=== PATIENT | female | born 1975 | race Caucasian/White ===

== ENCOUNTER 2017-03-27 01:07 | Emergency (ER) | payer BC, SELFPAY | END 2017-03-27 04:01 | disposition home or self-care (01) | PROVIDERS: Emergency Provider Emergency Medicine; Family Provider Internal Medicine Adolescent Medicine; Visit Provider Emergency Medicine | DX: R50.9 Fever, unspecified (principal); D64.9 Anemia, unspecified; E78.5 Hyperlipidemia, unspecified | CPT/HCPCS: 74176; 80053; 81001; 82150; 83690; 85025; 87275; 87276; 96365; 99283 ==

== ENCOUNTER → 2017-04-30 13:03 | Outpatient (CLI) | payer OTHER, SELFPAY ==
[2017-04-30 13:54] LABS: Basophils # 0.1 K/mm3 (0-0.2); Basophils % 1.1 % (0.1-2.0); Eosinophils # 0.2 K/mm3 (0.0-0.4); Eosinophils % 3.5 % (0.1-12.0); Hematocrit 44.4 % (37.0-47.0); Hemoglobin 14.6 g/dL (12.2-16.2); Lymphocytes # 1.4 K/mm3 (0.7-4.5); Lymphocytes % 27.4 K/mm3 (10-50); Mean Corpuscular HGB Conc 32.9 g/dL (31.8-35.4); Mean Corpuscular Hemoglobin 29.1 pg (27.0-31.2); Mean Corpuscular Volume 88.4 fl (81-99); Mean Platelet Volume 9.9 fl (7.4-10.4); Monocytes # 0.4 K/mm3 (0.1-1.0); Monocytes % 8.5 % (1.7-9.3); Neutrophils # 2.9 K/mm3 (1.8-7.8); Neutrophils % 59.5 % (37.0-80.0); Platelet Count 224 K/mm3 (142-424); Red Blood Count 5.02 M/mm3 (4.20-5.40); Red Cell Distribution Width 13.9 % (11.5-17.5); White Blood Count 4.9 K/mm3 (4.8-10.8)
[2017-04-30 22:58] LABS: Alanine Aminotransferase 26 U/L (12-78); Albumin Level 3.9 gm/dL (3.4-5.0); Albumin/Globulin Ratio 1.6 (1.1-1.8); Alkaline Phosphatase 62 U/L (46-116); Anion Gap 15.4 mEq/L (5-15); Aspartate Amino Transferase 23 U/L (15-37); Bilirubin,Total 0.3 mg/dL (0.2-1.0); Blood Urea Nitrogen 12 mg/dL (7-18); Calcium 8.4 mg/dL (8.5-10.1); Carbon Dioxide 24 mmol/L (21.0-32.0); Chloride 109 mmol/L (98-107); Chol/HDL Ratio 2.8 (1-3.5); Cholesterol 142 mg/dL (140-200); Creatinine,Serum 0.74 mg/dL (0.55-1.02); Estimated Glomerular Filt Rate 86 ml/min (>60); Ferritin 12 ng/mL (8-388); GFR (African American) 104 ML/MIN (>60); Globulin 2.5 gm/dl (1.3-3.2); Glucose 89 mg/dL (74-106); HDL Cholesterol 51 mg/dL (29-89); LDL Cholesterol 80 mg/dL (0-130); Potassium 4.4 mmoL/L (3.5-5.1); Sodium 144 mmol/L (136-145); Thyroid Stimulating Hormone 1.13 uIU/ml (0.358-3.740); Total Protein,Serum 6.4 gm/dL (6.4-8.2); Triglycerides 54 mg/dL (30-200); VLDL Cholesterol 11 mg/dL (0-40)
[2017-05-01 08:27] LABS: Iron 38 ug/dL (27-159); Iron Saturation 11 % (15-55); UIBC 323 ug/dL (131-425)
[2017-05-01 18:27] LABS: Vitamin D 25 Hydroxy 20.6 ng/mL (30.0-100.0)
[2017-05-01 18:28] LABS: Folate 13.9 ng/mL (>3.0); Vitamin B12 972 pg/mL (232-1245)
== END ==
PROVIDERS: PCP Nurse Practitioner Family; Visit Provider Nurse Practitioner Family
DX: R53.83 Other fatigue (principal); D50.9 Iron deficiency anemia, unspecified; Z00.00 Encounter for general adult medical examination without abnormal findings
CPT/HCPCS: 36415; 80053; 80061; 82607; 82652; 82728; 82746; 83550; 84443; 85025

== ENCOUNTER → 2017-06-16 07:17 | Outpatient (CLI) | payer OTHER, SELFPAY ==
[2017-06-16 10:05] LABS: Free Thyroxine Index 2.8 ug/dL (5.93-13.13); Magnesium 1.9 mg/dL (1.4-2.2); Thyroid Stimulating Hormone 1.38 uIU/ml (0.358-3.740); Triiodothryronine (T3) Uptake 35 % (31-39)
== END ==
PROVIDERS: Visit Provider Internal Medicine Adolescent Medicine
DX: R55 Syncope and collapse (principal); I95.1 Orthostatic hypotension
CPT/HCPCS: 36415; 82533; 83735; 84436; 84443; 84479

== ENCOUNTER → 2017-06-19 08:39 | Outpatient (CLI) | payer OTHER, SELFPAY ==
--- NOTE | 2017-06-19 08:44 | MR_ITS ---
MR head/brain wo con Ordering Physician: Demarcus Munroe MD Patient Age: 41 years: Female HISTORY: ITS.REASON: HEADACHE DISORDER Headaches with dizziness for weeks TECHNIQUE: : Precontrast Multiplanar FLAIR, T1, T2 weighted images along with axial diffusion/ADC imaging performed on 1.5 T. Siemens, MRI. Postcontrast imaging Following 12 mL ProHance T1-weighted images axial & coronal plane performed COMPARISON :September 2008 CT head without contrast,.. March 2010 & September 2013 CT head without contrast. FINDINGS The only abnormality on today's study is a a small bilobed cystic area, measures 10 mm AP x 7.5 mm transverse x 9 mm height. It contains a stable small central calcification which appears unchanged compared to CT head from 2008 well as 2013.. Is located in the white matter tracts just superior and separate to the to the atria of the left lateral ventricle This reflects a benign cystic feature such as a neural glial cyst, apparently with calcification.. On initially question a small porencephalic cyst but I do not see a connection to the left lateral ventricle but Small remote posttraumatic focus also a consideration.. There is NO abnormal vessels leading to this area on today's study to suggest AVM; & prior postcontrast CT head 2008 showed No enhancement about this area of calcification nor elsewhere at the brain.It has no mass effect. No gliosis about its margin to suggest a previous lacunar infarct. Overall I believe benign, / indolent incidental feature that can be followed. That stable calcification within this area measured just over 5 mm on the previous CT studies . The ventricles and basal cisterns otherwise appears satisfactory. The cranial cervical junction is normal. The posterior fossa is normal. The right and left IAC appear normal with unremarkable cranial nerve VII and VIII mastoid air cells appear satisfactory Sella and pituitary appear normal. . Remainder of the supratentorial and infratentorial brain appear normal. No subdural or extra-axial collections. Right maxillary sinus. Complete or near-complete opacification. This extends up to but does not appear to fully involve/occlude right ostiomeatal complex- suspect outflow pathway remains patent... There is no expansion of the right maxillary sinus. I suspect this reflects a very large retention cyst based on its view on sagittal images. There may be some associated mucosal thickening... Most important as it does not distort nor expand the hernandez of right maxillary sinus.. No expansion nor destruction. Chronic mucosal thickening also considered but less likely.. Other more Significant mass lesions unlikely. If. If dizzy and headaches suggest ENT follow-up to further evaluate this potential contributing feature. Left maxillary sinus with tiny unimpressive focal area of mucosal thickening anteriorly at the left maxillary sinus. This measures 7.5 x 5 mm.. Not significant. Ethmoid air cells, sphenoid sinus and frontal sinus are clear. Orbits survey and globes unremarkable. =====IMPRESSION ===== 1. No acute findings.. No recent or acute infarct 2. Small 1 cm bilobed cystic area located just superior & separate from the atria of Left lateral ventricle;. There appears to be a associated 5 mm calcification which was present and stable on CT studies dating back to 2008 through 2013. .. Appears to reflect a a benign/ indolent small incidental cystic area with associated stable calcifications since CT head studies that back to 2008.... 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 Less likely sequela of remote old trauma. Not felt to be of current significance.. However white consider follow-up MR with contrast within 6 months to additionally confirm stability particularly if headache or symptoms persist 3.
== END ==
PROVIDERS: Family Provider Internal Medicine Adolescent Medicine; PCP Nurse Practitioner Family; Visit Provider Internal Medicine Adolescent Medicine
DX: R51 Headache (principal)
CPT/HCPCS: 70551

== ENCOUNTER → 2017-07-22 13:22 | Outpatient (CLI) | payer OTHER, SELFPAY ==
--- NOTE | 2017-07-22 13:23 | CT_ITS ---
CT sinus wo con CLINICAL INDICATION: Headache, abnormal MRI ITS.REASON: Cyst in RT maxillary sinus cavity ORDERING PHYSICIAN: Brandon Donahue MD PATIENT AGE: 41 years comparison is made to MRI of 06/19/2017 TECHNIQUE:Axial, sagittal, and coronal images are generated and reviewed without contrast. All CT scans at the facility use one or more dose reduction, viz: automated exposure control; ma/kV adjustment per patient size (including targeted exams where dose is matched to indication; i.e. head); or right reconstruction technique. FINDINGS: The frontal, ethmoid, and sphenoid sinuses have an unremarkable appearance. A large ovoid soft tissue density is present in the right maxillary sinus measuring 3.3 x 2.7 x 3 cm consistent with a large retention cyst. The right ostomy or complex is patent. No evidence of destruction of the maxillary sinus. No sinus air-fluid level is evident. A small retention cyst is present in the left maxillary sinus inferiorly 4 mm No significant nasal septal deviation. There is moderate flattening of the right mandibular condyle consistent with osteoarthritic changes. Minimal osteoarthritis involves the left TMJ. No mastoid effusion. IMPRESSION: Large right maxillary sinus retention cyst at 3.3 x 2.7 x 3 cm TMJ arthropathy right worsening left Otherwise negative CT sinuses
== END ==
PROVIDERS: Family Provider Internal Medicine Adolescent Medicine; PCP Nurse Practitioner Family; Visit Provider Otolaryngology
DX: J34.1 Cyst and mucocele of nose and nasal sinus (principal)
CPT/HCPCS: 70486

== ENCOUNTER → 2017-08-07 10:54 | Outpatient (CLI) | payer OTHER, SELFPAY ==
[2017-08-07 12:18] LABS: Basophils % 0.6 % (0.1-2.0); Eosinophils # 0.1 K/mm3 (0.0-0.4); Hematocrit 40.3 % (37.0-47.0); Hemoglobin 13.5 g/dL (12.2-16.2); Mean Corpuscular HGB Conc 33.5 g/dL (31.8-35.4); Mean Corpuscular Hemoglobin 29.6 pg (27.0-31.2); Mean Corpuscular Volume 88.4 fl (81-99); Mean Platelet Volume 9.1 fl (7.4-10.4); Monocytes # 0.5 K/mm3 (0.1-1.0); Monocytes % 8.2 % (1.7-9.3); Neutrophils # 4.8 K/mm3 (1.8-7.8); Neutrophils % 74.2 % (37.0-80.0); Platelet Count 222 K/mm3 (142-424); Red Blood Count 4.55 M/mm3 (4.20-5.40); Red Cell Distribution Width 13.9 % (11.5-17.5); White Blood Count 6.5 K/mm3 (4.8-10.8)
[2017-08-07 13:11] LABS: Alanine Aminotransferase 21 U/L (12-78); Albumin Level 3.3 gm/dL (3.4-5.0); Albumin/Globulin Ratio 1.3 (1.1-1.8); Alkaline Phosphatase 57 U/L (46-116); Anion Gap 12.3 mEq/L (5-15); Aspartate Amino Transferase 14 U/L (15-37); Bilirubin,Total 0.4 mg/dL (0.2-1.0); Blood Urea Nitrogen 18 mg/dL (7-18); Calcium 8.5 mg/dL (8.5-10.1); Carbon Dioxide 28 mmol/L (21.0-32.0); Chloride 109 mmol/L (98-107); Creatinine,Serum 0.66 mg/dL (0.55-1.02); Estimated Glomerular Filt Rate 98 ml/min (>60); GFR (African American) 119 ML/MIN (>60); Globulin 2.6 gm/dl (1.3-3.2); Glucose 83 mg/dL (74-106); Potassium 4.3 mmoL/L (3.5-5.1); Sodium 145 mmol/L (136-145); Total Protein,Serum 5.9 gm/dL (6.4-8.2)
== END ==
PROVIDERS: Visit Provider Otolaryngology
DX: Z01.818 Encounter for other preprocedural examination (principal); J34.1 Cyst and mucocele of nose and nasal sinus
CPT/HCPCS: 36415; 80053; 85025; 93005

== ENCOUNTER → 2018-01-05 07:11 | Outpatient (CLI) | payer OTHER, SELFPAY ==
[2018-01-05 07:50] LABS: Basophils % 0.6 % (0.1-2.0); Eosinophils # 0.1 K/mm3 (0.0-0.4); Eosinophils % 1.9 % (0.1-12.0); Hematocrit 40.6 % (37.0-47.0); Hemoglobin 12.8 g/dL (12.2-16.2); Lymphocytes # 1.3 K/mm3 (0.7-4.5); Lymphocytes % 17.8 K/mm3 (10-50); Mean Corpuscular HGB Conc 31.5 g/dL (31.8-35.4); Mean Corpuscular Hemoglobin 26.9 pg (27.0-31.2); Mean Corpuscular Volume 85.5 fl (81-99); Mean Platelet Volume 8.1 fl (7.4-10.4); Monocytes # 0.4 K/mm3 (0.1-1.0); Monocytes % 5.8 % (1.7-9.3); Neutrophils # 5.3 K/mm3 (1.8-7.8); Platelet Count 257 K/mm3 (142-424); Red Blood Count 4.76 M/mm3 (4.20-5.40); Red Cell Distribution Width 14.1 % (11.5-17.5); White Blood Count 7.2 K/mm3 (4.8-10.8)
[2018-01-05 09:24] LABS: Alanine Aminotransferase 20 U/L (12-78); Albumin Level 3.1 gm/dL (3.4-5.0); Albumin/Globulin Ratio 1.2 (1.1-1.8); Alkaline Phosphatase 65 U/L (46-116); Anion Gap 10.2 mEq/L (5-15); Aspartate Amino Transferase 9 U/L (15-37); Bilirubin,Total 0.5 mg/dL (0.2-1.0); Blood Urea Nitrogen 11 mg/dL (7-18); Calcium 8.3 mg/dL (8.5-10.1); Carbon Dioxide 30 mmol/L (21.0-32.0); Chloride 108 mmol/L (98-107); Estimated Glomerular Filt Rate 91 ml/min (>60); Free Thyroxine Index 2.3 ug/dL (5.93-13.13); GFR (African American) 111 ML/MIN (>60); Globulin 2.5 gm/dl (1.3-3.2); Glucose 87 mg/dL (74-106); Potassium 4.2 mmoL/L (3.5-5.1); Sodium 144 mmol/L (136-145); T4 (Thyroxine) 6.6 ug/dl (4.7-13.3); Thyroid Stimulating Hormone 1.34 uIU/ml (0.358-3.740); Total Protein,Serum 5.6 gm/dL (6.4-8.2); Triiodothryronine (T3) Uptake 35 % (31-39)
[2018-01-06 11:35] LABS: Vitamin B12 734 pg/mL (232-1245); Vitamin D 25 Hydroxy 17.6 ng/mL (30.0-100.0)
== END ==
PROVIDERS: PCP Internal Medicine Adolescent Medicine; Visit Provider Internal Medicine Adolescent Medicine
DX: R53.81 Other malaise (principal); E55.9 Vitamin D deficiency, unspecified
CPT/HCPCS: 36415; 80053; 82607; 82652; 84436; 84443; 84479; 85025

== ENCOUNTER → 2018-02-01 15:11 | Outpatient (CLI) | payer OTHER, SELFPAY ==
[2018-02-01 17:55] LABS: Amphetamine/Metha Screen,Urine Negative ng/mL (<1000); Barbiturates Screen,Urine Negative ng/mL (<200); Benzodiazepines Screen,Urine Negative ng/mL (<200); Cannabinoid Screen,Urine Negative ng/mL (<50); Cocaine Screen,Urine Negative ng/mL (<300); Methadone Screen,Urine Negative ng/mL (<300); Opiate Screen,Urine Negative ng/mL (<300); Phencyclidine Screen,Urine Negative ng/mL (<25)
== END ==
PROVIDERS: Visit Provider Nurse Practitioner Family
DX: R68.89 Other general symptoms and signs (principal)
CPT/HCPCS: 80305

== ENCOUNTER → 2018-02-11 16:10 | Outpatient (CLI) | payer OTHER, SELFPAY ==
--- NOTE | 2018-02-11 16:13 | MM_ITS ---
MM Dig screening mamm BI w/CAD CAD Screening COMPARISON: Digital mammograms with CAD 02/13/2016 and additional views left breast 03/12/2016 INDICATION: There is a history of breast cancer in the patient's maternal cousin TECHNIQUE: Standard CC and MLO images were obtained. R2 CAD reviewed. FINDINGS: Moderate diffuse somewhat heterogenic fibroglandular densities are seen throughout both breasts. Again noted is a stable benign-appearing asymmetric density lower inner quadrant left breast. There are few benign-appearing microcalcifications right breast. There is no suspicious lesion and there are no suspicious microcalcifications. IMPRESSION: Moderate diffuse breast density with no suspicious lesion seen BI-RADS Category: 2 Benign Finding(s) RECOMMENDED FOLLOW-UP: 1YR - 1 YEAR FOLLOW-UP (A letter has been sent to the patient regarding results of the study.)
== END ==
PROVIDERS: PCP Emergency Medicine; Visit Provider Emergency Medicine
DX: Z12.31 Encounter for screening mammogram for malignant neoplasm of breast (principal)
CPT/HCPCS: 77067

== ENCOUNTER → 2018-04-26 08:20 | Outpatient (CLI) | payer OTHER, SELFPAY ==
--- NOTE | 2018-04-26 08:22 | US_ITS ---
US abdomen complete HISTORY: Palpable area right lower quadran ITS.REASON: nodule palpable ORDERING PHYSICIAN: Shilpi Díaz PATIENT AGE: 42 years COMPARISON: CT abdomen from back in March 2017 FINDINGS: The patient had a hematoma as right lower quadrant in January 23 and she still feels this area These limited ultrasound images focus on the palpable areas right lower quadrant. This is located just beneath the skin and measures 1.6 cm length X 1 cm AP, X 1.67 cm transverse. Period solid appearance. Of this is a solid nodule just within the subcutaneous tissues immediately deep to the skin & dermis layer.. Although it may indeed reflect residual hematoma It does not demonstrate partial Liquefaction as can be often be seen a maturing hematoma. It is diffusely solid. Also there does seem to be some flow at the margins of this area, which is atypical and an would be feature for a hematoma. This requires close follow-up. Might consider a CT if orbit does not resolve over demonstrate more evident resolution over the next 6-8 weeks ultrasound-guided biopsy may need to be considered. IMPRESSION... solid nodule just beneath the skin at here to right lower quadrant. Measures just over 1.6 cm. . Indeterminate character by ultrasound. .. Patient gives a history of trauma & hematoma here January 2018 -however there are some atypical features for this as a hematoma including some minimal vascular color Doppler flow into into the margins of this solid area Warrants close follow-up. If persist with no regression suggest CT within 4-6 weeks. & & Then Consider ultrasound-guided biopsy if it does show definite clinical regression over the next 6-8 weeks
== END ==
PROVIDERS: PCP Nurse Practitioner Family; Referring Provider Nurse Practitioner Family; Visit Provider Nurse Practitioner Family
DX: S30.1XXA Contusion of abdominal wall, initial encounter (principal)
CPT/HCPCS: 76700

== ENCOUNTER → 2018-05-07 09:41 | Outpatient (CLI) | payer OTHER, SELFPAY ==
--- NOTE | 2018-05-07 09:53 | US_ITS ---
US transvaginal HISTORY: Abnormal uterine bleeding, prolonged bleeding ITS.REASON: DUB ORDERING PHYSICIAN: Bradley Feliciano MD PATIENT AGE: 42 years Comparison: None Last menstrual period: 04/20/2018 FINDINGS: UTERUS: Uterus is somewhat bulky measuring 10 x 4.4 x 5.8 cm. Endometrium is upper normal at 1 cm. No uterine mass. The right ovary is 3 x 2 cm and contains a 17 mm cyst. Blood flow is present. The left ovary is 2.9 x 2.3 cm and contains a 16 mm cyst. Blood flow is present. No cul-de-sac fluid apparent. IMPRESSION: 1. Bulky uterus with endometrial thickness upper limits of normal. 2. Small bilateral ovarian cysts
== END ==
PROVIDERS: PCP Emergency Medicine; Referring Provider Obstetrics & Gynecology; Visit Provider Obstetrics & Gynecology
DX: N93.8 Other specified abnormal uterine and vaginal bleeding (principal)
CPT/HCPCS: 76830

== ENCOUNTER → 2018-05-27 16:32 | Outpatient (CLI) | payer OTHER, SELFPAY ==
[2018-05-27 16:34] LABS: Microscopic, Urine URINE MICROSCOPIC (MICROSCOPIC)
[2018-05-27 16:52] LABS: Appearance,Urine CLEAR (Clear); Bilirubin,Urine Negative (Negative); Blood, Urine TRACE-L (Negative); Color,Urine YELLOW (Yellow); Glucose,Urine (UA) Negative (Negative); Ketones,Urine Negative (Negative); Leukocyte Esterase,Urine Negative (Negative); Nitrate,Urine Negative (Negative); Protein,Urine Negative (Negative); Urobilinogen,Urine 0.2 EU/dl (0.2)
[2018-05-27 17:04] LABS: Bacteria,Urine Trace /lpf; Squamous Epithelial Cell,Urine Occasional #/hpf (0-5); WBC,Urine Occasional #/hpf (0-3)
[2018-05-27 17:17] LABS: Basophils # 0.1 K/mm3 (0-0.2); Basophils % 0.9 % (0.1-2.0); Eosinophils # 0.2 K/mm3 (0.0-0.4); Eosinophils % 2.6 % (0.1-12.0); Hematocrit 40.6 % (37.0-47.0); Lymphocytes # 1.4 K/mm3 (0.7-4.5); Mean Corpuscular HGB Conc 32.1 g/dL (31.8-35.4); Mean Corpuscular Hemoglobin 27.1 pg (27.0-31.2); Mean Corpuscular Volume 84.3 fl (81-99); Mean Platelet Volume 8.7 fl (7.4-10.4); Monocytes # 0.3 K/mm3 (0.1-1.0); Monocytes % 5.7 % (1.7-9.3); Neutrophils # 3.9 K/mm3 (1.8-7.8); Neutrophils % 66.7 % (37.0-80.0); Platelet Count 314 K/mm3 (142-424); Red Blood Count 4.82 M/mm3 (4.20-5.40); Red Cell Distribution Width 15.5 % (11.5-17.5); White Blood Count 5.9 K/mm3 (4.8-10.8)
[2018-05-27 17:29] LABS: Alanine Aminotransferase 20 U/L (12-78); Albumin Level 3.7 gm/dL (3.4-5.0); Albumin/Globulin Ratio 1.4 (1.1-1.8); Alkaline Phosphatase 65 U/L (46-116); Anion Gap 12.4 mEq/L (5-15); Aspartate Amino Transferase 9 U/L (15-37); Bilirubin,Total 0.3 mg/dL (0.2-1.0); Blood Urea Nitrogen 15 mg/dL (7-18); Calcium 8.9 mg/dL (8.5-10.1); Carbon Dioxide 28 mmol/L (21.0-32.0); Chloride 108 mmol/L (98-107); Creatinine,Serum 0.96 mg/dL (0.55-1.02); Estimated Glomerular Filt Rate 63 ml/min (>60); GFR (African American) 77 ML/MIN (>60); Globulin 2.7 gm/dl (1.3-3.2); Glucose 89 mg/dL (74-106); Potassium 4.4 mmoL/L (3.5-5.1); Sodium 144 mmol/L (136-145); Total Protein,Serum 6.4 gm/dL (6.4-8.2)
[2018-05-27 17:41] LABS: HCG Qualitative, Serum Negative (Negative)
== END ==
PROVIDERS: Visit Provider Obstetrics & Gynecology
DX: Z01.818 Encounter for other preprocedural examination (principal); N93.8 Other specified abnormal uterine and vaginal bleeding
CPT/HCPCS: 36415; 80053; 81001; 84703; 85025

== ENCOUNTER 2018-06-03 06:06 | Inpatient (IN) ==
--- NOTE | 2018-06-03 07:04 | Progress Note ---
[facility] Anesthesia Checklist - Patient Identification Patient Identification: Arm Band, Verbal (Name & ) - Structural Data Admitted From: Home Planned Operative Procedure/s: lin Consent for Planned Operative Procedure(s) Verified: Yes Verified Documents: History and Physical - NPO Status Verified Time NPO: 00:00 - Additional verifications Patient : No Anesthesia Reactions: No Hx Blood Transfusions: No Blood Transfusion Reaction: No - Cardiovascular Assessment Heart Sounds: S1 & S2 Pulse Strength: Baseline Pulse Rhythm: Regular Peripheral Edema: No - Airway Assessment C-Spine Mobility Assessed: Yes TMJ Mobility Assessed: Yes Dentition: Good Dentition - Neurological Assessment Level of Consciousness: Awake, Alert, Appropriate Hx Seizures: No Numbness or tingling in extremities: No - Anesthesia Plan Anesthesia Risk discussed: Yes Anesthesia Plan: Verified ASA Class: II Anesthesia Type: General [facility] History I have reviewed the patient's past medical history: Yes Medical History: Reports:: Depression, Gastroesophageal Reflux Disease(GERD), Migraine Denies:: Cancer, Chronic Obstructive Pulmonary Disease (COPD), Diabetes Mellitus Type 1, Diabetes Mellitus Type 2, Internal Pacemaker, MRSA, Seizures *Have you ever received a pneumonia vaccine?: No *Have you received a flu vaccine this season?: Yes Other Medical History: Reports: Anemia. Denies: Blood Transfusion Reaction Laterality Cases: Bilateral: Tonsillectomy Other Surgeries: Yes: Bariatric Surgery, Cholecystectomy, , Diagnostic Lap, Hernia Repair, Other. No: Pacemaker Amputation: No Fractures: No - *Social History Smoking Status: Never smoker Alcohol Intake: never Alcohol Intake Frequency:: holidays/special occasions only Substance Use Type: denies use *Occupational Status:: employed Housing: house Household Members: spouse *Travel in the last 8 weeks: None - Psychiatric History Expresses thoughts of harming self/others: None Suicide Plan Description: No Plan Pschychiatric History:: Reports:: Depression Family Hx:: Diabetes
--- NOTE | 2018-06-03 08:53 | Operative Note ---
Date of procedure: 06/03/18 Pre-op Diagnosis:: 1. Dysfunctional uterine bleeding. 2. Adenomyosis. Post-op Diagnosis:: 1. Dysfunctional uterine bleeding. 2. Adenomyosis. Procedure performed:: Total abdominal hysterectomy, bilateral salpingo-oophorectomy. Surgeon:: Bradley Feliciano MD Supervisor [employer](s):: ROSA M Hall [employer]ANT ENGINEER:: Demarcus Colette Anesthesia: GETA Estimated blood loss (mL): 300 Operative findings:: Adenomyosis Operative note:: After the patient was prepped and draped in usual fashion and general anesthesia was administered, a low Pfannenstiel incision was made through the previous incision, and the fat and fascia was in the usual fashion, bleeders being clamped and coagulated along the way. The peritoneum was entered with Metzenbaum scissors, and extended above and below. A self-retaining Cassie retractor with bladder blade was placed. The upper abdomen was explored and found to be normal. Mesh was present in the umbilical area. The bowel was packed away, and the pelvic organs were identified. The uterus was enlarged and boggy, consistent with adenomyosis. Each tube was followed out to its fimbriated end, which appeared free. Each ovary appeared normal. The uterine fundus was grasped with a double-tooth tenaculum, and the round ligament on either side was Bhavna clamped, cut, and Lolis suture with #1 Vicryl. The bladder peritoneum was sharply and bluntly dissected from the area of incision. By prior arrangement, both adnexa were to be removed. Therefore, the infundibulopelvic ligament on either side was Bhavna clamped, cut, and Lolis sutured with #1 Vicryl, and then free tied with #1 Vicryl. The uterine vessels, the cardinal and uterosacral ligaments were individually, bilaterally, Lolis clamped, cut, and Lolis sutured with #1 Vicryl. The vagina was entered anteriorly with a knife, and the uterine specimen was removed with Liss scissors. Mary clamps were used to tent up the vaginal cuff, which was closed with a running locked suture of #1 Vicryl, to include the uterosacral ligament pedicles for vaginal support. After irrigation, Gelfoam was placed in the cul-de-sac, and the peritoneum was grasped with 3 Tanvi clamps, and closed with a running semi-lock suture of 0 Vicryl. The muscle was approximated with a running unlocked suture of 0 Vicryl. The fascia was closed with a running locked suture of #1 Vicryl. The subcutaneous fat and Tanner's fascia were closed with a running unlocked suture of 2-0 Vicryl. The skin was closed with a subcuticular suture of 3-0 Vicryl, and appropriately dressed. The sponge and needle counts correct. The urine was clear in the Mcdaniels catheter. The estimated blood loss was 300 cc. The patient tolerated the procedure well, and was taken to PACU in excellent condition. She will be admitted postoperatively. Condition: stable Disposition: PACU Specimens:: Uterus and both adnexa Complications:: None
--- NOTE | 2018-06-03 08:55 | Progress Note ---
[facility] Anesthesia Record Part I Intake, IV Amount: 600 Estimated blood loss (mL): 10 Urine output (mL): 30 Blood Products used (#): none Blood Pressure: 127/75 SaO2: 96 Pulse Rate: 88 Respiratory Rate: 16 Temperature: 97.8 F Patient is:: Drowsy, Stable Stable to PACU at:: 08:55
--- NOTE | 2018-06-03 08:56 | Progress Note ---
[facility] Anesthesia Record Part II Discharge Time: 09:25 Destination: Medical Surgical Department PACU nurse assessment reviewed?: Yes Patient Condition:: Good Anesthesia Complications:: None Swallowing reflex intact?: Yes Cyanosis?: No
[2018-06-03 09:26] LABS: Hematocrit 37.7 % (37.0-47.0); Hemoglobin 11.9 g/dL (12.2-16.2)
--- NOTE | 2018-06-03 14:26 | Progress Note ---
Internal Medicine - PN: Subj *Date: 06/03/18 *Time: 14:26 Interval history: This is day of surgery. Surgery has been explained to the patient. She is reasonably comfortable at this time. Impression: Stable. Exam Vital signs and Labs for Last 24 Hours: Temp Pulse Resp BP Pulse Ox 97.8 F 63 18 123/63 99 06/03/18 10:15 06/03/18 11:15 06/03/18 11:15 06/03/18 11:15 06/03/18 11:15 Laboratory Results - last 24 hr 06/03/18 06:15: Urine HCG, Qual Negative 06/03/18 09:21: Hgb 11.9 L, Hct 37.7 I & O for Last 24 hours: Intake & Output 06/01/18 06/02/18 06/03/18 06/04/18 11:59 11:59 11:59 11:59 Intake Total 850 / 850 Output Total 85 / 85 Balance 765 / 765 Weight 187 lb
[2018-06-04 06:26] LABS: Hematocrit 36.5 % (37.0-47.0); Hemoglobin 11.5 g/dL (12.2-16.2)
--- NOTE | 2018-06-04 07:15 | Progress Note ---
Internal Medicine - PN: Subj *Date: 06/04/18 *Time: 07:14 Interval history: This is postop day #1. The patient is afebrile. Vital signs stable. Wound clean. Abdomen soft. Mcdaniels has been removed and she has voided well. Hemoglobin 11.5 g. Impression: Stable. Exam Vital signs and Labs for Last 24 Hours: Temp Pulse Resp BP Pulse Ox 98.8 F 79 16 104/45 L 98 06/04/18 03:47 06/04/18 03:47 06/04/18 03:47 06/04/18 03:47 06/04/18 03:47 Laboratory Results - last 24 hr 06/03/18 07:20: Urine Color Dk yellow, Urine Appearance Clear, Urine pH 6.5, Ur Specific [place] 1.020, Urine Protein Negative, Urine Glucose (UA) Negative, Urine Ketones Negative, Urine Blood Negative, Urine Nitrate Negative, Urine Bilirubin Negative, Urine Urobilinogen 0.2, Ur Leukocyte Esterase Negative, Urine RBC None, Urine WBC None, Ur Squamous Epith Cells Occasional, Urine Bacteria Trace 06/03/18 09:21: Hgb 11.9 L, Hct 37.7 06/04/18 05:08: Hgb 11.5 L, Hct 36.5 L I & O for Last 24 hours: Intake & Output 06/01/18 06/02/18 06/03/18 06/04/18 11:59 11:59 11:59 11:59 Intake Total 850 / 850 3211 / 3211 Output Total 85 / 85 900 / 900 Balance 765 / 765 2311 / 2311 Weight 187 lb
--- NOTE | 2018-06-04 08:24 | Pharmacy Consult Notes ---
[facility] Pharmacy VTE Monitoring - Patient Demographics Admission date: 06/03/18 Report Date: 06/04/18 Time: 08:23 Allergies/Adverse Reactions: Patient Allergies lamotrigine Allergy (Intermediate, Verified 06/03/18 06:29) I-RASH Height: 1.57 m Weight: 84.822 kg - VTE Risk Labs: VTE Related Lab Results Hgb 11.5 g/dL (12.2-16.2) L 06/04/18 05:08 Hct 36.5 % (37.0-47.0) L 06/04/18 05:08 Clinical Trial Participant: No - Prophylaxis VTE Prophylaxis Ordered?: Yes Types of VTE Prophylaxis: IPCS Knee High Location of Applied Device: Refused (POSTOP)
--- NOTE | 2018-06-05 08:26 | Progress Note ---
Internal Medicine - PN: Subj *Date: 06/05/18 *Time: 08:25 Interval history: This is postop day #2. The patient is afebrile. Vital signs stable. Wound clean. Abdomen soft. Minimal flatus at this time. Voiding well. Plan is to advance her diet and treated with Mylicon and ambulation. Probably home tomorrow. Exam Vital signs and Labs for Last 24 Hours: Temp Pulse Resp BP Pulse Ox 99.1 F 87 16 114/56 L 99 06/05/18 08:00 06/05/18 08:00 06/05/18 08:18 06/05/18 08:00 06/05/18 08:00 I & O for Last 24 hours: Intake & Output 06/02/18 06/03/18 06/04/18 06/05/18 11:59 11:59 11:59 11:59 Intake Total 850 / 850 3211 / 3211 Output Total 85 / 85 900 / 900 1700 / 1700 Balance 765 / 765 2311 / 2311 -1700 / -1700 Weight 187 lb 187 lb
[2018-06-05 14:54] LABS: Basophils % 0.1 % (0.1-2.0); Eosinophils # 0.1 K/mm3 (0.0-0.4); Eosinophils % 1.3 % (0.1-12.0); Hemoglobin 10.4 g/dL (12.2-16.2); Lymphocytes # 0.3 K/mm3 (0.7-4.5); Lymphocytes % 3.4 % (10-50); Mean Corpuscular HGB Conc 32.5 g/dL (31.8-35.4); Mean Corpuscular Hemoglobin 27.2 pg (27.0-31.2); Mean Corpuscular Volume 83.7 fl (81-99); Mean Platelet Volume 8.5 fl (7.4-10.4); Monocytes # 0.4 K/mm3 (0.1-1.0); Monocytes % 3.7 % (1.7-9.3); Neutrophils # 8.7 K/mm3 (1.8-7.8); Neutrophils % 91.5 % (37.0-80.0); Platelet Count 197 K/mm3 (142-424); Red Blood Count 3.83 M/mm3 (4.20-5.40); Red Cell Distribution Width 15.1 % (11.5-17.5); White Blood Count 9.6 K/mm3 (4.8-10.8)
[2018-06-05 17:39] LABS: Lymphocytes % 2 % (10-50); Monocytes % 3 % (2-9); Neutrophils % 95 % (42-76); Total Cells Counted 100
[2018-06-05 17:40] LABS: Hypochromasia 1+
[2018-06-06 11:00] LABS: Basophils % 0.2 % (0.1-2.0); Eosinophils # 0.1 K/mm3 (0.0-0.4); Eosinophils % 1.8 % (0.1-12.0); Hematocrit 32.7 % (37.0-47.0); Lymphocytes # 0.3 K/mm3 (0.7-4.5); Lymphocytes % 3.7 % (10-50); Mean Corpuscular HGB Conc 33.6 g/dL (31.8-35.4); Mean Corpuscular Hemoglobin 27.9 pg (27.0-31.2); Mean Corpuscular Volume 83.1 fl (81-99); Monocytes # 0.2 K/mm3 (0.1-1.0); Monocytes % 2.1 % (1.7-9.3); Neutrophils # 6.9 K/mm3 (1.8-7.8); Neutrophils % 92.2 % (37.0-80.0); Platelet Count 188 K/mm3 (142-424); Red Blood Count 3.93 M/mm3 (4.20-5.40); White Blood Count 7.5 K/mm3 (4.8-10.8)
[2018-06-06 11:07] LABS: Albumin Level 2.5 gm/dL (3.4-5.0); Albumin/Globulin Ratio 0.8 (1.1-1.8); Anion Gap 10.4 mEq/L (5-15); Bilirubin,Total 1.1 mg/dL (0.2-1.0); Calcium 8.2 mg/dL (8.5-10.1); Globulin 3.1 gm/dl (1.3-3.2); Potassium 3.4 mmoL/L (3.5-5.1); Total Protein,Serum 5.6 gm/dL (6.4-8.2)
[2018-06-06 11:12] LABS: Microscopic, Urine URINE MICROSCOPIC (MICROSCOPIC)
[2018-06-06 12:09] LABS: Appearance,Urine CLEAR (Clear); Bilirubin,Urine Negative (Negative); Blood, Urine TRACE-I (Negative); Color,Urine YELLOW (Yellow); Glucose,Urine (UA) Negative (Negative); Ketones,Urine TRACE (Negative); Leukocyte Esterase,Urine Negative (Negative); Protein,Urine Negative (Negative)
[2018-06-06 12:34] LABS: WBC,Urine Occasional #/hpf (0-3)
[2018-06-06 12:35] LABS: Bacteria,Urine Trace /lpf; RBC,Urine Occasional #/hpf (0-3); Squamous Epithelial Cell,Urine Occasional #/hpf (0-5)
[2018-06-06 12:53] LABS: Lymphocytes % 3 % (10-50); Monocytes % 1 % (2-9); Neutrophils % 94 % (42-76); Total Cells Counted 100
[2018-06-06 12:56] LABS: RBC Morphology Normal
--- NOTE | 2018-06-06 13:58 | Progress Note ---
Internal Medicine - PN: Subj *Date: 06/06/18 *Time: 13:47 Interval history: POD #3 abdominal hysterectomy Temp elevation 101.7 @ 2pm yesterday, with decrease to 98-99 overnight Elevated again this am 102.6 (10am) and given tylenol; temp 103.0 @ noon. Temp 101.6 @ 1:30pm today Patient denies any respiratory, urinary or GI symptoms, and reports only feeling lethargic Notes headache and nausea 1-2 days preop, which has persisted somewhat following surgery She has tolerated po without vomiting No bleeding/drainage from incision or vagina, no dysuria/hematuria; abdomen soft/non-distended, incision without erythema/drainage UA negative, WBC 7.9, Hgb 11.0 (11.9 yesterday), creatinine 0.72 and UOP 700cc in 4 hours Exam Vital signs and Labs for Last 24 Hours: Temp Pulse Resp BP Pulse Ox 101.6 F H 111 H 18 108/51 L 98 06/06/18 13:15 06/06/18 12:00 06/06/18 12:00 06/06/18 12:00 06/06/18 12:00 Laboratory Results - last 24 hr 06/05/18 14:40: WBC 9.6, RBC 3.83 L, Hgb 10.4 L, Hct 32.0 L, MCV 83.7, MCH 27.2, MCHC 32.5, RDW 15.1, Plt Count 197, MPV 8.5, Neut % (Auto) 91.5 H, Lymph % (Auto) 3.4 L, [place] % (Auto) 3.7, Eos % (Auto) 1.3, Baso % (Auto) 0.1, Neut # (Auto) 8.7 H, Lymph # (Auto) 0.3 L, [place] # (Auto) 0.4, Eos # (Auto) 0.1, Baso # (Auto) 0.0, Total Counted 100, Neutrophils % (Manual) 95 H, Lymphocytes % (Manual) 2 L, Monocytes % (Manual) 3, Platelet Estimate Normal, Hypochromasia 1+ 06/06/18 10:35: Sodium 133 L, Potassium 3.4 L, Chloride 99, Carbon Dioxide 27, Anion Gap 10.4, BUN 8, Creatinine 0.72, Estimated Creat Clear 135, Estimated GFR 88, Est GFR ( Amer) 107, Glucose 105, Calcium 8.2 L, Total Bilirubin 1.1 H, AST 32, ALT 83 H, Alkaline Phosphatase 98, Total Protein 5.6 L, Albumin 2.5 L , Globulin 3.1, Albumin/Globulin Ratio 0.8 L 06/06/18 10:35: WBC 7.5, RBC 3.93 L, Hgb 11.0 L, Hct 32.7 L, MCV 83.1, MCH 27.9, MCHC 33.6, RDW 15.0, Plt Count 188, Neut % (Auto) 92.2 H, Lymph % (Auto) 3.7 L, [place] % (Auto) 2.1, Eos % (Auto) 1.8, Baso % (Auto) 0.2, Neut # (Auto) 6.9, Lymph # (Auto) 0.3 L, [place] # (Auto) 0.2, Eos # (Auto) 0.1, Baso # (Auto) 0.0, Total Counted 100, Neutrophils % (Manual) 94 H, Band Neutrophils % 2.0, Lymphocytes % (Manual) 3 L, Monocytes % (Manual) 1 L, Platelet Estimate Normal, RBC Morphology Normal 06/06/18 10:54: Urine Color Yellow, Urine Appearance Clear, Urine pH 8.0, Ur Sp ecific [place] 1.010, Urine Protein Negative, Urine Glucose (UA) Negative, Urine Ketones Trace, Urine Blood Trace-i, Urine Nitrate Negative, Urine Bilirubin Negative, Urine Urobilinogen 2.0, Ur Leukocyte Esterase Negative, Urine RBC Occasional, Urine WBC Occasional, Ur Squamous Epith Cells Occasional, Urine Bacteria Trace I & O for Last 24 hours: Intake & Output 06/04/18 06/05/18 06/06/18 06/07/18 11:59 11:59 11:59 11:59 Intake Total 3211 / 3211 Output Total 900 / 900 1700 / 1700 50 / 50 350 / 350 Balance 2311 / 2311 -1700 / -1700 -50 / -50 -350 / -350 Weight 187 lb Narrative: CONSTITUTIONAL: no acute distress, appears well HEENT: mucous membranes moist PULMONARY: breathing unlabored without audible wheezes CV: no JVD, normal LE peripheral pulses ABD: soft, NT/ND, no guarding. Normal BS. SKIN: incision well approximated with no drainage, erythema or induration EXT: no tenderness or edema LEs NEURO: alert/oriented, no altered mental status PSYCH: appropriate mood and demeanor without visible anxiety/depression Assessment and Plan (1) Status post hysterectomy Current visit: Yes Status: Acute Category: Surgical Code(s): Z90.710 - Acquired absence of both cervix and uterus (2) Postoperative fever Current visit: Yes Status: Acute Category: Medical Code(s): R50.82 - Postprocedural fever - Assessment and plan all Dx Assessment and Plan for all problems:: Evaluation normal thus far, with no evidence of intra-abdominal bleeding, intra- operative complication or specific infectious etiology Will send rapid flu and CXR ordered Continue IS use and ambulation for potential atelectasis Repeat CBC ordered for am
[2018-06-07 06:25] LABS: Basophils % 0.2 % (0.1-2.0); Eosinophils % 0.3 % (0.1-12.0); Hematocrit 30.3 % (37.0-47.0); Hemoglobin 10.5 g/dL (12.2-16.2); Lymphocytes # 0.3 K/mm3 (0.7-4.5); Lymphocytes % 2.8 % (10-50); Mean Corpuscular HGB Conc 34.6 g/dL (31.8-35.4); Mean Corpuscular Hemoglobin 28.5 pg (27.0-31.2); Mean Corpuscular Volume 82.3 fl (81-99); Mean Platelet Volume 8.5 fl (7.4-10.4); Monocytes # 0.2 K/mm3 (0.1-1.0); Monocytes % 1.9 % (1.7-9.3); Neutrophils # 9.6 K/mm3 (1.8-7.8); Neutrophils % 94.9 % (37.0-80.0); Platelet Count 197 K/mm3 (142-424); Red Blood Count 3.68 M/mm3 (4.20-5.40); Red Cell Distribution Width 15.1 % (11.5-17.5); White Blood Count 10.2 K/mm3 (4.8-10.8)
--- NOTE | 2018-06-07 06:57 | Progress Note ---
Internal Medicine - PN: Subj *Date: 06/07/18 *Time: 06:50 Interval history: This is postop day #4. This patient underwent a total abdominal hysterectomy and bilateral salpingo-oophorectomy on the day of admission (06/03/18), apparently without complications. She did well until the evening of postop day #2, at which time she spiked a fever of over 103 p.o. She was initially given Tylenol, and her hemoglobin (11.9 g on admission and 11.5 g postop) was 11.0 g. She is complaining of no pain. And she is eating and ambulating without difficulty. Her urine output is good/clear. She has no CVA tenderness. Her chest x-ray is normal. A rapid flu test was negative. Her calves are nontend er. Her wound is clean. Her abdomen is soft. She is passing flatus (no bowel movement yet). There is no CVA tenderness. Her white count has remained stable at around 10, including 10.2 this morning, but there is a left shift. This morning her oral temperature is 98.7, but she did spike again last night to 103. She has a history of a gastric bypass and has some reflux, but that is no different than it has been prior to surgery. Pelvic exam reveals an intact vaginal cuff and no specific pain, but I am going to get a CT scan of her abdomen and pelvis today to rule out a possible abscess, although clinically there is no evidence of that. To this point she is not on intravenous antibiotics. Exam Vital signs and Labs for Last 24 Hours: Temp Pulse Resp BP Pulse Ox 99.7 F H 118 H 18 113/60 97 06/07/18 04:20 06/07/18 02:50 06/07/18 02:50 06/07/18 02:50 06/07/18 02:50 Laboratory Results - last 24 hr 06/06/18 10:35: Sodium 133 L, Potassium 3.4 L, Chloride 99, Carbon Dioxide 27, Anion Gap 10.4, BUN 8, Creatinine 0.72, Estimated Creat Clear 135, Estimated GFR 88, Est GFR ( Amer) 107, Glucose 105, Calcium 8.2 L, Total Bilirubin 1.1 H, AST 32, ALT 83 H, Alkaline Phosphatase 98, Total Protein 5.6 L, Albumin 2.5 L , Globulin 3.1, Albumin/Globulin Ratio 0.8 L 06/06/18 10:35: WBC 7.5, RBC 3.93 L, Hgb 11.0 L, Hct 32.7 L, MCV 83.1, MCH 27.9, MCHC 33.6, RDW 15.0, Plt Count 188, Neut % (Auto) 92.2 H, Lymph % (Auto) 3.7 L, [place] % (Auto) 2.1, Eos % (Auto) 1.8, Baso % (Auto) 0.2, Neut # (Auto) 6.9, Lymph # (Auto) 0.3 L, [place] # (Auto) 0.2, Eos # (Auto) 0.1, Baso # (Auto) 0.0, Total Counted 100, Neutrophils % (Manual) 94 H, Band Neutrophils % 2.0, Lymphocytes % (Manual) 3 L, Monocytes % (Manual) 1 L, Platelet Estimate Normal, RBC Morphology Normal 06/06/18 10:54: Urine Color Yellow, Urine Appearance Clear, Urine pH 8.0, Ur Specific [place] 1.010, Urine Protein Negative, Urine Glucose (UA) Negative, Urine Ketones Trace, Urine Blood Trace-i, Urine Nitrate Negative, Urine Bilirubin Negative, Urine Urobilinogen 2.0, Ur Leukocyte Esterase Negative, Urine RBC Occasional, Urine WBC Occasional, Ur Squamous Epith Cells Occasional, Urine Bacteria Trace 06/06/18 13:54: Influenza Type A Ag Negative, Influenza Type B Ag Negative 06/07/18 06:04: WBC 10.2 D, RBC 3.68 L, Hgb 10.5 L, Hct 30.3 L, MCV 82.3, MCH 28.5, MCHC 34.6, RDW 15.1, Plt Count 197, MPV 8.5, Neut % (Auto) 94.9 H, Lymph % (Auto) 2.8 L, [place] % (Auto) 1.9, Eos % (Auto) 0.3, Baso % (Auto) 0.2, Neut # (Auto) 9.6 H, Lymph # (Auto) 0.3 L, [place] # (Auto) 0.2, Eos # (Auto) 0.0, Baso # (Auto) 0.0 I & O for Last 24 hours: Intake & Output 03/01/06/05/18 06/06/18 06/07/18 11:59 11:59 11:59 11:59 Intake Total 3211 / 3211 800 / 800 Output Total 900 / 900 1700 / 1700 50 / 50 1500 / 1500 Balance 2311 / 2311 -1700 / -1700 -50 / -50 -700 / -700 Weight 187 lb Assessment and Plan (1) Status post hysterectomy Current visit: Yes Status: Acute Category: Surgical Code(s): Z90.710 - Acquired absence of both cervix and uterus (2) Postoperative fever Current visit: Yes Status: Acute Category: Medical Code(s): R50.82 - Postprocedural fever
[2018-06-07 08:41] LABS: Monocytes % 1 % (2-9); Neutrophils % 82 % (42-76); Total Cells Counted 100
[2018-06-07 08:42] LABS: RBC Morphology Normal
--- NOTE | 2018-06-07 13:02 | Progress Note ---
Internal Medicine - PN: Subj *Date: 06/07/18 *Time: 12:59 Interval history: The patient is afebrile. Vital signs are stable. She has remained afebrile now for 12 hours, and feels well. CT of the abdomen and pelvis (with and without contrast) this morning was normal (no evidence of abscess formation or intra- abdominal collection). She has now had a bowel movement. Her wound is clean. Abdomen soft. She is anxious for discharge. I feel that is appropriate, but (given her recent history of fevers of unknown origin) I am going to start her on Keflex prophylactically (500 mg 4 times daily for 1 week). Exam Vital signs and Labs for Last 24 Hours: Temp Pulse Resp BP Pulse Ox 98.7 F 88 18 102/57 L 98 06/07/18 10:25 06/07/18 10:25 06/07/18 10:25 06/07/18 10:25 06/07/18 10:25 Laboratory Results - last 24 hr 06/06/18 13:54: Influenza Type A Ag Negative, Influenza Type B Ag Negative 06/07/18 06:04: WBC 10.2 D, RBC 3.68 L, Hgb 10.5 L, Hct 30.3 L, MCV 82.3, MCH 28.5, MCHC 34.6, RDW 15.1, Plt Count 197, MPV 8.5, Neut % (Auto) 94.9 H, Lymph % (Auto) 2.8 L, [place] % (Auto) 1.9, Eos % (Auto) 0.3, Baso % (Auto) 0.2, Neut # (Auto) 9.6 H, Lymph # (Auto) 0.3 L, [place] # (Auto) 0.2, Eos # (Auto) 0.0, Baso # (Auto) 0.0, Total Counted 100, Neutrophils % (Manual) 82 H, Band Neutrophils % 16.0 H, Atypical Lymphs % 1.0, Monocytes % (Manual) 1 L, Platelet Estimate Normal, RBC Morphology Normal I & O for Last 24 hours: Intake & Output 06/05/18 06/06/18 06/07/18 06/08/18 11:59 11:59 11:59 11:59 Intake Total 800 / 800 Output Total 1700 / 1700 50 / 50 1800 / 1800 Balance -1700 / -1700 -50 / -50 -1000 / -1000 Assessment and Plan (1) Status post hysterectomy Current visit: Yes Status: Acute Category: Surgical Code(s): Z90.710 - Acquired absence of both cervix and uterus (2) Postoperative fever Current visit: Yes Status: Acute Category: Medical Code(s): R50.82 - Postprocedural fever
--- NOTE | 2018-06-07 13:10 | Discharge Summary ---
General - General Admission date:: 06/03/18 Discharge date: 06/07/18 (This 42-year-old white female was admitted for definitive treatment of abnormal uterine bleeding. On the date of admission, she was taken to the operating room, where she underwent a total abdominal hysterectomy and bilateral salpingo-oophorectomy, without apparent complications. She received Delestrogen 30 mg IM in PACU on that date. She did well until roughly 48 hours postop, when she spiked a fever of 103 orally. She was initially treated with Tylenol, which did which did not resolve the fever. Subsequent workup included a normal CBC, including normal hemoglobin and hematocrit; normal chest x-ray; normal urinalysis; negative flu test; and pending blood cultures. She remained comfortable, with her incision clean and nontender, her pelvic exam unremarkable, no CVA tenderness or calf tenderness, and clear lungs on auscultation. She intermittently spike fevers for the next 36 hours or so, but has been afebrile now for 12 hours and has finally had a bowel movement. CT scan this morning was read as normal, without any evidence of abscess in the abdomen or pelvis. She is anxious for discharge, and so will be discharged this afternoon with a diagnosis of postoperative febrile morbidity (fever of unknown origin). She will empirically be placed on Keflex 500 mg 4 times daily (#30) and given a prescription for Percocet 5/325 (#30), 1 p.o. every 4-6 hours as needed pain. She is given appropriate instructions as to diet, exercise, and wound care, and she is to return the office in 10 days for follow-up. She is specifically told to call should she again become febrile or for any unusual pain or bleeding. She is not a smoker.) Hospital Course Rhogam Administration: Not Indicated Objective Vital signs: Temp Pulse Resp BP Pulse Ox 98.7 F 88 18 102/57 L 98 06/07/18 10:25 06/07/18 10:25 06/07/18 10:25 06/07/18 10:25 06/07/18 10:25 Results Labs on day of discharge: Labs from last 24 hours 06/07/18 06/06/18 06:04 13:54 WBC 10.2 D RBC 3.68 L Hgb 10.5 L Hct 30.3 L MCV 82.3 MCH 28.5 MCHC 34.6 RDW 15.1 Plt Count 197 MPV 8.5 Neut % (Auto) 94.9 H Lymph % (Auto) 2.8 L [place] % (Auto) 1.9 Eos % (Auto) 0.3 Baso % (Auto) 0.2 Neut # (Auto) 9.6 H Lymph # (Auto) 0.3 L [place] # (Auto) 0.2 Eos # (Auto) 0.0 Baso # (Auto) 0.0 Total Counted 100 Neutrophils % (Manual) 82 H Band Neutrophils % 16.0 H Atypical Lymphs % 1.0 Monocytes % (Manual) 1 L Platelet Estimate Normal RBC Morphology Normal Influenza Type A Ag Negative Influenza Type B Ag Negative DS: Diagnosis - Discharge Diagnosis (1) Status post hysterectomy Status: Acute (2) Postoperative fever Status: Acute Discharge Plan - Patient Discharge Instructions DIET: advance to your usual diet Additional Instructions: NO heavy lifting, no strenuous activity, no driving for 2 weeks or while taking prescription narcotics. Patient Instructions: DI for Hysterectomy, Surgical Site Infection, DI for Postoperative Pain - Follow up Plan Follow up with: Bradley Feliciano MD [Staff Physician] - 06/17/18 4:00 pm Disposition: Home, Self-[facility] Medications: Home Medications Medication Instructions Recorded Confirmed Type Fluticasone Propionate 1 spray INTRANASAL DAILY 06/02/18 06/04/18 History Phentermine HCl 37.5 mg PO DAILY 06/02/18 06/04/18 History hydroCHLOROthiazide [HCTZ 25mg 25 mg PO DAILY 06/02/18 06/03/18 History tab] Cetirizine HCl 10 mg PO DAILYP PRN 06/04/18 06/04/18 History Cholecalciferol (Vitamin D3) 50,000 unit PO MOFR 06/04/18 06/04/18 History [Vitamin D3 50,000 unit Cap] Ferrous Sulfate [Ferrous Sulfate 325 mg PO BID 06/04/18 06/04/18 History 325mg Tablet] Oxycodone HCl/Acetaminophen 1 tab PO Q4HP PRN #30 tab 06/07/18 Rx [Percocet 5/325mg tablet] cephALEXin [Keflex 500mg Cap] 500 mg PO Q6H #30 cap 06/07/18 Rx topiramate 25 mg tablet 25 mg PO QHS #30 tab 06/07/18 Rx Prescriptions/Medication Reconciliation: New hydroCHLOROthiazide [HCTZ 25mg tab] 25 mg PO DAILY tablet Oxycodone HCl/Acetaminophen [Percocet 5/325mg tablet] 1 tab PO Q4HP PRN #30 tab PRN Reason: Moderate To Severe Pain cephALEXin [Keflex 500mg Cap] 500 mg PO Q6H #30 cap Continue topiramate 25 mg tablet 25 mg PO QHS #30 tab Phentermine HCl 37.5 mg PO DAILY Fluticasone Propionate 1 spray INTRANASAL DAILY hydroCHLOROthiazide [HCTZ 25mg tab] 25 mg PO DAILY Cetirizine HCl 10 mg PO DAILYP PRN PRN Reason: ALLERGIES Ferrous Sulfate [Ferrous Sulfate 325mg Tablet] 325 mg PO BID Cholecalciferol (Vitamin D3) [Vitamin D3 50,000 unit Cap] 50,000 unit PO MOFR
== END 2018-06-07 13:15 | disposition home or self-care (01) | DRG 743 ==
LOC: OR 06:06 → OB 07:49
PROVIDERS: ADMIT Obstetrics & Gynecology; ATTEND Obstetrics & Gynecology
CPT/HCPCS: 36415; 71010; 71045; 74178; 80053; 81001; 81025; 85007; 85014; 85018; 85025; 85048; 85049; 87040; 87275; 87276; 96372; 96374; J2405; Q9967

== ENCOUNTER 2018-06-09 11:09 | Inpatient (IN) ==
--- NOTE | 2018-06-09 11:55 | Emergency Department Note ---
ED Disposition Clinical Impression: Abscess, intra-abdominal, postoperative Disposition: Admitted As Inpatient Condition on Discharge: Serious - Critical Care Critical Care Time: No Attestation: On 06/09/18, the high probability of a clinically significant, sudden or life threatening deterioration of the following system(s) required my full and direct attention, intervention and personal management. The time I documented below is in addition to time spent performing reported procedures but includes the following listed in this critical care notation. Medical Decision Making - Aidan Inquiry Pt receiving controlled substance: Yes Aidan was queried for this patient: No Reason not queried -: Emergent pt cond-no time Risks and benefits of using a controlled substance: were not discussed with pt by me Vital Signs: 06/09/18 11:26 06/09/18 11:35 06/09/18 12:10 Temperature 99 F Temperature Source Oral Pulse Rate [Right Radial] 119 H 114 H 124 H Respiratory Rate 20 Blood Pressure [Right Arm] 123/61 139/61 127/74 Blood Pressure Mean [Right Arm] 81 87 91 Blood Pressure Source [Right Arm] Automatic Cuff Automatic Cuff Blood Pressure Position [Right Arm] Sitting Sitting 02 Sat by Pulse Oximetry 95 99 99 Oxygen Delivery Method Room Air Room Air Room Air 06/09/18 12:33 06/09/18 13:00 06/09/18 13:42 Temperature 103.0 F H Temperature Source Oral Pulse Rate [Right Radial] 120 H 119 H 128 H Respiratory Rate 20 Blood Pressure [Right Arm] 116/70 119/76 118/59 L Blood Pressure Mean [Right Arm] 85 90 78 Blood Pressure Source [Right Arm] Automatic Cuff Automatic Cuff Blood Pressure Position [Right Arm] Sitting Sitting 02 Sat by Pulse Oximetry 98 96 99 Oxygen Delivery Method Room Air Room Air Room Air 06/09/18 14:46 06/09/18 16:26 Temperature Temperature Source Pulse Rate [Right Radial] 104 H 100 H Respiratory Rate Blood Pressure [Right Arm] 113/62 127/66 Blood Pressure Mean [Right Arm] 79 86 Blood Pressure Source [Right Arm] Automatic Cuff Automatic Cuff Blood Pressure Position [Right Arm] Sitting Sitting 02 Sat by Pulse Oximetry 100 99 Oxygen Delivery Method Room Air Room Air - Lab Data Lab Results 06/09/18 11:20: WBC 5.8 D, RBC 4.40, Hgb 12.0 L, Hct 36.1 L, MCV 82.2, MCH 27.3, MCHC 33.2, RDW 15.5, Plt Count 175, MPV 9.0, Neut % (Auto) 90.1 H, Lymph % (Auto) 4.7 L, [place] % (Auto) 3.0, Eos % (Auto) 1.5, Baso % (Auto) 0.6, Neut # (Auto) 5.2, Lymph # (Auto) 0.3 L, [place] # (Auto) 0.2, Eos # (Auto) 0.1, Baso # (Auto) 0.0, Total Counted 100, Neutrophils % (Manual) 83 H, Lymphocytes % (Manual) 8 L, Monocytes % (Manual) 6, Eosinophils % (Manual) 3, Nucleated RBCs 1, Platelet Estimate Normal, RBC Morphology Normal 06/09/18 11:20: Sodium 131 L, Potassium 2.8 L*, Chloride 94 L, Carbon Dioxide 26, Anion Gap 13.8, BUN 21 H, Creatinine 1.40 H, Estimated Creat Clear 69, Estimated GFR 41 L, Est GFR ( Amer) 50 L, Glucose 86, Calcium 8.6, Total Bilirubin 0.8, AST 35, ALT 58, Alkaline Phosphatase 99, Total Protein 6.7, Albumin 2.3 L, Globulin 4.4 H, Albumin/Globulin Ratio 0.5 L, Amylase 39, Lipase 46 L 06/09/18 11:20: Lactate 1.3 06/09/18 12:52: Influenza Type A Ag Negative, Influenza Type B Ag Negative Result diagrams: 06/09/18 11:20 06/09/18 11:20 Orders (Tests/Meds): ED MEDICATIONS Generic Name Dose Route Start Last Admin Trade Name Freq PRN Reason Stop Dose Admin Clindamycin Phosphate 900 mg/ 106 mls @ 100 mls/hr 06/09/18 16:45 Sodium Chloride IV 06/23/18 16:44 Q8H [facility] Protocol Ampicillin Sodium 2 gm/ Sodium 100 mls @ 200 mls/hr 06/09/18 16:45 Chloride IV 06/23/18 16:44 Q6H [facility] Protocol Miscellaneous 1 each 06/09/18 16:45 Gentamicin Consult Request * 07/09/18 16:44 CONSULT PHARMACY [facility] Sodium Chloride 10 ml 06/09/18 11:46 Saline Flush 10ml Syringe IV 07/09/18 11:45 NEEDED PRN Maintain IV Site Discontinued Medications Generic Name Dose Route Start Last Admin Trade Name Dayday PRN Reason Stop Dose Admin Acetaminophen 1,000 mg 06/09/18 12:59 06/09/18 13:00 Tylenol 500mg Tablet PO 06/09/18 13:00 1,000 mg ONCE ONE Administration Hydromorphone HCl 0.5 mg 06/09/18 12:44 06/09/18 12:48 Dilaudid 2mg/Ml Syringe IV 06/09/18 12:45 0.5 mg ONCE ONE Administration Hydromorphone HCl 1 mg 06/09/18 16:21 06/09/18 16:24 Dilaudid 2mg/Ml Syringe IV 06/09/18 16:22 1 mg ONCE ONE Administration Potassium Chloride/Water 100 mls @ 50 mls/hr 06/09/18 12:45 06/09/18 13:11 Potassium Chloride 20meq/100ml Ivpb IV 06/09/18 14:44 50 mls/hr ONCE ONE Administration Ioversol 70 ml 06/09/18 15:52 06/09/18 15:53 Rad-Optiray 350 100ml Vial IV 06/09/18 15:53 70 ml ONCE ONE Administration Morphine Sulfate 4 mg 06/09/18 12:31 06/09/18 12:45 Morphine 4mg/Ml Syringe IV 06/09/18 12:32 Not Given ONCE ONE Ondansetron HCl 4 mg 06/09/18 12:31 06/09/18 12:49 Zofran 4mg/2ml Vial IV 06/09/18 12:32 4 mg ONCE ONE Administration Sodium Chloride 1,000 ml 06/09/18 12:31 06/09/18 12:49 Sod Chlor 0.9% 1000ml Bag IV 06/09/18 12:32 1,000 ml BOLUS ONE Administration Sodium Chloride 50 ml 06/09/18 15:52 06/09/18 15:53 Rad-Ns 50ml Vial IV 06/09/18 15:53 50 ml ONCE ONE Administration Sodium Chloride 10 ml 06/09/18 15:52 06/09/18 15:53 Rad-Saline Flush 10ml Syringe IV 06/09/18 15:53 10 ml ONCE ONE Administration ORDERS Category Date Time Status Urinalysis and Microscopic Stat Lab 06/09/18 12:18 Ordered Blood Culture Stat Micro 06/09/18 11:20 Received - CT Data CT Scan: Abdomen, Pelvis Time Received: 16:[address] Reviewed: Yes: I discussed the CT results w/the radiologist Findings Narrative: Fluid collections consistent with multiple abscesses in pelvis, right paracolic gutter, subhepatic area. Septated. Not amenable to percutaneous drainage. - Physician Consults Physician Consulted: Jamel Time: 16:32 Reason -: Admission, Surgical Eval/Care Comment/Response: We discussed the patient's clinical information, including history, exam, laboratory and radiology results and ED course. Agrees to admit the patient to the hospital. Per hospital procedure, I will write temporary bridge inpatient orders on the patient. Specific orders requested by the admit ting physician: Ampicillin 2 g every 6 hours, clindamycin 900 mg every 8 hours, gentamicin consult to pharmacy. Clear liquids. Medical Decision Narrative: 12:30 PM: Dr. Jones requests oral and IV contrast. Patient was uncertain if she could tolerate oral contrast initially, but we will attempted. I also advised him that I was adding a CT angiogram of the chest. General Adult HPI - General Chief complaint: Fever Stated complaint: pain, post op, fever Time Seen by Provider: 06/09/18 12:15 Mode of Arrival: Family Vehicle Limitations: No Limitations Description of Symptoms (Recalled from ER Triage Doc. by RN): pt states she had a total hysterectomy on 06/03/[address] simmons and d/c on 06/07/18. while pt was in the hospital she spiked a fever,had chest xray done, blood cultures done, and they couldn't figure out the reason for the fever so they sent her home. pt has continued to have a fever since she left. - History of Present Illness HPI narrative: 1 week postop from total abdominal hysterectomy, bilateral salpingo-oophorecto my. Started developing fever on postop day 3. High fevers greater than 103 degrees in the hospital. Had a negative workup including CT scan of the abdomen. Discharged on Thursday on Keflex. States Thursday night she had a temperature of 105 degrees. Complains of abdominal discomfort from her lower abdomen up to the right upper quadrant area. Poor appetite. Dry mouth. Some shortness of breath when she moves around. Denies cough, chest pain, vomiting. 2 small episodes of diarrhea. Denies urinary symptoms. No redness of incision. The incision does not really hurt significantly. Was supposed to see Dr. Mccullough this afternoon, but she is in surgery and was told to come to the emergency room instead. No leg pain or swelling. No pleuritic chest pain. - Related Data Home Medications Medication Instructions Recorded Confirmed Fluticasone Propionate 1 spray INTRANASAL DAILY 06/02/18 06/09/18 Phentermine HCl 37.5 mg PO DAILY 06/02/18 06/09/18 hydroCHLOROthiazide [HCTZ 25mg 25 mg PO DAILY 06/02/18 06/09/18 tab] Cetirizine HCl 10 mg PO DAILYP PRN 06/04/18 06/09/18 Cholecalciferol (Vitamin D3) 50,000 unit PO MOFR 06/04/18 06/09/18 [Vitamin D3 50,000 unit Cap] Ferrous Sulfate [Ferrous Sulfate 325 mg PO BID 06/04/18 06/09/18 325mg Tablet] Topiramate 25 mg PO QHS 06/09/18 06/09/18 cephALEXin [Keflex 500mg Cap] 500 mg PO Q6H 06/09/18 06/09/18 hydroCHLOROthiazide [HCTZ 25mg 25 mg PO DAILY 06/09/18 06/09/18 tab] Previous Rx's Medication Instructions Recorded Oxycodone HCl/Acetaminophen 1 tab PO Q4HP PRN #30 tab 06/07/18 [Percocet 5/325mg tablet] ondansetron HCl 8 mg tablet 8 mg PO BID PRN #30 tab 06/07/18 promethazine 25 mg tablet 25 mg PO Q6H PRN #20 tab 06/07/18 promethazine 25 mg tablet 25 mg PO Q6H PRN #30 tab 06/07/18 Allergies Allergy/AdvReac Type Severity Reaction Status Date / Time lamotrigine Allergy Intermediate I-RASH Verified 06/09/18 11:40 morphine Allergy Verified 06/09/18 12:47 [facility] History - Hepatitis A Screen Drug use history?: No High risk sexual behaviors?: No History of sexually transmitted infection?: No Currently employed?: No Childcare worker?: No Do you have indoor plumbing?: Yes Do you have electricity?: Yes Attestation statement:: This patient has been screened for Hepatitis A risk factors. I have reviewed the patient's past medical history: Yes Medical History: Reports:: Depression, Gastroesophageal Reflux Disease(GERD), Migraine Denies:: Cancer, Chronic Obstructive Pulmonary Disease (COPD), Diabetes Mellitus Type 1, Diabetes Mellitus Type 2, Internal Pacemaker, MRSA, Seizures Other Medical History: Reports: Anemia. Denies: Blood Transfusion Reaction Comment: GERD. DEPRESSION. ANEMIA. MIGRAINES. CHRONIC BACK PAIN. IRON DEFICIENCY Laterality Cases: Bilateral: Tonsillectomy Other Surgeries: Yes: Bariatric Surgery, Cholecystectomy, , Diagnostic Lap, Hernia Repair, Other. No: Pacemaker Amputation: No Fractures: No Comment: T&A CHILD. LAP. CHOLY---1996. P* C/S, BTL---1997. GASTRIC BYPASS IN THEA.---2008. DX. HSC, FX D&C--2009. LAP. ERCP---2011. SINUS CYST REMOVAL---2017 - Social History Smoking Status: Never smoker Alcohol Intake: never Alcohol Intake Frequency:: holidays/special occasions only Substance Use Type: denies use Occupational Status: employed Housing: house Household Members: spouse - Psychiatric History Expresses thoughts of harming self/others: None Suicide Plan Description: No Plan Pschychiatric History:: Reports:: Depression Family Hx:: Diabetes Comment: 1991---. 1995---. 1996---. 1997---P* C/S, BTL ROS Obtained: Yes All systems reviewed & no additional complaints - Constitutional Constitutional: Reports fatigue, Reports fever(s), Reports poor appetite, Reports weakness - ENT Ears, Nose, Mouth, and Throat: Denies nasal discharge, Denies sore throat - Cardiovascular Cardiovascular: Denies chest pain - Respiratory Respiratory: No cough, Yes dyspnea - Gastrointestinal Gastrointestingal: Reports: abdominal pain, diarrhea, nausea. Denies: vomiting - Genitourinary Female Genitourinary: Denies dysuria, Denies urinary frequency Physical Exam - General General appearance: alert, in no apparent distress - Head Head exam: atraumatic, normocephalic - Eye Eye exam: Present: normal appearance, PERRL, EOMI - ENT ENT exam: Present: mucous membranes dry - Neck Neck exam: Present: normal inspection, trachea midline - Chest Chest inspection: Present: normal inspection, symmetric chest wall rise - Respiratory Respiratory exam: Present: normal lung sounds bilaterally. Absent: respiratory distress - Cardiovascular Cardiovascular exam: Present: regular rate, normal rhythm - Abdominal Exam Abdominal exam: Present: soft, tenderness. Absent: guarding, rebound, rigidity Abdominal tenderness: Present: RUQ, RLQ Comment: Most tender in right upper quadrant. Surgical incision is healing normally wit hout erythema or drainage or tenderness. - Extremities Exam Extremities exam: Present: normal inspection, full ROM. Absent: tenderness, calf tenderness - Neurological Exam Neurological exam: Present: alert, oriented X3 - Psychiatric Psychiatric exam: Present: normal affect, normal mood - Skin Skin exam: Present: warm, dry
[2018-06-09 12:01] LABS: Basophils % 0.6 % (0.1-2.0); Eosinophils # 0.1 K/mm3 (0.0-0.4); Eosinophils % 1.5 % (0.1-12.0); Hematocrit 36.1 % (37.0-47.0); Lymphocytes # 0.3 K/mm3 (0.7-4.5); Lymphocytes % 4.7 % (10-50); Mean Corpuscular HGB Conc 33.2 g/dL (31.8-35.4); Mean Corpuscular Hemoglobin 27.3 pg (27.0-31.2); Mean Corpuscular Volume 82.2 fl (81-99); Monocytes # 0.2 K/mm3 (0.1-1.0); Neutrophils # 5.2 K/mm3 (1.8-7.8); Neutrophils % 90.1 % (37.0-80.0); Platelet Count 175 K/mm3 (142-424); Red Cell Distribution Width 15.5 % (11.5-17.5); White Blood Count 5.8 K/mm3 (4.8-10.8)
[2018-06-09 12:11] LABS: Albumin Level 2.3 gm/dL (3.4-5.0); Albumin/Globulin Ratio 0.5 (1.1-1.8); Calcium 8.6 mg/dL (8.5-10.1); Globulin 4.4 gm/dl (1.3-3.2); Total Protein,Serum 6.7 gm/dL (6.4-8.2)
[2018-06-09 12:26] LABS: Anion Gap 13.8 mEq/L (5-15); Bilirubin,Total 0.8 mg/dL (0.2-1.0)
[2018-06-09 12:28] LABS: Potassium 2.8 mmoL/L (3.5-5.1)
[2018-06-09 12:30] LABS: Eosinophils % 3 % (0-3); Lymphocytes % 8 % (10-50); Monocytes % 6 % (2-9); Neutrophils % 83 % (42-76); Nucleated Red Blood Cells 1; RBC Morphology Normal; Total Cells Counted 100
[2018-06-09 20:44] LABS: Anion Gap 12.9 mEq/L (5-15)
[2018-06-09 20:52] LABS: Potassium 2.9 mmoL/L (3.5-5.1)
[2018-06-09 21:01] LABS: Calcium 7.7 mg/dL (8.5-10.1)
--- NOTE | 2018-06-09 21:04 | Consult Report ---
*Admission Date: 06/09/18 *Chief complaint: FEVER *History of present illness: Patient is a very pleasant 42-year-old white female. She was taken to the operating room by Dr. Bradley Feliciano last week on 06/03/18 at which time she underwent total abdominal hysterectomy with bilateral salpingo-oophorectomy Via Pfannenstiel incision for dysfunctional uterine bleeding. Apparently while she was in the hospital on postoperative day #3 she had an appreciable fever. She underwent appropriate workup by the on-call covering gynecologic surgeon which was negative for any obvious source or etiology. Other than fevers she has had very limited associated symptoms. She has had only minimal surgical abdominal discomfort. She has had some nausea and dry heaves but no significant vomiting. She denies any diarrhea but has developed some symptoms consistent with diarrhea since admission. She has been voiding without difficulty. She denies any passage of blood in her bowels. Review of Systems - Review of Systems Review of systems:: pertinent systems reviewed and negative unless documented below - Constitutional Reports anorexia, Reports chills, Reports lack of energy - Eyes Denies change in vision - ENT Denies abnormal hearing - *Cardiovascular Denies chest pain - *Respiratory Denies shortness of breath - *Gastrointestinal Reports abdominal pain - *Musculoskeletal Denies abnormal walking - Integumentary/Breasts Denies redness - *Neurologic Reports weakness, Denies abnormal walking [facility] History Medical History: Reports:: Depression, Gastroesophageal Reflux Disease(GERD), Migraine Denies:: Cancer, Chronic Obstructive Pulmonary Disease (COPD), Diabetes Mellitus Type 1, Diabetes Mellitus Type 2, Internal Pacemaker, MRSA, Seizures *Have you ever received a pneumonia vaccine?: No *Have you received a flu vaccine this season?: Yes Other Medical History: Reports: Anemia. Denies: Blood Transfusion Reaction Laterality Cases: Bilateral: Tonsillectomy Other Surgeries: Yes: Bariatric Surgery, Cholecystectomy, , Diagnostic Lap, Hernia Repair, Other. No: Pacemaker Amputation: No Fractures: No - *Social History Educational Level: Completed College Smoking Status: Never smoker Alcohol Intake: never Alcohol Intake Frequency:: holidays/special occasions only Substance Use Type: denies use *Occupational Status:: employed Housing: house Household Members: spouse *Travel in the last 8 weeks: None - Psychiatric History Expresses thoughts of harming self/others: None Suicide Plan Description: No Plan Pschychiatric History:: Reports:: Depression Family Hx:: Diabetes Meds Home Medications Medication Instructions Recorded Confirmed Type Fluticasone Propionate 1 spray INTRANASAL DAILY 06/02/18 06/09/18 History Phentermine HCl 37.5 mg PO DAILY 06/02/18 06/09/18 History hydroCHLOROthiazide [HCTZ 25mg 25 mg PO DAILY 06/02/18 06/09/18 History tab] Cetirizine HCl 10 mg PO DAILYP PRN 06/04/18 06/09/18 History Cholecalciferol (Vitamin D3) 50,000 unit PO MOFR 06/04/18 06/09/18 History [Vitamin D3 50,000 unit Cap] Ferrous Sulfate [Ferrous Sulfate 325 mg PO BID 06/04/18 06/09/18 History 325mg Tablet] Oxycodone HCl/Acetaminophen 1 tab PO Q4HP PRN #30 tab 06/07/18 06/09/18 Rx [Percocet 5/325mg tablet] ondansetron HCl 8 mg tablet 8 mg PO BID PRN #30 tab 06/07/18 06/09/18 Rx promethazine 25 mg tablet 25 mg PO Q6H PRN #20 tab 06/07/18 06/09/18 Rx promethazine 25 mg tablet 25 mg PO Q6H PRN #30 tab 06/07/18 06/09/18 Rx Topiramate 25 mg PO QHS 06/09/18 06/09/18 History cephALEXin [Keflex 500mg Cap] 500 mg PO Q6H 06/09/18 06/09/18 History hydroCHLOROthiazide [HCTZ 25mg 25 mg PO DAILY 06/09/18 06/09/18 History tab] Allergies Allergy/AdvReac Type Severity Reaction Status Date / Time lamotrigine Allergy Intermediate I-RASH Verified 06/09/18 11:40 morphine Allergy Verified 06/09/18 12:47 Exam Vital signs and Labs for Last 24 Hours: Temp Pulse Resp BP Pulse Ox 99.3 F 116 H 18 119/60 98 06/09/18 20:48 06/09/18 19:39 06/09/18 19:39 06/09/18 19:39 06/09/18 19:39 Laboratory Results - last 24 hr 06/09/18 11:20: WBC 5.8 D, RBC 4.40, Hgb 12.0 L, Hct 36.1 L, MCV 82.2, MCH 27.3, MCHC 33.2, RDW 15.5, Plt Count 175, MPV 9.0, Neut % (Auto) 90.1 H, Lymph % (Auto) 4.7 L, [place] % (Auto) 3.0, Eos % (Auto) 1.5, Baso % (Auto) 0.6, Neut # (Auto) 5.2, Lymph # (Auto) 0.3 L, [place] # (Auto) 0.2, Eos # (Auto) 0.1, Baso # (Auto) 0.0, Total Counted 100, Neutrophils % (Manual) 83 H, Lymphocytes % (Manual) 8 L, Monocytes % (Manual) 6, Eosinophils % (Manual) 3, Nucleated RBCs 1, Platelet Estimate Normal, RBC Morphology Normal 06/09/18 11:20: Sodium 131 L, Potassium 2.8 L*, Chloride 94 L, Carbon Dioxide 26, Anion Gap 13.8, BUN 21 H, Creatinine 1.40 H, Estimated Creat Clear 69, Estimated GFR 41 L, Est GFR ( Amer) 50 L, Glucose 86, Calcium 8.6, Total Bilirubin 0.8, AST 35, ALT 58, Alkaline Phosphatase 99, Total Protein 6.7, Albumin 2.3 L, Globulin 4.4 H, Albumin/Globulin Ratio 0.5 L, Amylase 39, Lipase 46 L 06/09/18 11:20: Lactate 1.3 06/09/18 12:52: Influenza Type A Ag Negative, Influenza Type B Ag Negative 06/09/18 20:30: Sodium 130 L, Potassium 2.9 L*, Chloride 96 L, Carbon Dioxide 24, Anion Gap 12.9, BUN 16, Creatinine 1.20 H, Estimated Creat Clear 82, Estimated GFR 49 L, Est GFR ( Amer) 59, Glucose 81, Calcium 7.7 L D I & O for Last 24 hours: Intake & Output 06/07/18 06/08/18 06/09/18 06/10/18 11:59 11:59 11:59 11:59 Intake Total 1440 / 1440 Balance 1440 / 1440 Weight 186 lb 189 lb - Constitutional no acute distress Comments: Patient appears mildly ill but in no acute distress. Nontoxic-appearing. - *Routine HEENT Exam Head: Present: normocephalic Eye: Present: EOMI, PERRL ENT: Present: mucous membranes moist - *Routine Neck Exam Present: supple. Absent: lymphadenopathy - *Routine Respiratory Exam Present: CTA bilaterally - *Routine Cardiovascular Exam Present: RRR - *Routine Abdominal Exam Present: soft, tenderness Comments: Her incision is healing well. No evidence of any cellulitis or erythema. Abdomen is soft. She has minimal abdominal pain in the right pelvis and right lower quadrant without guarding or rebound. No evidence of any peritonitis. - *Routine Extremities Exam Absent: cyanosis, clubbing, edema - *Routine Skin Exam Present: warm. Absent: rash - *Routine Neurological Exam Present: alert, oriented X3 - Detailed Eye Exam Eyelids: Left normal inspection Results - Labs 06/09/18 11:20 06/09/18 20:30 Laboratory Results - last 24 hr 06/09/18 11:20: WBC 5.8 D, RBC 4.40, Hgb 12.0 L, Hct 36.1 L, MCV 82.2, MCH 27.3, MCHC 33.2, RDW 15.5, Plt Count 175, MPV 9.0, Neut % (Auto) 90.1 H, Lymph % (Auto) 4.7 L, [place] % (Auto) 3.0, Eos % (Auto) 1.5, Baso % (Auto) 0.6, Neut # (Auto) 5.2, Lymph # (Auto) 0.3 L, [place] # (Auto) 0.2, Eos # (Auto) 0.1, Baso # (A uto) 0.0, Total Counted 100, Neutrophils % (Manual) 83 H, Lymphocytes % (Manual) 8 L, Monocytes % (Manual) 6, Eosinophils % (Manual) 3, Nucleated RBCs 1, Platelet Estimate Normal, RBC Morphology Normal 06/09/18 11:20: Sodium 131 L, Potassium 2.8 L*, Chloride 94 L, Carbon Dioxide 26, Anion Gap 13.8, BUN 21 H, Creatinine 1.40 H, Estimated Creat Clear 69, Estimated GFR 41 L, Est GFR ( Amer) 50 L, Glucose 86, Calcium 8.6, Total Bilirubin 0.8, AST 35, ALT 58, Alkaline Phosphatase 99, Total Protein 6.7, Albumin 2.3 L, Globulin 4.4 H, Albumin/Globulin Ratio 0.5 L, Amylase 39, Lipase 46 L 06/09/18 11:20: Lactate 1.3 06/09/18 12:52: Influenza Type A Ag Negative, Influenza Type B Ag Negative 06/09/18 20:30: Sodium 130 L, Potassium 2.9 L*, Chloride 96 L, Carbon Dioxide 24, Anion Gap 12.9, BUN 16, Creatinine 1.20 H, Estimated Creat Clear 82, Estimated GFR 49 L, Est GFR ( Amer) 59, Glucose 81, Calcium 7.7 L D Assessment and Plan - Assessment and plan all Dx Assessment and Plan for all problems:: Patient has postoperative fever with some signs of dehydration and systemic inflammatory response characterized by sinus tachycardia. CT scan does reveal several loculated fluid collections which possibly may be developing abscesses. This is unclear. At this time would recommend aggressive IV fluid hydration. I will give her a sepsis bolus. Recommend broad-spectrum antibiotic coverage. We will change her antibiotics to Zosyn and vancomycin for broad-spectrum coverage including MRSA. Potentially could need minimally invasive drainage of fluid collection versus operative intervention.
--- NOTE | 2018-06-10 01:11 | Sepsis Event Note ---
Tissue Perfusion Evaluation Sepsis Re-Evaluation Performed: Yes Date Performed: 06/10/18 Time Performed: 01:10 Sepsis Follow-Up: Yes: Respiratory exam, Cardiovascular exam, Capillary refill, Peripheral pulse strength, Skin exam, Vital Signs Most Recent Vital Signs: Temperature 99.9 F H 06/09/18 23:30 Temperature Source Oral 06/09/18 23:30 Pulse Rate 107 H 06/10/18 00:00 Respiratory Rate 20 06/09/18 23:30 Blood Pressure 102/52 L 06/10/18 00:00 Blood Pressure Mean 68 06/10/18 00:00 Blood Pressure Source Automatic Cuff 06/10/18 00:00 Blood Pressure Position Supine 06/10/18 00:00 02 Sat by Pulse Oximetry 99 06/10/18 00:00 Oxygen Delivery Method 06/10/18 00:00
--- NOTE | 2018-06-10 06:49 | Progress Note ---
Internal Medicine - PN: Subj *Date: 06/10/18 *Time: 06:46 Interval history: This is hospital day #2, and postop day #7. Please refer to the general surgical consult of Dr. Hernandez yesterday. This patient had a total abdominal hysterectomy and bilateral salpingo-oophorectomy on 06/03/18, without apparent complications. Postoperatively she became febrile and had an extensive workup which failed to demonstrate any intra-abdominal problems or other source of her fevers. Her white count remained normal, and her hemoglobin is stable. Clinically, her wound was clean, and her abdomen soft, without any peritoneal signs. She was ultimately discharged home, but returned to the emergency room y esterday with a high fever at home. The workup is delineated in Dr. Hernandez's note. She is afebrile. The plan, per Dr. Hernandez, is to continue on intravenous antibiotics and observation. The patient's symptoms persist, exploration remains a possibility. The patient understands and accepts this. Exam Vital signs and Labs for Last 24 Hours: Temp Pulse Resp BP Pulse Ox 9.8 F L 121 H 16 124/63 96 06/10/18 04:00 06/10/18 04:00 06/10/18 04:00 06/10/18 04:00 06/10/18 04:00 Laboratory Results - last 24 hr 06/09/18 11:20: WBC 5.8 D, RBC 4.40, Hgb 12.0 L, Hct 36.1 L, MCV 82.2, MCH 27.3, MCHC 33.2, RDW 15.5, Plt Count 175, MPV 9.0, Neut % (Auto) 90.1 H, Lymph % (Auto) 4.7 L, [place] % (Auto) 3.0, Eos % (Auto) 1.5, Baso % (Auto) 0.6, Neut # (Auto) 5.2, Lymph # (Auto) 0.3 L, [place] # (Auto) 0.2, Eos # (Auto) 0.1, Baso # (Auto) 0.0, Total Counted 100, Neutrophils % (Manual) 83 H, Lymphocytes % (Manual) 8 L, Monocytes % (Manual) 6, Eosinophils % (Manual) 3, Nucleated RBCs 1, Platelet Estimate Normal, RBC Morphology Normal 06/09/18 11:20: Sodium 131 L, Potassium 2.8 L*, Chloride 94 L, Carbon Dioxide 26, Anion Gap 13.8, BUN 21 H, Creatinine 1.40 H, Estimated Creat Clear 69, Estimated GFR 41 L, Est GFR ( Amer) 50 L, Glucose 86, Calcium 8.6, Total Bilirubin 0.8, AST 35, ALT 58, Alkaline Phosphatase 99, Total Protein 6.7, Albumin 2.3 L, Globulin 4.4 H, Albumin/Globulin Ratio 0.5 L, Amylase 39, Lipase 46 L 06/09/18 11:20: Lactate 1.3 06/09/18 12:52: Influenza Type A Ag Negative, Influenza Type B Ag Negative 06/09/18 20:30: Sodium 130 L, Potassium 2.9 L*, Chloride 96 L, Carbon Dioxide 24, Anion Gap 12.9, BUN 16, Creatinine 1.20 H, Estimated Creat Clear 82, Estimated GFR 49 L, Est GFR ( Amer) 59, Glucose 81, Calcium 7.7 L D 06/10/18 01:25: Stl Aeromonas (PCR) Not detected, Stl C. cayetanensis PCR Not detected, Stool Rotavirus (PCR) Not detected, Stl Adenov F 40/41 PCR Not detected, Stool Astrovirus (PCR) Not detected, Stool Campylobacter PCR Not detected, Stl C.difficile Tox PCR Not detected, Stool Cryptosporidium PCR Not detected, Stl E.coli Shiga Tox PCR Not detected, Stool E coli O157 PCR Not detected, Stl Enterotoxigenic E PCR Not detected, Stool EPEC (PCR) Not detected, Stool EAEC (PCR) Not detected, Stl E. histolytica PCR Not detected, Stool Giar faith Lamblia PCR Not detected, Stool Salmonella PCR Not detected, Stool Sapovirus (PCR) Not detected, Stl P. shigelloides PCR Not detected, Stl Shigella/EIEC PCR Not detected, St Y.enterocolitica PCR Not detected, Stool Vibrio (PCR) Not detected, Stl Vibrio cholerae PCR Not detected, Stl Norovirus GI/GII PCR Not detected 06/10/18 02:15: Random Gentamicin 5.3 I & O for Last 24 hours: Intake & Output 06/07/18 06/08/18 06/09/18 06/10/18 11:59 11:59 11:59 11:59 Intake Total 4129 / 412 Output Total 0 / 0 Balance 4128 / 412 Weight 186 lb 189 lb
--- NOTE | 2018-06-10 07:06 | Progress Note ---
Subjective Patient reports: no new complaints Exam Vital signs and Labs for Last 24 Hours: Temp Pulse Resp BP Pulse Ox 9.8 F L 121 H 16 124/63 96 06/10/18 04:00 06/10/18 04:00 06/10/18 04:00 06/10/18 04:00 06/10/18 04:00 Laboratory Results - last 24 hr 06/09/18 11:20: WBC 5.8 D, RBC 4.40, Hgb 12.0 L, Hct 36.1 L, MCV 82.2, MCH 27.3, MCHC 33.2, RDW 15.5, Plt Count 175, MPV 9.0, Neut % (Auto) 90.1 H, Lymph % (Auto) 4.7 L, [place] % (Auto) 3.0, Eos % (Auto) 1.5, Baso % (Auto) 0.6, Neut # (Auto) 5.2, Lymph # (Auto) 0.3 L, [place] # (Auto) 0.2, Eos # (Auto) 0.1, Baso # (Auto) 0.0, Total Counted 100, Neutrophils % (Manual) 83 H, Lymphocytes % (Manual) 8 L, Monocytes % (Manual) 6, Eosinophils % (Manual) 3, Nucleated RBCs 1, Platelet Estimate Normal, RBC Morphology Normal 06/09/18 11:20: Sodium 131 L, Potassium 2.8 L*, Chloride 94 L, Carbon Dioxide 26, Anion Gap 13.8, BUN 21 H, Creatinine 1.40 H, Estimated Creat Clear 69, Estimated GFR 41 L, Est GFR ( Amer) 50 L, Glucose 86, Calcium 8.6, Total Bilirubin 0.8, AST 35, ALT 58, Alkaline Phosphatase 99, Total Protein 6.7, Albumin 2.3 L, Globulin 4.4 H, Albumin/Globulin Ratio 0.5 L, Amylase 39, Lipase 46 L 06/09/18 11:20: Lactate 1.3 06/09/18 12:52: Influenza Type A Ag Negative, Influenza Type B Ag Negative 06/09/18 20:30: Sodium 130 L, Potassium 2.9 L*, Chloride 96 L, Carbon Dioxide 24, Anion Gap 12.9, BUN 16, Creatinine 1.20 H, Estimated Creat Clear 82, Estimated GFR 49 L, Est GFR ( Amer) 59, Glucose 81, Calcium 7.7 L D 06/10/18 01:25: Stl Aeromonas (PCR) Not detected, Stl C. cayetanensis PCR Not detected, Stool Rotavirus (PCR) Not detected, Stl Adenov F 40/41 PCR Not detected, Stool Astrovirus (PCR) Not detected, Stool Campylobacter PCR Not detected, Stl C.difficile Tox PCR Not detected, Stool Cryptosporidium PCR Not detected, Stl E.coli Shiga Tox PCR Not detected, Stool E coli O157 PCR Not detected, Stl Enterotoxigenic E PCR Not detected, Stool EPEC (PCR) Not detected, Stool EAEC (PCR) Not detected, Stl E. histolytica PCR Not detected, Stool Giard ia Lamblia PCR Not detected, Stool Salmonella PCR Not detected, Stool Sapovirus (PCR) Not detected, Stl P. shigelloides PCR Not detected, Stl Shigella/EIEC PCR Not detected, St Y.enterocolitica PCR Not detected, Stool Vibrio (PCR) Not detected, Stl Vibrio cholerae PCR Not detected, Stl Norovirus GI/GII PCR Not detected 06/10/18 02:15: Random Gentamicin 5.3 I & O for Last 24 hours: Intake & Output 06/07/18 06/08/18 06/09/18 06/10/18 11:59 11:59 11:59 11:59 Intake Total 4129 / 4129 Output Total 0 / 0 Balance 4129 / 4129 Weight 186 lb 189 lb - Constitutional no acute distress - *Routine Cardiovascular Exam Present: tachycardia - *Routine Abdominal Exam Present: soft Progress Note: A&P (1) Abscess, intra-abdominal, postoperative Status: Acute Current Visit: Yes Assessment and Plan for All Diagnoses:: continue Vanc/Zosy serial exams may require exploration if she develops any signs consistent with peritonitis Fluid collections may mature and be accessible for radiographically-guided drainage or may even resolve with continued antibiotics.
--- NOTE | 2018-06-10 07:35 | Pharmacy Consult Notes ---
[facility] Pharmacy VTE Monitoring - Patient Demographics Admission date: 06/09/18 Report Date: 06/10/18 Time: 07:35 Allergies/Adverse Reactions: Patient Allergies lamotrigine Allergy (Intermediate, Verified 06/09/18 11:40) I-RASH morphine Allergy (Verified 06/09/18 12:47) Height: 1.57 m Weight: 85.729 kg Patient Problems: Current Active Problems Abscess, intra-abdominal, postoperative (Acute) - VTE Risk Labs: VTE Related Lab Results Hgb 12.0 g/dL (12.2-16.2) L 06/09/18 11:20 Hct 36.1 % (37.0-47.0) L 06/09/18 11:20 Plt Count 175 K/mm3 (142-424) 06/09/18 11:20 BUN 16 mg/dL (7-18) 06/09/18 20:30 Creatinine 1.20 mg/dL (0.55-1.02) H 06/09/18 20:30 Estimated Creat Clear 82 mL/min (50-200) 06/09/18 20:30 VTE Score: 5 VTE Risk Level: Low Risk - Prophylaxis VTE Prophylaxis Ordered?: Yes Types of VTE Prophylaxis: TEDS Knee High Location of Applied Device: Bilateral Lower Extremeties - VTE Diagnosis Confirmed Treatment or plan recommended: Continue Current Treatment
--- NOTE | 2018-06-10 11:06 | Progress Note ---
Internal Medicine - PN: Subj *Date: 06/10/18 *Time: 11:03 Interval history: IVP this morning has been read as normal per Dr. Hunter (ureters intact). Her most recent temp spiked to 102.5 p.o. She continues on intravenous antibiotics (clindamycin, piperacillin, vancomycin). Her peripheral IV blew, and she has been getting her antibiotics through her port. I have instructed the nurses to re-access a peripheral site and closed off the port, which may need to be removed (possible nidus for infection). Exam Vital signs and Labs for Last 24 Hours: Temp Pulse Resp BP Pulse Ox 99.8 F H 121 H 18 111/52 L 99 06/10/18 07:54 06/10/18 07:54 06/10/18 07:54 06/10/18 07:54 06/10/18 07:54 Laboratory Results - last 24 hr 06/09/18 11:20: WBC 5.8 D, RBC 4.40, Hgb 12.0 L, Hct 36.1 L, MCV 82.2, MCH 27.3, MCHC 33.2, RDW 15.5, Plt Count 175, MPV 9.0, Neut % (Auto) 90.1 H, Lymph % (Auto) 4.7 L, [place] % (Auto) 3.0, Eos % (Auto) 1.5, Baso % (Auto) 0.6, Neut # (Auto) 5.2, Lymph # (Auto) 0.3 L, [place] # (Auto) 0.2, Eos # (Auto) 0.1, Baso # (Auto) 0.0, Total Counted 100, Neutrophils % (Manual) 83 H, Lymphocytes % (Manual) 8 L, Monocytes % (Manual) 6, Eosinophils % (Manual) 3, Nucleated RBCs 1, Platelet Estimate Normal, RBC Morphology Normal 06/09/18 11:20: Sodium 131 L, Potassium 2.8 L*, Chloride 94 L, Carbon Dioxide 26, Anion Gap 13.8, BUN 21 H, Creatinine 1.40 H, Estimated Creat Clear 69, Estimated GFR 41 L, Est GFR ( Amer) 50 L, Glucose 86, Calcium 8.6, Total Bilirubin 0.8, AST 35, ALT 58, Alkaline Phosphatase 99, Total Protein 6.7, Albumin 2.3 L, Globulin 4.4 H, Albumin/Globulin Ratio 0.5 L, Amylase 39, Lipase 46 L 06/09/18 11:20: Lactate 1.3 06/09/18 12:52: Influenza Type A Ag Negative, Influenza Type B Ag Negative 06/09/18 20:30: Sodium 130 L, Potassium 2.9 L*, Chloride 96 L, Carbon Dioxide 24, Anion Gap 12.9, BUN 16, Creatinine 1.20 H, Estimated Creat Clear 82, Estimated GFR 49 L, Est GFR ( Amer) 59, Glucose 81, Calcium 7.7 L D 06/10/18 01:25: Stl Aeromonas (PCR) Not detected, Stl C. cayetanensis PCR Not detected, Stool Rotavirus (PCR) Not detected, Stl Adenov F 40/41 PCR Not detected, Stool Astrovirus (PCR) Not detected, Stool Campylobacter PCR Not detected, Stl C.difficile Tox PCR Not detected, Stool Cryptosporidium PCR Not detected, Stl E.coli Shiga Tox PCR Not detected, Stool E coli O157 PCR Not detected, Stl Enterotoxigenic E PCR Not detected, Stool EPEC (PCR) Not detected, Stool EAEC (PCR) Not detected, Stl E. histolytica PCR Not detected, Stool Giardia Lamblia PCR Not detected, Stool Salmonella PCR Not detected, Stool Sapovirus (PCR) Not detected, Stl P. shigelloides PCR Not detected, Stl Shigella/EIEC PCR Not detected, St Y.enterocolitica PCR Not detected, Stool Vibrio (PCR) Not detected, Stl Vibrio cholerae PCR Not detected, Stl Norovirus GI/GII PCR Not detected 06/10/18 02:15: Random Gentamicin 5.3 I & O for Last 24 hours: Intake & Output 06/07/18 06/08/18 06/09/18 06/10/18 11:59 11:59 11:59 11:59 Intake Total 4609 / 4609 Output Total 0 / 0 Balance 4609 / 4609 Weight 186 lb 189 lb Assessment and Plan (1) Abscess, intra-abdominal, postoperative Current visit: Yes Status: Acute Category: Medical Code(s): T81.49XA - Infection following a procedure, other surgical site, initial encounter
--- NOTE | 2018-06-10 12:55 | Pharmacy Consult Notes ---
- Pharmacy Consult Date: 06/10/18 Time: 11:45 Referring provider: DR. RUIZ/DONNA Reason for Consult:: GENTAMICIN DOSING Allergies and ADEs:: Allergies Allergy/AdvReac Type Severity Reaction Status Date / Time lamotrigine Allergy Intermediate I-RASH Verified 06/09/18 11:40 morphine Allergy Verified 06/09/18 12:47 Home Medications:: Home Medications Medication Instructions Recorded Confirmed Type Fluticasone Propionate 1 spray INTRANASAL DAILY 06/02/18 06/09/18 History Phentermine HCl 37.5 mg PO DAILY 06/02/18 06/09/18 History Cetirizine HCl 10 mg PO DAILYP PRN 06/04/18 06/09/18 History Cholecalciferol (Vitamin D3) 50,000 unit PO MOFR 06/04/18 06/09/18 History [Vitamin D3 50,000 unit Cap] Ferrous Sulfate [Ferrous Sulfate 325 mg PO BID 06/04/18 06/09/18 History 325mg Tablet] Oxycodone HCl/Acetaminophen 1 tab PO Q4HP PRN #30 tab 06/07/18 06/09/18 Rx [Percocet 5/325mg tablet] ondansetron HCl 8 mg tablet 8 mg PO BID PRN #30 tab 06/07/18 06/09/18 Rx promethazine 25 mg tablet 25 mg PO Q6H PRN #30 tab 06/07/18 06/09/18 Rx Topiramate 25 mg PO HS 06/09/18 06/10/18 History cephALEXin [Keflex 500mg Cap] 500 mg PO Q6H 06/09/18 06/09/18 History hydroCHLOROthiazide [HCTZ 25mg 25 mg PO DAILY 06/09/18 06/09/18 History tab] Height: 1.57 m Weight: 85.729 kg Laboratory Results:: Laboratory Results - last 24 hr 06/09/18 11:20: WBC 5.8 D, RBC 4.40, Hgb 12.0 L, Hct 36.1 L, MCV 82.2, MCH 27.3, MCHC 33.2, RDW 15.5, Plt Count 175, MPV 9.0, Neut % (Auto) 90.1 H, Lymph % (Auto) 4.7 L, [place] % (Auto) 3.0, Eos % (Auto) 1.5, Baso % (Auto) 0.6, Neut # (Auto) 5.2, Lymph # (Auto) 0.3 L, [place] # (Auto) 0.2, Eos # (Auto) 0.1, Baso # (Auto) 0.0, Total Counted 100, Neutrophils % (Manual) 83 H, Lymphocytes % (Manual) 8 L, Monocytes % (Manual) 6, Eosinophils % (Manual) 3, Nucleated RBCs 1, Platelet Estimate Normal, RBC Morphology Normal 06/09/18 11:20: Sodium 131 L, Potassium 2.8 L*, Chloride 94 L, Carbon Dioxide 26, Anion Gap 13.8, BUN 21 H, Creatinine 1.40 H, Estimated Creat Clear 69, Estimated GFR 41 L, Est GFR ( Amer) 50 L, Glucose 86, Calcium 8.6, Total Bilirubin 0.8, AST 35, ALT 58, Alkaline Phosphatase 99, Total Protein 6.7, Albumin 2.3 L, Globulin 4.4 H, Albumin/Globulin Ratio 0.5 L, Amylase 39, Lipase 46 L 06/09/18 11:20: Lactate 1.3 06/09/18 12:52: Influenza Type A Ag Negative, Influenza Type B Ag Negative 06/09/18 20:30: Sodium 130 L, Potassium 2.9 L*, Chloride 96 L, Carbon Dioxide 24, Anion Gap 12.9, BUN 16, Creatinine 1.20 H, Estimated Creat Clear 82, Estimated GFR 49 L, Est GFR ( Amer) 59, Glucose 81, Calcium 7.7 L D 06/10/18 01:25: Stl Aeromonas (PCR) Not detected, Stl C. cayetanensis PCR Not detected, Stool Rotavirus (PCR) Not detected, Stl Adenov F 40/41 PCR Not detected, Stool Astrovirus (PCR) Not detected, Stool Campylobacter PCR Not detected, Stl C.difficile Tox PCR Not detected, Stool Cryptosporidium PCR Not detected, Stl E.coli Shiga Tox PCR Not detected, Stool E coli O157 PCR Not detected, Stl Enterotoxigenic E PCR Not detected, Stool EPEC (PCR) Not detected, Stool EAEC (PCR) Not detected, Stl E. histolytica PCR Not detected, Stool Giardia Lamblia PCR Not detected, Stool Salmonella PCR Not detected, Stool Sapovirus (PCR) Not detected, Stl P. shigelloides PCR Not detected, Stl [place] gella/EIEC PCR Not detected, St Y.enterocolitica PCR Not detected, Stool Vibrio (PCR) Not detected, Stl Vibrio cholerae PCR Not detected, Stl Norovirus GI/GII PCR Not detected 06/10/18 02:15: Random Gentamicin 5.3 06/10/18 10:15: Random Gentamicin 1.4 L Medical History: Reports:: Depression, Gastroesophageal Reflux Disease(GERD), Migraine Denies:: Cancer, Chronic Obstructive Pulmonary Disease (COPD), Diabetes Mellitus Type 1, Diabetes Mellitus Type 2, Internal Pacemaker, MRSA, Seizures Assessment and Plan (1) Abscess, intra-abdominal, postoperative Current visit: Yes Status: Acute Category: Medical Code(s): T81.49XA - Infection following a procedure, other surgical site, initial encounter - Assessment and plan all Dx Assessment and Plan for all problems:: BASED ON PATIENT FACTORS, RECOMMEND VANCOMYCIN 1750 MG IV Q24H. WILL OBTAIN VANCOMYCIN TROUGH LEVEL PRIOR TO 3RD DOSE. RECOMMENDED GENTAMICIN 380 MG IV ONCE. GENTAMICIN LEVELS AT 4 AND 12 HOURS POST- INFUSION WERE 5.3 MCG/ML AND 1.4 MCG/ML. CALCULATED PEAK WAS 8.72 MCG/ML AND CALCULATED TROUGH WAS 0.19 MCG/ML. BASED ON LEVELS AND PATIENT FACTORS, RECOMMEND INCREASING TO GENTAMICIN 460 MG (7 MG/KG/DBW) IV Q24H. PHARMACY WILL CONTINUE TO MONITOR DAILY AND ADJUST APPROPRIATE.
[2018-06-11 06:35] LABS: Basophils % 0.6 % (0.1-2.0); Eosinophils # 0.1 K/mm3 (0.0-0.4); Eosinophils % 1.1 % (0.1-12.0); Hematocrit 26.5 % (37.0-47.0); Hemoglobin 8.8 g/dL (12.2-16.2); Lymphocytes # 0.5 K/mm3 (0.7-4.5); Lymphocytes % 8.9 % (10-50); Mean Corpuscular HGB Conc 33.4 g/dL (31.8-35.4); Mean Corpuscular Hemoglobin 27.2 pg (27.0-31.2); Mean Corpuscular Volume 81.6 fl (81-99); Mean Platelet Volume 9.1 fl (7.4-10.4); Monocytes # 0.5 K/mm3 (0.1-1.0); Monocytes % 8.6 % (1.7-9.3); Neutrophils # 4.4 K/mm3 (1.8-7.8); Neutrophils % 80.7 % (37.0-80.0); Platelet Count 161 K/mm3 (142-424); Red Blood Count 3.25 M/mm3 (4.20-5.40); White Blood Count 5.5 K/mm3 (4.8-10.8)
--- NOTE | 2018-06-11 06:37 | Progress Note ---
Subjective Patient reports: no new complaints (She continues to have fairly significant pelvic pain with voiding) Exam Vital signs and Labs for Last 24 Hours: Temp Pulse Resp BP Pulse Ox 98.6 F 77 14 97/56 L 98 06/11/18 04:00 06/11/18 04:00 06/11/18 04:00 06/11/18 04:00 06/11/18 04:00 Laboratory Results - last 24 hr 06/10/18 10:15: Random Gentamicin 1.4 L 06/10/18 10:15: Potassium 3.0 L I & O for Last 24 hours: Intake & Output 06/08/18 06/09/18 06/10/18 06/11/18 11:59 11:59 11:59 11:59 Intake Total 4609 / 4609 1500 / 1500 Output Total 0 / 0 Balance 4609 / 4609 1500 / 1500 Weight 186 lb 189 lb 189 lb - Constitutional no acute distress - *Routine Respiratory Exam Absent: respiratory distress - *Routine Abdominal Exam Present: soft Comments: Tenderness unchanged. No changes consistent with peritonitis. Progress Note: A&P (1) Abscess, intra-abdominal, postoperative Status: Acute Assessment and plan: She is on the schedule for removal of her port later today in order to avoid additional potential infective source. Continue to follow serial abdominal exams Continue IV antibiotics Current Visit: Yes
[2018-06-11 06:50] LABS: Anion Gap 10.7 mEq/L (5-15); Calcium 7.4 mg/dL (8.5-10.1)
[2018-06-11 06:56] LABS: Potassium 2.7 mmoL/L (3.5-5.1)
--- NOTE | 2018-06-11 07:09 | Progress Note ---
Internal Medicine - PN: Subj *Date: 06/11/18 *Time: 07:02 Interval history: The patient has been afebrile all night, but is complaining of more pressure when she voids. Her potassium is 2.7 and she will be getting some potassium this morning prior to Dr. Lozada removing her upper chest port. I discussed with her having a Mcdaniels put for relief, and she has agreed. If scheduling allows, I will attend the procedure and do an exam under anesthesia and possible culdocentesis. Exam Vital signs and Labs for Last 24 Hours: Temp Pulse Resp BP Pulse Ox 98.6 F 77 14 97/56 L 98 06/11/18 04:00 06/11/18 04:00 06/11/18 04:00 06/11/18 04:00 06/11/18 04:00 Laboratory Results - last 24 hr 06/10/18 10:15: Random Gentamicin 1.4 L 06/10/18 10:15: Potassium 3.0 L 06/11/18 06:12: WBC 5.5, RBC 3.25 L D, Hgb 8.8 L, Hct 26.5 L, MCV 81.6, MCH 27.2, MCHC 33.4, RDW 16.0, Plt Count 161, MPV 9.1, Neut % (Auto) 80.7 H, Lymph % (Auto) 8.9 L, [place] % (Auto) 8.6, Eos % (Auto) 1.1, Baso % (Auto) 0.6, Neut # (Auto) 4.4, Lymph # (Auto) 0.5 L, [place] # (Auto) 0.5, Eos # (Auto) 0.1, Baso # (Auto) 0.0 06/11/18 06:12: Sodium 136, Potassium 2.7 L*, Chloride 104, Carbon Dioxide 24, Anion Gap 10.7, BUN 12, Creatinine 1.05 H, Estimated Creat Clear 93, Estimated GFR 57 L, Est GFR ( Amer) 69, Glucose 82, Calcium 7.4 L I & O for Last 24 hours: Intake & Output 06/08/18 06/09/18 06/10/18 06/11/18 11:59 11:59 11:59 11:59 Intake Total 4609 / 4609 3272 / 3272 Output Total 0 / 0 Balance 4609 / 4609 3272 / 3272 Weight 186 lb 189 lb 189 lb Assessment and Plan (1) Abscess, intra-abdominal, postoperative Current visit: Yes Status: Acute Category: Medical Code(s): T81.49XA - Infection following a procedure, other surgical site, initial encounter
[2018-06-11 07:43] LABS: Microscopic, Urine URINE MICROSCOPIC (MICROSCOPIC)
[2018-06-11 08:00] LABS: Appearance,Urine CLEAR (Clear); Bilirubin,Urine Negative (Negative); Blood, Urine 1+ (Negative); Color,Urine YELLOW (Yellow); Glucose,Urine (UA) Negative (Negative); Ketones,Urine Negative (Negative); Leukocyte Esterase,Urine Negative (Negative); Protein,Urine Negative (Negative); Specific Gravity, Urine <= 1.005 (1.005-1.030); Urobilinogen,Urine 0.2 EU/dl (0.2)
[2018-06-11 08:25] LABS: Bacteria,Urine 2+ /lpf
--- NOTE | 2018-06-11 12:24 | Progress Note ---
Internal Medicine - PN: Subj *Date: 06/11/18 *Time: 12:21 Interval history: Oral temperature has been less than 100 for the last 12+ hours. The patient is experiencing much less discomfort since her Mcdaniels catheter has been in place. Urine culture was done. Blood cultures are still pending. The patient will be having her port removed later this afternoon..conflicting schedules will preclude my being in OR to do exam under anesthesia or culdocentesis today..will observe. Exam Vital signs and Labs for Last 24 Hours: Temp Pulse Resp BP Pulse Ox 99.0 F 75 18 103/40 L 98 06/11/18 08:00 06/11/18 08:00 06/11/18 08:00 06/11/18 10:44 06/11/18 08:00 Laboratory Results - last 24 hr 06/10/18 10:15: Potassium 3.0 L 06/11/18 06:12: WBC 5.5, RBC 3.25 L D, Hgb 8.8 L, Hct 26.5 L, MCV 81.6, MCH 27.2, MCHC 33.4, RDW 16.0, Plt Count 161, MPV 9.1, Neut % (Auto) 80.7 H, Lymph % (Auto) 8.9 L, [place] % (Auto) 8.6, Eos % (Auto) 1.1, Baso % (Auto) 0.6, Neut # (Auto) 4.4, Lymph # (Auto) 0.5 L, [place] # (Auto) 0.5, Eos # (Auto) 0.1, Baso # (Auto) 0.0 06/11/18 06:12: Sodium 136, Potassium 2.7 L*, Chloride 104, Carbon Dioxide 24, Anion Gap 10.7, BUN 12, Creatinine 1.05 H, Estimated Creat Clear 93, Estimated GFR 57 L, Est GFR ( Amer) 69, Glucose 82, Calcium 7.4 L 06/11/18 07:20: Urine Color Yellow, Urine Appearance Clear, Urine pH 6.0, Ur Specific [place] <= 1.005, Urine Protein Negative, Urine Glucose (UA) Negative, Urine Ketones Negative, Urine Blood 1+, Urine Nitrate Negative, Urine Bilirubin Negative, Urine Urobilinogen 0.2, Ur Leukocyte Esterase Negative, Urine RBC 3-5, Urine WBC 3-5, Ur Squamous Epith Cells 5-10, Urine Bacteria 2+ I & O for Last 24 hours: Intake & Output 06/09/18 06/10/18 06/11/18 06/12/18 11:59 11:59 11:59 11:59 Intake Total 4609 / 4609 3568.667 / 3568.667 Output Total 0 / 0 Balance 4609 / 4609 3568.667 / 3568.667 Weight 186 lb 189 lb 189 lb Assessment and Plan (1) Abscess, intra-abdominal, postoperative Current visit: Yes Status: Acute Category: Medical Code(s): T81.49XA - Infection following a procedure, other surgical site, initial encounter
--- NOTE | 2018-06-11 14:32 | Progress Note ---
Subjective Narrative: Patient still has had some pelvic discomfort. No diffuse abdominal pain. She did have a Mcdaniels catheter placed this morning which gave her some relief. Exam Vital signs and Labs for Last 24 Hours: Temp Pulse Resp BP Pulse Ox 99.0 F 75 18 103/40 L 98 06/11/18 08:00 06/11/18 08:00 06/11/18 08:00 06/11/18 10:44 06/11/18 08:00 Laboratory Results - last 24 hr 06/10/18 10:15: Potassium 3.0 L 06/11/18 06:12: WBC 5.5, RBC 3.25 L D, Hgb 8.8 L, Hct 26.5 L, MCV 81.6, MCH 27.2, MCHC 33.4, RDW 16.0, Plt Count 161, MPV 9.1, Neut % (Auto) 80.7 H, Lymph % (Auto) 8.9 L, [place] % (Auto) 8.6, Eos % (Auto) 1.1, Baso % (Auto) 0.6, Neut # (Auto) 4.4, Lymph # (Auto) 0.5 L, [place] # (Auto) 0.5, Eos # (Auto) 0.1, Baso # (Auto) 0.0 06/11/18 06:12: Sodium 136, Potassium 2.7 L*, Chloride 104, Carbon Dioxide 24, Anion Gap 10.7, BUN 12, Creatinine 1.05 H, Estimated Creat Clear 93, Estimated GFR 57 L, Est GFR ( Amer) 69, Glucose 82, Calcium 7.4 L 06/11/18 07:20: Urine Color Yellow, Urine Appearance Clear, Urine pH 6.0, Ur Specific [place] <= 1.005, Urine Protein Negative, Urine Glucose (UA) Negative, Urine Ketones Negative, Urine Blood 1+, Urine Nitrate Negative, Urine Bilirubin Negative, Urine Urobilinogen 0.2, Ur Leukocyte Esterase Negative, Urine RBC 3-5, Urine WBC 3-5, Ur Squamous Epith Cells 5-10, Urine Bacteria 2+ 06/11/18 12:10: Potassium 3.6 D I & O for Last 24 hours: Intake & Output 06/09/18 06/10/18 06/11/18 06/12/18 11:59 11:59 11:59 11:59 Intake Total 4609 / 4609 3568.667 / 3568.667 Output Total 0 / 0 900 / 900 Balance 4609 / 4609 3568.667 / 3568.667 -900 / -900 Weight 186 lb 189 lb 189 lb Microbiology Reports for the Last 24 Hours: Microbiology 06/09/18 11:20 Blood Blood Culture - Preliminary NO GROWTH AFTER 48 HOURS 06/09/18 11:20 Blood Blood Culture - Preliminary NO GROWTH AFTER 48 HOURS - *Routine Abdominal Exam Present: soft Comments: Patient only has minimal tenderness to deep palpation in the right pelvic and right lower quadrant area. No guarding or rebound at this location. No evidence of any peritonitis. Progress Note: A&P (1) Abscess, intra-abdominal, postoperative Status: Acute Current Visit: Yes Assessment and Plan for All Diagnoses:: Plan is for removal of the implantable venous access port today to eliminate this as a nidus for infection. Otherwise continue broad-spectrum intravenous antibiotics. Due to the lack of peritonitis would not plan for operative exploration at this current juncture. Of course if she develops clinical compromise this may be necessary. Otherwise plan for repeat CT scan in several days with potential drainage if she shows evidence of any mature abscess.
--- NOTE | 2018-06-11 14:55 | Operative Note ---
Date of procedure: 06/11/18 Pre-op Diagnosis:: Chronic indwelling port Fever Intra-abdominal fluid collections/possible abscesses Post-op Diagnosis:: Same Procedure performed:: Removal of Port-A-Cath (left subclavian vein access) Surgeon:: Henrry Lozada MD SLIP CASTER:: Ollie Rodriges Anesthesia: LMA Estimated blood loss (mL): 5 Operative findings:: Port removed without difficulty and sent for Gram stain/culture Operative note:: After informed consent was obtained the patient was taken to the operating room and placed in the supine position. General anesthesia with laryngeal mask airway was achieved. The left upper chest was prepped and draped in a sterile fashion. After infiltration with local anesthetic an incision was made overlying the port. A combination of sharp dissection with scalpel and blunt dissection was utilized to expose the port. The port was well encapsulated. Careful dissection was utilized to free the port from surrounding tissue with removal of the 3 stay sutures. The port was then carefully removed and sent for Gram stain/culture. Hemostasis was achieved with compression. The deep subcu taneous tissue was reapproximated with interrupted Vicryl and skin was closed with 4-0 Monocryl in a running subcuticular fashion. Steri-Strips were applied. The patient was transferred to recovery after removal of her laryngeal mask airway. Condition: stable Disposition: PACU Specimens:: Port for Gram stain/culture Complications:: No immediate
--- NOTE | 2018-06-11 14:58 | Progress Note ---
[facility] Anesthesia Record Part I Intake, IV Amount: 500 Estimated blood loss (mL): 0 Urine output (mL): 0 Blood Pressure: 112/50 SaO2: 95 Pulse Rate: 85 Respiratory Rate: 10 Temperature: 97.5 F Patient is:: Awake, Stable Stable to PACU at:: 15:00
--- NOTE | 2018-06-11 14:58 | Progress Note ---
[facility] Anesthesia Record Part II Discharge Time: 15:30 Destination: floor PACU nurse assessment reviewed?: Yes Patient Condition:: Good Anesthesia Complications:: None Swallowing reflex intact?: Yes Cyanosis?: No
--- NOTE | 2018-06-12 08:47 | Progress Note ---
Internal Medicine - PN: Subj *Date: 06/12/18 *Time: 08:43 Interval history: Port was removed yesterday without incident. The patient has now been afebrile (oral temp less than 100) for 24 hours or so. Her abdomen is soft. Wound clean. Urine output is good/clear. Final blood cultures were negative. Experiencing minimal pain. The plan is to continue IV antibiotics for 1 more day, and to remove her Mcdaniels catheter to see if her post voiding pain persists. I am going to order a repeat CT of abdomen/pelvis for tomorrow. Exam Vital signs and Labs for Last 24 Hours: Temp Pulse Resp BP Pulse Ox 98.4 F 83 18 103/59 L 98 06/12/18 04:00 06/12/18 04:00 06/12/18 04:00 06/12/18 04:00 06/12/18 04:00 Laboratory Results - last 24 hr 06/11/18 12:10: Potassium 3.6 D I & O for Last 24 hours: Intake & Output 06/09/18 06/10/18 06/11/18 06/12/18 11:59 11:59 11:59 11:59 Intake Total 4609 / 4609 3568.667 / 3568.667 1005 / 1005 Output Total 0 / 0 2800 / 2800 Balance 4609 / 4609 3568.667 / 3568.667 -1795 / -1795 Weight 186 lb 189 lb 189 lb Microbiology Reports for the Last 24 Hours: Microbiology 06/11/18 07:20 Urine,Clean Catch Urine Culture - Preliminary NO GROWTH AFTER 24 HOURS 06/09/18 11:20 Blood Blood Culture - Preliminary NO GROWTH AFTER 48 HOURS 06/09/18 11:20 Blood Blood Culture - Preliminary NO GROWTH AFTER 48 HOURS Assessment and Plan (1) Abscess, intra-abdominal, postoperative Current visit: Yes Status: Acute Category: Medical Code(s): T81.49XA - Infection following a procedure, other surgical site, initial encounter
--- NOTE | 2018-06-12 10:12 | Progress Note ---
Subjective Patient reports: no new complaints, still having pain (Pain reported, although improved. No nausea or vomiting.), flatus Exam Vital signs and Labs for Last 24 Hours: Temp Pulse Resp BP Pulse Ox 99.2 F 99 H 20 103/31 L 98 06/12/18 08:00 06/12/18 08:00 06/12/18 08:00 06/12/18 08:00 06/12/18 08:00 Laboratory Results - last 24 hr 06/11/18 12:10: Potassium 3.6 D I & O for Last 24 hours: Intake & Output 06/09/18 06/10/18 06/11/18 06/12/18 11:59 11:59 11:59 11:59 Intake Total 4609 / 4609 3568.667 / 3568.667 1125 / 1125 Output Total 0 / 0 2800 / 2800 Balance 4609 / 4609 3568.667 / 3568.667 -1675 / -1675 Weight 84.368 kg 85.729 kg 85.729 kg Microbiology Reports for the Last 24 Hours: Microbiology 06/11/18 07:20 Urine,Clean Catch Urine Culture - Preliminary NO GROWTH AFTER 24 HOURS 06/09/18 11:20 Blood Blood Culture - Preliminary NO GROWTH AFTER 48 HOURS 06/09/18 11:20 Blood Blood Culture - Preliminary NO GROWTH AFTER 48 HOURS - *Routine Abdominal Exam Present: soft Comments: Nontender. Nondistended. Progress Note: A&P (1) Abscess, intra-abdominal, postoperative Status: Acute Current Visit: Yes Assessment and Plan for All Diagnoses:: Plan as noted above on admitting MD progress note. No significant change. No surgical intervention indicated. Await follow-up CT imaging.
--- NOTE | 2018-06-12 11:53 | Pharmacy Consult Notes ---
- Pharmacy Consult Date: 06/12/18 Time: 11:50 Referring provider: DR. RUIZ Reason for Consult:: GENTAMICIN 10 HR POST INFUSION LEVEL Allergies and ADEs:: Allergies Allergy/AdvReac Type Severity Reaction Status Date / Time lamotrigine Allergy Intermediate I-RASH Verified 06/09/18 11:40 morphine Allergy Verified 06/09/18 12:47 Home Medications:: Home Medications Medication Instructions Recorded Confirmed Type Fluticasone Propionate 1 spray INTRANASAL DAILY 06/02/18 06/09/18 History Phentermine HCl 37.5 mg PO DAILY 06/02/18 06/09/18 History Cetirizine HCl 10 mg PO DAILYP PRN 06/04/18 06/09/18 History Cholecalciferol (Vitamin D3) 50,000 unit PO MOFR 06/04/18 06/09/18 History [Vitamin D3 50,000 unit Cap] Ferrous Sulfate [Ferrous Sulfate 325 mg PO BID 06/04/18 06/09/18 History 325mg Tablet] Oxycodone HCl/Acetaminophen 1 tab PO Q4HP PRN #30 tab 06/07/18 06/09/18 Rx [Percocet 5/325mg tablet] ondansetron HCl 8 mg tablet 8 mg PO BID PRN #30 tab 06/07/18 06/09/18 Rx promethazine 25 mg tablet 25 mg PO Q6H PRN #30 tab 06/07/18 06/09/18 Rx Topiramate 25 mg PO HS 06/09/18 06/10/18 History cephALEXin [Keflex 500mg Cap] 500 mg PO Q6H 06/09/18 06/09/18 History hydroCHLOROthiazide [HCTZ 25mg 25 mg PO DAILY 06/09/18 06/09/18 History tab] Polyethylene Glycol 3350 [Miralax 17 gm PO DAILY 06/11/18 06/11/18 History 17gm Packet] Height: 1.57 m Weight: 85.729 kg Laboratory Results:: Laboratory Results - last 24 hr 06/11/18 12:10: Potassium 3.6 D 06/12/18 10:01: Random Gentamicin 3.6 L Medical History: Reports:: Depression, Gastroesophageal Reflux Disease(GERD), Migraine Denies:: Cancer, Chronic Obstructive Pulmonary Disease (COPD), Diabetes Mellitus Type 1, Diabetes Mellitus Type 2, Internal Pacemaker, MRSA, Seizures Assessment and Plan (1) Abscess, intra-abdominal, postoperative Current visit: Yes Status: Acute Category: Medical Code(s): T81.49XA - Infection following a procedure, other surgical site, initial encounter - Assessment and plan all Dx Assessment and Plan for all problems:: PATIENT HAD 10 HOUR POST INFUSION LEVEL (3.6 MCG/ML) DRAWN FOR GENTAMICIN TODAY. BASED ON THIS LEVEL, RECOMMEND CONTINUING WITH CURRENT DOSE AND INTERVAL OF GENTAMICIN 460 MG (7 MG/KG DBW) Q24H AT THIS TIME. PHARMACY WILL FOLLOW DAILY AND ADJUST APPROPRIATE. HONORIO GARCIA, PHARMD
[2018-06-12 13:30] LABS: Microscopic, Urine URINE MICROSCOPIC (MICROSCOPIC)
[2018-06-12 13:37] LABS: Appearance,Urine SL CLOUDY (Clear); Bilirubin,Urine Negative (Negative); Blood, Urine TRACE-I (Negative); Color,Urine YELLOW (Yellow); Glucose,Urine (UA) Negative (Negative); Ketones,Urine Negative (Negative); Leukocyte Esterase,Urine Negative (Negative); Protein,Urine Negative (Negative); Specific Gravity, Urine <= 1.005 (1.005-1.030); Urobilinogen,Urine 0.2 EU/dl (0.2)
[2018-06-12 14:12] LABS: Bacteria,Urine Trace /lpf; RBC,Urine Occasional #/hpf (0-3); Squamous Epithelial Cell,Urine Occasional #/hpf (0-5); WBC,Urine Occasional #/hpf (0-3)
--- NOTE | 2018-06-13 09:20 | Progress Note ---
Internal Medicine - PN: Subj *Date: 06/13/18 *Time: : Interval history: The patient remains afebrile, but still complaining of abdominal pain. CT scan is scheduled for this morning. Exam Vital signs and Labs for Last 24 Hours: Temp Pulse Resp BP Pulse Ox 98.9 F 85 16 110/56 L 99 06/13/18 04:00 06/13/18 04:00 06/13/18 04:00 06/13/18 04:00 06/13/18 04:00 Laboratory Results - last 24 hr 06/12/18 10:01: Random Gentamicin 3.6 L 06/12/18 13:25: Urine Color Yellow, Urine Appearance Sl cloudy, Urine pH 6.0, Ur Specific [place] <= 1.005, Urine Protein Negative, Urine Glucose (UA) Negative, Urine Ketones Negative, Urine Blood Trace-i, Urine Nitrate Negative, Urine Bilirubin Negative, Urine Urobilinogen 0.2, Ur Leukocyte Esterase Negative, Urine RBC Occasional, Urine WBC Occasional, Ur Squamous Epith Cells Occasional, Urine Bacteria Trace 06/12/18 22:15: Vancomycin Trough 9.3 L I & O for Last 24 hours: Intake & Output 06/10/18 06/11/18 06/12/18 06/13/18 11:59 11:59 11:59 12:59 Intake Total 4609 / 4609 3568.667 / 3568.667 1125 / 1125 3352 / 3352 Output Total 0 / 0 4100 / 4100 3900 / 3900 Balance 4609 / 4609 3568.667 / 3568.667 -2975 / -2975 -548 / -548 Weight 189 lb 189 lb 189 lb Microbiology Reports for the Last 24 Hours: Microbiology 06/11/18 07:20 Urine,Clean Catch Urine Culture - Final NO GROWTH AFTER 48 HOURS 06/12/18 16:17 Vaginal - Vaginal Gram Stain - Final Assessment and Plan (1) Abscess, intra-abdominal, postoperative Current visit: Yes Status: Acute Category: Medical Code(s): T81.49XA - Infection following a procedure, other surgical site, initial encounter
--- NOTE | 2018-06-13 11:18 | Progress Note ---
Subjective Narrative: Ms. Herring is a 42-year-old female admitted after total abdominal hysterectomy on June 03, 2018. Intra-abdominal fluid collection(s) noted without specific etiology. Today, reports continued abdominal pain. Primarily located in the suprapubic region. Mcdaniels catheter remains in place. No emesis, however, nausea is described. Exam Vital signs and Labs for Last 24 Hours: Temp Pulse Resp BP Pulse Ox 98.4 F 89 18 103/56 L 96 06/13/18 08:00 06/13/18 08:00 06/13/18 08:00 06/13/18 08:00 06/13/18 08:00 Laboratory Results - last 24 hr 06/12/18 10:01: Random Gentamicin 3.6 L 06/12/18 13:25: Urine Color Yellow, Urine Appearance Sl cloudy, Urine pH 6.0, Ur Specific [place] <= 1.005, Urine Protein Negative, Urine Glucose (UA) Negative, Urine Ketones Negative, Urine Blood Trace-i, Urine Nitrate Negative, Urine Bilirubin Negative, Urine Urobilinogen 0.2, Ur Leukocyte Esterase Negative, Urine RBC Occasional, Urine WBC Occasional, Ur Squamous Epith Cells Occasional, Urine Bacteria Trace 06/12/18 22:15: Vancomycin Trough 9.3 L I & O for Last 24 hours: Intake & Output 06/10/18 06/11/18 06/12/18 06/13/18 11:59 11:59 11:59 12:59 Intake Total 4609 / 4609 3568.667 / 3568.667 1125 / 1125 3352 / 3352 Output Total 0 / 0 4100 / 4100 4900 / 4900 Balance 4609 / 4609 3568.667 / 3568.667 -2975 / -2975 -1548 / -1548 Weight 85.729 kg 85.729 kg 85.729 kg Microbiology Reports for the Last 24 Hours: Microbiology 06/11/18 07:20 Urine,Clean Catch Urine Culture - Final NO GROWTH AFTER 48 HOURS 06/12/18 16:17 Vaginal - Vaginal Gram Stain - Final - *Routine Abdominal Exam Comments: Soft. Nondistended. Tender in both right and left lower quadrant. No guardin g. No peritonitis. Progress Note: A&P (1) Abscess, intra-abdominal, postoperative Status: Acute Current Visit: Yes Assessment and Plan for All Diagnoses:: Intra-abdominal fluid collection(s). Large fluid collection noted on repeat CT imaging performed earlier today. Official radiology gps navigation installer is not available for review. However, large fluid collection with air-fluid level is present. There does not appear to be contrast extravasation. No evidence of acute abdomen or clinical deterioration. Recommend continuation of IV antibiotics. Request [facility] Interventional Radiology consultation for percutaneous drain. No operative intervention indicated at t his time.
--- NOTE | 2018-06-13 11:55 | Progress Note ---
Internal Medicine - PN: Subj *Date: 06/13/18 *Time: 11:55 Exam Vital signs and Labs for Last 24 Hours: Temp Pulse Resp BP Pulse Ox 98.4 F 89 18 103/56 L 96 06/13/18 08:00 06/13/18 08:00 06/13/18 08:00 06/13/18 08:00 06/13/18 08:00 Laboratory Results - last 24 hr 06/12/18 13:25: Urine Color Yellow, Urine Appearance Sl cloudy, Urine pH 6.0, Ur Specific [place] <= 1.005, Urine Protein Negative, Urine Glucose (UA) Negative, Urine Ketones Negative, Urine Blood Trace-i, Urine Nitrate Negative, Urine Bilirubin Negative, Urine Urobilinogen 0.2, Ur Leukocyte Esterase Negative, Urine RBC Occasional, Urine WBC Occasional, Ur Squamous Epith Cells Occasional, Urine Bacteria Trace 06/12/18 22:15: Vancomycin Trough 9.3 L I & O for Last 24 hours: Intake & Output 06/10/18 06/11/18 06/12/18 06/14/18 23:59 23:59 23:59 00:59 Intake Total 4669 / 4669 3073.667 / 3073.667 360 / 360 3112 / 3112 Output Total 0 / 0 900 / 900 4200 / 4200 3900 / 3900 Balance 4669 / 4669 2173.667 / 2173.667 -3840 / -3840 -788 / -788 Weight 85.729 kg 85.729 kg Microbiology Reports for the Last 24 Hours: Microbiology 06/11/18 07:20 Urine,Clean Catch Urine Culture - Final NO GROWTH AFTER 48 HOURS 06/12/18 16:17 Vaginal - Vaginal Gram Stain - Final Assessment and Plan (1) Abscess, intra-abdominal, postoperative Current visit: Yes Status: Acute Category: Medical Code(s): T81.49XA - Infection following a procedure, other surgical site, initial encounter The patient's infection will respond to the chosen ABx?: Yes Is the patient receiving the right drug, dose, and route?: Yes Could a more targeted ABx be ordered?: No (NORMAL NAIDA IN CULTURES OR NO GR OWTH)
--- NOTE | 2018-06-13 12:31 | Progress Note ---
Internal Medicine - PN: Subj *Date: 06/13/18 *Time: 12:25 Interval history: The patient remains afebrile, with vaginal drainage (cultured yesterday). CT this AM showed slight enlargement of fluid collectin anterior to vaginal cuff. Discussed options with patient: continued observation vs. Exam under anesthesia and culdocentesis, with possible J-P drainage--She opts for the latter, in hopes of expedited resolution. Risks and benefits discussed and accepted.. Will schedule for tomorrow AM..Gentanicin D/C'd..NPO after 2400..CBC and Chem-7 ordered. Exam Vital signs and Labs for Last 24 Hours: Temp Pulse Resp BP Pulse Ox 98.4 F 89 18 103/56 L 96 06/13/18 08:00 06/13/18 08:00 06/13/18 08:00 06/13/18 08:00 06/13/18 08:00 Laboratory Results - last 24 hr 06/12/18 13:25: Urine Color Yellow, Urine Appearance Sl cloudy, Urine pH 6.0, Ur Specific [place] <= 1.005, Urine Protein Negative, Urine Glucose (UA) Negative, Urine Ketones Negative, Urine Blood Trace-i, Urine Nitrate Negative, Urine Bilirubin Negative, Urine Urobilinogen 0.2, Ur Leukocyte Esterase Negative, Urine RBC Occasional, Urine WBC Occasional, Ur Squamous Epith Cells Occasional, Urine Bacteria Trace 06/12/18 22:15: Vancomycin Trough 9.3 L I & O for Last 24 hours: Intake & Output 06/11/18 06/12/18 06/13/18 06/14/18 10:59 10:59 11:59 11:59 Intake Total Output Total Balance Weight Microbiology Reports for the Last 24 Hours: Microbiology 06/11/18 07:20 Urine,Clean Catch Urine Culture - Final NO GROWTH AFTER 48 HOURS 06/12/18 16:17 Vaginal - Vaginal Gram Stain - Final Assessment and Plan (1) Abscess, intra-abdominal, postoperative Current visit: Yes Status: Acute Category: Medical Code(s): T81.49XA - Infection following a procedure, other surgical site, initial encounter
[2018-06-13 13:00] LABS: Basophils # 0.1 K/mm3 (0-0.2); Basophils % 0.7 % (0.1-2.0); Eosinophils # 0.1 K/mm3 (0.0-0.4); Eosinophils % 0.8 % (0.1-12.0); Hematocrit 28.4 % (37.0-47.0); Hemoglobin 9.5 g/dL (12.2-16.2); Lymphocytes % 8.4 % (10-50); Mean Corpuscular HGB Conc 33.4 g/dL (31.8-35.4); Mean Corpuscular Hemoglobin 27.2 pg (27.0-31.2); Mean Corpuscular Volume 81.4 fl (81-99); Monocytes # 0.7 K/mm3 (0.1-1.0); Monocytes % 5.5 % (1.7-9.3); Neutrophils % 84.6 % (37.0-80.0); Platelet Count 348 K/mm3 (142-424); Red Blood Count 3.49 M/mm3 (4.20-5.40); Red Cell Distribution Width 16.2 % (11.5-17.5); White Blood Count 11.8 K/mm3 (4.8-10.8)
[2018-06-13 13:06] LABS: Anion Gap 11.8 mEq/L (5-15); Calcium 7.3 mg/dL (8.5-10.1)
[2018-06-13 13:08] LABS: Potassium 2.8 mmoL/L (3.5-5.1)
--- NOTE | 2018-06-14 02:24 | Pharmacy Consult Notes ---
- Pharmacy Consult Date: 06/13/18 Time: 10:00 Referring provider: DR. RUIZ Reason for Consult:: VANCOMYCIN LEVEL Allergies and ADEs:: Allergies Allergy/AdvReac Type Severity Reaction Status Date / Time lamotrigine Allergy Intermediate I-RASH Verified 06/09/18 11:40 morphine Allergy Verified 06/09/18 12:47 Home Medications:: Home Medications Medication Instructions Recorded Confirmed Type Fluticasone Propionate 1 spray INTRANASAL DAILY 06/02/18 06/09/18 History Phentermine HCl 37.5 mg PO DAILY 06/02/18 06/09/18 History Cetirizine HCl 10 mg PO DAILYP PRN 06/04/18 06/09/18 History Cholecalciferol (Vitamin D3) 50,000 unit PO MOFR 06/04/18 06/09/18 History [Vitamin D3 50,000 unit Cap] Ferrous Sulfate [Ferrous Sulfate 325 mg PO BID 06/04/18 06/09/18 History 325mg Tablet] Oxycodone HCl/Acetaminophen 1 tab PO Q4HP PRN #30 tab 06/07/18 06/09/18 Rx [Percocet 5/325mg tablet] ondansetron HCl 8 mg tablet 8 mg PO BID PRN #30 tab 06/07/18 06/09/18 Rx promethazine 25 mg tablet 25 mg PO Q6H PRN #30 tab 06/07/18 06/09/18 Rx Topiramate 25 mg PO HS 06/09/18 06/10/18 History cephALEXin [Keflex 500mg Cap] 500 mg PO Q6H 06/09/18 06/09/18 History hydroCHLOROthiazide [HCTZ 25mg 25 mg PO DAILY 06/09/18 06/09/18 History tab] Polyethylene Glycol 3350 [Miralax 17 gm PO DAILY 06/11/18 06/11/18 History 17gm Packet] Height: 1.57 m Weight: 85.729 kg Laboratory Results:: Laboratory Results - last 24 hr 06/13/18 12:53: WBC 11.8 H D, RBC 3.49 L, Hgb 9.5 L, Hct 28.4 L, MCV 81.4, MCH 27.2, MCHC 33.4, RDW 16.2, Plt Count 348 D, MPV 8.0, Neut % (Auto) 84.6 H, Lymph % (Auto) 8.4 L, [place] % (Auto) 5.5, Eos % (Auto) 0.8, Baso % (Auto) 0.7, Neut # (Auto) 10.0 H, Lymph # (Auto) 1.0, [place] # (Auto) 0.7, Eos # (Auto) 0.1, Baso # (Auto) 0.1 06/13/18 12:53: Sodium 138, Potassium 2.8 L* D, Chloride 104, Carbon Dioxide 25, Anion Gap 11.8, BUN 7 D, Creatinine 1.01, Estimated Creat Clear 97, Estimated GFR 60, Est GFR ( Amer) 72, Glucose 106, Calcium 7.3 L Medical History: Reports:: Depression, Gastroesophageal Reflux Disease(GERD), Migraine Denies:: Cancer, Chronic Obstructive Pulmonary Disease (COPD), Diabetes Mellitus Type 1, Diabetes Mellitus Type 2, Internal Pacemaker, MRSA, Seizures Assessment and Plan (1) Abscess, intra-abdominal, postoperative Current visit: Yes Status: Acute Category: Medical Code(s): T81.49XA - Infection following a procedure, other surgical site, initial encounter - Assessment and plan all Dx Assessment and Plan for all problems:: BASED ON PATIENT'S VANCOMYCIN LEVEL, RECOMMEND CHANGING DOSE TO VANCOMYCIN 1500 MG Q18H AT THIS TIME. PHARMACY WILL FOLLOW DAILY AND ADJUST APPROPRIATE. HONORIO GARCIA, NANDOD
[2018-06-14 06:23] LABS: Basophils # 0.1 K/mm3 (0-0.2); Basophils % 1.2 % (0.1-2.0); Eosinophils # 0.1 K/mm3 (0.0-0.4); Eosinophils % 1.2 % (0.1-12.0); Hematocrit 27.8 % (37.0-47.0); Hemoglobin 9.3 g/dL (12.2-16.2); Lymphocytes # 1.2 K/mm3 (0.7-4.5); Lymphocytes % 11.7 % (10-50); Mean Corpuscular HGB Conc 33.4 g/dL (31.8-35.4); Mean Corpuscular Hemoglobin 27.5 pg (27.0-31.2); Mean Corpuscular Volume 82.5 fl (81-99); Mean Platelet Volume 7.3 fl (7.4-10.4); Monocytes # 0.6 K/mm3 (0.1-1.0); Monocytes % 6.1 % (1.7-9.3); Neutrophils # 8.3 K/mm3 (1.8-7.8); Neutrophils % 79.7 % (37.0-80.0); Platelet Count 369 K/mm3 (142-424); Red Blood Count 3.37 M/mm3 (4.20-5.40); Red Cell Distribution Width 16.2 % (11.5-17.5); White Blood Count 10.4 K/mm3 (4.8-10.8)
--- NOTE | 2018-06-14 06:28 | Progress Note ---
Internal Medicine - PN: Subj *Date: 06/14/18 *Time: 06:26 Interval history: The patient is afebrile (98.6po) and had a relatively comfortable night. She has received 2 potassium and I am awaiting results of her Chem-7. She is scheduled for an examination under anesthesia and culdocentesis this morning. Exam Vital signs and Labs for Last 24 Hours: Temp Pulse Resp BP Pulse Ox 98.6 F 87 16 109/56 L 98 06/14/18 04:00 06/14/18 04:00 06/14/18 04:00 06/14/18 04:00 06/14/18 04:00 Laboratory Results - last 24 hr 06/13/18 12:53: WBC 11.8 H D, RBC 3.49 L, Hgb 9.5 L, Hct 28.4 L, MCV 81.4, MCH 27.2, MCHC 33.4, RDW 16.2, Plt Count 348 D, MPV 8.0, Neut % (Auto) 84.6 H, Lymph % (Auto) 8.4 L, [place] % (Auto) 5.5, Eos % (Auto) 0.8, Baso % (Auto) 0.7, Neut # (Auto) 10.0 H, Lymph # (Auto) 1.0, [place] # (Auto) 0.7, Eos # (Auto) 0.1, Baso # (Auto) 0.1 06/13/18 12:53: Sodium 138, Potassium 2.8 L* D, Chloride 104, Carbon Dioxide 25, Anion Gap 11.8, BUN 7 D, Creatinine 1.01, Estimated Creat Clear 97, Estimated GFR 60, Est GFR ( Amer) 72, Glucose 106, Calcium 7.3 L 06/14/18 06:15: WBC 10.4, RBC 3.37 L, Hgb 9.3 L, Hct 27.8 L, MCV 82.5, MCH 27.5, MCHC 33.4, RDW 16.2, Plt Count 369, MPV 7.3 L, Neut % (Auto) 79.7, Lymph % (Auto) 11.7, [place] % (Auto) 6.1, Eos % (Auto) 1.2, Baso % (Auto) 1.2, Neut # (Auto) 8.3 H, Lymph # (Auto) 1.2, [place] # (Auto) 0.6, Eos # (Auto) 0.1, Baso # (Auto) 0.1 I & O for Last 24 hours: Intake & Output 06/11/18 06/12/18 06/13/18 06/14/18 10:59 10:59 11:59 11:59 Intake Total 1040 / 1040 Output Total 5575 / 5575 Balance -4535 / -4535 Weight 189 lb Microbiology Reports for the Last 24 Hours: Microbiology 06/11/18 07:20 Urine,Clean Catch Urine Culture - Final NO GROWTH AFTER 48 HOURS Assessment and Plan (1) Abscess, intra-abdominal, postoperative Current visit: Yes Status: Acute Category: Medical Code(s): T81.49XA - Infection following a procedure, other surgical site, initial encounter
[2018-06-14 06:30] LABS: Anion Gap 12.9 mEq/L (5-15); Calcium 7.3 mg/dL (8.5-10.1)
[2018-06-14 06:38] LABS: Potassium 2.9 mmoL/L (3.5-5.1)
--- NOTE | 2018-06-14 07:31 | Operative Note ---
Date of procedure: 06/14/18 Pre-op Diagnosis:: Pelvic abscess Post-op Diagnosis:: Pelvic abscess Procedure performed:: 1. Examination under anesthesia. 2. Culdocentesis, with cultures. Surgeon:: Bradley Feliciano MD INSURANCE FOLLOW UP SPECIALIST:: Ollie Rodriges Anesthesia: GETA Estimated blood loss (mL): 100 Operative findings:: A large pocket of purulent fluid above the vaginal cuff. Operative note:: After the patient was prepped and draped in usual fashion and general anesthesia was administered, examination under anesthesia revealed what appeared to be an intact vaginal cuff. However, slightly green tinged non-malodorous fluid was present in the vagina. This was cultured aerobically and anaerobically. There was a fullness above the vaginal cuff. Using a #12 spinal needle, the cuff was entered in a ventral added/cephalad direction, with the retrieval of 100 cc of non-malodorous green tinged fluid with a trace of blood. This fluid was also cultured aerobically and anaerobically. When no further fluid could be extracted, the procedure was terminated. The sponge and needle counts correct. The estimated fluid loss was the 100 cc of fluid described above. There was minimal actual blood loss. The patient tolerated the procedure well, and was taken to PACU in excellent condition. The urine remained clear in her Mcdaniels catheter. She will return to the floor after PACU. Condition: stable Disposition: no change Specimens:: Peritoneal fluid Complications:: None
--- NOTE | 2018-06-14 07:37 | Progress Note ---
[facility] Anesthesia Record Part I Intake, IV Amount: 500 Estimated blood loss (mL): 0 Urine output (mL): 100 Blood Pressure: 118/60 SaO2: 96 Pulse Rate: 85 Respiratory Rate: 12 Temperature: 97.7 F Patient is:: Awake, Stable Stable to PACU at:: 07:30
--- NOTE | 2018-06-14 07:37 | Progress Note ---
[facility] Anesthesia Record Part II Discharge Time: 08:00 Destination: floor PACU nurse assessment reviewed?: Yes Patient Condition:: Good Anesthesia Complications:: None Swallowing reflex intact?: Yes Cyanosis?: No
--- NOTE | 2018-06-14 09:02 | Progress Note ---
Subjective Narrative: Patient feels "okay". She has had vaginal drainage/discharge on on through Thursday. She had a CT scan repeated, ordered by Dr. Feliciano, yesterday. She went to the operating room this morning for exam under anesthesia and culdocentesis. Exam Vital signs and Labs for Last 24 Hours: Temp Pulse Resp BP Pulse Ox 97.3 F L 85 16 114/59 L 98 06/14/18 08:00 06/14/18 08:00 06/14/18 08:00 06/14/18 08:00 06/14/18 08:00 Laboratory Results - last 24 hr 06/13/18 12:53: WBC 11.8 H D, RBC 3.49 L, Hgb 9.5 L, Hct 28.4 L, MCV 81.4, MCH 27.2, MCHC 33.4, RDW 16.2, Plt Count 348 D, MPV 8.0, Neut % (Auto) 84.6 H, Lymph % (Auto) 8.4 L, [place] % (Auto) 5.5, Eos % (Auto) 0.8, Baso % (Auto) 0.7, Neut # (Auto) 10.0 H, Lymph # (Auto) 1.0, [place] # (Auto) 0.7, Eos # (Auto) 0.1, Baso # (Auto) 0.1 06/13/18 12:53: Sodium 138, Potassium 2.8 L* D, Chloride 104, Carbon Dioxide 25, Anion Gap 11.8, BUN 7 D, Creatinine 1.01, Estimated Creat Clear 97, Estimated GFR 60, Est GFR ( Amer) 72, Glucose 106, Calcium 7.3 L 06/14/18 06:15: WBC 10.4, RBC 3.37 L, Hgb 9.3 L, Hct 27.8 L, MCV 82.5, MCH 27.5, MCHC 33.4, RDW 16.2, Plt Count 369, MPV 7.3 L, Neut % (Auto) 79.7, Lymph % (Auto) 11.7, [place] % (Auto) 6.1, Eos % (Auto) 1.2, Baso % (Auto) 1.2, Neut # (Aut o) 8.3 H, Lymph # (Auto) 1.2, [place] # (Auto) 0.6, Eos # (Auto) 0.1, Baso # (Auto) 0.1 06/14/18 06:15: Sodium 139, Potassium 2.9 L*, Chloride 105, Carbon Dioxide 24, Anion Gap 12.9, BUN 5 L D, Creatinine 0.95, Estimated Creat Clear 103, Estimated GFR 64, Est GFR ( Amer) 78, Glucose 76 D, Calcium 7.3 L I & O for Last 24 hours: Intake & Output 06/11/18 06/12/18 06/13/18 06/14/18 10:59 10:59 11:59 11:59 Intake Total 1540 / 1540 Output Total 5575 / 5575 Balance -4035 / -4035 Weight 189 lb Microbiology Reports for the Last 24 Hours: Microbiology 06/12/18 16:17 Vaginal - Vaginal Gram Stain - Final 06/12/18 16:17 Vaginal - Vaginal Genital Culture - Preliminary NO GROWTH AFTER 24 HOURS 06/11/18 14:38 Catheter Tip - Subclavian Miscellaneous Reference Culture - Preliminary NO GROWTH AFTER 48 HOURS 06/11/18 07:20 Urine,Clean Catch Urine Culture - Final NO GROWTH AFTER 48 HOURS - *Routine Abdominal Exam Present: soft Comments: She has some mild tenderness and discomfort to the palpation of the right pelvis. Progress Note: A&P (1) Abscess, intra-abdominal, postoperative Status: Acute Current Visit: Yes Assessment and Plan for All Diagnoses:: Pelvic abscess status post open abdominal hysterectomy. Follow-up on cultures from discharge and culdocentesis to home possibly tailor antibiotics. We will review the CT scan with radiology. However, based on the report, it appears as though any abscess is not mature at this time and thus not amenable to percutaneous radiographic drainage as of yet.
--- NOTE | 2018-06-14 16:20 | Progress Note ---
Internal Medicine - PN: Subj *Date: 06/14/18 *Time: 16:19 Interval history: 8 hours postop from the culdocentesis. Patient remains afebrile. Minimal discomfort now. The plan is to remove her Mcdaniels and see how she fares at that point. We will await cultures from this morning's procedure. Exam Vital signs and Labs for Last 24 Hours: Temp Pulse Resp BP Pulse Ox 97.0 F L 74 17 102/59 L 98 06/14/18 14:50 06/14/18 14:50 06/14/18 14:50 06/14/18 14:50 06/14/18 14:50 Laboratory Results - last 24 hr 06/14/18 06:15: WBC 10.4, RBC 3.37 L, Hgb 9.3 L, Hct 27.8 L, MCV 82.5, MCH 27.5, MCHC 33.4, RDW 16.2, Plt Count 369, MPV 7.3 L, Neut % (Auto) 79.7, Lymph % (Auto) 11.7, [place] % (Auto) 6.1, Eos % (Auto) 1.2, Baso % (Auto) 1.2, Neut # (Auto) 8.3 H, Lymph # (Auto) 1.2, [place] # (Auto) 0.6, Eos # (Auto) 0.1, Baso # (Auto) 0.1 06/14/18 06:15: Sodium 139, Potassium 2.9 L*, Chloride 105, Carbon Dioxide 24, Anion Gap 12.9, BUN 5 L D, Creatinine 0.95, Estimated Creat Clear 103, Estimated GFR 64, Est GFR ( Amer) 78, Glucose 76 D, Calcium 7.3 L I & O for Last 24 hours: Intake & Output 06/12/18 06/13/18 06/14/18 06/15/18 10:59 11:59 11:59 11:59 Intake Total 1540 / 1540 Output Total 5575 / 5575 Balance -4035 / -4035 Weight 189 lb Microbiology Reports for the Last 24 Hours: Microbiology 06/14/18 Unknown Aspirate - Vaginal Gram Stain - Final 06/09/18 11:20 Blood Blood Culture - Final NO GROWTH AFTER 5 DAYS 06/09/18 11:20 Blood Blood Culture - Final NO GROWTH AFTER 5 DAYS 06/14/18 Unknown Vaginal Gram Stain - Final 06/12/18 16:17 Vaginal - Vaginal Gram Stain - Final 06/12/18 16:17 Vaginal - Vaginal Genital Culture - Preliminary NO GROWTH AFTER 24 HOURS 06/11/18 14:38 Catheter Tip - Subclavian Miscellaneous Reference Culture - Preliminary NO GROWTH AFTER 48 HOURS Assessment and Plan (1) Abscess, intra-abdominal, postoperative Current visit: Yes Status: Acute Category: Medical Code(s): T81.49XA - Infection following a procedure, other surgical site, initial encounter
[2018-06-15 06:04] LABS: Basophils # 0.1 K/mm3 (0-0.2); Basophils % 0.8 % (0.1-2.0); Eosinophils % 0.1 % (0.1-12.0); Hematocrit 24.9 % (37.0-47.0); Lymphocytes % 8.4 % (10-50); Mean Corpuscular HGB Conc 32.7 g/dL (31.8-35.4); Mean Corpuscular Volume 82.7 fl (81-99); Mean Platelet Volume 8.1 fl (7.4-10.4); Monocytes # 0.5 K/mm3 (0.1-1.0); Monocytes % 4.3 % (1.7-9.3); Neutrophils # 10.1 K/mm3 (1.8-7.8); Neutrophils % 86.4 % (37.0-80.0); Platelet Count 485 K/mm3 (142-424); Red Blood Count 3.01 M/mm3 (4.20-5.40); Red Cell Distribution Width 16.3 % (11.5-17.5); White Blood Count 11.7 K/mm3 (4.8-10.8)
[2018-06-15 06:16] LABS: Anion Gap 11.8 mEq/L (5-15); Calcium 7.2 mg/dL (8.5-10.1)
[2018-06-15 06:17] LABS: Potassium 2.8 mmoL/L (3.5-5.1)
[2018-06-15 07:01] LABS: Hemoglobin 8.1 g/dL (12.2-16.2)
--- NOTE | 2018-06-15 07:26 | Progress Note ---
Subjective Narrative: Patient feels relatively well. Tolerating diet, normal bowel function. Some pain when bladder gets distended. Exam Vital signs and Labs for Last 24 Hours: Temp Pulse Resp BP Pulse Ox 97.7 F 68 18 96/54 L 97 06/15/18 04:00 06/15/18 04:00 06/15/18 04:00 06/15/18 04:10 06/15/18 04:00 Laboratory Results - last 24 hr 06/15/18 05:43: WBC 11.7 H, RBC 3.01 L, Hgb 8.1 L D, Hct 24.9 L, MCV 82.7, MCH 27.0, MCHC 32.7, RDW 16.3, Plt Count 485 H D, MPV 8.1, Neut % (Auto) 86.4 H, Lymph % (Auto) 8.4 L, [place] % (Auto) 4.3, Eos % (Auto) 0.1, Baso % (Auto) 0.8, Neut # (Auto) 10.1 H, Lymph # (Auto) 1.0, [place] # (Auto) 0.5, Eos # (Auto) 0.0, Baso # (Auto) 0.1 06/15/18 05:43: Sodium 140, Potassium 2.8 L*, Chloride 108 H, Carbon Dioxide 23, Anion Gap 11.8, BUN 8 D, Creatinine 0.88, Estimated Creat Clear 112, Estimated GFR 70, Est GFR ( Amer) 85, Glucose 118 H D, Calcium 7.2 L I & O for Last 24 hours: Intake & Output 06/12/18 06/13/18 06/14/18 06/15/18 10:59 11:59 11:59 11:59 Intake Total 1540 / 1540 8761 / 8761 Output Total 5575 / 5575 800 / 800 Balance -4035 / -4035 7961 / 7961 Weight 189 lb Microbiology Reports for the Last 24 Hours: Microbiology 06/14/18 Unknown Aspirate - Vaginal Gram Stain - Final 06/09/18 11:20 Blood Blood Culture - Final NO GROWTH AFTER 5 DAYS 06/09/18 11:20 Blood Blood Culture - Final NO GROWTH AFTER 5 DAYS 06/14/18 Unknown Vaginal Gram Stain - Final 06/12/18 16:17 Vaginal - Vaginal Gram Stain - Final 06/12/18 16:17 Vaginal - Vaginal Genital Culture - Preliminary NO GROWTH AFTER 24 HOURS 06/11/18 14:38 Catheter Tip - Subclavian Miscellaneous Reference Culture - Preliminary NO GROWTH AFTER 48 HOURS - *Routine Abdominal Exam Present: soft Comments: Minimal tenderness in Right lower quadrant with deep palpation. No guarding or rebound. Progress Note: A&P (1) Abscess, intra-abdominal, postoperative Status: Acute Current Visit: Yes Assessment and Plan for All Diagnoses:: Transfuse. Check cultures.
--- NOTE | 2018-06-15 08:01 | Progress Note ---
Internal Medicine - PN: Subj *Date: 06/15/18 *Time: 07:59 Interval history: The patient remains afebrile. She feels well, and is eating and ambulating. She is having normal bowel movements. Her hemoglobin is low and (per Dr. Hernandez) she will be transfused today. Her potassium remains low in spite of supplementation, but this may be her normal level post gastric bypass. Plan is to observe the patient and await cultures from the culdocentesis done yesterday. At that point he may place a PICC line for outpatient intravenous antibiotics. Dr. Hernandez will follow the patient tomorrow in my absence. Exam Vital signs and Labs for Last 24 Hours: Temp Pulse Resp BP Pulse Ox 97.7 F 68 18 96/54 L 97 06/15/18 04:00 06/15/18 04:00 06/15/18 04:00 06/15/18 04:10 06/15/18 04:00 Laboratory Results - last 24 hr 06/15/18 05:43: WBC 11.7 H, RBC 3.01 L, Hgb 8.1 L D, Hct 24.9 L, MCV 82.7, MCH 27.0, MCHC 32.7, RDW 16.3, Plt Count 485 H D, MPV 8.1, Neut % (Auto) 86.4 H, Lymph % (Auto) 8.4 L, [place] % (Auto) 4.3, Eos % (Auto) 0.1, Baso % (Auto) 0.8, Neut # (Auto) 10.1 H, Lymph # (Auto) 1.0, [place] # (Auto) 0.5, Eos # (Auto) 0.0, Baso # (Auto) 0.1 06/15/18 05:43: Sodium 140, Potassium 2.8 L*, Chloride 108 H, Carbon Dioxide 23, Anion Gap 11.8, BUN 8 D, Creatinine 0.88, Estimated Creat Clear 112, Estimated GFR 70, Est GFR ( Amer) 85, Glucose 118 H D, Calcium 7.2 L 06/15/18 07:42: Crossmatch (AHG) See Detail I & O for Last 24 hours: Intake & Output 06/12/18 06/13/18 06/14/18 06/15/18 10:59 11:59 11:59 11:59 Intake Total 1540 / 1540 8761 / 8761 Output Total 5575 / 5575 800 / 800 Balance -4035 / -4035 7961 / 7961 Weight 189 lb Microbiology Reports for the Last 24 Hours: Microbiology 06/14/18 Unknown Aspirate - Vaginal Gram Stain - Final 06/09/18 11:20 Blood Blood Culture - Final NO GROWTH AFTER 5 DAYS 06/09/18 11:20 Blood Blood Culture - Final NO GROWTH AFTER 5 DAYS 06/14/18 Unknown Vaginal Gram Stain - Final 06/12/18 16:17 Vaginal - Vaginal Gram Stain - Final 06/12/18 16:17 Vaginal - Vaginal Genital Culture - Preliminary NO GROWTH AFTER 24 HOURS 06/11/18 14:38 Catheter Tip - Subclavian Miscellaneous Reference Culture - Preliminary NO GROWTH AFTER 48 HOURS Assessment and Plan (1) Abscess, intra-abdominal, postoperative Current visit: Yes Status: Acute Category: Medical Code(s): T81.49XA - Infection following a procedure, other surgical site, initial encounter
[2018-06-15 08:44] LABS: Lymphocytes % 7 % (10-50); Monocytes % 6 % (2-9); Neutrophils % 87 % (42-76); Total Cells Counted 100
[2018-06-15 08:45] LABS: RBC Morphology Normal
[2018-06-15 23:18] LABS: Hemoglobin 10.6 g/dL (12.2-16.2)
[2018-06-16 07:14] LABS: Anion Gap 10.7 mEq/L (5-15); Calcium 7.1 mg/dL (8.5-10.1)
[2018-06-16 07:18] LABS: Potassium 2.7 mmoL/L (3.5-5.1)
--- NOTE | 2018-06-16 08:31 | Pharmacy Consult Notes ---
- Pharmacy Consult Date: 06/16/18 Time: 08:29 Referring provider: DR. RUIZ Reason for Consult:: VANCOMYCIN TROUGH LEVEL Allergies and ADEs:: Allergies Allergy/AdvReac Type Severity Reaction Status Date / Time lamotrigine Allergy Intermediate I-RASH Verified 06/09/18 11:40 morphine Allergy Verified 06/09/18 12:47 Home Medications:: Home Medications Medication Instructions Recorded Confirmed Type Fluticasone Propionate 1 spray INTRANASAL DAILY 06/02/18 06/09/18 History Phentermine HCl 37.5 mg PO DAILY 06/02/18 06/09/18 History Cetirizine HCl 10 mg PO DAILYP PRN 06/04/18 06/09/18 History Cholecalciferol (Vitamin D3) 50,000 unit PO MOFR 06/04/18 06/09/18 History [Vitamin D3 50,000 unit Cap] Ferrous Sulfate [Ferrous Sulfate 325 mg PO BID 06/04/18 06/09/18 History 325mg Tablet] Oxycodone HCl/Acetaminophen 1 tab PO Q4HP PRN #30 tab 06/07/18 06/09/18 Rx [Percocet 5/325mg tablet] ondansetron HCl 8 mg tablet 8 mg PO BID PRN #30 tab 06/07/18 06/09/18 Rx promethazine 25 mg tablet 25 mg PO Q6H PRN #30 tab 06/07/18 06/09/18 Rx Topiramate 25 mg PO HS 06/09/18 06/10/18 History cephALEXin [Keflex 500mg Cap] 500 mg PO Q6H 06/09/18 06/09/18 History hydroCHLOROthiazide [HCTZ 25mg 25 mg PO DAILY 06/09/18 06/09/18 History tab] Polyethylene Glycol 3350 [Miralax 17 gm PO DAILY 06/11/18 06/11/18 History 17gm Packet] Height: 1.57 m Weight: 85.729 kg Laboratory Results:: Laboratory Results - last 24 hr 06/15/18 05:43: Total Counted 100, Neutrophils % (Manual) 87 H, Lymphocytes % (Manual) 7 L, Monocytes % (Manual) 6, Platelet Estimate Moderate increase, RBC Morphology Normal 06/15/18 07:42: Blood Type A Positive, Antibody Screen Negative, Crossmatch (AHG) See Detail 06/15/18 08:35: Blood Type Confirm A Positive 06/15/18 22:27: Vancomycin Trough 15.3 06/15/18 22:27: Hgb 10.6 L D, Hct 32.0 L 06/16/18 06:11: Sodium 143, Potassium 2.7 L*, Chloride 110 H, Carbon Dioxide 25, Anion Gap 10.7, BUN 10, Creatinine 1.09 H D, Estimated Creat Clear 90, Estimated GFR 55 L, Est GFR ( Amer) 66 D, Glucose 78, Calcium 7.1 L Medical History: Reports:: Depression, Gastroesophageal Reflux Disease(GERD), Migraine Denies:: Cancer, Chronic Obstructive Pulmonary Disease (COPD), Diabetes Mellitus Type 1, Diabetes Mellitus Type 2, Internal Pacemaker, MRSA, Seizures Assessment and Plan (1) Abscess, intra-abdominal, postoperative Current visit: Yes Status: Acute Category: Medical Code(s): T81.49XA - Infection following a procedure, other surgical site, initial encounter - Assessment and plan all Dx Assessment and Plan for all problems:: PATIENT'S VANCOMYCIN TROUGH LEVEL WAS 15.3 MCG/ML OVERNIGHT. RECOMMEND PATIENT CONTINUE WITH CURRENT DOSE OF VANCOMYCIN 1500 MG Q18H AT THIS TIME. PHARMACY WILL FOLLOW DAILY AND ADJUST APPROPRIATE. HONORIO GARCIA, NANDOD
--- NOTE | 2018-06-16 08:44 | Progress Note ---
Internal Medicine - PN: Subj *Date: 06/16/18 *Time: 08:44 Exam Vital signs and Labs for Last 24 Hours: Temp Pulse Resp BP Pulse Ox 98.4 F 71 17 105/58 L 99 06/16/18 08:00 06/16/18 08:00 06/16/18 08:00 06/16/18 08:00 06/16/18 08:00 Laboratory Results - last 24 hr 06/15/18 05:43: Total Counted 100, Neutrophils % (Manual) 87 H, Lymphocytes % (Manual) 7 L, Monocytes % (Manual) 6, Platelet Estimate Moderate increase, RBC Morphology Normal 06/15/18 07:42: Blood Type A Positive, Antibody Screen Negative, Crossmatch (AHG) See Detail 06/15/18 08:35: Blood Type Confirm A Positive 06/15/18 22:27: Vancomycin Trough 15.3 06/15/18 22:27: Hgb 10.6 L D, Hct 32.0 L 06/16/18 06:11: Sodium 143, Potassium 2.7 L*, Chloride 110 H, Carbon Dioxide 25, Anion Gap 10.7, BUN 10, Creatinine 1.09 H D, Estimated Creat Clear 90, Estimated GFR 55 L, Est GFR ( Amer) 66 D, Glucose 78, Calcium 7.1 L I & O for Last 24 hours: Intake & Output 06/13/18 06/14/18 06/15/18 06/16/18 23:59 23:59 23:59 23:59 Intake Total 7818 / 7818 3853 / 3853 360 / 360 Output Total 4000 / 4000 Balance 3818 / 3818 3853 / 3853 360 / 360 Weight 85.729 kg 85.729 kg Microbiology Reports for the Last 24 Hours: Microbiology 06/14/18 Unknown Vaginal Gram Stain - Final 06/14/18 Unknown Vaginal Abscess Culture - Preliminary NO GROWTH AFTER 48 HOURS 06/14/18 Unknown Aspirate - Vaginal Gram Stain - Final 06/14/18 Unknown Aspirate - Vaginal Body Fluid Culture - Preliminary NO GROWTH AFTER 24 HOURS 06/12/18 16:17 Vaginal - Final 06/12/18 16:17 Vaginal - Final 06/12/18 16:17 Vaginal - Final Assessment and Plan (1) Abscess, intra-abdominal, postoperative Current visit: Yes Status: Acute Category: Medical Code(s): T81.49XA - Infection following a procedure, other surgical site, initial encounter The patient's infection will respond to the chosen ABx?: Yes Is the patient receiving the right drug, dose, and route?: Yes Could a more targeted ABx be ordered?: No (PATIENT AFEBRILE AND STILL AWAITING CULTURE RESULTS.)
--- NOTE | 2018-06-16 19:56 | Progress Note ---
Subjective Narrative: Patient states that she had a rough day with more abdominal pain today than yesterday. She has required more pain medication. She did feel better with a good response after transfusion of 2 units of packed red blood cells. She states that her skin around her thighs and hip area and abdomen feels "tight". Of note, cultures have returned with no growth. Exam Vital signs and Labs for Last 24 Hours: Temp Pulse Resp BP Pulse Ox 97.0 F L 76 18 116/73 100 06/16/18 15:15 06/16/18 15:15 06/16/18 15:15 06/16/18 15:15 06/16/18 15:15 Laboratory Results - last 24 hr 06/15/18 07:42: Crossmatch (AHG) See Detail 06/15/18 22:27: Vancomycin Trough 15.3 06/15/18 22:27: Hgb 10.6 L D, Hct 32.0 L 06/16/18 06:11: Sodium 143, Potassium 2.7 L*, Chloride 110 H, Carbon Dioxide 25, Anion Gap 10.7, BUN 10, Creatinine 1.09 H D, Estimated Creat Clear 90, Estimated GFR 55 L, Est GFR ( Amer) 66 D, Glucose 78, Calcium 7.1 L I & O for Last 24 hours: Intake & Output 06/14/18 06/15/18 06/16/18 06/17/18 11:59 11:59 11:59 11:59 Intake Total 1540 / 1540 9121 / 9121 2410 / 2410 1640 / 1640 Output Total 5575 / 5575 800 / 800 Balance -4035 / -4035 8321 / 8321 2410 / 2410 1640 / 1640 Weight 189 lb 189 lb Microbiology Reports for the Last 24 Hours: Microbiology 06/14/18 Unknown Aspirate - Vaginal Gram Stain - Final 06/14/18 Unknown Aspirate - Vaginal Body Fluid Culture - Preliminary NO GROWTH AFTER 48 HOURS 06/14/18 Unknown Vaginal Gram Stain - Final 06/14/18 Unknown Vaginal Abscess Culture - Preliminary NO GROWTH AFTER 48 HOURS - Constitutional no acute distress - *Routine Abdominal Exam Present: soft, tenderness Comments: She does have some tenderness in the lower abdomen and pelvic region. Progress Note: A&P (1) Abscess, intra-abdominal, postoperative Status: Acute Current Visit: Yes Assessment and Plan for All Diagnoses:: I spent a good deal of time with the patient and family members answering questions. I feel that it may be reasonable to continue inpatient stay at this time and recheck her blood work tomorrow. If she is feeling clinically improved and blood work is within reasonable limits it may be possible for her to be discharged home on outpatient intravenous antibiotics with close outpatient follow-up for repeat CT scan and possible drainage.
[2018-06-17 06:48] LABS: Basophils # 0.1 K/mm3 (0-0.2); Basophils % 1.1 % (0.1-2.0); Eosinophils # 0.1 K/mm3 (0.0-0.4); Eosinophils % 0.6 % (0.1-12.0); Hematocrit 31.6 % (37.0-47.0); Hemoglobin 10.3 g/dL (12.2-16.2); Lymphocytes # 0.8 K/mm3 (0.7-4.5); Mean Corpuscular HGB Conc 32.6 g/dL (31.8-35.4); Mean Corpuscular Hemoglobin 27.2 pg (27.0-31.2); Mean Corpuscular Volume 83.4 fl (81-99); Mean Platelet Volume 8.1 fl (7.4-10.4); Monocytes # 0.6 K/mm3 (0.1-1.0); Monocytes % 5.3 % (1.7-9.3); Neutrophils # 10.2 K/mm3 (1.8-7.8); Neutrophils % 86.1 % (37.0-80.0); Platelet Count 747 K/mm3 (142-424); Red Blood Count 3.79 M/mm3 (4.20-5.40); Red Cell Distribution Width 17.1 % (11.5-17.5); White Blood Count 11.8 K/mm3 (4.8-10.8)
[2018-06-17 07:20] LABS: Albumin Level 1.4 gm/dL (3.4-5.0); Albumin/Globulin Ratio 0.5 (1.1-1.8); Bilirubin,Total 0.3 mg/dL (0.2-1.0); Calcium 7.4 mg/dL (8.5-10.1); Total Protein,Serum 4.4 gm/dL (6.4-8.2)
--- NOTE | 2018-06-17 07:37 | Progress Note ---
Internal Medicine - PN: Subj *Date: 06/17/18 *Time: 07:36 Interval history: The patient remains afebrile. Yesterday she experienced fluid overload and tightness in her muscles. Her IV fluids have been discontinued and she is on intermittent IV Invanz. Her hemoglobin this morning is stable at 10.3 g. He feels well. Abdomen soft. I will discuss her care with Dr. Hernandez today in hopes of discharge soon. Exam Vital signs and Labs for Last 24 Hours: Temp Pulse Resp BP Pulse Ox 98.3 F 81 18 109/58 L 99 06/17/18 04:00 06/17/18 04:00 06/17/18 04:00 06/17/18 04:00 06/17/18 04:00 Laboratory Results - last 24 hr 06/17/18 05:50: WBC 11.8 H, RBC 3.79 L D, Hgb 10.3 L, Hct 31.6 L, MCV 83.4, MCH 27.2, MCHC 32.6, RDW 17.1, Plt Count 747 H D, MPV 8.1, Neut % (Auto) 86.1 H, Lymph % (Auto) 7.0 L, [place] % (Auto) 5.3, Eos % (Auto) 0.6, Baso % (Auto) 1.1, Neut # (Auto) 10.2 H, Lymph # (Auto) 0.8, [place] # (Auto) 0.6, Eos # (Auto) 0.1, Baso # (Auto) 0.1 I & O for Last 24 hours: Intake & Output 06/14/18 06/15/18 06/16/18 06/17/18 11:59 11:59 11:59 11:59 Intake Total 1540 / 1540 9121 / 9121 2410 / 2410 1640 / 1640 Output Total 5575 / 5575 800 / 800 Balance -4035 / -4035 8321 / 8321 2410 / 2410 1640 / 1640 Weight 189 lb 189 lb Microbiology Reports for the Last 24 Hours: Microbiology 06/11/18 14:38 Catheter Tip - Subclavian Miscellaneous Reference Culture - Final NO GROWTH AFTER 5 DAYS 06/14/18 Unknown Aspirate - Vaginal Gram Stain - Final 06/14/18 Unknown Aspirate - Vaginal Body Fluid Culture - Preliminary NO GROWTH AFTER 48 HOURS 06/14/18 Unknown Vaginal Gram Stain - Final 06/14/18 Unknown Vaginal Abscess Culture - Preliminary NO GROWTH AFTER 48 HOURS Assessment and Plan (1) Abscess, intra-abdominal, postoperative Current visit: Yes Status: Acute Category: Medical Code(s): T81.49XA - Infection following a procedure, other surgical site, initial encounter
--- NOTE | 2018-06-17 08:41 | Progress Note ---
Subjective Patient reports: feels better Narrative: Patient feels very well today. No complaints. Tolerating regular diet. Pain improved. Exam Vital signs and Labs for Last 24 Hours: Temp Pulse Resp BP Pulse Ox 98.3 F 76 18 102/57 L 98 06/17/18 08:00 06/17/18 08:00 06/17/18 08:00 06/17/18 08:00 06/17/18 08:00 Laboratory Results - last 24 hr 06/17/18 05:50: WBC 11.8 H, RBC 3.79 L D, Hgb 10.3 L, Hct 31.6 L, MCV 83.4, MCH 27.2, MCHC 32.6, RDW 17.1, Plt Count 747 H D, MPV 8.1, Neut % (Auto) 86.1 H, Lymph % (Auto) 7.0 L, [place] % (Auto) 5.3, Eos % (Auto) 0.6, Baso % (Auto) 1.1, Neut # (Auto) 10.2 H, Lymph # (Auto) 0.8, Bee # (Auto) 0.6, Eos # (Auto) 0.1, Baso # (Auto) 0.1 06/17/18 05:50: Sodium 141, Potassium 3.0 L, Chloride 107, Carbon Dioxide 24, Anion Gap 13.0, BUN 7 D, Creatinine 0.93, Estimated Creat Clear 106, Estimated GFR 66, Est GFR ( Amer) 80 D, Glucose 85, Calcium 7.4 L, Total Bilirubin 0.3, AST 16, ALT 15, Alkaline Phosphatase 125 H, Total Protein 4.4 L D, Albumin 1.4 L, Globulin 3.0, Albumin/Globulin Ratio 0.5 L I & O for Last 24 hours: Intake & Output 06/14/18 06/15/18 06/16/18 06/17/18 11:59 11:59 11:59 11:59 Intake Total 1540 / 1540 9121 / 9121 2410 / 2410 1640 / 1640 Output Total 5575 / 5575 800 / 800 Balance -4035 / -4035 8321 / 8321 2410 / 2410 1640 / 1640 Weight 189 lb 189 lb Microbiology Reports for the Last 24 Hours: Microbiology 06/14/18 Unknown Vaginal Gram Stain - Final 06/14/18 Unknown Vaginal Abscess Culture - Preliminary NO GROWTH AFTER 72 HOURS 06/11/18 14:38 Catheter Tip - Subclavian Miscellaneous Reference Culture - Final NO GROWTH AFTER 5 DAYS 06/14/18 Unknown Aspirate - Vaginal Gram Stain - Final 06/14/18 Unknown Aspirate - Vaginal Body Fluid Culture - Preliminary NO GROWTH AFTER 48 HOURS - *Routine Abdominal Exam Present: soft Comments: Only very minimal tenderness. Progress Note: A&P (1) Abscess, intra-abdominal, postoperative Status: Acute Current Visit: Yes Assessment and Plan for All Diagnoses:: Okay for discharge with early outpatient follow up. Plan outpatient Invanz.
--- NOTE | 2018-06-17 09:22 | Progress Note ---
Internal Medicine - PN: Subj *Date: 06/17/18 *Time: 09:22 Interval history: Dr. Hernandez and I agree that the patient is ready for discharge. She will be going home on oral pain medication and be treated through her PICC line with IV Invanz on a daily basis for 2 weeks. Exam Vital signs and Labs for Last 24 Hours: Temp Pulse Resp BP Pulse Ox 98.3 F 76 18 102/57 L 98 06/17/18 08:00 06/17/18 08:00 06/17/18 08:00 06/17/18 08:00 06/17/18 08:00 Laboratory Results - last 24 hr 06/17/18 05:50: WBC 11.8 H, RBC 3.79 L D, Hgb 10.3 L, Hct 31.6 L, MCV 83.4, MCH 27.2, MCHC 32.6, RDW 17.1, Plt Count 747 H D, MPV 8.1, Neut % (Auto) 86.1 H, Lymph % (Auto) 7.0 L, [place] % (Auto) 5.3, Eos % (Auto) 0.6, Baso % (Auto) 1.1, Neut # (Auto) 10.2 H, Lymph # (Auto) 0.8, [place] # (Auto) 0.6, Eos # (Auto) 0.1, Baso # (Auto) 0.1 06/17/18 05:50: Sodium 141, Potassium 3.0 L, Chloride 107, Carbon Dioxide 24, Anion Gap 13.0, BUN 7 D, Creatinine 0.93, Estimated Creat Clear 106, Estimated GFR 66, Est GFR ( Amer) 80 D, Glucose 85, Calcium 7.4 L, Total Bilirubin 0.3, AST 16, ALT 15, Alkaline Phosphatase 125 H, Total Protein 4.4 L D, Albumin 1.4 L, Globulin 3.0, Albumin/Globulin Ratio 0.5 L I & O for Last 24 hours: Intake & Output 06/14/18 06/15/18 06/16/18 06/17/18 11:59 11:59 11:59 11:59 Intake Total 1540 / 1540 9121 / 9121 2410 / 2410 1640 / 1640 Output Total 5575 / 5575 800 / 800 Balance -4035 / -4035 8321 / 8321 2410 / 2410 1640 / 1640 Weight 189 lb 189 lb Microbiology Reports for the Last 24 Hours: Microbiology 06/14/18 Unknown Vaginal - Vaginal - Final 06/14/18 Unknown Vaginal - Vaginal - Final 06/14/18 Unknown Vaginal - Vaginal - Final 06/12/18 16:17 Vaginal - Vaginal Gram Stain - Final 06/12/18 16:17 Vaginal - Vaginal Genital Culture - Final No growth. 06/14/18 Unknown Vaginal Gram Stain - Final 06/14/18 Unknown Vaginal Abscess Culture - Preliminary NO GROWTH AFTER 72 HOURS 06/11/18 14:38 Catheter Tip - Subclavian Miscellaneous Reference Culture - Final NO GROWTH AFTER 5 DAYS 06/14/18 Unknown Aspirate - Vaginal Gram Stain - Final 06/14/18 Unknown Aspirate - Vaginal Body Fluid Culture - Preliminary NO GROWTH AFTER 48 HOURS Assessment and Plan (1) Abscess, intra-abdominal, postoperative Current visit: Yes Status: Acute Category: Medical Code(s): T81.49XA - Infection following a procedure, other surgical site, initial encounter
--- NOTE | 2018-06-17 09:26 | Discharge Summary ---
General - General Admission date:: 06/09/18 Discharge date: 06/17/18 (This 42-year-old white female was admitted 7 days postop total abdominal hysterectomy and bilateral salpingo-oophorectomy with high fevers. During her initial hospitalization she spiked a temp on postop day #2 and was worked up extensively. She was treated with IV antibiotics and ultimately discharged. Upon her readmission, she demonstrated a high fevers. Her white count remained in the normal range (as it had been before), and she looked clinically well. She was experiencing some pain post voiding, but her urine was clear. A CT scan showed a collection of fluid in the cul-de-sac. She had a port in her left upper chest which had been in situ for several years, and is not been actively used for over a year. Because of concern that it might be a nidus for infection, it was removed by Dr. Bowman under anesthesia, and cultured. All of her blood cultures, and that culture, were negative. She was treated with intravenous antibiotics (a combination of vancomycin, penicillin, and gentamicin), and her fevers gradually subsided. When a Mcdaniels was in situ, her pain was minimal. She was subsequently taken to the operating room, where she underwent a culdocentesis, resulting in 100 cc of cloudy fluid, which also cultured negative, and his symptoms have gradually diminished. Along the way she was transfused 2 units of packed cells for a lowered globin, but she is chronically anemic and her hemoglobin is now stable at 10.3 g (it was felt that she was probably fluid overloaded). Except for Invanz, her antibiotics have been discontinued. Dr. Hernandez and I agree that she can be discharged, to continue her Invanz on an outpatient basis through her PICC line, for 2 weeks. She is given a prescription for Percocet 5/325 (#30), 1 p.o. every 6 hours as needed pain. She is to follow-up with Dr. Hernandez in 1 week and myself in 10 days. Her abdominal wound is clean. Her abdomen is soft. She is eating and ambulating, and having bowel movements. She is voiding well.) Objective Vital signs: Temp Pulse Resp BP Pulse Ox 98.3 F 76 18 102/57 L 98 06/17/18 08:00 06/17/18 08:00 06/17/18 08:00 06/17/18 08:00 06/17/18 08:00 Results Labs on day of discharge: Labs from last 24 hours 06/17/18 06/17/18 05:50 05:50 WBC 11.8 H RBC 3.79 L D Hgb 10.3 L Hct 31.6 L MCV 83.4 MCH 27.2 MCHC 32.6 RDW 17.1 Plt Count 747 H D MPV 8.1 Neut % (Auto) 86.1 H Lymph % (Auto) 7.0 L [place] % (Auto) 5.3 Eos % (Auto) 0.6 Baso % (Auto) 1.1 Neut # (Auto) 10.2 H Lymph # (Auto) 0.8 [place] # (Auto) 0.6 Eos # (Auto) 0.1 Baso # (Auto) 0.1 Sodium 141 Potassium 3.0 L Chloride 107 Carbon Dioxide 24 Anion Gap 13.0 BUN 7 D Creatinine 0.93 Estimated Creat Clear 106 Estimated GFR 66 Est GFR ( Amer) 80 D Glucose 85 Calcium 7.4 L Total Bilirubin 0.3 AST 16 ALT 15 Alkaline Phosphatase 125 H Total Protein 4.4 L D Albumin 1.4 L Globulin 3.0 Albumin/Globulin Ratio 0.5 L Preliminary micro results at discharge 06/14/18 Unknown Abscess Culture - Preliminary Vaginal NO GROWTH AFTER 72 HOURS 06/14/18 Unknown Body Fluid Culture - Preliminary Aspirate - Vaginal NO GROWTH AFTER 48 HOURS DS: Diagnosis - Discharge Diagnosis (1) Abscess, intra-abdominal, postoperative Status: Acute Discharge Plan - Patient Discharge Instructions Patient Instructions: Fever of Unknown Origin, DI for Surgical Site Infection, Hypokalemia, DI for Intra-Abdominal Abscess - Follow up Plan Follow up with: Kwame Hernandez MD [Staff Physician] - 06/21/18 Henrry Lozada MD [Staff Physician] - 06/23/18 Home Medications: Home Medications Medication Instructions Recorded Confirmed Type RX: Fluticasone Propionate 1 spray INTRANASAL DAILY 06/02/18 06/09/18 History RX: Phentermine HCl 37.5 mg PO DAILY 06/02/18 06/09/18 History RX: Cetirizine HCl 10 mg PO DAILYP PRN 06/04/18 06/09/18 History RX: Cholecalciferol (Vitamin D3) 50,000 unit PO MOFR 06/04/18 06/09/18 History [Vitamin D3 50,000 unit Cap] RX: Ferrous Sulfate [Ferrous 325 mg PO BID 06/04/18 06/09/18 History Sulfate 325mg Tablet] Oxycodone HCl/Acetaminophen 1 tab PO Q4HP PRN #30 tab 06/07/18 06/09/18 Rx [Percocet 5/325mg tablet] ondansetron HCl 8 mg tablet 8 mg PO BID PRN #30 tab 06/07/18 06/09/18 Rx promethazine 25 mg tablet 25 mg PO Q6H PRN #30 tab 06/07/18 06/09/18 Rx RX: Topiramate 25 mg PO HS 06/09/18 06/10/18 History RX: hydroCHLOROthiazide [HCTZ 25mg 25 mg PO DAILY 06/09/18 06/09/18 History tab] cephALEXin [Keflex 500mg Cap] 500 mg PO Q6H 06/09/18 06/09/18 History Polyethylene Glycol 3350 [Miralax 17 gm PO DAILY 06/11/18 06/11/18 History 17gm Packet] Prescriptions/Medication Reconciliation: No Action promethazine 25 mg tablet 25 mg PO Q6H PRN #30 tab PRN Reason: nausea and vomiting ondansetron HCl 8 mg tablet 8 mg PO BID PRN #30 tab PRN Reason: nausea and vomiting RX: Phentermine HCl 37.5 mg PO DAILY RX: Fluticasone Propionate 1 spray INTRANASAL DAILY RX: Topiramate 25 mg PO HS RX: hydroCHLOROthiazide [HCTZ 25mg tab] 25 mg PO DAILY cephALEXin [Keflex 500mg Cap] 500 mg PO Q6H Polyethylene Glycol 3350 [Miralax 17gm Packet] 17 gm PO DAILY RX: Cetirizine HCl 10 mg PO DAILYP PRN PRN Reason: ALLERGIES RX: Ferrous Sulfate [Ferrous Sulfate 325mg Tablet] 325 mg PO BID RX: Cholecalciferol (Vitamin D3) [Vitamin D3 50,000 unit Cap] 50,000 unit PO MOFR Oxycodone HCl/Acetaminophen [Percocet 5/325mg tablet] 1 tab PO Q4HP PRN #30 tab PRN Reason: Moderate To Severe Pain
[2018-06-17 10:56] LABS: Eosinophils % 1 % (0-3); Hypochromasia 1+; Lymphocytes % 7 % (10-50); Monocytes % 4 % (2-9); Neutrophils % 83 % (42-76); Total Cells Counted 100
== END 2018-06-17 11:55 | disposition home or self-care (01) | DRG 857 ==
LOC: ER 11:09 → 2ND 11:09 → OBSVTOIN 17:26 → 2ND 17:27
PROVIDERS: ADMIT Obstetrics & Gynecology; ATTEND Obstetrics & Gynecology
CPT/HCPCS: 36415; 36569; 71010; 71020; 71045; 71046; 71275; 74177; 74178; 74400; 80048; 80053; 80170; 80202; 81001; 82150; 83605; 83690; 84132; 85007; 85014; 85018; 85025; 86850; 87040; 87070; 87075; 87086; 87205; 87275; 87276; 87507; 90732; 96365; 96367; 96375; 96376; 99285; C1751; J1335; J2405; J2543; J3370; P9016; Q9967

== ENCOUNTER 2018-06-17 14:46 | Outpatient (CLI) | payer OTHER, SELFPAY ==
[2018-06-17 14:46] VITALS: BP 92/60; PULSE 117; RESP 20; TEMP 36.6; O2SAT 100
[2018-06-17 15:08] VITALS: BP 105/58; PULSE 76; RESP 20; TEMP 36.6; O2SAT 98
[2018-06-17 15:45] VITALS: BP 100/66; PULSE 69; RESP 20; TEMP 36.6; O2SAT 99
== END 2018-06-17 15:45 | disposition home or self-care (01) ==
LOC: INF 15:24
PROVIDERS: Visit Provider Obstetrics & Gynecology
DX: T81.49XA Infection following a procedure, other surgical site, initial encounter (principal)
CPT/HCPCS: 96365; J1335

== ENCOUNTER 2018-06-18 13:25 | Outpatient (CLI) | payer OTHER, SELFPAY ==
[2018-06-18 13:45] VITALS: BP 114/66; PULSE 80; RESP 18; TEMP 37; O2SAT 97
[2018-06-18 14:15] VITALS: BP 119/51; PULSE 72; RESP 18
== END 2018-06-18 14:15 | disposition home or self-care (01) ==
LOC: INF 13:25
PROVIDERS: Visit Provider Obstetrics & Gynecology
DX: T81.49XA Infection following a procedure, other surgical site, initial encounter (principal); L02.211 Cutaneous abscess of abdominal wall
CPT/HCPCS: 96365

== ENCOUNTER 2018-06-19 13:22 | Outpatient (CLI) | payer OTHER, SELFPAY ==
[2018-06-19 13:24] VITALS: BP 116/65; PULSE 79; RESP 18; TEMP 36.7; O2SAT 99
[2018-06-19 14:00] VITALS: BP 116/64; PULSE 76; RESP 16; TEMP 36.8; O2SAT 99
[2018-06-19 14:20] VITALS: BP 111/78; PULSE 80; RESP 16; TEMP 37.1; O2SAT 96
== END 2018-06-19 14:23 | disposition home or self-care (01) ==
LOC: INF 13:23
PROVIDERS: PCP Emergency Medicine; Visit Provider Obstetrics & Gynecology
DX: T81.49XA Infection following a procedure, other surgical site, initial encounter (principal)
CPT/HCPCS: 96365; J1335

== ENCOUNTER 2018-06-20 13:18 | Outpatient (CLI) | payer OTHER, SELFPAY ==
[2018-06-20 13:41] VITALS: BP 112/70; BP 116/72; PULSE 78; PULSE 84; RESP 16; TEMP 36.2; TEMP 36.4; O2SAT 98; BMI 34.7
[2018-06-20 14:12] VITALS: BP 106/72; PULSE 74; RESP 16; TEMP 36.7; O2SAT 98
== END 2018-06-20 14:13 | disposition home or self-care (01) ==
PROVIDERS: PCP Emergency Medicine; Visit Provider Obstetrics & Gynecology
DX: T81.49XA Infection following a procedure, other surgical site, initial encounter (principal)
CPT/HCPCS: 96365; J1335

== ENCOUNTER 2018-06-21 13:12 | Outpatient (CLI) | payer OTHER, SELFPAY ==
[2018-06-21 13:21] VITALS: BP 109/66; PULSE 85; RESP 18; TEMP 36.6; O2SAT 97
[2018-06-21 13:51] VITALS: BP 111/54; PULSE 86; RESP 18; O2SAT 98
[2018-06-21 14:15] VITALS: BP 112/59; PULSE 79; RESP 18; O2SAT 97
== END 2018-06-21 14:15 | disposition home or self-care (01) ==
LOC: INF 13:12
PROVIDERS: Visit Provider Obstetrics & Gynecology
DX: T81.49XA Infection following a procedure, other surgical site, initial encounter (principal); L02.211 Cutaneous abscess of abdominal wall
CPT/HCPCS: 96365; J1335

== ENCOUNTER 2018-06-22 13:21 | Outpatient (CLI) | payer OTHER, SELFPAY ==
[2018-06-22 13:33] VITALS: BP 110/64; PULSE 80; RESP 18; TEMP 36.7; O2SAT 96
[2018-06-22 14:03] VITALS: BP 97/72; PULSE 91; RESP 18
[2018-06-22 14:13] VITALS: BMI 34.2
[2018-06-22 14:40] VITALS: BP 122/64; PULSE 78; RESP 18
[2018-06-22 14:43] LABS: Basophils # 0.1 K/mm3 (0-0.2); Basophils % 0.8 % (0.1-2.0); Eosinophils # 0.1 K/mm3 (0.0-0.4); Eosinophils % 0.8 % (0.1-12.0); Hemoglobin 10.7 g/dL (12.2-16.2); Lymphocytes # 1.4 K/mm3 (0.7-4.5); Lymphocytes % 9.9 % (10-50); Mean Corpuscular HGB Conc 32.5 g/dL (31.8-35.4); Mean Corpuscular Hemoglobin 27.7 pg (27.0-31.2); Mean Corpuscular Volume 85.4 fl (81-99); Mean Platelet Volume 7.9 fl (7.4-10.4); Monocytes # 0.7 K/mm3 (0.1-1.0); Neutrophils # 11.4 K/mm3 (1.8-7.8); Neutrophils % 83.4 % (37.0-80.0); Platelet Count 533 K/mm3 (142-424); Red Blood Count 3.86 M/mm3 (4.20-5.40); Red Cell Distribution Width 16.3 % (11.5-17.5); White Blood Count 13.6 K/mm3 (4.8-10.8)
[2018-06-22 14:50] LABS: Anion Gap 13.5 mEq/L (5-15); Blood Urea Nitrogen 9 mg/dL (7-18); Calcium 8.2 mg/dL (8.5-10.1); Carbon Dioxide 24 mmol/L (21.0-32.0); Chloride 103 mmol/L (98-107); Creatinine Clearance Estimated 117 mL/min (50-200); Creatinine,Serum 0.83 mg/dL (0.55-1.02); Estimated Glomerular Filt Rate 75 ml/min (>60); GFR (African American) 91 ML/MIN (>60); Glucose 98 mg/dL (74-106); Potassium 4.5 mmoL/L (3.5-5.1); Sodium 136 mmol/L (136-145)
== END 2018-06-22 14:40 | disposition home or self-care (01) ==
LOC: INF 13:21
PROVIDERS: Surgery; Visit Provider Obstetrics & Gynecology
DX: T81.49XA Infection following a procedure, other surgical site, initial encounter (principal)
CPT/HCPCS: 80048; 85025; 96365; J1335

== ENCOUNTER 2018-06-23 13:00 | Outpatient (CLI) | payer OTHER, SELFPAY ==
[2018-06-23 13:04] VITALS: BP 108/66; PULSE 84; RESP 18; TEMP 36.5; O2SAT 99
[2018-06-23 13:34] VITALS: BP 112/46; PULSE 89; RESP 18
[2018-06-23 14:00] VITALS: BP 110/70; PULSE 87; RESP 18
--- NOTE | 2018-06-23 14:30 | CT_ITS ---
CT abdomen pelvis w con CLINICAL INDICATION: Follow-up abscess ITS.REASON: ABD ABSCESS ORDERING PHYSICIAN: Kwame Hernandez MD PATIENT AGE: 42 years COMPARISON: 06/13/2018 TECHNIQUE: Axial images obtained with sagittal and coronal reformats. All CT scans at the facility use one or more dose reduction, viz: automated exposure control, ma/kV adjustment per patient size (including targeted exams where dose is matched to indication, i.e. head), or iterative reconstruction technique. PROCEDURE: Oral Contrast: Redicat IV Contrast: 75 mL's Isovue 350. FINDINGS: The lung bases are clear. The small bilateral pleural effusions have resolved. Biliary ectasia once again noted in this patient that has had a prior cholecystectomy. There are some focal decreased attenuation along the falciform ligament consistent with fatty infiltration. Spleen, adrenal glands, and pancreas have an unremarkable appearance. Prior gastric bypass. There is a moderate amount of retained colonic feces. Previously noted fluid collection within the abdomen have markedly improved. A small loculated collection is noted in the right paracolic cutter inferior to the right hepatic lobe previously measured 7.2 x 2.5 cm AP and transverse now measuring 3 x 1 cm in AP and transverse. A small loculated collection is once again noted in the right lower abdomen. Previously this was 13 x 4 cm and now is 3.9 x 2 cm. No new collections are evident. No intestinal obstruction or free air. There is mild thickening of the urinary bladder wall which may be due to nondistention or cystitis. IMPRESSION: 1. Overall marked improvement in the loculated intra-abdominal fluid collections. 2. Constipation
== END 2018-06-23 14:00 | disposition home or self-care (01) ==
LOC: RAD 13:04
PROVIDERS: Visit Provider Surgery
DX: T81.49XA Infection following a procedure, other surgical site, initial encounter (principal); L02.211 Cutaneous abscess of abdominal wall
CPT/HCPCS: 74177; 96365; J1335; Q9967

== ENCOUNTER 2018-06-24 11:07 | Outpatient (CLI) | payer OTHER, SELFPAY ==
[2018-06-24 11:00] VITALS: BP 98/64; PULSE 78; RESP 18; TEMP 36.4; O2SAT 99
[2018-06-24 12:10] VITALS: BP 106/68; PULSE 79; RESP 18; TEMP 36.4; O2SAT 99
== END 2018-06-24 12:10 | disposition home or self-care (01) ==
LOC: INF 11:07
PROVIDERS: Visit Provider Obstetrics & Gynecology
DX: T81.49XA Infection following a procedure, other surgical site, initial encounter (principal); L02.211 Cutaneous abscess of abdominal wall
CPT/HCPCS: 96365; J1335

== ENCOUNTER 2018-06-25 13:04 | Outpatient (CLI) | payer OTHER, SELFPAY ==
[2018-06-25 13:25] VITALS: BP 105/63; PULSE 76; RESP 18; TEMP 36.3; O2SAT 100
== END 2018-06-25 14:05 | disposition home or self-care (01) ==
LOC: INF 13:04
PROVIDERS: Visit Provider Obstetrics & Gynecology
DX: T81.49XA Infection following a procedure, other surgical site, initial encounter (principal)
CPT/HCPCS: 96365; J1335

== ENCOUNTER 2018-06-26 13:56 | Outpatient (CLI) | payer OTHER, SELFPAY ==
[2018-06-26 14:03] VITALS: BP 115/66; PULSE 75; RESP 18; TEMP 36.2; O2SAT 99; BMI 32.3
[2018-06-26 14:20] VITALS: BP 110/70; PULSE 74; RESP 16; TEMP 36.6; O2SAT 99
[2018-06-26 14:45] VITALS: BP 103/64; PULSE 75; RESP 16; TEMP 37.1; O2SAT 99
== END 2018-06-26 14:47 | disposition home or self-care (01) ==
PROVIDERS: PCP Emergency Medicine; Visit Provider Obstetrics & Gynecology
DX: T81.49XA Infection following a procedure, other surgical site, initial encounter (principal)
CPT/HCPCS: 96365; J1335

== ENCOUNTER → 2018-06-27 14:01 | Outpatient (CLI) | payer OTHER, SELFPAY ==
[2018-06-27 14:25] VITALS: BP 102/68; PULSE 83; RESP 16; TEMP 36.5; O2SAT 99
[2018-06-27 14:41] VITALS: BMI 32.5
== END ==
PROVIDERS: PCP Emergency Medicine; Visit Provider Obstetrics & Gynecology
DX: T81.49XA Infection following a procedure, other surgical site, initial encounter (principal)
CPT/HCPCS: 96365; J1335

== ENCOUNTER 2018-06-28 13:18 | Outpatient (CLI) | payer OTHER, SELFPAY ==
[2018-06-28 13:34] VITALS: BP 101/63; PULSE 64; RESP 18; TEMP 36.4; O2SAT 98
[2018-06-28 14:04] VITALS: BP 100/66; PULSE 67; RESP 18; O2SAT 97
[2018-06-28 14:10] VITALS: BP 96/59; PULSE 68; RESP 18; O2SAT 96
== END 2018-06-28 14:15 | disposition home or self-care (01) ==
LOC: INF 13:19
PROVIDERS: Visit Provider Obstetrics & Gynecology
DX: T81.49XA Infection following a procedure, other surgical site, initial encounter (principal)
CPT/HCPCS: 96365; J1335

== ENCOUNTER 2018-06-29 13:35 | Outpatient (CLI) | payer OTHER, SELFPAY ==
[2018-06-29 13:59] VITALS: BP 97/58; PULSE 66; RESP 19; TEMP 36.7; O2SAT 100
[2018-06-29 14:05] VITALS: BP 101/52; PULSE 69; RESP 18; O2SAT 99
[2018-06-29 14:30] VITALS: BP 99/56; PULSE 68; RESP 18; O2SAT 99
== END 2018-06-29 14:45 | disposition home or self-care (01) ==
LOC: INF 13:55
PROVIDERS: Visit Provider Obstetrics & Gynecology
DX: T81.49XA Infection following a procedure, other surgical site, initial encounter (principal)
CPT/HCPCS: 96365; J1335

== ENCOUNTER 2018-06-30 12:29 | Outpatient (CLI) | payer OTHER, SELFPAY ==
[2018-06-30 12:34] VITALS: BP 105/64; PULSE 74; RESP 18; TEMP 36.6; O2SAT 98
[2018-06-30 13:00] VITALS: BP 109/62; PULSE 79; RESP 18; O2SAT 97
[2018-06-30 13:20] VITALS: BP 103/59; PULSE 76; RESP 18; O2SAT 97
== END 2018-06-30 13:25 | disposition home or self-care (01) ==
LOC: INF 12:29
PROVIDERS: Visit Provider Obstetrics & Gynecology
DX: T81.49XA Infection following a procedure, other surgical site, initial encounter (principal)
CPT/HCPCS: 96365; J1335

== ENCOUNTER 2018-07-05 11:25 | Outpatient (CLI) | payer OTHER, SELFPAY ==
[2018-07-05 11:51] LABS: Basophils # 0.1 K/mm3 (0-0.2); Basophils % 0.7 % (0.1-2.0); Eosinophils # 0.3 K/mm3 (0.0-0.4); Eosinophils % 3.3 % (0.1-12.0); Hematocrit 34.9 % (37.0-47.0); Hemoglobin 11.4 g/dL (12.2-16.2); Lymphocytes % 11.9 % (10-50); Mean Corpuscular HGB Conc 32.7 g/dL (31.8-35.4); Mean Corpuscular Hemoglobin 27.8 pg (27.0-31.2); Mean Corpuscular Volume 85.1 fl (81-99); Mean Platelet Volume 8.7 fl (7.4-10.4); Monocytes # 0.4 K/mm3 (0.1-1.0); Monocytes % 4.1 % (1.7-9.3); Neutrophils % 80.1 % (37.0-80.0); Platelet Count 258 K/mm3 (142-424); Red Cell Distribution Width 17.2 % (11.5-17.5); White Blood Count 8.8 K/mm3 (4.8-10.8)
== END 2018-07-05 12:20 | disposition home or self-care (01) ==
LOC: INF 11:25
PROVIDERS: Surgery; Visit Provider Obstetrics & Gynecology
DX: Z45.2 Encounter for adjustment and management of vascular access device (principal); T81.49XA Infection following a procedure, other surgical site, initial encounter
CPT/HCPCS: 85025; G0463

== ENCOUNTER → 2018-07-22 09:47 | Outpatient (CLI) | payer OTHER, SELFPAY ==
--- NOTE | 2018-07-22 10:06 | CT_ITS ---
CT abdomen pelvis w con CLINICAL INDICATION: Lower abdominal pain, history of abscess ITS.REASON: possible abscess ORDERING PHYSICIAN: Kwame Hernandez MD PATIENT AGE: 42 years COMPARISON: 06/23/2018 TECHNIQUE: Axial images obtained with sagittal and coronal reformats. All CT scans at the facility use one or more dose reduction, viz: automated exposure control, ma/kV adjustment per patient size (including targeted exams where dose is matched to indication, i.e. head), or iterative reconstruction technique. PROCEDURE: Oral Contrast: Redicat IV Contrast: 75 mL's Optiray 350. FINDINGS: There are postcholecystectomy changes with biliary ectasia. No focal liver lesion. There has been a prior gastric bypass. The spleen, adrenal glands, pancreas, and kidneys have an unremarkable appearance. There is a small hiatal hernia. No intestinal obstruction or free air. Previously noted loculated fluid collections are no longer apparent. There is an area of soft tissue density in the mid abdominal region just deep to the abdominal wall measuring approximately 2.6 cm. Deep to the umbilicus and may be due to an area of developing fat process. Follow-up suggested to confirm stability. No acute bony findings. There is mild diffuse subcutaneous edema. Post hysterectomy changes. There is mild thickening of the bowel wall in the pelvis involving both large and small bowel which may be related to some residual inflammation. IMPRESSION: 1. Previously noted loculated fluid collections are no longer apparent consistent with resolved abscesses. 2. Mild thickening of the small large bowel within the pelvic region which could be related to some residual inflammation. 3. Soft tissue density deep to the umbilicus and may be related to an area of developing fat necrosis
== END ==
PROVIDERS: PCP Emergency Medicine; Visit Provider Surgery
DX: T81.49XA Infection following a procedure, other surgical site, initial encounter (principal)
CPT/HCPCS: 74177; Q9967

== ENCOUNTER → 2018-08-26 13:54 | Outpatient (CLI) | payer OTHER, SELFPAY ==
[2018-08-26 18:11] LABS: Amphetamine/Metha Screen,Urine Negative ng/mL (<1000); Barbiturates Screen,Urine Negative ng/mL (<200); Benzodiazepines Screen,Urine Negative ng/mL (<200); Cannabinoid Screen,Urine Negative ng/mL (<50); Cocaine Screen,Urine Negative ng/mL (<300); Methadone Screen,Urine Negative ng/mL (<300); Opiate Screen,Urine Negative ng/mL (<300); Phencyclidine Screen,Urine Negative ng/mL (<25)
== END ==
PROVIDERS: Visit Provider Nurse Practitioner Family
DX: Z79.899 Other long term (current) drug therapy (principal); E66.9 Obesity, unspecified
CPT/HCPCS: 80305

== ENCOUNTER → 2018-10-15 15:04 | Outpatient (CLI) | payer OTHER, SELFPAY ==
[2018-10-15 17:02] LABS: Albumin Level 3.1 gm/dL (3.4-5.0); Albumin/Globulin Ratio 1.1 (1.1-1.8); Alkaline Phosphatase 66 U/L (46-116); Bilirubin,Total 0.4 mg/dL (0.2-1.0); Blood Urea Nitrogen 16 mg/dL (7-18); Chloride 107 mmol/L (98-107); Globulin 2.7 gm/dl (1.3-3.2); Potassium 4.5 mmoL/L (3.5-5.1); Total Protein,Serum 5.8 gm/dL (6.4-8.2)
[2018-10-15 17:14] LABS: Alanine Aminotransferase 40 U/L (12-78); Anion Gap 11.5 mEq/L (5-15); Aspartate Amino Transferase 34 U/L (15-37); Calcium 8.6 mg/dL (8.5-10.1); Carbon Dioxide 27 mmol/L (21.0-32.0); Creatinine,Serum 0.79 mg/dL (0.55-1.02); Estimated Glomerular Filt Rate 79 ml/min (>60); GFR (African American) 96 ML/MIN (>60); Glucose 89 mg/dL (74-106); Sodium 141 mmol/L (136-145)
== END ==
PROVIDERS: Visit Provider Internal Medicine
DX: R10.9 Unspecified abdominal pain (principal)
CPT/HCPCS: 36415; 80053

== ENCOUNTER → 2019-02-03 15:04 | Outpatient (CLI) | payer OTHER, SELFPAY ==
[2019-02-03 15:18] LABS: Basophils # 0.1 K/mm3 (0-0.2); Basophils % 1.3 % (0.1-2.0); Eosinophils # 0.1 K/mm3 (0.0-0.4); Eosinophils % 1.3 % (0.1-12.0); Hematocrit 43.7 % (37.0-47.0); Hemoglobin 13.9 g/dL (12.2-16.2); Lymphocytes # 1.6 K/mm3 (0.7-4.5); Lymphocytes % 29.5 % (10-50); Mean Corpuscular HGB Conc 31.8 g/dL (31.8-35.4); Mean Corpuscular Hemoglobin 28.6 pg (27.0-31.2); Mean Corpuscular Volume 90.1 fl (81-99); Mean Platelet Volume 9.4 fl (7.4-10.4); Monocytes # 0.3 K/mm3 (0.1-1.0); Monocytes % 6.3 % (1.7-9.3); Neutrophils # 3.3 K/mm3 (1.8-7.8); Neutrophils % 61.5 % (37.0-80.0); Platelet Count 213 K/mm3 (142-424); Red Blood Count 4.85 M/mm3 (4.20-5.40); Red Cell Distribution Width 14.6 % (11.5-17.5); White Blood Count 5.3 K/mm3 (4.8-10.8)
[2019-02-03 15:34] LABS: Alanine Aminotransferase 14 U/L (12-78); Albumin Level 3.8 gm/dL (3.4-5.0); Albumin/Globulin Ratio 1.2 (1.1-1.8); Alkaline Phosphatase 77 U/L (46-116); Anion Gap 9.9 mEq/L (5-15); Aspartate Amino Transferase 12 U/L (15-37); Bilirubin,Total 0.4 mg/dL (0.2-1.0); Blood Urea Nitrogen 16 mg/dL (7-18); Calcium 8.8 mg/dL (8.5-10.1); Carbon Dioxide 27 mmol/L (21.0-32.0); Chloride 107 mmol/L (98-107); Creatinine,Serum 0.89 mg/dL (0.55-1.02); Estimated Glomerular Filt Rate 69 ml/min (>60); GFR (African American) 83 ML/MIN (>60); Globulin 3.2 gm/dl (1.3-3.2); Glucose 91 mg/dL (74-106); Lipase 158 u/L (73-393); Potassium 3.9 mmoL/L (3.5-5.1); Sodium 140 mmol/L (136-145); Troponin I < 0.02 ng/ml (0.00-0.06)
== END ==
PROVIDERS: Visit Provider Internal Medicine Adolescent Medicine
DX: R07.89 Other chest pain (principal); D50.9 Iron deficiency anemia, unspecified
CPT/HCPCS: 36415; 80053; 83690; 84484; 85025

== ENCOUNTER → 2019-03-08 07:08 | Outpatient (CLI) | payer OTHER, SELFPAY ==
[2019-03-08 09:29] LABS: Alanine Aminotransferase 16 U/L (12-78); Albumin Level 3.6 gm/dL (3.4-5.0); Albumin/Globulin Ratio 1.4 (1.1-1.8); Alkaline Phosphatase 68 U/L (46-116); Anion Gap 13.4 mEq/L (5-15); Aspartate Amino Transferase 15 U/L (15-37); Bilirubin,Total 0.5 mg/dL (0.2-1.0); Blood Urea Nitrogen 19 mg/dL (7-18); Calcium 8.6 mg/dL (8.5-10.1); Carbon Dioxide 27 mmol/L (21.0-32.0); Chloride 108 mmol/L (98-107); Chol/HDL Ratio 2.8 (1-3.5); Cholesterol 154 mg/dL (140-200); Creatinine,Serum 0.92 mg/dL (0.55-1.02); Estimated Glomerular Filt Rate 66 ml/min (>60); Ferritin 7 ng/mL (8-388); GFR (African American) 80 ML/MIN (>60); Globulin 2.6 gm/dl (1.3-3.2); Glucose 90 mg/dL (74-106); HDL Cholesterol 55 mg/dL (29-89); LDL Cholesterol 88 mg/dL (0-130); Potassium 4.4 mmoL/L (3.5-5.1); Sodium 144 mmol/L (136-145); Total Protein,Serum 6.2 gm/dL (6.4-8.2); Triglycerides 54 mg/dL (30-200); VLDL Cholesterol 11 mg/dL (0-40)
[2019-03-09 08:13] LABS: Iron 55 ug/dL (27-159); UIBC 337 ug/dL (131-425)
[2019-03-09 14:11] LABS: Vitamin B12 775 pg/mL (232-1245)
[2019-03-09 14:12] LABS: Iron Saturation 14 % (15-55); Vitamin D 25 Hydroxy 21.3 ng/mL (30.0-100.0)
== END ==
PROVIDERS: Visit Provider Nurse Practitioner Family
DX: Z00.00 Encounter for general adult medical examination without abnormal findings (principal); D50.9 Iron deficiency anemia, unspecified; E55.9 Vitamin D deficiency, unspecified; Z98.84 Bariatric surgery status
CPT/HCPCS: 36415; 80053; 80061; 82607; 82652; 82728; 83540; 83550

== ENCOUNTER → 2019-03-09 17:00 | Outpatient (CLI) | payer OTHER, SELFPAY ==
[2019-03-09 17:59] LABS: Basophils # 0.1 K/mm3 (0-0.2); Eosinophils # 0.1 K/mm3 (0.0-0.4); Eosinophils % 2.8 % (0.1-12.0); Hemoglobin 13.3 g/dL (12.2-16.2); Lymphocytes # 1.9 K/mm3 (0.7-4.5); Lymphocytes % 37.1 % (10-50); Mean Corpuscular HGB Conc 31.7 g/dL (31.8-35.4); Mean Corpuscular Hemoglobin 28.1 pg (27.0-31.2); Mean Corpuscular Volume 88.4 fl (81-99); Mean Platelet Volume 9.4 fl (7.4-10.4); Monocytes # 0.4 K/mm3 (0.1-1.0); Monocytes % 7.6 % (1.7-9.3); Neutrophils # 2.6 K/mm3 (1.8-7.8); Neutrophils % 51.6 % (37.0-80.0); Platelet Count 217 K/mm3 (142-424); Red Blood Count 4.75 M/mm3 (4.20-5.40); Red Cell Distribution Width 14.4 % (11.5-17.5); White Blood Count 5.1 K/mm3 (4.8-10.8)
== END ==
PROVIDERS: Visit Provider Nurse Practitioner Family
DX: D50.9 Iron deficiency anemia, unspecified (principal)
CPT/HCPCS: 36415; 85025

== ENCOUNTER → 2019-03-18 16:31 | Outpatient (CLI) | payer OTHER, SELFPAY ==
--- NOTE | 2019-03-18 | MM_ITS ---
PROCEDURE: MM DIG SCREENING MAMM BI W/CAD Patient Age:43Y CLINICAL INDICATION: ROUTINE SCREENING 43-year-old, takes estrogen. Total hysterectomy May 2018. No new complaints, Family history.: Maternal cousins with breast cancer COMPARISON: [facility] DIG MAMM-SCREEN KACI from 02/13/2016 DMDXUAVL DIG MAMM-DX UNI ADD VIEWS-LT from 03/12/2016 BL US BREAST-LT COMPLETE W/AXILLA from 03/12/2016 [facility] MM Dig screening mamm BI w/CAD from 02/11/2018 TECHNIQUE: Standard CC and MLO images were obtained. R2 CAD reviewed. FINDINGS: Moderate fibroglandular elements bilaterally minor asymmetry, minor areas of nodularity. Right breast: No significant new areas of concern . Minimal asymmetry areas density and nodularity appears similar to 2018 mammogram. Left breast. Stable with no significant new findings. Small areas it inferior medial left breast, similar to multiple previous studies the dating back to 2015 a benign cyst inferior left breast towards 8 o'clock was noted on previous March 2016 ultrasound Follow-up 1 year recommended and encourage bilateral particularly, especially noting patient estrogen IMPRESSION: No significant new areas of concern. Stable mammogram. Areas of mild asymmetry appears similar to 2018 and prior studies Follow-up 1 year recommended and should be encourage/emphasized bilateral for ongoing evaluation BI-RAD Category: 2 Benign Finding(s) FOLLOW-UP: 1YR 1 Year Follow-up the (A letter has been sent to the patient regarding results of the study.).. The Dictated by: Sam Hunter MD 03/19/2019 16:36 Electronically signed by Sam Hunter MD in [facility] 03/22/2019 12:50
== END ==
PROVIDERS: PCP Nurse Practitioner Family; Visit Provider Nurse Practitioner Family
DX: Z12.31 Encounter for screening mammogram for malignant neoplasm of breast (principal)
CPT/HCPCS: 77067

== ENCOUNTER 2019-10-22 10:38 | Emergency (ER) | payer OTHER, SELFPAY ==
[2019-10-22 10:56] VITALS: BP 116/72; PULSE 89; RESP 18; TEMP 37.3; O2SAT 97; BMI 31.1
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
[2019-10-22 11:14] VITALS: BP 114/69; PULSE 72; O2SAT 100
--- NOTE | 2019-10-22 11:27 | PC.NURSE ---
Pt to rad
--- NOTE | 2019-10-22 11:36 | PC.NURSE ---
pt return from xray
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
[2019-10-22 12:53] VITALS: BP 124/74; PULSE 80; O2SAT 99
[2019-10-22 13:02] VITALS: BP 120/69; PULSE 82; RESP 18; TEMP 37.3; O2SAT 100
== END 2019-10-22 13:03 | disposition home or self-care (01) ==
PROVIDERS: Emergency Provider Emergency Medicine; PCP Internal Medicine Adolescent Medicine
DX: S46.911A Strain of unspecified muscle, fascia and tendon at shoulder and upper arm level, right arm, initial encounter (principal); V40.5XXA Car driver injured in collision with pedestrian or animal in traffic accident, initial encounter; Y92.410 Unspecified street and highway as the place of occurrence of the external cause; K21.9 Gastro-esophageal reflux disease without esophagitis; F33.1 Major depressive disorder, recurrent, moderate; G43.709 Chronic migraine without aura, not intractable, without status migrainosus; Z90.49 Acquired absence of other specified parts of digestive tract; Z79.899 Other long term (current) drug therapy
CPT/HCPCS: 73030; 73060; 99283

== ENCOUNTER 2020-02-15 14:36 | Emergency (ER) | payer OTHER, SELFPAY ==
[2020-02-15] VITALS (7 sets, daily range): BP systolic 121–134; BP diastolic 75–81; PULSE 67–106; RESP 17–20; TEMP 37–37.7; O2SAT 95–100; BMI 31.1
--- NOTE | 2020-02-15 14:53 | HMH.EDGENADL ---
ED Disposition Clinical Impression: Fever Qualifiers: Fever type: unspecified Qualified Code(s): R50.9 - Fever, unspecified Dyspnea Qualifiers: Dyspnea type: shortness of breath Qualified Code(s): R06.02 - Shortness of breath Disposition: Home, Self-Care Condition on Discharge: Good Additional Instructions: Quarantine until you know the results of all of your COVID-19 test swabs. Continue Tylenol or ibuprofen for fever and discomfort. Return to the emergency room if worsening fever shortness of breath, severe abdominal pain, severe cough, persistent vomiting, or severe weakness. Follow-up with your primary care provider. Call back for COVID-19 test results in 2 to 3 days. Referrals: Darrion Campbell MD [Primary Care Provider] - - Critical Care Critical Care Time: No Attestation: On 02/15/20, the high probability of a clinically significant, sudden or life threatening deterioration of the following system(s) required my full and direct attention, intervention and personal management. The time I documented below is in addition to time spent performing reported procedures but includes the following listed in this critical care notation. Medical Decision Making - Aidan Inquiry Pt receiving controlled substance: No Vital Signs: 02/15/20 14:37 02/15/20 14:45 02/15/20 15:07 Temperature 99.8 F H Temperature Source Oral Pulse Rate [Right Radial] 95 H 99 H 106 H Respiratory Rate 18 18 18 Blood Pressure [Right Arm] 131/77 131/77 121/78 Blood Pressure Mean [Right Arm] 95 95 92 Blood Pressure Source [Right Arm] Automatic Cuff Automatic Cuff Automatic Cuff Blood Pressure Position [Right Arm] Sitting Sitting Sitting 02 Sat by Pulse Oximetry 98 97 95 Oxygen Delivery Method Room Air Room Air 02/15/20 15:37 02/15/20 16:07 02/15/20 17:35 Temperature 98.6 F Temperature Source Oral Pulse Rate [Right Radial] 85 67 Respiratory Rate 20 20 Blood Pressure [Right Arm] 131/75 134/81 Blood Pressure Mean [Right Arm] 93 98 Blood Pressure Source [Right Arm] Automatic Cuff Automatic Cuff Blood Pressure Position [Right Arm] Sitting Sitting 02 Sat by Pulse Oximetry 100 100 Oxygen Delivery Method Room Air Room Air - Lab Data Lab results reviewed: Yes: I reviewed the patient's lab results. Lab Results 02/15/20 14:59: WBC 4.1 L, RBC 5.50 H, Hgb 14.4, Hct 46.7, MCV 84.8, MCH 26.2 L, MCHC 30.9 L, RDW 13.9, Plt Count 223, MPV 8.9, Neut % (Auto) 72.5, Lymph % (Auto) 17.9, [place] % (Auto) 8.1, Eos % (Auto) 0.7, Baso % (Auto) 0.8, Neut # (Auto) 3.0, Lymph # (Auto) 0.7, [place] # (Auto) 0.3, Eos # (Auto) 0.0, Baso # (Auto) 0.0 02/15/20 14:59: Sodium 140, Potassium 3.9, Chloride 102, Carbon Dioxide 29, Anion Gap 12.9, BUN 18 H, Creatinine 0.90, Estimated Creat Clear 96, Estimated GFR 68, Est GFR ( Amer) 82, Glucose 101 H, Calcium 9.2, Total Bilirubin 0.4, AST 29, ALT 20, Alkaline Phosphatase 71, Total Protein 7.1, Albumin 4.4, Globulin 2.7, Albumin/Globulin Ratio 1.6 02/15/20 14:59: Lactate 0.8 02/15/20 14:59: SARS-CoV-2 IgG Ab (Rapid) Negative, SARS-CoV-2 IgM Ab (Rapid) Negative 02/15/20 16:30: Urine Color Yellow, Urine Appearance Clear, Urine pH 6.5, Ur Specific [place] 1.010, Urine Protein Negative, Urine Glucose (UA) Negative, Urine Ketones Negative, Urine Blood Trace-i, Urine Nitrate Negative, Urine Bilirubin Negative, Urine Urobilinogen 0.2, Ur Leukocyte Esterase Negative Result diagrams: 02/15/20 14:59 02/15/20 14:59 Orders (Tests/Meds): ED MEDICATIONS Discontinued Medications Generic Name Dose Route Start Last Admin Trade Name Freq PRN Reason Stop Dose Admin Ondansetron HCl 4 mg 02/15/20 15:06 02/15/20 15:12 Ondansetron 4mg/2ml Vial IV 02/15/20 15:07 4 mg ONCE ONE Administration Sodium Chloride 1,000 ml 02/15/20 15:05 02/15/20 15:12 Sodium Chloride 0.9% 1000ml Bag IV 02/15/20 15:06 1,000 ml BOLUS ONE Administration ORDERS Category Date Time Status Covid-19 Na
--- NOTE | 2020-02-15 14:55 | XR_ITS ---
PROCEDURE: XR CHEST 2V CLINICAL HISTORY: SOA COMPARISON: CR CXR1VP XR chest portable from 06/06/2018 CR CXR2V XR chest 2V from 06/09/[address] angio chest from 06/09/2018 CR [id number] XR chest portable PICC plac from 06/15/2018 FINDINGS: The cardiomediastinal silhouette and pulmonary vascularity are within normal limits. The lungs are clear without infiltrates, suspicious nodules, or pleural effusions. Mild upper thoracic curvature convex left. Surgical clips are present in the epigastric region. IMPRESSION: No acute findings. Dictated by: Phu Jones MD 02/15/2020 15:23 Phu Jones MD in [place] 02/15/2020 15:23
[2020-02-15 15:19] LABS: Chloride 102 mmol/L (98-107); Potassium 3.9 mmoL/L (3.5-5.1); Sodium 140 mmol/L (136-145)
[2020-02-15 15:22] LABS: Alanine Aminotransferase 20 U/L (12-78); Albumin Level 4.4 g/dl (3.5-5.0); Albumin/Globulin Ratio 1.6 (1.1-1.8); Alkaline Phosphatase 71 U/L (38-126); Anion Gap 12.9 mEq/L (5-15); Aspartate Amino Transferase 29 U/L (14-36); Bilirubin,Total 0.4 mg/dl (0.2-1.3); Blood Urea Nitrogen 18 mg/dl (7-17); Calcium 9.2 mg/dl (8.4-10.2); Carbon Dioxide 29 mmol/L (22.0-30.0); Creatinine Clearance Estimated 96 mL/min (50-200); Estimated Glomerular Filt Rate 68 ml/min (>60); GFR (African American) 82 ML/MIN (>60); Globulin 2.7 g/dL (1.3-3.2); Glucose 101 mg/dl (74-100); Lactic Acid 0.8 mmol/L (0.7-2.1); Total Protein,Serum 7.1 g/dl (6.3-8.2)
[2020-02-15 15:28] LABS: Basophils % 0.8 % (0.1-2.0); Eosinophils % 0.7 % (0.1-12.0); Hematocrit 46.7 % (37.0-47.0); Hemoglobin 14.4 g/dL (12.2-16.2); Lymphocytes # 0.7 K/mm3 (0.7-4.5); Lymphocytes % 17.9 % (10-50); Mean Corpuscular HGB Conc 30.9 g/dL (31.8-35.4); Mean Corpuscular Hemoglobin 26.2 pg (27.0-31.2); Mean Corpuscular Volume 84.8 fl (81-99); Mean Platelet Volume 8.9 fl (7.4-10.4); Monocytes # 0.3 K/mm3 (0.1-1.0); Monocytes % 8.1 % (1.7-9.3); Neutrophils % 72.5 % (37.0-80.0); Platelet Count 223 K/mm3 (142-424); Red Cell Distribution Width 13.9 % (11.5-17.5); White Blood Count 4.1 K/mm3 (4.8-10.8)
[2020-02-15 15:43] LABS: Coronavirus 19 IgG Antibody Negative (Negative); Coronavirus 19 IgM Antibody Negative (Negative)
[2020-02-15 16:38] LABS: Microscopic, Urine URINE MICROSCOPIC (MICROSCOPIC)
[2020-02-15 17:05] LABS: Appearance,Urine CLEAR (Clear); Bilirubin,Urine Negative (Negative); Blood, Urine TRACE-I (Negative); Color,Urine YELLOW (Yellow); Glucose,Urine (UA) Negative (Negative); Ketones,Urine Negative (Negative); Leukocyte Esterase,Urine Negative (Negative); Nitrate,Urine Negative (Negative); PH,Urine 6.5 (5.0-8.5); Protein,Urine Negative (Negative); Urobilinogen,Urine 0.2 EU/dl (0.2)
[2020-02-15 17:59] LABS: Bacteria,Urine 2+ /lpf; RBC,Urine Occasional #/hpf (0-3)
[2020-02-15 23:20] LABS: Adenovirus,PCR Not Detected (NotDetected); Bordetella Pertussis Not Detected (NotDetected); Chlamydophila Pneumoniae, PCR Not Detected (NotDetected); Coronavirus 229E Not Detected (NotDetected); Coronavirus NL63 Not Detected (NotDetected); Coronavirus OC43 Not Detected (NotDetected); Coronovirus HKU1,PCR Not Detected (NotDetected); Human Metapneumovirus Not Detected (NotDetected); Influenza A, PCR Not Detected (NotDetected); Influenza AH1, 2009 Not Detected (NotDetected); Influenza AH1, PCR Not Detected (NotDetected); Influenza AH3,PCR Not Detected (NotDetected); Influenza B, PCR Not Detected (NotDetected); Mycoplasma Pneumoniae, PCR Not Detected (NotDetected); Parainfluenza 1, PCR Not Detected (NotDetected); Parainfluenza 2, PCR Not Detected (NotDetected); Parainfluenza 3, PCR Not Detected (NotDetected); Parainfluenza 4, PCR Not Detected (NotDetected); Respiratory Syncytial Virus Not Detected (NotDetected); Rhinovirus/Enterovirus Not Detected (NotDetected)
[2020-02-16 03:23] LABS: Coronavirus 19, PCR Detected (NotDetected)
--- NOTE | 2020-02-16 17:29 | PC.NURSE ---
Called pt per dr francois to advise her of positive covid test
== END 2020-02-15 17:55 | disposition home or self-care (01) ==
PROVIDERS: Emergency Provider Emergency Medicine; PCP Emergency Medicine
DX: U07.1 COVID-19 (principal); K21.9 Gastro-esophageal reflux disease without esophagitis; G43.709 Chronic migraine without aura, not intractable, without status migrainosus; Z79.899 Other long term (current) drug therapy; Z88.5 Allergy status to narcotic agent
CPT/HCPCS: 71046; 80053; 81001; 83605; 85025; 86328; 87040; 87086; 87581; 87633; 87798; 96365; 96375; 99284; J2405; U0003

== ENCOUNTER → 2020-04-18 18:07 | Outpatient (CLI) | payer OTHER, SELFPAY ==
[2020-04-18 19:05] LABS: Basophils % 0.9 % (0.1-2.0); Eosinophils % 0.1 % (0.1-12.0); Hematocrit 42.6 % (37.0-47.0); Lymphocytes # 0.3 K/mm3 (0.7-4.5); Mean Corpuscular HGB Conc 32.8 g/dL (31.8-35.4); Mean Corpuscular Hemoglobin 27.4 pg (27.0-31.2); Mean Corpuscular Volume 83.3 fl (81-99); Mean Platelet Volume 9.6 fl (7.4-10.4); Monocytes # 0.2 K/mm3 (0.1-1.0); Monocytes % 5.5 % (1.7-9.3); Neutrophils # 3.8 K/mm3 (1.8-7.8); Neutrophils % 87.4 % (37.0-80.0); Platelet Count 195 K/mm3 (142-424); Red Blood Count 5.11 M/mm3 (4.20-5.40); Red Cell Distribution Width 14.9 % (11.5-17.5); White Blood Count 4.4 K/mm3 (4.8-10.8)
[2020-04-18 19:06] LABS: MANUAL DIFFERENTIAL MANUAL DIFFERENTIAL (MANUAL DIFF)
[2020-04-18 19:17] LABS: Alanine Aminotransferase 19 U/L (12-78); Albumin Level 3.9 g/dl (3.5-5.0); Albumin/Globulin Ratio 1.4 (1.1-1.8); Alkaline Phosphatase 73 U/L (38-126); Anion Gap 11.4 mEq/L (5-15); Aspartate Amino Transferase 34 U/L (14-36); Bilirubin,Total 0.7 mg/dl (0.2-1.3); Blood Urea Nitrogen 13 mg/dl (7-17); Calcium 9.3 mg/dl (8.4-10.2); Carbon Dioxide 28 mmol/L (22.0-30.0); Chloride 102 mmol/L (98-107); Chol/HDL Ratio 2.5 (1-3.5); Cholesterol 143 mg/dl (140-200); Estimated Glomerular Filt Rate 78 ml/min (>60); GFR (African American) 94 ML/MIN (>60); Globulin 2.7 g/dL (1.3-3.2); Glucose 98 mg/dl (74-100); HDL Cholesterol 58 mg/dl (40-60); Potassium 4.4 mmoL/L (3.5-5.1); Sodium 137 mmol/L (136-145); Total Protein,Serum 6.6 g/dl (6.3-8.2); Triglycerides 72 mg/dl (30-150); VLDL Cholesterol 14 mg/dL (0-40)
[2020-04-18 19:21] LABS: Lymphocytes % 5 % (10-50); Monocytes % 3 % (2-9); Neutrophils % 92 % (42-76); Platelet Estimate Normal; RBC Morphology Normal; Total Cells Counted 100
[2020-04-18 19:28] LABS: Direct LDL Cholesterol 67.76 mg/dL (100-129)
[2020-04-18 19:36] LABS: 25-OH Vitamin D, Total 22.9 ng/mL (30-100)
[2020-04-18 19:40] LABS: Free T4 (Free Thyroxine) 1.04 ng/dl (0.78-2.19)
[2020-04-18 19:53] LABS: Thyroid Stimulating Hormone 0.18 uIU/mL (0.465-4.68)
[2020-04-19 17:46] LABS: Vitamin B12 > 1000 pg/mL (239-931)
== END ==
PROVIDERS: Visit Provider Physician Assistant
DX: Z00.00 Encounter for general adult medical examination without abnormal findings (principal); R89.9 Unspecified abnormal finding in specimens from other organs, systems and tissues; E55.9 Vitamin D deficiency, unspecified
CPT/HCPCS: 80053; 80061; 82306; 82607; 84439; 84443; 85007; 85025

== ENCOUNTER → 2020-05-04 17:41 | Outpatient (CLI) | payer OTHER, SELFPAY ==
[2020-05-04 18:09] LABS: Basophils # 0.1 K/mm3 (0-0.2); Eosinophils # 0.1 K/mm3 (0.0-0.4); Eosinophils % 1.9 % (0.1-12.0); Hematocrit 40.2 % (37.0-47.0); Hemoglobin 13.1 g/dL (12.2-16.2); Lymphocytes # 1.5 K/mm3 (0.7-4.5); Lymphocytes % 28.1 % (10-50); Mean Corpuscular HGB Conc 32.5 g/dL (31.8-35.4); Mean Corpuscular Hemoglobin 26.9 pg (27.0-31.2); Mean Corpuscular Volume 82.8 fl (81-99); Mean Platelet Volume 9.2 fl (7.4-10.4); Monocytes # 0.5 K/mm3 (0.1-1.0); Monocytes % 8.8 % (1.7-9.3); Neutrophils # 3.2 K/mm3 (1.8-7.8); Neutrophils % 60.3 % (37.0-80.0); Platelet Count 305 K/mm3 (142-424); Red Blood Count 4.85 M/mm3 (4.20-5.40); Red Cell Distribution Width 14.9 % (11.5-17.5); White Blood Count 5.4 K/mm3 (4.8-10.8)
[2020-05-04 18:27] LABS: Free T4 (Free Thyroxine) 1.19 ng/dl (0.78-2.19)
[2020-05-04 18:40] LABS: Thyroid Stimulating Hormone 0.42 uIU/mL (0.465-4.68)
== END ==
LOC: LAB.DROPOF 17:42
PROVIDERS: Physician Assistant; Visit Provider Emergency Medicine
DX: R89.9 Unspecified abnormal finding in specimens from other organs, systems and tissues (principal)
CPT/HCPCS: 84439; 84443; 85025

== ENCOUNTER → 2020-06-07 09:28 | Outpatient (CLI) | payer OTHER, SELFPAY ==
--- NOTE | 2020-06-07 09:35 | XR_ITS ---
PROCEDURE: XR KNEE LT 3V CLINICAL INDICATION: OSTEOARTHRITIS Pain COMPARISON: No exams were available for comparison FINDINGS: No fracture or dislocation. No lytic or blastic change. There is normal mineralization. Mild osteoarthritis involving all 3 compartments. There is nonspecific subcutaneous densities in the suprapatellar region anteriorly suggesting mild soft tissue calcification. Other findings:None. IMPRESSION: Mild osteoarthritis Dictated by: Phu Jones MD 06/07/2020 14:06 Phu Jones MD in [place] 06/07/2020 14:06
--- NOTE | 2020-06-07 09:35 | XR_ITS ---
PROCEDURE: XR KNEE RT 3V CLINICAL INDICATION: OSTEOARTHRITIS COMPARISON: No exams were available for comparison FINDINGS: No fracture or dislocation. No lytic or blastic change. There is normal mineralization. Mild osteoarthritis involves all 3 compartments. Other findings:There is some nonspecific cortical sclerosis involving the neck of the fibula medially IMPRESSION: Mild osteoarthritis Dictated by: Phu Jones MD 06/07/2020 13:57 Phu Jones MD in [place] 06/07/2020 13:57
== END ==
LOC: RAD 09:29
PROVIDERS: PCP Internal Medicine Adolescent Medicine; Visit Provider Internal Medicine Adolescent Medicine
DX: M17.0 Bilateral primary osteoarthritis of knee (principal)
CPT/HCPCS: 73562

== ENCOUNTER 2020-10-15 11:27 | Emergency (ER) | payer OTHER, SELFPAY ==
[2020-10-15 11:30] VITALS: BP 126/82; PULSE 68; RESP 21; TEMP 36.9; O2SAT 99; BMI 32.7
--- NOTE | 2020-10-15 11:37 | XR_ITS ---
PROCEDURE: XR FOOT RT MIN 3V CLINICAL INDICATION: PAIN COMPARISON: CR FTL3 FOOT-LT-3 VIEWS from 05/01/2013 FINDINGS: No fracture or dislocation. No lytic or blastic change. There is normal mineralization. The joint spaces are well-preserved. No significant degenerative/arthritic changes. No erosive changes evident. Other findings:There is a mildly prominent calcaneal spur. IMPRESSION: No acute findings. Dictated by: Phu Jones MD 10/15/2020 12:16 Phu Jones MD in [place] 10/15/2020 12:16
--- NOTE | 2020-10-15 12:21 | HMH.EDUTC ---
[facility] [place] Disposition Clinical Impression: Right foot pain Heel spur Qualifiers: Laterality: right Qualified Code(s): M77.31 - Calcaneal spur, right foot Disposition: Home, Self-Care Condition on Discharge: Good Instructions: Gout, DI for Gout Additional Instructions: Rest the extremity, Elevate the extremity as tolerated while you are resting. Take ibuprofen for pain. Follow up with Dr. Buchanan (podiatry). I put in a referral but you will need to call her office and schedule an appointment. Your heel spur is worth following up over even if your other foot pain gets better from the medications that we gave you here in the office. Follow up with your regular doctor. GO TO THE ER FOR ANY WORSENING SYMPTOMS Referrals: Demarcus Munroe MD [Primary Care Provider] - Forms: Work/School Release Time of Disposition: 12:59 Medical Decision Making - Medical Records Medical records reviewed: No: I reviewed the patient's medical records. - Aidan Inquiry Pt receiving controlled substance: No Vital Signs: 10/15/20 11:30 10/15/20 12:50 Temperature 98.4 F 98.4 F Temperature Source Oral Pulse Rate 68 Pulse Rate [Right Brachial] 68 Respiratory Rate 21 21 Blood Pressure 126/82 Blood Pressure [Right Arm] 126/82 Blood Pressure Mean [Right Arm] 96 Blood Pressure Source [Right Arm] Automatic Cuff Blood Pressure Position [Right Arm] Sitting 02 Sat by Pulse Oximetry 99 Oxygen Delivery Method Room Air Orders (Tests/Meds): ED MEDICATIONS Discontinued Medications Generic Name Dose Route Start Last Admin Trade Name Freq PRN Reason Stop Dose Admin Ketorolac Tromethamine 60 mg 10/15/20 12:27 10/15/20 12:40 Ketorolac 60mg/2ml Vial IM 10/15/20 12:28 60 mg ONCE ONE Administration Methylprednisolone Acetate 80 mg 10/15/20 12:27 10/15/20 12:40 Methylprednisolone Acetate 80mg/Ml Vial IM 10/15/20 12:28 80 mg ONCE ONE Administration [facility] [place] HPI - General Stated complaint: Rt foot pain Time Seen by Provider: 10/15/20 12:21 Mode of Arrival: Ambulatory Source of Information: Patient Limitations: No Limitations Description of Symptoms (Recalled from Triage Doc. by RN): PATIENT C/O SEVERE RIGHT FOOT PAIN X 2 DAYS. NO KNOWN INJURY HEENT Symptoms (Recalled from RN notes): No Resp Symptoms (Recalled from RN notes): No Skin Symptoms (Recalled from RN notes): No MS Symptoms (Recalled from RN notes): Yes Functional Status (Recalled from RN notes): WNL - History of Present Illness Provider Complaint: She c/o right foot pain for the past 2 days. She states that the pain is located in the joint at the base of her big toe. She denies any injury. - Related Data Home Medications Medication Instructions Recorded Confirmed Ferrous Sulfate [Ferrous Sulfate 325 mg PO BID 06/04/18 05/04/20 325mg Tablet] promethazine 25 mg tablet PO 04/25/19 05/04/20 propranolol 20 mg tablet PO 04/25/19 05/04/20 buspirone 10 mg tablet 10 mg PO tab 05/05/19 05/04/20 Previous Rx's Medication Instructions Recorded albuterol sulfate 90 mcg/actuation See Rx Instructions .ROUTE 03/20/20 aerosol inhaler .COMPLEX #18 g ergocalciferol (vitamin D2) 1,250 1,250 mcg PO WEEKLY #5 cap 04/20/20 mcg (50,000 unit) capsule ondansetron HCl 8 mg tablet 8 mg PO Q8H #30 tab 05/11/20 Allergies Allergy/AdvReac Type Severity Reaction Status Date / Time lamotrigine Allergy Intermediate I-RASH Verified 05/04/20 15:31 morphine Allergy Verified 05/04/20 15:31 - Worker's Comp Is this a Worker's Comp case?: No H History - Hepatitis A Screen Drug use history?: No High risk sexual behaviors?: No History of sexually transmitted infection?: No Currently employed?: No Childcare worker?: No Do you have indoor plumbing?: Yes Do you have electricity?: Yes Attestation statement:: This patient has been screened for Hepatitis A risk factors. I have reviewed the patient's past medical history: Yes Medi
[2020-10-15 12:50] VITALS: BP 126/82; PULSE 68; RESP 21; TEMP 36.9; O2SAT 99
== END 2020-10-15 13:06 | disposition home or self-care (01) ==
PROVIDERS: Emergency Provider Nurse Practitioner Family; PCP Internal Medicine Adolescent Medicine
DX: M77.31 Calcaneal spur, right foot (principal); K21.9 Gastro-esophageal reflux disease without esophagitis; F33.1 Major depressive disorder, recurrent, moderate; G43.709 Chronic migraine without aura, not intractable, without status migrainosus; Z79.899 Other long term (current) drug therapy
CPT/HCPCS: 73630; 96372; 99202; G0463; J1040

== ENCOUNTER → 2020-10-19 15:18 | Outpatient (CLI) | payer OTHER, SELFPAY ==
[2020-10-19 16:13] LABS: Basophils # 0.1 K/mm3 (0-0.2); Basophils % 1.2 % (0.1-2.0); Eosinophils # 0.2 K/mm3 (0.0-0.4); Eosinophils % 3.8 % (0.1-12.0); Hematocrit 39.6 % (37.0-47.0); Hemoglobin 12.9 g/dL (12.2-16.2); Lymphocytes # 1.6 K/mm3 (0.7-4.5); Lymphocytes % 25.4 % (10-50); Mean Corpuscular HGB Conc 32.5 g/dL (31.8-35.4); Mean Corpuscular Hemoglobin 25.1 pg (27.0-31.2); Mean Corpuscular Volume 77.3 fl (81-99); Mean Platelet Volume 9.5 fl (7.4-10.4); Monocytes # 0.3 K/mm3 (0.1-1.0); Monocytes % 5.1 % (1.7-9.3); Neutrophils % 64.5 % (37.0-80.0); Platelet Count 224 K/mm3 (142-424); Red Blood Count 5.13 M/mm3 (4.20-5.40); Red Cell Distribution Width 15.7 % (11.5-17.5); White Blood Count 6.1 K/mm3 (4.8-10.8)
[2020-10-19 19:59] LABS: Alanine Aminotransferase 17 U/L (12-78); Albumin Level 4.2 g/dl (3.5-5.0); Albumin/Globulin Ratio 1.8 (1.1-1.8); Alkaline Phosphatase 70 U/L (38-126); Anion Gap 15.1 mEq/L (5-15); Aspartate Amino Transferase 27 U/L (14-36); Bilirubin,Total 0.5 mg/dl (0.2-1.3); Blood Urea Nitrogen 15 mg/dl (7-17); Calcium 9.4 mg/dl (8.4-10.2); Carbon Dioxide 25 mmol/L (22.0-30.0); Chloride 105 mmol/L (98-107); Estimated Glomerular Filt Rate 77 ml/min (>60); GFR (African American) 93 ML/MIN (>60); Globulin 2.3 g/dL (1.3-3.2); Glucose 84 mg/dl (74-100); Potassium 4.1 mmoL/L (3.5-5.1); Sodium 141 mmol/L (136-145); Total Protein,Serum 6.5 g/dl (6.3-8.2); Uric Acid 5.2 mg/dl (2.5-6.2)
[2020-10-19 21:24] LABS: 25-OH Vitamin D, Total 22.5 ng/mL (30-100)
== END ==
LOC: LAB 15:19
PROVIDERS: Visit Provider Internal Medicine Adolescent Medicine
DX: M79.674 Pain in right toe(s) (principal); E55.9 Vitamin D deficiency, unspecified; Z98.84 Bariatric surgery status
CPT/HCPCS: 36415; 80053; 82306; 84550; 85025

== ENCOUNTER 2020-11-29 18:26 | Emergency (ER) | payer BC, OTHER, SELFPAY ==
[2020-11-29 21:15] VITALS: BMI 33.8
[2020-11-29 21:20] VITALS: BP 134/77; PULSE 78; RESP 16; TEMP 37.1; O2SAT 97; BMI 33.8
--- NOTE | 2020-11-29 21:37 | HMH.EDUTC ---
[facility] [place] Disposition Clinical Impression: Viral syndrome, Exposure to COVID-19 virus Disposition: Home, Self-Care Condition on Discharge: Good Instructions: DI for COVID-19 (Suspected or Confirmed ), Coronavirus Disease 2019, Preventing the Spread of Coronavirus Discharge Instructions Additional Instructions: *Monitor Temp, Over the counter Motrin or Tylenol as directed/as needed Tylenol every 4 hours and Motrin every 6 hours (as long as your family doctor has told you that you can take it) for fever or pain. and straight to ER if unable to lower temp less than 101.0 after medication given *Warm salt water gargles may help to soothe the throat *Throat Lozenges *Warm fluids like tea with honey may help to soothe the throat *Sleep elevated *Humidifier/Vaporizer Your throat swab was sent for culture. Those results are typically sent to your primary care. Be sure to follow up in 2-3 days with your family doctor/primary care physician if no improvement so they can review those result and treat if necessary. If you don?t have a primary care doctor, I recommend you get one but in the mean time, you will have to return to a walk in clinic Follow up IMMEDIATELY for new or worsening symptoms or no Noticeable improvement over the next 48-72 hours. 911 for difficulty breathing or swallowing You were tested for today for COVID19 your test result should be back in the next 24-48 hours, you may call to the [facility] to see if your test results are back in the next 48 hours [phone] [facility] hours are 9am-9pm You was given a handout with instructions for Self Quarantine and Self isolation for while you wait on test results and what to do if they are positive If you are positive the Health Dept will be contacting you also Make sure to take your Vitamins Vit. C Vit D and Zinc if you can take them Referrals: Demarcus Munroe MD [Primary Care Provider] - As needed Forms: Work/School Release Time of Disposition: 21:43 Medical Decision Making - Aidan Inquiry Pt receiving controlled substance: No Aidan was queried for this patient: No Vital Signs: 11/29/20 21:20 Temperature 98.7 F Temperature Source Oral Pulse Rate [Right] 78 Respiratory Rate 16 Blood Pressure [Right Arm] 134/77 Blood Pressure Mean [Right Arm] 96 02 Sat by Pulse Oximetry 97 Oxygen Delivery Method Room Air - Lab Data Lab results reviewed: Yes: I reviewed the patient's lab results. Orders (Tests/Meds): ORDERS Category Date Time Status Covid-19 Nasal PCR ([facility]) Routine Lab 11/29/20 21:36 Ordered [facility] [place] HPI - General Stated complaint: covid test,sore throat,SOB,NEWBY Time Seen by Provider: 11/29/20 21:37 Mode of Arrival: Family Vehicle Source of Information: Patient Limitations: No Limitations Description of Symptoms (Recalled from Triage Doc. by RN): Patient c/o fatique, headache, body aches and general mylagia since yesterday. Patient reports she was exposed to COVID 5 days ago. HEENT Symptoms (Recalled from RN notes): Yes Resp Symptoms (Recalled from RN notes): No Skin Symptoms (Recalled from RN notes): No MS Symptoms (Recalled from RN notes): Yes Functional Status (Recalled from RN notes): na - History of Present Illness Provider Complaint: Patient state that she was around her daughter about 4-5 days ago that tested positive for COVID states that now she is having headache, body aches, chills, and sore throat State that she was worried that she may have strep throat or COVID and wanted to get tested for both - Related Data Home Medications Medication Instructions Recorded Confirmed Ferrous Sulfate [Ferrous Sulfate 325 mg PO BID 06/04/18 05/04/20 325mg Tablet] promethazine 25 mg tablet PO 04/25/19 05/04/20 propranolol 20 mg tablet PO 04/25/19 05/04/20 buspirone 10 mg tablet 10 mg PO tab 05/05/19 05/04/20 Previous Rx's Medication Instructions Recorded albuterol sulfate 90 mcg/actuation See Rx Instructions .ROUTE 03/20/20 aerosol inhaler .C
[2020-11-29 21:50] VITALS: BP 137/71; PULSE 80; RESP 18; TEMP 37.1; O2SAT 98
[2020-11-30 13:26] LABS: UTC Strep Screen (Rapid) Negative (Negative)
== END 2020-11-29 22:00 | disposition home or self-care (01) ==
PROVIDERS: Emergency Provider Nurse Practitioner; PCP Internal Medicine Adolescent Medicine
DX: B34.9 Viral infection, unspecified (principal); Z20.822 Contact with and (suspected) exposure to COVID-19; K21.9 Gastro-esophageal reflux disease without esophagitis; F33.1 Major depressive disorder, recurrent, moderate; Z79.899 Other long term (current) drug therapy
CPT/HCPCS: 87880; 99202; G0463; U0003

== ENCOUNTER → 2021-02-15 14:36 | Outpatient (CLI) | payer BC, OTHER, SELFPAY ==
[2021-02-15 15:19] LABS: Basophils # 0.1 K/mm3 (0-0.2); Basophils % 1.4 % (0.1-2.0); Eosinophils # 0.1 K/mm3 (0.0-0.4); Eosinophils % 1.7 % (0.1-12.0); Hematocrit 40.7 % (37.0-47.0); Lymphocytes # 1.4 K/mm3 (0.7-4.5); Lymphocytes % 24.5 % (10-50); Mean Corpuscular HGB Conc 31.9 g/dL (31.8-35.4); Mean Corpuscular Hemoglobin 26.2 pg (27.0-31.2); Mean Corpuscular Volume 82.2 fl (81-99); Mean Platelet Volume 11.3 fl (7.4-10.4); Monocytes # 0.4 K/mm3 (0.1-1.0); Neutrophils # 3.8 K/mm3 (1.8-7.8); Neutrophils % 66.4 % (37.0-80.0); Platelet Count 280 K/mm3 (142-424); Red Blood Count 4.96 M/mm3 (4.20-5.40); Red Cell Distribution Width 14.9 % (11.5-17.5); White Blood Count 5.8 K/mm3 (4.8-10.8)
[2021-02-15 16:53] LABS: Alanine Aminotransferase 9 U/L (12-78); Albumin Level 3.9 g/dl (3.5-5.0); Albumin/Globulin Ratio 1.7 (1.1-1.8); Alkaline Phosphatase 81 U/L (38-126); Anion Gap 10.2 mEq/L (5-15); Aspartate Amino Transferase 28 U/L (14-36); Bilirubin,Total 0.4 mg/dl (0.2-1.3); Blood Urea Nitrogen 16 mg/dl (7-17); Calcium 9.3 mg/dl (8.4-10.2); Carbon Dioxide 29 mmol/L (22.0-30.0); Chloride 104 mmol/L (98-107); Chol/HDL Ratio 2.8 (1-3.5); Cholesterol 169 mg/dl (140-200); Estimated Glomerular Filt Rate 108 ml/min (>60); GFR (African American) 130 ML/MIN (>60); Globulin 2.3 g/dL (1.3-3.2); Glucose 90 mg/dl (74-100); HDL Cholesterol 61 mg/dl (40-60); Potassium 4.2 mmoL/L (3.5-5.1); Sodium 139 mmol/L (136-145); Total Protein,Serum 6.2 g/dl (6.3-8.2); Triglycerides 67 mg/dl (30-150); VLDL Cholesterol 13 mg/dL (0-40)
[2021-02-15 17:04] LABS: Direct LDL Cholesterol 98.02 mg/dL (100-129)
[2021-02-15 17:13] LABS: 25-OH Vitamin D, Total 25.1 ng/mL (30-100)
[2021-02-15 17:22] LABS: Thyroid Stimulating Hormone 0.93 uIU/mL (0.465-4.68)
== END ==
PROVIDERS: Visit Provider Family Medicine
DX: Z00.00 Encounter for general adult medical examination without abnormal findings (principal); E55.9 Vitamin D deficiency, unspecified; E66.9 Obesity, unspecified; Z68.35 Body mass index [BMI] 35.0-35.9, adult; Z79.899 Other long term (current) drug therapy
CPT/HCPCS: 80053; 80061; 82306; 84443; 85025

== ENCOUNTER 2021-04-30 07:46 | Emergency (ER) | payer BC, SELFPAY ==
[2021-04-30 07:49] VITALS: BP 119/72; PULSE 79; RESP 18; TEMP 37.1; O2SAT 97; BMI 34.7
--- NOTE | 2021-04-30 08:11 | HMH.EDGENADL ---
ED Disposition Clinical Impression: Viral illness, Exposure to COVID-19 virus Disposition: Home, Self-Care Condition on Discharge: Good Instructions: DI for Viral Syndrome, COVID-19 Viral Test, DI for COVID-19 (Suspected or Confirmed ) Additional Instructions: follow up pcp as needed Referrals: Darrion Campbell MD [Primary Care Provider] - - Critical Care Critical Care Time: No Attestation: On , the high probability of a clinically significant, sudden or life threatening deterioration of the following system(s) required my full and direct attention, intervention and personal management. The time I documented below is in addition to time spent performing reported procedures but includes the following listed in this critical care notation. Medical Decision Making - Aidan Inquiry Pt receiving controlled substance: No Orders (Tests/Meds): ORDERS Category Date Time Status Covid-19 Nasal PCR ([facility]) Routine Lab 04/30/21 08:11 Ordered General Adult HPI - General Stated complaint: covid symptoms, possible dehydration Time Seen by Provider: 04/30/21 08:11 Mode of Arrival: Ambulatory Source of Information: Patient Limitations: No Limitations - History of Present Illness HPI narrative: uri symptoms 4 days, poss covid exposure at work Radiation: non-radiation Severity: mild Relieving factors: none Exacerbating factors: none Associated symptoms: cough, fever/chills. negative: chest pain, shortness of breath - Related Data Home Medications Medication Instructions Recorded Confirmed Ferrous Sulfate [Ferrous Sulfate 325 mg PO BID 06/04/18 04/16/21 325mg Tablet] promethazine 25 mg tablet PO 04/25/19 04/16/21 propranolol 20 mg tablet PO 04/25/19 04/16/21 buspirone 10 mg tablet 10 mg PO tab 05/05/19 04/16/21 ondansetron HCl 4 mg tablet 8 mg PO .prn tab 02/15/21 04/16/21 rimegepant 75 mg disintegrating 75 mg PO ONCE tab 02/15/21 04/16/21 tablet sertraline 100 mg tablet 100 mg PO DAILY tab 02/15/21 04/16/21 sertraline 50 mg tablet 100 mg PO DAILY tab 02/15/21 04/16/21 Previous Rx's Medication Instructions Recorded albuterol sulfate 90 mcg/actuation See Rx Instructions .ROUTE 03/20/20 aerosol inhaler .COMPLEX #18 g ergocalciferol (vitamin D2) 1,250 1,250 mcg PO WEEKLY #5 cap 04/20/20 mcg (50,000 unit) capsule meloxicam 15 mg tablet 15 mg PO DAILY #90 tab 02/15/21 ondansetron HCl 8 mg tablet See Rx Instructions .ROUTE 02/15/21 .COMPLEX #30 tab diclofenac sodium 1 % topical gel 2 g TOPICAL QID #100 g 04/16/21 lidocaine 5 % topical patch 1 patch TOPICAL DAILY #30 each 04/16/21 methylprednisolone 4 mg tablets in See Rx Instructions PO PER PKG DIR 04/16/21 a dose pack #21 tab tizanidine 4 mg tablet 4 mg PO TID PRN #21 tab 04/16/21 tramadol 50 mg tablet 50 mg PO TID #21 tab 04/16/21 phentermine 37.5 mg tablet 37.5 mg PO DAILY #30 tab 04/19/21 Allergies Allergy/AdvReac Type Severity Reaction Status Date / Time lamotrigine Allergy Intermediate I-RASH Verified 04/16/21 13:23 morphine Allergy Verified 04/16/21 13:23 [facility] History - Hepatitis A Screen Attestation statement:: This patient has been screened for Hepatitis A risk factors. Medical History: Reports:: Depression, Gastroesophageal Reflux Disease(GERD), Migraine, MRSA Denies:: Cancer, Chronic Obstructive Pulmonary Disease (COPD), Diabetes Mellitus Type 1, Diabetes Mellitus Type 2, Internal Pacemaker, Seizures Other Medical History: Reports: Anemia. Denies: Blood Transfusion Reaction Comment: GERD. DEPRESSION. ANEMIA. MIGRAINES. CHRONIC BACK PAIN. IRON DEFICIENCY Laterality Cases: Bilateral: Tonsillectomy Other Surgeries: Yes: Bariatric Surgery, Cholecystectomy, Colonoscopy, , Diagnostic Lap, Hernia Repair, Hysterectomy-Total, Other. No: Pacemaker Amputation: No Fractures: No Comment: T&A CHILD. LAP. CHOLY---1996. P* C/S, BTL---1997. portacath removed and placed. GASTRIC BYPASS IN THEA.---2008. DX. HS
[2021-04-30 08:51] VITALS: BP 130/66; PULSE 69; RESP 19; TEMP 37.1; O2SAT 98
== END 2021-04-30 08:52 | disposition home or self-care (01) ==
PROVIDERS: Emergency Provider Emergency Medicine; PCP Emergency Medicine
DX: U07.1 COVID-19 (principal); B34.9 Viral infection, unspecified; K21.9 Gastro-esophageal reflux disease without esophagitis; F33.1 Major depressive disorder, recurrent, moderate; G43.709 Chronic migraine without aura, not intractable, without status migrainosus
CPT/HCPCS: 99282; C9803; U0003; U0005

== ENCOUNTER 2021-06-04 20:25 | Emergency (ER) | payer BC, SELFPAY ==
[2021-06-04 20:26] VITALS: BP 128/76; PULSE 74; RESP 16; TEMP 36.6; O2SAT 98; BMI 35.8
[2021-06-04 20:52] LABS: UTC Strep Screen (Rapid) Negative (Negative)
--- NOTE | 2021-06-04 20:53 | HMH.EDUTC ---
[facility] [place] Clinical Impression: Viral upper respiratory illness Disposition: Home, Self-Care Condition on Discharge: Good Instructions: Sore Throat, Fluticasone Nasal [place] Additional Instructions: *Monitor Temp, Over the counter Motrin or Tylenol as directed/as needed Tylenol every 4 hours and Motrin every 6 hours (as long as your family doctor has told you that you can take it) for fever or pain. and straight to ER if unable to lower temp less than 101.0 after medication given *Warm salt water gargles may help to soothe the throat *Throat Lozenges *Warm fluids like tea with honey may help to soothe the throat *Sleep elevated *Humidifier/Vaporizer *Flonase 2 sprays in each nostril daily but be aware that it may take 2-3 days before you notice improvement Your throat swab was sent for culture. Those results are typically sent to your primary care. Be sure to follow up in 2-3 days with your family doctor/primary care physician if no improvement so they can review those result and treat if necessary. If you don?t have a primary care doctor, I recommend you get one but in the mean time, you will have to return to a walk in clinic Follow up IMMEDIATELY for new or worsening symptoms or no Noticeable improvement over the next 48-72 hours. 911 for difficulty breathing or swallowing Prescriptions: Fluticasone Propionate [Flonase 50mcg nasal spray 16gm] 1 spr NS DAILY #1 each Transmission Status: Pending to [facility] #[id number] Referrals: Darrion Campbell MD [Primary Care Provider] - As needed Forms: Work/School Release Time of Disposition: 21:02 Medical Decision Making - Aidan Inquiry Pt receiving controlled substance: No Aidan was queried for this patient: No Vital Signs: 06/04/21 20:26 Temperature 97.8 F Temperature Source Oral Pulse Rate [Right] 74 Respiratory Rate 16 Blood Pressure [Right Arm] 128/76 Blood Pressure Mean [Right Arm] 93 Blood Pressure Source [Right Arm] Automatic Cuff Blood Pressure Position [Right Arm] Sitting 02 Sat by Pulse Oximetry 98 Oxygen Delivery Method Room Air - Lab Data Lab results reviewed: Yes: I reviewed the patient's lab results. Lab Results 06/04/21 20:40: Strep Scn Rapid Clinic Negative Orders (Tests/Meds): ORDERS Category Date Time Status Strep Screen Confirmation Stat Micro 06/04/21 20:40 Received [facility] [place] HPI - General Stated complaint: SORE THROAT,VOMITING,EARS Time Seen by Provider: 06/04/21 20:53 Mode of Arrival: Ambulatory Source of Information: Patient Limitations: No Limitations Description of Symptoms (Recalled from Triage Doc. by RN): sore throat, earache, nausea HEENT Symptoms (Recalled from RN notes): Yes (sore throat) Resp Symptoms (Recalled from RN notes): No Skin Symptoms (Recalled from RN notes): No MS Symptoms (Recalled from RN notes): No Functional Status (Recalled from RN notes): na - History of Present Illness Provider Complaint: Patient state that she has been having ear problems and pain for several days States that she woke up this morning with sore and scratchy throat that has continued to get worse today States that this evening she was still having pain in her left ear and sore throat so she came in - Related Data Home Medications Medication Instructions Recorded Confirmed Ferrous Sulfate [Ferrous Sulfate 325 mg PO BID 06/04/18 04/16/21 325mg Tablet] promethazine 25 mg tablet PO 04/25/19 04/16/21 propranolol 20 mg tablet PO 04/25/19 04/16/21 buspirone 10 mg tablet 10 mg PO tab 05/05/19 04/16/21 ondansetron HCl 4 mg tablet 8 mg PO .prn tab 02/15/21 04/16/21 rimegepant 75 mg disintegrating 75 mg PO ONCE tab 02/15/21 04/16/21 tablet sertraline 100 mg tablet 100 mg PO DAILY tab 02/15/21 04/16/21 sertraline 50 mg tablet 100 mg PO DAILY tab 02/15/21 04/16/21 Previous Rx's Medication Instructions Recorded albuterol sulfate 90 mcg/actuation See Rx Instructions .ROUTE 03/20/20 aeroso
[2021-06-04 21:00] VITALS: BP 128/78; PULSE 74; RESP 16; TEMP 36.6; O2SAT 98
== END 2021-06-04 21:07 | disposition home or self-care (01) ==
PROVIDERS: Emergency Provider Nurse Practitioner; PCP Emergency Medicine
DX: J06.9 Acute upper respiratory infection, unspecified (principal); K21.9 Gastro-esophageal reflux disease without esophagitis
CPT/HCPCS: 87880; 99212; G0463

== ENCOUNTER → 2021-08-21 12:17 | Outpatient (CLI) | payer BC, SELFPAY ==
[2021-08-21 17:04] LABS: Chloride 108 mmol/L (98-107); Potassium 4.5 mmoL/L (3.5-5.1); Sodium 140 mmol/L (136-145)
[2021-08-21 17:06] LABS: Blood Urea Nitrogen 16 mg/dl (7-17); Estimated Glomerular Filt Rate 77 ml/min (>60); GFR (African American) 93 ML/MIN (>60)
[2021-08-21 17:07] LABS: Alanine Aminotransferase 19 U/L (12-78); Albumin Level 3.8 g/dl (3.5-5.0); Albumin/Globulin Ratio 1.8 (1.1-1.8); Alkaline Phosphatase 90 U/L (38-126); Anion Gap 9.5 mEq/L (5-15); Aspartate Amino Transferase 28 U/L (14-36); Bilirubin,Total 0.3 mg/dl (0.2-1.3); Calcium 9.5 mg/dl (8.4-10.2); Carbon Dioxide 27 mmol/L (22.0-30.0); Chol/HDL Ratio 2.8 (1-3.5); Cholesterol 150 mg/dl (140-200); Globulin 2.1 g/dL (1.3-3.2); Glucose 110 mg/dl (74-100); HDL Cholesterol 53 mg/dl (40-60); Total Protein,Serum 5.9 g/dl (6.3-8.2); Triglycerides 92 mg/dl (30-150); VLDL Cholesterol 18 mg/dL (0-40)
[2021-08-21 17:15] LABS: C-Reactive Protein 2.4 mg/L (0-4)
[2021-08-21 17:18] LABS: Basophils # 0.1 K/mm3 (0-0.2); Basophils % 1.1 % (0.1-2.0); Direct LDL Cholesterol 81.89 mg/dL (100-129); Eosinophils # 0.2 K/mm3 (0.0-0.4); Eosinophils % 2.7 % (0.1-12.0); Hematocrit 40.4 % (37.0-47.0); Hemoglobin 13.2 g/dL (12.2-16.2); Lymphocytes # 1.4 K/mm3 (0.7-4.5); Lymphocytes % 21.5 % (10-50); Mean Corpuscular HGB Conc 32.6 g/dL (31.8-35.4); Mean Corpuscular Hemoglobin 25.7 pg (27.0-31.2); Mean Platelet Volume 10.7 fl (7.4-10.4); Monocytes # 0.4 K/mm3 (0.1-1.0); Monocytes % 5.7 % (1.7-9.3); Neutrophils # 4.4 K/mm3 (1.8-7.8); Neutrophils % 69.1 % (37.0-80.0); Platelet Count 298 K/mm3 (142-424); Red Blood Count 5.12 M/mm3 (4.20-5.40); Red Cell Distribution Width 15.4 % (11.5-17.5); White Blood Count 6.3 K/mm3 (4.8-10.8)
[2021-08-21 17:53] LABS: Thyroid Stimulating Hormone 1.38 uIU/mL (0.465-4.68)
[2021-08-21 18:09] LABS: 25-OH Vitamin D, Total 20.8 ng/mL (30-100)
[2021-08-21 18:54] LABS: Vitamin B12 994 pg/mL (239-931)
[2021-08-21 19:08] LABS: Erythrocyte Sedimentation Rate 10 mm/hr (0-20)
[2021-08-23 12:57] LABS: RA Latex Turbid. 21.9 IU/mL (<14.0)
[2021-08-23 15:08] LABS: Anti-Centromere B Antibodies <0.2 AI (0.0-0.9); Anti-DNA (DS) Ab Qn <1 IU/mL (0-9); Anti-Jo-1 <0.2 AI (0.0-0.9); Anti-Smith Antibody <0.2 AI (0.0-0.9); Antichromatin Antibodies <0.2 AI (0.0-0.9); Antiscleroderma-70 Antibodies <0.2 AI (0.0-0.9); RNP Antibodies <0.2 AI (0.0-0.9); Sjogren's Anti-SS-A <0.2 AI (0.0-0.9); Sjogren's Anti-SS-B <0.2 AI (0.0-0.9)
[2021-08-24 01:12] LABS: Anti-Cyclic Citrullinated Pept <1 units (0-19)
== END ==
PROVIDERS: PCP Physician Assistant; Visit Provider Physician Assistant
DX: E66.9 Obesity, unspecified; M79.672 Pain in left foot; M77.32 Calcaneal spur, left foot; M79.671 Pain in right foot; Z68.35 Body mass index [BMI] 35.0-35.9, adult
CPT/HCPCS: 80053; 80061; 82306; 82607; 83036; 84443; 85025; 85651; 86140; 86200; 86225; 86235; 86431

== ENCOUNTER → 2021-08-28 17:01 | Outpatient (CLI) | payer BC, SELFPAY ==
[2021-08-31 20:34] LABS: Hep A Ab, IgM NEGATIVE; Hepatitis B Core Antibody IgM NEGATIVE; Hepatitis B Surface Antigen NEGATIVE; Hepatitis C Antibody <0.1
== END ==
PROVIDERS: PCP Physician Assistant; Visit Provider Physician Assistant
DX: R76.8 Other specified abnormal immunological findings in serum (principal)
CPT/HCPCS: 80074

== ENCOUNTER → 2021-09-05 11:37 | Outpatient (CLI) | payer BC, SELFPAY ==
--- NOTE | 2021-09-05 11:41 | XR_ITS ---
FINAL REPORT CLINICAL HISTORY: bilateral foot pain FINDINGS: RIGHT FOOT Three views of the left foot demonstrate no acute fracture or dislocation. The visualized joint spaces are normally aligned. There is a plantar calcaneal spur. The soft tissues are unremarkable. IMPRESSION: No acute bony abnormality. Reviewed, Interpreted and Dictated by Kwame Palma III, MD Transcribed by Krystina Patel Authenticated and [facility]
--- NOTE | 2021-09-05 11:41 | XR_ITS ---
FINAL REPORT CLINICAL HISTORY: bilateral foot pain, heel pain FINDINGS: LEFT FOOT Three views of the left foot demonstrate no acute fracture or dislocation. The visualized joint spaces are normally aligned. There is a plantar calcaneal spur. The soft tissues are unremarkable. IMPRESSION: No acute bony abnormality. Reviewed, Interpreted and Dictated by Kwame Palma III, MD Transcribed by Krystina Patel Authenticated and [facility]
== END ==
PROVIDERS: PCP Emergency Medicine; Visit Provider Physician Assistant
DX: M79.671 Pain in right foot (principal); M79.672 Pain in left foot
CPT/HCPCS: 73630

== ENCOUNTER 2021-11-02 16:25 | Emergency (ER) | payer BC, SELFPAY ==
[2021-11-02 16:49] VITALS: BP 139/83; PULSE 91; RESP 17; TEMP 37.6; O2SAT 95; BMI 35.1
--- NOTE | 2021-11-02 16:51 | HMH.EDUTC ---
[facility] – [place] Disposition Clinical Impression: Viral syndrome, Close exposure to COVID-19 virus Disposition: Home, Self-Care Condition on Discharge: Good Instructions: DI for COVID-19 (Suspected or Confirmed ), Preventing the Spread of Coronavirus Discharge Instructions Additional Instructions: Drink plenty of fluids. Take tylenol or ibuprofen for pain or fever. Take the medications as directed. Follow up with your regular doctor. GO TO THE ER FOR ANY WORSENING SYMPTOMS Quarantine until you know the results of your covid-19 test. Notify your school or workplace of your results and follow their instructions regarding return to work/school. Prescriptions: Ondansetron [Zofran 4mg ODT] 4 mg PO Q8HP PRN #12 tab PRN Reason: Nausea [id number] Benzonatate [Benzonatate 100mg cap] 100 mg PO TIDP PRN #30 cap PRN Reason: Cough Transmission Status: Received by [id number] Referrals: Adelia Bedolla PA [Primary Care Provider] - Time of Disposition: 17:03 Medical Decision Making - Medical Records Medical records reviewed: No: I reviewed the patient's medical records. - Aidan Inquiry Pt receiving controlled substance: No Vital Signs: 11/02/21 16:49 11/02/21 17:11 Temperature 99.6 F 99.6 F Temperature Source Oral Pulse Rate 91 H Pulse Rate [Left] 91 H Respiratory Rate 17 17 Blood Pressure 139/83 Blood Pressure [Right Arm] 139/83 Blood Pressure Mean [Right Arm] 101 02 Sat by Pulse Oximetry 95 - Lab Data Lab Results 11/02/21 16:55: Strep Scn Rapid Clinic Negative Orders (Tests/Meds): ORDERS Category Date Time Status Strep Screen Confirmation Stat Micro 11/02/21 16:55 Received [facility] [place] HPI - General Stated complaint: fatigue, congestion, cough Time Seen by Provider: 11/02/21 16:54 - History of Present Illness Provider Complaint: She states that she has felt fatigued since yesterday. She has a scratchy throat and a cough without significant chest congestion. Her daugher tested positive on a home covid-19 test. - Related Data Home Medications Medication Instructions Recorded Confirmed Ferrous Sulfate [Ferrous Sulfate 325 mg PO BID 06/04/18 09/30/21 325mg Tablet] promethazine 25 mg tablet PO 04/25/19 09/30/21 propranolol 20 mg tablet PO 04/25/19 09/30/21 buspirone 10 mg tablet 10 mg PO tab 05/05/19 09/30/21 sertraline 50 mg tablet 100 mg PO DAILY tab 02/15/21 09/30/21 Previous Rx's Medication Instructions Recorded albuterol sulfate 90 mcg/actuation See Rx Instructions .ROUTE 03/20/20 aerosol inhaler .COMPLEX #18 g ondansetron HCl 8 mg tablet See Rx Instructions .ROUTE 02/15/21 .COMPLEX #30 tab diclofenac sodium 1 % topical gel 2 g TOPICAL QID #100 g 04/16/21 lidocaine 5 % topical patch 1 patch TOPICAL DAILY #30 each 04/16/21 tizanidine 4 mg tablet 4 mg PO TID PRN #21 tab 04/16/21 tramadol 50 mg tablet 50 mg PO TID #21 tab 04/16/21 Fluticasone Propionate [Flonase 1 spr NS DAILY #1 each 06/04/21 50mcg nasal spray 16gm] cholecalciferol (vitamin D3) 25 25 mcg PO DAILY #90 cap 08/22/21 mcg (1,000 unit) capsule ergocalciferol (vitamin D2) 1,250 1,250 mcg PO WEEKLY #14 cap 08/22/21 mcg (50,000 unit) capsule semaglutide 0.25 mg SQ WEEKLY #1.5 ml 08/22/21 celecoxib 200 mg capsule 200 mg PO DAILY #30 cap 09/10/21 methylprednisolone 4 mg tablets in 4 mg PO PER PKG DIR 6 Days #21 tab 09/10/21 a dose pack rimegepant 75 mg disintegrating 75 mg PO Q OTHER DAY PRN #16 tab 09/17/21 tablet sertraline 100 mg tablet 100 mg PO DAILY #90 tab 09/17/21 diclofenac sodium 1 % topical gel 4 g TP QID PRN 90 Days #100 g 09/30/21 tramadol 100 mg tablet,extended 100 mg PO QHS #30 tab 10/11/21 release 24 hr Benzonatate [Benzonatate 100mg 100 mg PO TIDP PRN #30 cap 11/02/21 cap] Ondansetron [Zofran 4mg ODT] 4 mg PO Q8HP PRN #12 tab 11/02/21 Allergies Allergy/AdvReac Type Severity Reaction
[2021-11-02 17:05] LABS: UTC Strep Screen (Rapid) Negative (Negative)
[2021-11-02 17:11] VITALS: BP 139/83; PULSE 91; RESP 17; TEMP 37.6
== END 2021-11-02 17:15 | disposition home or self-care (01) ==
PROVIDERS: Emergency Provider Nurse Practitioner Family; PCP Physician Assistant
DX: B34.9 Viral infection, unspecified (principal); Z20.822 Contact with and (suspected) exposure to COVID-19
CPT/HCPCS: 87880; 99212; C9803; G0463; U0003; U0005

== ENCOUNTER → 2021-12-26 16:41 | Outpatient (CLI) | payer BC, SELFPAY ==
[2021-12-26 14:28] LABS: Basophils # 0.1 K/mm3 (0-0.2); Basophils % 1.4 % (0.1-2.0); Eosinophils # 0.1 K/mm3 (0.0-0.4); Eosinophils % 2.4 % (0.1-12.0); Hematocrit 37.9 % (37.0-47.0); Hemoglobin 12.4 g/dL (12.2-16.2); Lymphocytes # 1.7 K/mm3 (0.7-4.5); Lymphocytes % 29.4 % (10-50); Mean Corpuscular HGB Conc 32.8 g/dL (31.8-35.4); Mean Corpuscular Hemoglobin 25.2 pg (27.0-31.2); Mean Corpuscular Volume 76.7 fl (81-99); Mean Platelet Volume 10.5 fl (7.4-10.4); Monocytes # 0.4 K/mm3 (0.1-1.0); Neutrophils # 3.5 K/mm3 (1.8-7.8); Neutrophils % 59.7 % (37.0-80.0); Platelet Count 301 K/mm3 (142-424); Red Blood Count 4.93 M/mm3 (4.20-5.40); Red Cell Distribution Width 16.4 % (11.5-17.5); White Blood Count 5.8 K/mm3 (4.8-10.8)
[2021-12-26 14:37] LABS: Alanine Aminotransferase 18 U/L (12-78); Albumin Level 3.7 g/dl (3.5-5.0); Albumin/Globulin Ratio 1.8 (1.1-1.8); Alkaline Phosphatase 100 U/L (38-126); Anion Gap 14.3 mEq/L (5-15); Aspartate Amino Transferase 24 U/L (14-36); Blood Urea Nitrogen 20 mg/dl (7-17); Calcium 8.5 mg/dl (8.4-10.2); Carbon Dioxide 25 mmol/L (22.0-30.0); Chloride 105 mmol/L (98-107); Estimated Glomerular Filt Rate 90 ml/min (>60); GFR (African American) 109 ML/MIN (>60); Globulin 2.1 g/dL (1.3-3.2); Glucose 78 mg/dl (74-100); Potassium 4.3 mmoL/L (3.5-5.1); Sodium 140 mmol/L (136-145); Total Protein,Serum 5.8 g/dl (6.3-8.2)
[2021-12-26 14:40] LABS: Bilirubin,Total 0.1 mg/dl (0.2-1.3)
[2021-12-26 14:48] LABS: Total Iron Binding Capacity 418 ug/dL (265-497)
[2021-12-26 15:12] LABS: Ferritin 3.83 ng/ml (6.24-137)
[2021-12-26 15:34] LABS: Iron 23 ug/dL (37-170)
== END ==
PROVIDERS: PCP Physician Assistant; Visit Provider Physician Assistant
DX: R76.8 Other specified abnormal immunological findings in serum (principal)
CPT/HCPCS: 80053; 82728; 83540; 83550; 85025

== ENCOUNTER → 2022-01-02 12:30 | Outpatient (CLI) | payer BC, SELFPAY | PROVIDERS: PCP Physician Assistant; Visit Provider Physician Assistant | DX: N39.0 Urinary tract infection, site not specified (principal) | CPT/HCPCS: 87086 ==

== ENCOUNTER 2022-01-07 09:07 | Outpatient (CLI) | payer BC, SELFPAY ==
[2022-01-07 09:28] VITALS: BP 111/71; PULSE 64; RESP 19; TEMP 36.6; O2SAT 97
[2022-01-07 10:05] VITALS: BP 114/67; PULSE 58; RESP 18; O2SAT 99
== END 2022-01-07 10:05 | disposition home or self-care (01) ==
LOC: INF 09:08
PROVIDERS: PCP Physician Assistant; Visit Provider Physician Assistant
DX: D50.9 Iron deficiency anemia, unspecified (principal)
CPT/HCPCS: 96365; J1439

== ENCOUNTER → 2022-01-13 15:57 | Outpatient (CLI) | payer BC, SELFPAY | PROVIDERS: PCP Physician Assistant; Visit Provider Physician Assistant Surgical | DX: M25.561 Pain in right knee (principal) ==

== ENCOUNTER → 2022-01-14 16:55 | Outpatient (CLI) | payer BC, SELFPAY ==
--- NOTE | 2022-01-14 16:58 | MR_ITS ---
PROCEDURE INFORMATION: Exam: MR Right Lower Extremity Joint Without Contrast, Knee Exam date and time: 01/14/2022 4:59 PM Age: 46 years old Clinical indication: Pain; Knee; Right; Additional info: Knee pain TECHNIQUE: Imaging protocol: Magnetic resonance imaging of the Right lower extremity joint without contrast. Exam focused on the knee. COMPARISON: 1. CR XR KNEE RT 3V 06/07/2020 9:37 AM FINDINGS: Bones and cartilage: There is grade II-III (out of IV) partial-thickness cartilage loss involving the patellofemoral joint. No significant cartilage damage involves the medial or lateral joint compartments. There is no acute fracture or dislocation. No aggressive bone lesions are present. Benign bone islands are incidentally noted. Joint spaces: A moderate joint effusion involves the knee. Periarticular cysts: A trace amount of fluid is present in the expected region of a popliteal cyst. Medial meniscus: The medial meniscus shows no evidence of tear. Lateral meniscus: The lateral meniscus shows no evidence of tear. Anterior cruciate ligament: The anterior cruciate ligament is intact. Posterior cruciate ligament: The posterior cruciate ligament is intact. Medial capsule and supporting structures: The medial collateral ligament is intact. Lateral capsule and supporting structures: The lateral collateral ligament complex is intact. Extensor mechanism of knee: Mild tendinosis involves the patellar tendon. The quadriceps tendon is intact with a normal striated appearance. Muscles: Unremarkable. Soft tissues: There is a moderate amount of edema in the subcutaneous fat. IMPRESSION: 1. Grade II-III (out of IV) partial-thickness cartilage loss of the patellofemoral joint. 2. Moderate subcutaneous edema. 3. Moderate joint effusion.
== END ==
PROVIDERS: PCP Physician Assistant; Visit Provider Physician Assistant Surgical
DX: M25.561 Pain in right knee (principal)
CPT/HCPCS: 73721

== ENCOUNTER 2022-01-15 09:11 | Outpatient (CLI) | payer BC, SELFPAY ==
[2022-01-15 09:35] VITALS: BP 117/69; PULSE 60; RESP 18; TEMP 36.4; O2SAT 99
[2022-01-15 10:15] VITALS: BP 124/65; PULSE 61; RESP 18; O2SAT 98
== END 2022-01-15 10:15 | disposition home or self-care (01) ==
LOC: INF 09:12
PROVIDERS: PCP Physician Assistant; Visit Provider Physician Assistant
DX: D50.8 Other iron deficiency anemias (principal)
CPT/HCPCS: 96365; J1439

== ENCOUNTER 2022-01-15 20:02 | Observation (INO) | payer BC, SELFPAY ==
[2022-01-15] VITALS (8 sets, daily range): BP systolic 113–150; BP diastolic 58–76; PULSE 61–88; RESP 10–18; TEMP 36.8; O2SAT 98–100; BMI 34.7
--- NOTE | 2022-01-15 20:00 | ECG_ITS ---
APPROVED REPORT Exam: Resting ECG HR:79 bpm ECG Measurements Heart Rate 79 AXES SD 134 P 57 QRSd 78 QRS 56 QT 336 T 56 QTc 370 Conclusion SINUS RHYTHM NORMAL ECG UNCONFIRMED REPORT Electronically signed by : Demarcus Munroe MD 01/16/2022 20:06:31
--- NOTE | 2022-01-15 20:03 | PC.NURSE ---
Dr. Campbell at
--- NOTE | 2022-01-15 20:11 | CT_ITS ---
PROCEDURE INFORMATION: Exam: CTA Chest With Contrast Exam date and time: 01/15/2022 8:17 PM Age: 46 years old Clinical indication: Pain; Left-sided; Additional info: Chest pain TECHNIQUE: Imaging protocol: Computed tomographic angiography of the chest with contrast. 3D rendering (Not supervised by radiologist): MIP and/or 3D reconstructed images were created by the technologist. Radiation optimization: All CT scans at this facility use at least one of these dose optimization techniques: automated exposure control; mA and/or kV adjustment per patient size (includes targeted exams where dose is matched to clinical indication); or iterative reconstruction. Contrast material: ISOVUE; Contrast volume: 70 ml; Contrast route: INTRAVENOUS (IV); COMPARISON: [facility] CT angio chest 06/09/2018 3:29 PM FINDINGS: Pulmonary arteries: There is suboptimal opacification of pulmonary arteries due to contrast bolus timing. There is no large or central pulmonary embolus. Evaluation of the peripheral pulmonary arteries is limited. Aorta: Unremarkable. No aortic aneurysm. No aortic dissection. Lungs: Densely calcified granuloma again demonstrated at the right lung base. Pleural spaces: Unremarkable. No pneumothorax. No pleural effusion. Heart: No coronary artery calcification. Lymph nodes: Calcified mediastinal and right hilar lymph nodes. Diaphragm: Small hiatal hernia. Stomach and bowel: Postoperative changes consistent with previous gastric bypass. Findings demonstrated on the previous study. Bones/joints: Unremarkable. No acute fracture. Soft tissues: Unremarkable. IMPRESSION: 1. No evidence of large or central pulmonary embolus. Opacification suboptimal secondary to contrast bolus timing. 2. Evidence of prior granulomatous disease.
--- NOTE | 2022-01-15 20:11 | XR_ITS ---
PROCEDURE INFORMATION: Exam: XR Chest Exam date and time: 01/15/2022 8:39 PM Age: 46 years old Clinical indication: Left-sided; Patient HX: Left sided chest pain TECHNIQUE: Imaging protocol: Radiologic exam of the chest. Views: 1 view. COMPARISON: CT ANGIO CHEST PE PROTOCOL 01/15/2022 8:17 PM FINDINGS: Lungs: Unremarkable. No consolidation. Pleural spaces: Unremarkable. No pleural effusion. No pneumothorax. Heart/Mediastinum: Unremarkable. No cardiomegaly. Bones/joints: Unremarkable. IMPRESSION: No acute findings.
--- NOTE | 2022-01-15 20:19 | PC.NURSE ---
Pt reports pain is 5 out of 10 at this time
[2022-01-15 20:21] LABS: Basophils # 0.2 K/mm3 (0-0.2); Basophils % 2.6 % (0.1-2.0); Eosinophils # 0.2 K/mm3 (0.0-0.4); Eosinophils % 2.8 % (0.1-12.0); Hematocrit 44.7 % (37.0-47.0); Hemoglobin 14.3 g/dL (12.2-16.2); Lymphocytes # 1.6 K/mm3 (0.7-4.5); Lymphocytes % 19.2 % (10-50); Mean Corpuscular HGB Conc 31.9 g/dL (31.8-35.4); Mean Corpuscular Volume 78.4 fl (81-99); Monocytes # 0.4 K/mm3 (0.1-1.0); Monocytes % 4.5 % (1.7-9.3); Neutrophils # 6.1 K/mm3 (1.8-7.8); Neutrophils % 70.9 % (37.0-80.0); Platelet Count 315 K/mm3 (142-424); Red Cell Distribution Width 19.2 % (11.5-17.5); White Blood Count 8.5 K/mm3 (4.8-10.8)
[2022-01-15 20:33] LABS: Alanine Aminotransferase 33 U/L (12-78); Albumin Level 4.4 g/dl (3.5-5.0); Alkaline Phosphatase 108 U/L (38-126); Anion Gap 8.5 mEq/L (5-15); Aspartate Amino Transferase 55 U/L (14-36); Bilirubin,Direct 0.6 mg/dl (0.0-0.4); Bilirubin,Indirect 0.3 mg/dL (0.0-0.9); Bilirubin,Total 0.9 mg/dl (0.2-1.3); Bilirubin,Unconjugated 0.3 mg/dL (0.0-1.1); Blood Urea Nitrogen 17 mg/dl (7-17); Calcium 8.7 mg/dl (8.4-10.2); Carbon Dioxide 25 mmol/L (22.0-30.0); Chloride 108 mmol/L (98-107); Creatinine Clearance Estimated 135 mL/min (50-200); Estimated Glomerular Filt Rate 90 ml/min (>60); GFR (African American) 109 ML/MIN (>60); Glucose 137 mg/dl (74-100); Potassium 4.5 mmoL/L (3.5-5.1); Sodium 137 mmol/L (136-145); Total Protein,Serum 7.3 g/dl (6.3-8.2)
--- NOTE | 2022-01-15 20:47 | HMH.EDCP ---
Discharge Plan Disposition Patient Disposition: Admitted as Observation Chief Complaint: Chest Pain Prescriptions Prescriptions: No Action buspirone 10 mg tablet 10 mg PO NEEDED PRN (Reason: Anxiety) Label Comments: take 1 tablet by mouth twice a day diclofenac sodium [Voltaren Arthritis Pain] 1 % gel 4 g TP QID PRN (Reason: pain) 90 Days Qty: 100 2RF Rx Instructions: apply to single knee, ankle, foot; for foot includes sole/toes/top of foot tramadol 50 mg tablet 50 mg PO Q8H PRN (Reason: pain) Qty: 90 0RF phenazopyridine [Pyridium] 200 mg tablet 200 mg PO TID PRN (Reason: pain) Qty: 6 0RF ferrous sulfate 325 MG tablet 325 mg PO BID celecoxib [Celebrex] 200 mg capsule 200 mg PO DAILY ondansetron HCl 8 mg tablet See Rx Instructions .ROUTE .COMPLEX Rx Instructions: TAKE 1 TABLET BY MOUTH EVERY 8 HOURS sertraline 100 mg tablet 100 mg PO DAILY ciprofloxacin HCl [Cipro] 500 mg tablet 500 mg PO BID ergocalciferol (vitamin D2) 1,250 mcg (50,000 unit) capsule 1,250 mcg PO WEEKLY cholecalciferol (vitamin D3) 25 mcg (1,000 unit) capsule 25 mcg PO DAILY Nurtec ODT 75 mg tablet,disintegrating See Rx Instructions .ROUTE .COMPLEX Rx Instructions: DISSOLVE 1 TABLET ON THE TONGUE EVERY OTHER DAY NEEDED FOR MIGRAINES Clinical Impressions Clinical Impression: Chest pain, Obesity (BMI 30.0-34.9) Discharge ED Provider: Darrion Campbell Chest Pain HPI General Chief Complaint: Chest Pain Stated Complaint: Chest Pain Time Seen by Provider: 01/15/22 20:05 Mode of Arrival: Ambulatory Source of Information: Patient, Spouse and Medical Record Limitations: No Limitations Description of Symptoms (Recalled from ER Triage Doc. by RN): Pt reports 2 days off left side chest pressure and shooting pain when she takes a deep breath. She rates the pain 7 out of 10. She says the pain radiates into her shoulders. History of Present Illness HPI narrative: pt with chest pain - pressure type with rad to back - lt scapular pain - worse with insp but no hx of pul emboli - pt with pos fh of cad complaint: chest pain indicative of cardiac Onset (ago): hour(s) Duration: intermittent Activity at onset: during rest Pain location: left chest Severity: moderate Quality: tightness Pain radiation: back Associated symptoms: dyspnea Risk Factors for CAD: Family Hx of CAD Treatments prior to or on arrival for Cardiac Chest Pain: none SHAHANA Score for Non-Stemi Age of Patient: 40-49 years old Heart Rate: 70-89 bpm Systolic Blood Pressure: 120-139 mmhg Serum Creatinine: 0.40-0.79 mg/dl CHF [place] Class: I-No CHF Other Risk Factors: None Non-Stemi Risk Score: 72 Related Data On Oral Contraceptives: No Home Medications Medication Instructions Recorded Confirmed ferrous sulfate 325 mg (65 mg 325 mg PO BID Supplement 06/04/18 01/15/22 iron) tablet buspirone 10 mg tablet 10 mg PO NEEDED PRN Anxiety 05/05/19 01/15/22 celecoxib 200 mg capsule (Celebrex) 200 mg PO DAILY Arthritis 01/15/22 01/15/22 cholecalciferol (vitamin D3) 25 25 mcg PO DAILY Supplement 01/15/22 01/15/22 mcg (1,000 unit) capsule ciprofloxacin HCl 500 mg tablet 500 mg PO BID Infection 01/15/22 01/15/22 (Cipro) ergocalciferol (vitamin D2) 1,250 1,250 mcg PO WEEKLY Supplement 01/15/22 01/15/22 mcg (50,000 unit) capsule ondansetron HCl 8 mg tablet See Rx Instructions .Route 01/15/22 01/15/22 .COMPLEX Nausea & vomiting rimegepant 75 mg disintegrating See Rx Instructions .Route 01/15/22 01/15/22 tablet (Nurtec ODT) .COMPLEX migraines sertraline 100 mg tablet 100 mg PO DAILY Depression 01/15/22 01/15/22 Previous Rx's Medication Instructions Recorded diclofenac sodium 1 % topical gel 4 g topical QID PRN pain 3 months 09/30/21 (Voltaren Arthritis Pain) #100 grams tramadol 50 mg tablet 50 mg PO Q8H PRN pain #90 tabs 12/26/21 phenazopyridine 200 mg tablet 200 mg PO TID
[2022-01-15 20:48] LABS: Troponin I 0.01 ng/ml (0.00-0.034)
--- NOTE | 2022-01-15 21:02 | PC.NURSE ---
Pt complains of Stabbing pain RN notified
--- NOTE | 2022-01-15 21:03 | PC.NURSE ---
pt c/o stabbing pain through chest but that the chest pressure is gone. Dr. Saini notified of this, no new orders
--- NOTE | 2022-01-15 22:48 | PC.NURSE ---
Second trop drawn and sent to lab. Pt voiced no needs or concerns at this time.
--- NOTE | 2022-01-15 23:11 | PC.NURSE ---
Pt states pain is about the same but feels like it has moved down. MD made aware. Will await new orders.
[2022-01-15 23:34] LABS: Troponin I < 0.01 ng/ml (0.00-0.034)
--- NOTE | 2022-01-15 23:37 | PC.NURSE ---
Dr. Lobo paged
--- NOTE | 2022-01-15 23:59 | PC.NURSE ---
Message left for Dr. Lobo per Dr. Campbell
[2022-01-16] VITALS (9 sets, daily range): BP systolic 112–136; BP diastolic 54–73; PULSE 50–80; RESP 13–16; TEMP 36.4–36.8; O2SAT 96–100; BMI 35.3
[2022-01-16] LABS: Coronavirus 19, PCR Not Detected (NotDetected); Influenza A, PCR Not Detected (NotDetected); Influenza B, PCR Not Detected (NotDetected)
--- NOTE | 2022-01-16 00:01 | PC.NURSE ---
Dr. Campbell s/w Hospitalist Mojgan regarding pt.
--- NOTE | 2022-01-16 00:27 | EXP.HP ---
History of Present Illness *Admission Date: 01/16/22 *Reason for visit:: chest pressure *History of present illness: This is a 26-year-old pleasant female with a past medical history of migraines, obesity status post gastric bypass, iron deficiency anemia who presents to the emergency department with complaints of chest pressure radiating to her left scapula. She reports around noon today noticing pressure type discomfort in the anterior chest that was associated with some nausea. She also endorses feeling generalized malaise and fatigue over the past several weeks. She has been undergoing work-up for RA and other immunologic disorders. She reports the chest pressure type pain was worse when lying flat while getting an MRI of her right knee. She also endorses some associated exertional shortness of breath but denies any lower extremity edema she reports feeling like she has had palpitations but notices that her heart rate is normal on her watch.. She denies any fever, cough, congestion. She denies vomiting, diarrhea or postprandial pain. Emergency department work-up mostly benign. Cardiac enzymes negative. EKG without ischemia. She did have relief of chest pressure with some nitroglycerin. Patient has a family history of coronary artery disease consisting of her mother, grandmother and uncle. Given patient's complaint of chest pressure, no prior cardiac work-up in positive family history she will be admitted to the hospitalist service with a consult to cardiology in a.m. She is admitted to hospital service for further evaluation management [facility] Medical History (Updated 01/16/22 @ 12:18 by Gibson Mejia MD) Bilateral foot pain Depression GERD (gastroesophageal reflux disease) Heel spur History of anemia History of COVID-19 Iron deficiency anemia Migraine MRSA (methicillin resistant Staphylococcus aureus) Obesity Pneumonia Rheumatoid factor positive with cyclic citrullinated peptide (CCP) antibody negative Subcutaneous nodules Surgical History History of bilateral tubal ligation History of ERCP History of tonsillectomy and adenoidectomy Hx laparoscopic cholecystectomy Hx of gastric bypass Hx of total hysterectomy Status post hysterectomy Family History (Updated 01/16/22 @ 01:59 by Charis Brewer RN) Other Family history of GERD Family history of diabetes mellitus type II Family history of hyperlipidemia Family history of hypertension Family history of migraine headaches Viral upper respiratory illness Social History (Updated 01/16/22 @ 01:59 by Charis Brewer RN) Smoking Status: Never smoker alcohol intake: never substance use type: denies use current occupational status: employed and other Travel in the last 8 weeks: None household members: spouse housing: house 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 current occupational exposures/hazards: No caffeine: Yes Review of Systems Constitutional Constitutional: Reports system reviewed and no additional complaints, except as documented Eyes Eyes: Reports system reviewed and no additional complaints, except as documented ENT Ears, Nose, Mouth, and Throat: Reports system reviewed and no additional complaints, except as documented *Cardiovascular Cardiovascular: Reports system reviewed and no additional complaints, except as documented *Respiratory Respiratory: Reports as per HPI *Gastrointestinal Gastrointestinal: Reports system reviewed and no additional complaints, except as documented *Genitourinary Genitourinary: Reports system reviewed and no additional complaints, except as documented *Musculoskeletal Musculoskeletal: Reports system reviewed and no additional complaints, except as documented Integumentary/Breasts Skin/Breast: Reports system reviewed and no additional complaints, except as documented *Neurologic Neurologic: Reports system reviewed and no additional complaints, except as docume
--- NOTE | 2022-01-16 00:44 | PC.NURSE ---
pumping station supervisor called for bed assignment
[2022-01-16 03:03] LABS: Troponin I < 0.01 ng/ml (0.00-0.034)
--- NOTE | 2022-01-16 05:07 | PC.NURSE ---
NO ACUTE CHANGES SINCE PT ARRIVED TO THE FLOOR. LUNG SOUNDS ARE CLEAR BILATERALLY. REMAINS ON ROOM AIR. PT HAS C/O SHOULDER PAIN THIS SHIFT WELL A HEADACHE. PT WAS MEDICATED PER MAR FOR PAIN. PT ALSO STATED HER HEAD WAS HURTING SO BAD SHE WAS NAUSEATED. NO FURTHER COMPLAINTS AFTER PAIN MEDICATION. VSS. CALL AREVALO WITHIN REACH.
[2022-01-16 07:09] LABS: Basophils # 0.1 K/mm3 (0-0.2); Basophils % 1.1 % (0.1-2.0); Eosinophils # 0.1 K/mm3 (0.0-0.4); Eosinophils % 1.9 % (0.1-12.0); Lymphocytes # 1.3 K/mm3 (0.7-4.5); Lymphocytes % 21.2 % (10-50); Mean Corpuscular HGB Conc 32.4 g/dL (31.8-35.4); Mean Corpuscular Hemoglobin 25.5 pg (27.0-31.2); Mean Corpuscular Volume 78.7 fl (81-99); Mean Platelet Volume 9.1 fl (7.4-10.4); Monocytes # 0.3 K/mm3 (0.1-1.0); Monocytes % 4.5 % (1.7-9.3); Neutrophils # 4.3 K/mm3 (1.8-7.8); Neutrophils % 71.2 % (37.0-80.0); Platelet Count 293 K/mm3 (142-424); Red Blood Count 4.96 M/mm3 (4.20-5.40); Red Cell Distribution Width 19.7 % (11.5-17.5); White Blood Count 6.1 K/mm3 (4.8-10.8)
[2022-01-16 07:11] LABS: Hemoglobin 12.7 g/dL (12.2-16.2)
[2022-01-16 07:52] LABS: Chloride 109 mmol/L (98-107); Sodium 141 mmol/L (136-145)
[2022-01-16 07:53] LABS: Potassium 3.5 mmoL/L (3.5-5.1)
[2022-01-16 07:55] LABS: Alanine Aminotransferase 21 U/L (12-78); Albumin Level 3.5 g/dl (3.5-5.0); Albumin/Globulin Ratio 1.6 (1.1-1.8); Alkaline Phosphatase 92 U/L (38-126); Anion Gap 9.5 mEq/L (5-15); Aspartate Amino Transferase 32 U/L (14-36); Bilirubin,Total 0.3 mg/dl (0.2-1.3); Blood Urea Nitrogen 13 mg/dl (7-17); Carbon Dioxide 26 mmol/L (22.0-30.0); Cholesterol 149 mg/dl (140-200); Creatinine Clearance Estimated 159 mL/min (50-200); Estimated Glomerular Filt Rate 107 ml/min (>60); GFR (African American) 130 ML/MIN (>60); Globulin 2.2 g/dL (1.3-3.2); Glucose 91 mg/dl (74-100); Total Protein,Serum 5.7 g/dl (6.3-8.2); Triglycerides 59 mg/dl (30-150); VLDL Cholesterol 12 mg/dL (0-40)
[2022-01-16 07:56] LABS: Chol/HDL Ratio 2.9 (1-3.5); HDL Cholesterol 51 mg/dl (40-60)
[2022-01-16 08:07] LABS: Direct LDL Cholesterol 72.64 mg/dL (100-129)
[2022-01-16 08:45] LABS: Hemoglobin A1C 4.9 % (4.0-6.0)
--- NOTE | 2022-01-16 10:42 | EXP.DC.SUM ---
General Admission date:: 01/16/22 Discharge date: 01/16/22 HPI HPI HPI: This is a 46-year-old pleasant female with a past medical history of migraines, obesity status post gastric bypass, iron deficiency anemia who presents to the emergency department with complaints of chest pressure radiating to her left scapula. She reports around noon today noticing pressure type discomfort in the anterior chest that was associated with some nausea. She also endorses feeling generalized malaise and fatigue over the past several weeks. She has been undergoing work-up for RA and other immunologic disorders. She reports the chest pressure type pain was worse when lying flat while getting an MRI of her right knee. She also endorses some associated exertional shortness of breath but denies any lower extremity edema she reports feeling like she has had palpitations but notices that her heart rate is normal on her watch.. She denies any fever, cough, congestion. She denies vomiting, diarrhea or postprandial pain. Emergency department work-up mostly benign. Cardiac enzymes negative. EKG without ischemia. She did have relief of chest pressure with some nitroglycerin. Patient has a family history of coronary artery disease consisting of her mother, grandmother and uncle. Given patient's complaint of chest pressure, no prior cardiac work-up in positive family history she will be admitted to the hospitalist service with a consult to cardiology in a.m. She is admitted to hospital service for further evaluation management Hospital Course Hospital Course Hospital Course: Patient was admitted for left-sided chest pain, that was somewhat more centered on the inferior aspect of her left shoulder blade. This does not seem to be cardiac in nature as her EKG shows no sign of acute cardiac ischemia and her troponins are negative x4. Given the location of her pain I think it is more likely musculoskeletal in nature. Additionally, her chest x-ray and a CT angio chest were both relatively unremarkable. Patient does have a very low iron level, and she is receiving iron supplementation for this. Exam Data for Last 24 hours Vital signs and Labs for Last 24 Hours: Temp Pulse Resp BP Pulse Ox 97.6 F 80 14 112/54 L 100 01/16/22 08:00 01/16/22 08:00 01/16/22 08:00 01/16/22 08:00 01/16/22 08:00 Laboratory Results - last 24 hr 01/15/22 20:10: WBC 8.5, RBC 5.70 H, Hgb 14.3, Hct 44.7, MCV 78.4 L, MCH 25.0 L, MCHC 31.9, RDW 19.2 H, Plt Count 315, MPV 9.0, Neut % (Auto) 70.9, Lymph % (Auto) 19.2, Gonzales % (Auto) 4.5, Eos % (Auto) 2.8, Baso % (Auto) 2.6 H, Neut # (Auto) 6.1, Lymph # (Auto) 1.6, Gonzales # (Auto) 0.4, Eos # (Auto) 0.2, Baso # (Auto) 0.2 01/15/22 20:10: Sodium 137, Potassium 4.5, Chloride 108 H, Carbon Dioxide 25, Anion Gap 8.5, BUN 17, Creatinine 0.70, Estimated Creat Clear 135, Estimated GFR 90, Est GFR ( Amer) 109, Glucose 137 H, Calcium 8.7, Troponin I 0.01 01/15/22 20:10: Total Bilirubin 0.9, Direct Bilirubin 0.6 H, Conjugated Bilirubin 0.0, Indirect Bilirubin 0.3, Unconjugated Bilirubin 0.3, AST 55 H, ALT 33, Alkaline Phosphatase 108, Total Protein 7.3 D, Albumin 4.4 01/15/22 22:47: Troponin I < 0.01 01/15/22 23:36: SARS-CoV-2 (PCR) Not detected, Influenza A Untype (PCR) Not detected, Influenza Type B (PCR) Not detected 01/16/22 02:00: Troponin I < 0.01 01/16/22 06:50: WBC 6.1 D, RBC 4.96, Hgb 12.7 D, Hct 39.0, MCV 78.7 L, MCH 25.5 L, MCHC 32.4, RDW 19.7 H, Plt Count 293, MPV 9.1, Neut % (Auto) 71.2, Lymph % (Auto) 21.2, Gonzales % (Auto) 4.5, Eos % (Auto) 1.9, Baso % (Auto) 1.1, Neut # (Auto) 4.3, Lymph # (Auto) 1.3, Gonzales # (Auto) 0.3, Eos # (Auto) 0.1, Baso # (Auto) 0.1 01/16/22 06:50: Sodium 141, Potassium 3.5 D, Chloride 109 H, Carbon Dioxide 26, Anion Gap 9.5, BUN 13, Creatinine 0.60, Estimated Creat Clear 159, Estimated GFR 107, Est GFR ( Amer) 130, Glucose 91 D, Calcium 8.0 L, Magnesium 2.0, Total Bilirubin 0.3, AST 32 D, ALT 21 D, Alkaline
[2022-01-16 11:05] LABS: Troponin I < 0.01 ng/ml (0.00-0.034)
--- NOTE | 2022-01-16 12:34 | HMH.PHAINT1 ---
Pharmacy Intervention Comments: DISCHARGE MEDICATION COUNSELING PROVIDED. DISCUSSED NO CHANGES TO CURRENT HOME MEDICATIONS. PATIENT VERBALIZED NO QUESTIONS AT THIS TIME.
--- NOTE | 2022-01-17 13:06 | CARE MANAGER ---
Contacted patient related to hospital discharge. She states that she isn't having pain or pressure in her chest anymore, but is more in her shoulder blades. However, she does feel better. She is aware of follow up appointment and denies any questions or concerns. JARET Yoder
== END 2022-01-16 12:38 | disposition home or self-care (01) ==
LOC: ER 01-16 00:03 → 2ND 01-16 01:00
PROVIDERS: Nurse Practitioner Acute Care; Admitting Provider Emergency Medicine; Emergency Provider Emergency Medicine; PCP Physician Assistant; Visit Provider Emergency Medicine
DX: R07.89 Other chest pain (principal); D50.9 Iron deficiency anemia, unspecified; Z79.899 Other long term (current) drug therapy; G43.909 Migraine, unspecified, not intractable, without status migrainosus; M06.9 Rheumatoid arthritis, unspecified
CPT/HCPCS: 36415; 71045; 71275; 80048; 80053; 80061; 80076; 83036; 83735; 84484; 85025; 93005; 99285; C9803; G0378; J2405; Q9967; U0003; U0005

== ENCOUNTER → 2022-01-29 07:12 | Outpatient (CLI) | payer BC, SELFPAY ==
--- NOTE | 2022-01-29 | CA_ITS ---
APPROVED REPORT Exam: Exercise Treadmill Technologist: Diane Shen, Ht: 5 ft 2 in Wt: 190 lbs BSA: 1.87 m2 HR: 56 bpm BP: 116/68 mmHg Rhythm: sinus ana,otherwise normal Indications: CP, SOA, Fatigue Medical History Medications: Iron,,,,, Buspirone,,,,, Tramadol,,,,, Celecoxib,,,,, Sertraline,,,,, Nitroglycerin,,,,, Vit D2,,,,, RImegepant,,,,, Cardiac Risk Factors: FHX of CAD Stress Test Details Test: Pieter HR Resting HR: 79 bpm Max Heart Rate (APMHR): 173.384735 bpm Max HR Achieved: 164 bpm Target HR (85% APMHR): 147.306124 bpm % of APMHR: 94.80 Recovery HR: 123 bpm BP Resting BP: 134/82 mmHg Max BP: 172/73 mmHg Recovery BP: 171.0/72.0 mmHg ECG Resting ECG: sinus ana, otherwise normal Clinical Exercise duration: 07:01 min Highest Stage Achieved: Exercise capacity: 10.1 METs Stress ECG Conclusion During pieter protocol pt exercised 7 minutes. Pt experinced SOA, no CP noted. No arrhythmias noted. .5mm horizontal ST depression laterally in recovery. Within normal GXT. Myoview images reported separately. Test Summary REST . . . . . . . Sitting REST . . . . . . . Standing REST 06:04 0.0 0.0 79 . 134/ 82 . . Stage 1 01:00 10.0 1.7 105 . . . . Stage 1 02:00 10.0 1.7 . . . . . Stage 1 03:00 10.0 1.7 125 . 162/ 76 . . Stage 2 01:00 12.0 2.5 138 . . . . Stage 2 02:00 12.0 2.5 146 . . . . Stage 2 03:00 12.0 2.5 143 . 165/ 76 . . Stage 3 01:00 14.0 3.4 163 . . . . Stage 3 01:01 14.0 3.4 163 . . . Stop exercise at 07:01 RECOVERY 01:00 0.0 0.0 123 . . . . RECOVERY 02:00 0.0 0.0 105 . . . . RECOVERY 03:00 0.0 0.0 95 . 171/ 72 . . RECOVERY 04:00 0.0 0.0 94 . 172/ 73 . . RECOVERY 05:00 0.0 0.0 84 . 140/ 63 . . RECOVERY 05:20 0.0 0.0 85 . 140/ 63 . . Electronically signed by : Rudy Webster MD 01/29/2022 13:11:41
--- NOTE | 2022-01-29 07:12 | NM_ITS ---
APPROVED REPORT Exam: Nuclear Stress Test Indication: C.P., FM HX, SOB, FATIGUE Patient Location: Outpatient Stress Tech: Diane Shen HI Tech:CHIKA Perez RT (R)(N)(M) Ht: 5 ft 2 in Wt: 190 lbs Bra Size: 38DD HR: 56 bpm BP: 116/68 mmHg BSA: 1.87 m2 TID: 1.23 BMI: 34.7 History: C.P., FM HX, SOB, FATIGUE Procedure: Patient exercised on Pieter protocol 7:00 minutes and sec, resting heart rate 56 bpm, resting blood pressure 116/68 mmHg, with exercise maximum heart rate achived was 164 bpm which is 95 % of the maximum predicted heart rate and blood pressure was 165/76 mmHg. Test was stopped due to FATIGUE. Patient denied any complaint of chest pain. Patient has Good exercise capacity, achieved 10.1 METs of workload on treadmill, the blood pressure response to exercise was Adequate. Electrocardiogram Resting electrocardiogram showed sinus rhythm, with exercise there is less than 1.[address] segment depression noted from the baseline EKG. The EKG portion of the exercise Myoview is negative for ischemia. Cardiac Stress and Resting SPECT Images: Cardiac Stress and Resting SPECT images were obtained using technetium 99m Myoview 31.2 mCi stress and 9.99 mCi at rest. Gated SPECT analysis of segmental wall motion and calculation of the ejection fraction also done. Prone images were also obtained. Cardiac stress and resting SPECT images show mild fixed defect in the anterior wall with normal contractility in the gated SPECT is likely secondary to soft tissue attenuation, no reversible ischemia seen, computer derived ejection fraction is 51% with no regional wall motion abnormality, right ventricle is normal size and contractility. Conclusion: 1. The EKG portion of the exercise Myoview is negative for ischemia, patient has good exercise capacity of 10.1 METs of workload on treadmill, the blood pressure response to exercise was adequate, there was no exercise-induced chest discomfort. 2. No scintigraphic evidence of reversible ischemia seen, computer derived ejection fraction is 51% with no regional wall motion abnormality, right ventricle is normal size and contractility. 3. Likely normal exercise Myoview study. Electronically signed by : Rudy Webster MD 01/29/2022 13:17:01
--- NOTE | 2022-01-29 07:58 | CA_ITS ---
APPROVED REPORT EXAM: Comprehensive 2D, Doppler, and color-flow Echocardiogram Swatch Checker: Camille Rivera, RCS, RVS Ht: 5 ft 2 in Wt: 192lbs BSA: 1.88 BP: 113/64 mmHg Indications: Hx-Covid, CP, Edema, SOB, Murmur 2D Dimensions Aortic Root 3.09 cm LA Volume 55.50 mL Left Atrium 3.55 cm LA Volume Index 28.90 mL/m2 (M/F) 16-34 LVOT 2.03 cm (M/F) 1.5-2.5 M-Mode Dimensions RVDd 2.31 cm (0.9-2.6) LA Diam 3.52 cm (1.9-4.0) LVDd 5.57 cm (3.5-5.7) Ao Diam 3.22 cm (2.0-3.7) LVDs 3.98 cm (3.5-5.7) IVSd 0.91 cm (0.6-1.1) PWd 0.68 cm (0.6-1.1) EF (Teich) 54.40% EPSs 0.46 cm FS 28.50% EDV (Teich) 151.80 mL TAPSE 2.44 (<1.7) ESV (Teich) 69.20 mL LV Diastology E Decel Time 170.00 (160-240 msec) E/A Ratio 1.24 MED E' 8.70 (< 7 cm/sec) MED A' 10.80 cm/s E'/MED E' Ratio 6.64 (>14) LAT E' 15.00 (<10 cm/sec) LAT A' 11.70 cm/s E/LAT E' Ratio 3.85 (>14) Aortic Valve LVOT Max 101.00 (70-110 cm/s) LVOT VTI 23.84 cm AoV Peak Mac. 117.00 (50-130 cm/s) AI PHT 462.00 ms AO Peak GR. 5.50 mmHg AO Mean GR. 2.70 (<5 mmHg) AO VTI 25.79 (18-25 cm) QUINTIN (VTI) 2.99 (2.5-4.5 cm2) Mitral Valve MV A Velocity 47.00 (40-130 cm/s) E/A Ratio 1.24 MV Decel. Time 170.00 (160-240 ms) MV Mean Gr. 0.60 (<2mmHg) MV PHT 50.00 ms Pulmonary Valve PV Peak Velocity 64.00 (50-150 cm/s) Tricuspid Valve TR P. Velocity 200.00 cm/s RAP Estimate 10.00 mmHg RVSP 26.00 mmHg Left Ventricle Left atrium is normal size left atrium estimated ejection fraction is normal abnormality, diastolic parameters are within normal range. Right Ventricle Right atrium and right ventricle are normal size and contractility. Aortic Valve Aortic valve is minimally thickened and fibrosed there is no aortic stenosis, there is trace aortic insufficiency. Mitral Valve Mitral valve is grossly normal, there is mild mitral regurgitation. Tricuspid Valve Tricuspid valve is grossly normal, there is mild tricuspid regurgitation calculated right ventricular systolic pressure is 25 mmHg. Pulmonic Valve Pulmonic valve is poorly visualized. Great Vessels Aortic root is normal size. Inferior vena cava is normal size with normal inspiratory collapse. Pericardium No significant pericardial effusion noted. Conclusion 1. Normal left ventricular size preserved left ventricular systolic function, estimated ejection fraction 55% with no regional wall motion abnormality, diastolic parameters are within normal range. 2. Trace mitral and tricuspid regurgitation. Calculated right ventricular systolic pressure 25 mm. 3. No significant pericardial effusion. 4. Inferior vena cava is normal size with normal inspiratory collapse. Electronically signed by : Rudy Webster MD 01/29/2022 21:07:07
== END ==
LOC: RAD 07:12
PROVIDERS: PCP Physician Assistant; Visit Provider Nurse Practitioner
DX: R07.89 Other chest pain (principal); D50.9 Iron deficiency anemia, unspecified; E66.9 Obesity, unspecified; Z68.34 Body mass index [BMI] 34.0-34.9, adult
CPT/HCPCS: 78452; 93017; 93306; A9502

== ENCOUNTER → 2022-02-06 12:06 | Outpatient (CLI) | payer BC, SELFPAY ==
[2022-02-06 12:56] LABS: Basophils # 0.1 K/mm3 (0-0.2); Basophils % 1.3 % (0.1-2.0); Eosinophils # 0.1 K/mm3 (0.0-0.4); Eosinophils % 2.1 % (0.1-12.0); Hematocrit 45.6 % (37.0-47.0); Hemoglobin 14.6 g/dL (12.2-16.2); Lymphocytes % 30.6 % (10-50); Mean Corpuscular HGB Conc 31.9 g/dL (31.8-35.4); Mean Corpuscular Hemoglobin 27.7 pg (27.0-31.2); Mean Corpuscular Volume 86.7 fl (81-99); Mean Platelet Volume 9.4 fl (7.4-10.4); Monocytes # 0.3 K/mm3 (0.1-1.0); Monocytes % 5.2 % (1.7-9.3); Neutrophils % 60.8 % (37.0-80.0); Platelet Count 246 K/mm3 (142-424); Red Blood Count 5.26 M/mm3 (4.20-5.40); Red Cell Distribution Width 22.5 % (11.5-17.5); White Blood Count 6.6 K/mm3 (4.8-10.8)
[2022-02-06 13:28] LABS: Free T4 (Free Thyroxine) 1.06 ng/dl (0.78-2.19)
[2022-02-06 13:46] LABS: Alanine Aminotransferase 20 U/L (12-78); Albumin Level 3.7 g/dl (3.5-5.0); Alkaline Phosphatase 119 U/L (38-126); Anion Gap 10.4 mEq/L (5-15); Aspartate Amino Transferase 29 U/L (14-36); Bilirubin,Direct 0.2 mg/dl (0.0-0.4); Bilirubin,Indirect 0.3 mg/dL (0.0-0.9); Bilirubin,Total 0.5 mg/dl (0.2-1.3); Bilirubin,Unconjugated 0.3 mg/dL (0.0-1.1); Blood Urea Nitrogen 19 mg/dl (7-17); Calcium 8.6 mg/dl (8.4-10.2); Carbon Dioxide 29 mmol/L (22.0-30.0); Chloride 105 mmol/L (98-107); Chol/HDL Ratio 2.7 (1-3.5); Cholesterol 158 mg/dl (140-200); Estimated Glomerular Filt Rate 90 ml/min (>60); GFR (African American) 109 ML/MIN (>60); Glucose 84 mg/dl (74-100); HDL Cholesterol 58 mg/dl (40-60); Magnesium 1.8 mg/dl (1.6-2.3); Potassium 4.4 mmoL/L (3.5-5.1); Sodium 140 mmol/L (136-145); Total Protein,Serum 5.8 g/dl (6.3-8.2); Triglycerides 78 mg/dl (30-150); VLDL Cholesterol 16 mg/dL (0-40)
[2022-02-06 13:57] LABS: Direct LDL Cholesterol 82.69 mg/dL (100-129)
[2022-02-06 14:16] LABS: Thyroid Stimulating Hormone 1.45 uIU/mL (0.465-4.68)
== END ==
PROVIDERS: PCP Physician Assistant; Visit Provider Physician Assistant
DX: R00.2 Palpitations (principal); R06.00 Dyspnea, unspecified; D50.8 Other iron deficiency anemias; E66.9 Obesity, unspecified; Z68.34 Body mass index [BMI] 34.0-34.9, adult
CPT/HCPCS: 36415; 80048; 80061; 80076; 83735; 84439; 84443; 85025; 93225

== ENCOUNTER → 2022-02-19 07:52 | Outpatient (CLI) | payer BC, SELFPAY ==
[2022-02-19 09:04] LABS: Phosphorous 2.3 mg/dl (2.5-4.5)
[2022-02-19 15:27] LABS: Basophils # 0.1 K/mm3 (0-0.2); Basophils % 1.2 % (0.1-2.0); Eosinophils # 0.3 K/mm3 (0.0-0.4); Eosinophils % 3.1 % (0.1-12.0); Hematocrit 47.3 % (37.0-47.0); Hemoglobin 15.4 g/dL (12.2-16.2); Lymphocytes # 2.2 K/mm3 (0.7-4.5); Mean Corpuscular HGB Conc 32.5 g/dL (31.8-35.4); Mean Corpuscular Hemoglobin 28.7 pg (27.0-31.2); Mean Corpuscular Volume 88.2 fl (81-99); Mean Platelet Volume 10.6 fl (7.4-10.4); Monocytes # 0.4 K/mm3 (0.1-1.0); Monocytes % 4.9 % (1.7-9.3); Neutrophils # 5.8 K/mm3 (1.8-7.8); Neutrophils % 65.8 % (37.0-80.0); Platelet Count 314 K/mm3 (142-424); Red Blood Count 5.36 M/mm3 (4.20-5.40); Red Cell Distribution Width 21.9 % (11.5-17.5); White Blood Count 8.8 K/mm3 (4.8-10.8)
[2022-02-19 16:17] LABS: Erythrocyte Sedimentation Rate 2 mm/hr (0-20)
[2022-02-19 17:44] LABS: 25-OH Vitamin D, Total 23.2 ng/mL (30-100)
[2022-02-19 21:08] LABS: Iron 50 ug/dL (37-170)
[2022-02-19 21:09] LABS: Alanine Aminotransferase 23 U/L (12-78); Albumin Level 4.7 g/dl (3.5-5.0); Albumin/Globulin Ratio 2.1 (1.1-1.8); Alkaline Phosphatase 153 U/L (38-126); Anion Gap 16.1 mEq/L (5-15); Aspartate Amino Transferase 26 U/L (14-36); Bilirubin,Total 0.3 mg/dl (0.2-1.3); Blood Urea Nitrogen 24 mg/dl (7-17); Calcium 9.8 mg/dl (8.4-10.2); Carbon Dioxide 27 mmol/L (22.0-30.0); Chloride 104 mmol/L (98-107); Estimated Glomerular Filt Rate 59 ml/min (>60); GFR (African American) 72 ML/MIN (>60); Globulin 2.2 g/dL (1.3-3.2); Glucose 65 mg/dl (74-100); Potassium 4.1 mmoL/L (3.5-5.1); Sodium 143 mmol/L (136-145); Total Protein,Serum 6.9 g/dl (6.3-8.2)
[2022-02-19 21:17] LABS: C-Reactive Protein 1.3 mg/L (0-4); Total Iron Binding Capacity 352 ug/dL (265-497)
[2022-02-19 21:45] LABS: Ferritin 71.1 ng/ml (6.24-137)
[2022-02-19 21:53] LABS: Intact Parathyroid Hormone 218.7 pg/mL (7.5-53.5); Procalcitonin 0.032 ng/mL (0.0-2.0)
[2022-02-21 13:08] LABS: Anti-Centromere B Antibodies <0.2 AI (0.0-0.9); Anti-DNA (DS) Ab Qn <1 IU/mL (0-9); Anti-Jo-1 <0.2 AI (0.0-0.9); Anti-Smith Antibody <0.2 AI (0.0-0.9); Antichromatin Antibodies <0.2 AI (0.0-0.9); Antiscleroderma-70 Antibodies <0.2 AI (0.0-0.9); RNP Antibodies <0.2 AI (0.0-0.9); Sjogren's Anti-SS-A <0.2 AI (0.0-0.9); Sjogren's Anti-SS-B <0.2 AI (0.0-0.9)
[2022-02-21 15:09] LABS: Anticardiolipin Ab,IgA,Qn <9 APL U/mL (0-11)
[2022-02-22 12:09] LABS: Lupus Reflex Interpretation Comment: (.); PTT-LA 33.2 sec (0.0-51.9); dRVVT 40.9 sec (0.0-47.0)
[2022-02-23 21:13] LABS: Anti-Cyclic Citrullinated Pept 3 units (0-19)
== END ==
PROVIDERS: PCP Physician Assistant; Visit Provider Physician Assistant
DX: D50.8 Other iron deficiency anemias (principal); M22.41 Chondromalacia patellae, right knee; M22.42 Chondromalacia patellae, left knee; R76.8 Other specified abnormal immunological findings in serum
CPT/HCPCS: 36415; 80053; 82306; 82728; 83540; 83550; 83970; 84100; 84145; 85025; 85613; 85651; 86140; 86147; 86200; 86225; 86235; 86431

== ENCOUNTER → 2022-02-24 17:59 | Outpatient (CLI) | payer BC, SELFPAY | PROVIDERS: Visit Provider Physician Assistant | DX: G47.9 Sleep disorder, unspecified (principal); R06.83 Snoring | CPT/HCPCS: G0399 ==

== ENCOUNTER 2022-03-05 08:31 | Day surgery (SDC) | payer BC, SELFPAY ==
[2022-03-05 08:43] VITALS: BMI 35.6
[2022-03-05 09:17] VITALS: BP 121/85; PULSE 65; RESP 14; O2SAT 97
[2022-03-05 09:18] VITALS: PULSE 75
[2022-03-05 09:45] VITALS: BP 106/60; PULSE 75; RESP 20; O2SAT 95
--- NOTE | 2022-03-05 09:53 | P.PCN_ITS ---
[facility] Loop Recorder Date: 03/05/22 Time: :30 Procedure Performed:: Implantation of loop recorder Indication:: Palpitations, symptomatic Technique:: Patient was brought to the cardiac Director Speech. After informed consent obtained, 1% lidocaine with epinephrine was used to anesthetize the site along the left anterior aspect of the chest near the sternal border. Using the preformed scalpel, an incision was made and using the supplied preloaded apparatus, the loop recorder was placed subcutaneously without difficulty. Following the deployment of the loop recorder interrogation of the device was performed to ensure appropriate voltage was being detected. Once this was verified, Steri- Strips were placed over the incision and the patient was prepped to discharge home. Patient tolerated the procedure well with minimal discomfort. Impression:: Successful implantation of loop recorder Serial Number:: [employer] M301 Lux-[id number] Serial #[id number] Plan:: Routine postop care
== END 2022-03-05 09:51 | disposition home or self-care (01) ==
LOC: CATHLAB 08:32
PROVIDERS: PCP Physician Assistant; Visit Provider Internal Medicine
DX: R00.2 Palpitations (principal); R07.89 Other chest pain; R06.00 Dyspnea, unspecified; D50.9 Iron deficiency anemia, unspecified; G47.9 Sleep disorder, unspecified; Z79.899 Other long term (current) drug therapy
CPT/HCPCS: 33285

== ENCOUNTER → 2022-07-24 08:36 | Outpatient (CLI) | payer BC, SELFPAY ==
[2022-07-24 09:42] LABS: Basophils # 0.1 K/mm3 (0-0.2); Basophils % 0.9 % (0.1-2.0); Eosinophils # 0.2 K/mm3 (0.0-0.4); Eosinophils % 3.2 % (0.1-12.0); Hematocrit 45.4 % (37.0-47.0); Hemoglobin 15.1 g/dL (12.2-16.2); Lymphocytes # 1.7 K/mm3 (0.7-4.5); Lymphocytes % 31.1 % (10-50); Mean Corpuscular HGB Conc 33.3 g/dL (31.8-35.4); Mean Corpuscular Hemoglobin 30.3 pg (27.0-31.2); Mean Corpuscular Volume 90.9 fl (81-99); Mean Platelet Volume 9.2 fl (7.4-10.4); Monocytes # 0.4 K/mm3 (0.1-1.0); Monocytes % 6.8 % (1.7-9.3); Neutrophils # 3.2 K/mm3 (1.8-7.8); Platelet Count 238 K/mm3 (142-424); Red Cell Distribution Width 13.1 % (11.5-17.5); White Blood Count 5.5 K/mm3 (4.8-10.8)
[2022-07-24 10:17] LABS: Alanine Aminotransferase 20 U/L (12-78); Albumin Level 3.5 g/dl (3.5-5.0); Albumin/Globulin Ratio 1.9 (1.1-1.8); Alkaline Phosphatase 76 U/L (38-126); Anion Gap 9.2 mEq/L (5-15); Aspartate Amino Transferase 25 U/L (14-36); Bilirubin,Total 0.5 mg/dl (0.2-1.3); Blood Urea Nitrogen 13 mg/dl (7-17); Calcium 8.5 mg/dl (8.4-10.2); Carbon Dioxide 28 mmol/L (22.0-30.0); Chloride 106 mmol/L (98-107); Chol/HDL Ratio 2.6 (1-3.5); Cholesterol 142 mg/dl (140-200); Estimated Glomerular Filt Rate 107 ml/min (>60); GFR (African American) 130 ML/MIN (>60); Globulin 1.8 g/dL (1.3-3.2); Glucose 91 mg/dl (74-100); HDL Cholesterol 55 mg/dl (40-60); Potassium 4.2 mmoL/L (3.5-5.1); Sodium 139 mmol/L (136-145); Total Protein,Serum 5.3 g/dl (6.3-8.2); Triglycerides 48 mg/dl (30-150); VLDL Cholesterol 10 mg/dL (0-40)
[2022-07-24 10:28] LABS: Direct LDL Cholesterol 75.63 mg/dL (100-129)
[2022-07-24 10:48] LABS: Thyroid Stimulating Hormone 2.07 uIU/mL (0.465-4.68)
[2022-07-24 11:54] LABS: Iron 85 ug/dL (37-170)
[2022-07-24 12:02] LABS: Total Iron Binding Capacity 277 ug/dL (265-497)
== END ==
PROVIDERS: PCP Physician Assistant; Visit Provider Physician Assistant
DX: Z01.818 Encounter for other preprocedural examination (principal)
CPT/HCPCS: 36415; 80053; 80061; 83540; 83550; 84443; 85025

== ENCOUNTER → 2022-09-04 09:30 | Outpatient (CLI) | payer BC, SELFPAY | PROVIDERS: PCP Physician Assistant; Visit Provider Physician Assistant | DX: T81.9XXA Unspecified complication of procedure, initial encounter (principal) ==

== ENCOUNTER → 2022-09-04 13:36 | Outpatient (CLI) | payer BC, SELFPAY ==
[2022-09-04 13:08] LABS: Basophils % 0.6 % (0.1-2.0); Eosinophils # 0.3 K/mm3 (0.0-0.4); Hematocrit 46.7 % (37.0-47.0); Hemoglobin 14.9 g/dL (12.2-16.2); Lymphocytes # 1.2 K/mm3 (0.7-4.5); Lymphocytes % 22.8 % (10-50); Mean Corpuscular HGB Conc 31.9 g/dL (31.8-35.4); Mean Corpuscular Hemoglobin 29.4 pg (27.0-31.2); Mean Corpuscular Volume 92.1 fl (81-99); Mean Platelet Volume 10.3 fl (7.4-10.4); Monocytes # 0.3 K/mm3 (0.1-1.0); Monocytes % 5.5 % (1.7-9.3); Neutrophils # 3.5 K/mm3 (1.8-7.8); Neutrophils % 65.1 % (37.0-80.0); Platelet Count 286 K/mm3 (142-424); Red Blood Count 5.07 M/mm3 (4.20-5.40); Red Cell Distribution Width 13.1 % (11.5-17.5); White Blood Count 5.4 K/mm3 (4.8-10.8)
[2022-09-04 13:27] LABS: Alanine Aminotransferase 18 U/L (12-78); Albumin Level 3.9 g/dl (3.5-5.0); Albumin/Globulin Ratio 1.8 (1.1-1.8); Alkaline Phosphatase 88 U/L (38-126); Anion Gap 14.2 mEq/L (5-15); Aspartate Amino Transferase 23 U/L (14-36); Bilirubin,Total 0.5 mg/dl (0.2-1.3); Blood Urea Nitrogen 12 mg/dl (7-17); Calcium 8.8 mg/dl (8.4-10.2); Carbon Dioxide 28 mmol/L (22.0-30.0); Chloride 105 mmol/L (98-107); Estimated Glomerular Filt Rate 107 ml/min (>60); GFR (African American) 130 ML/MIN (>60); Globulin 2.2 g/dL (1.3-3.2); Glucose 80 mg/dl (74-100); Potassium 4.2 mmoL/L (3.5-5.1); Sodium 143 mmol/L (136-145); Total Protein,Serum 6.1 g/dl (6.3-8.2)
[2022-09-04 14:16] LABS: Erythrocyte Sedimentation Rate 4 mm/hr (0-20)
== END ==
PROVIDERS: PCP Physician Assistant; Visit Provider Physician Assistant
DX: R53.83 Other fatigue (principal)
CPT/HCPCS: 80053; 85025; 85651; 86140; 87086

== ENCOUNTER 2022-12-08 18:08 | Emergency (ER) | payer BC, SELFPAY ==
--- NOTE | 2022-12-08 18:12 | XR_ITS ---
PROCEDURE INFORMATION: Exam: XR Left Foot Exam date and time: 12/08/2022 6:39 PM Age: 47 years old Clinical indication: Pain; Foot; Left TECHNIQUE: Imaging protocol: Radiologic exam of the left foot. Views: 3 or more views. COMPARISON: CR XR FOOT LT MIN 3V 09/05/2021 11:47 AM FINDINGS: Bones/joints: Osseous alignment is normal. No acute fracture. Moderate plantar calcaneal spurring. Soft tissues: Normal. IMPRESSION: No acute abnormality
--- NOTE | 2022-12-08 18:12 | XR_ITS ---
PROCEDURE INFORMATION: Exam: XR Left Ankle Exam date and time: 12/08/2022 6:41 PM Age: 47 years old Clinical indication: Pain; Ankle; Left TECHNIQUE: Imaging protocol: Radiologic exam of the left ankle. Views: 3 or more views. COMPARISON: CR XR FOOT LT MIN 3V 12/08/2022 6:39 PM FINDINGS: Bones/joints: Osseous alignment is normal. No acute fracture. Moderate plantar calcaneal spurring. Soft tissues: Moderate medial soft tissue swelling. IMPRESSION: No acute osseous abnormality. Medial soft tissue swelling noted
[2022-12-08 18:19] VITALS: BP 127/74; PULSE 59; RESP 16; TEMP 36.7; O2SAT 100; BMI 35.1
--- NOTE | 2022-12-08 18:29 | EXP.UTC ---
Discharge Plan Disposition Patient Disposition: Home, Self-Care Condition: Good Prescriptions Prescriptions: No Action ondansetron 8 mg tablet,disintegrating 8 mg PO Q8H PRN (Reason: nausea and vomiting) Qty: 30 5RF alendronate [Fosamax] 70 mg tablet 70 mg PO WEEKLY Qty: 14 1RF hydroxyzine HCl 25 mg tablet See Rx Instructions .ROUTE .COMPLEX Dose Instruction: TAKE 1 TABLET BY MOUTH THREE TIMES DAILY NEEDED FOR ANXIETY Rx Instructions: TAKE 1 TABLET BY MOUTH THREE TIMES DAILY NEEDED FOR ANXIETY ropinirole 1 mg tablet 2 mg PO HS Qty: 60 3RF Rx Instructions: administer 1-3 hours before bedtime tramadol 50 mg tablet 50 mg PO Q8H PRN (Reason: pain) Qty: 90 1RF furosemide [Lasix] 20 mg tablet 20 mg PO DAILY PRN (Reason: edema) Qty: 30 2RF nitroglycerin 0.4 mg tablet, sublingual 0.4 mg sublingual Q5M PRN (Reason: chest pain) Qty: 25 0RF Rx Instructions: do not exceed 3 doses per episode Nurtec ODT 75 mg tablet,disintegrating See Rx Instructions .ROUTE .COMPLEX Qty: 16 0RF Dose Instruction: DISSOLVE 1 TABLET BY MOUTH EVERY OTHER DAY NEEDED FOR MIGRAINE HEADACHE Rx Instructions: DISSOLVE 1 TABLET BY MOUTH EVERY OTHER DAY NEEDED FOR MIGRAINE HEADACHE Mounjaro 2.5 mg/0.5 mL pen injector 2.5 mg SQ WEEKLY 28 Days Qty: 2 0RF phentermine [Adipex-P] 37.5 mg tablet 37.5 mg PO DAILY 30 Days Qty: 30 0RF Rx Instructions: must administer 30 minutes before or 1-2 hours after breakfast ferrous sulfate 325 MG tablet 325 mg PO BID celecoxib [Celebrex] 200 mg capsule 200 mg PO DAILY ergocalciferol (vitamin D2) 1,250 mcg (50,000 unit) capsule 1,250 mcg PO WEEKLY Referrals Follow up/Referrals: Adelia Bedolla PA [Primary Care Provider] - See instructions Miladys Buchanan DPM [Staff Physician] - See instructions Activity Restrictions/Add. Instructions Additional Instructions/Restrictions: Rest the extremity, apply ice for 15 minutes as tolerated three or four times per day, Wear the maddi wrap for compression, Elevate the extremity as tolerated while you are resting. Take tylenol or ibuprofen for pain. Follow up with Dr. Buchanan (podiatry) if you continue to have symptoms. I put in a referral but you need to call her office and schedule an appointment. Follow up with your regular doctor. GO TO THE ER FOR ANY WORSENING SYMPTOMS Clinical Impressions Clinical Impression: Left ankle sprain, Sprain of foot, left Stand Alone Forms Stand Alone Forms: Work/School Release Instructions Patient Instructions: Ankle Sprain, DI for Ankle Sprain, DI for Foot Sprain Discharge ED Provider: [place] [facility] [place] General Stated complaint: AO09/03 LT foot inj Mode of Arrival: Ambulatory Source of Information: Patient Limitations: No Limitations Time Seen by Provider: 12/08/22 18:29 Description of Symptoms (Recalled from Triage Doc. by RN): left foot pain and swelling HEENT Symptoms (Recalled from RN notes): No Resp Symptoms (Recalled from RN notes): No Skin Symptoms (Recalled from RN notes): No MS Symptoms (Recalled from RN notes): Yes Functional Status (Recalled from RN notes): na History of Present Illness Provider Complaint: She states that, while on vacation yesterday, she twisted her left ankle and foot. She states that since the she has had left foot pain, ankle, and swelling. Related Data Home Medications Medication Instructions Recorded Confirmed ferrous sulfate 325 mg (65 mg 325 mg PO BID Supplement 06/04/18 11/28/22 iron) tablet celecoxib 200 mg capsule (Celebrex) 200 mg PO DAILY Arthritis 01/15/22 11/28/22 ergocalciferol (vitamin D2) 1,250 1,250 mcg PO WEEKLY Supplement 01/15/22 11/28/22 mcg (50,000 unit) capsule hydroxyzine HCl 25 mg tablet See Rx Instructions .Route .COMPLEX 11/28/22 Previous Rx's Medication Instructions Recorded nitroglycerin 0.4 mg sublingual 0.4 mg subl
[2022-12-08 19:30] VITALS: BP 127/74; PULSE 59; RESP 16; TEMP 36.7
== END 2022-12-08 19:42 | disposition home or self-care (01) ==
PROVIDERS: Emergency Provider Nurse Practitioner Family; PCP Physician Assistant
DX: S93.402A Sprain of unspecified ligament of left ankle, initial encounter (principal); S93.602A Unspecified sprain of left foot, initial encounter; K21.9 Gastro-esophageal reflux disease without esophagitis; F32.A Depression, unspecified; D50.9 Iron deficiency anemia, unspecified; E66.9 Obesity, unspecified; R76.8 Other specified abnormal immunological findings in serum; X50.1XXA Overexertion from prolonged static or awkward postures, initial encounter
CPT/HCPCS: 73610; 73630; 99212; 99214; G0463

== ENCOUNTER → 2022-12-11 13:19 | Outpatient (CLI) | payer BC, SELFPAY ==
[2022-12-11 13:50] LABS: Basophils % 0.4 % (0.1-2.0); Eosinophils # 0.2 K/mm3 (0.0-0.4); Hematocrit 44.8 % (37.0-47.0); Hemoglobin 14.7 g/dL (12.2-16.2); Lymphocytes # 1.3 K/mm3 (0.7-4.5); Lymphocytes % 20.2 % (10-50); Mean Corpuscular HGB Conc 32.8 g/dL (31.8-35.4); Mean Corpuscular Hemoglobin 28.6 pg (27.0-31.2); Mean Corpuscular Volume 87.4 fl (81-99); Mean Platelet Volume 9.1 fl (7.4-10.4); Monocytes # 0.3 K/mm3 (0.1-1.0); Neutrophils # 4.8 K/mm3 (1.8-7.8); Neutrophils % 72.4 % (37.0-80.0); Platelet Count 239 K/mm3 (142-424); Red Blood Count 5.13 M/mm3 (4.20-5.40); Red Cell Distribution Width 13.7 % (11.5-17.5); White Blood Count 6.6 K/mm3 (4.8-10.8)
[2022-12-11 14:55] LABS: Alanine Aminotransferase 21 U/L (12-78); Albumin Level 3.5 g/dl (3.5-5.0); Albumin/Globulin Ratio 1.6 (1.1-1.8); Alkaline Phosphatase 90 U/L (38-126); Anion Gap 11.3 mEq/L (5-15); Aspartate Amino Transferase 24 U/L (14-36); Bilirubin,Total 0.2 mg/dl (0.2-1.3); Blood Urea Nitrogen 17 mg/dl (7-17); Calcium 8.6 mg/dl (8.4-10.2); Carbon Dioxide 27 mmol/L (22.0-30.0); Chloride 106 mmol/L (98-107); Chol/HDL Ratio 3.4 (1-3.5); Cholesterol 145 mg/dl (140-200); Estimated Glomerular Filt Rate 89 ml/min (>60); GFR (African American) 108 ML/MIN (>60); Globulin 2.2 g/dL (1.3-3.2); Glucose 168 mg/dl (74-100); HDL Cholesterol 43 mg/dl (40-60); Potassium 4.3 mmoL/L (3.5-5.1); Sodium 140 mmol/L (136-145); Total Protein,Serum 5.7 g/dl (6.3-8.2); Triglycerides 126 mg/dl (30-150); VLDL Cholesterol 25 mg/dL (0-40)
[2022-12-11 15:06] LABS: Direct LDL Cholesterol 80.82 mg/dL (100-129)
[2022-12-11 15:12] LABS: 25-OH Vitamin D, Total 19.9 ng/mL (30-100)
[2022-12-11 15:13] LABS: Free T4 (Free Thyroxine) 0.88 ng/dl (0.78-2.19)
[2022-12-11 15:26] LABS: Thyroid Stimulating Hormone 0.99 uIU/mL (0.465-4.68)
[2022-12-11 15:49] LABS: Iron 39 ug/dL (37-170)
[2022-12-11 16:05] LABS: Total Iron Binding Capacity 325 ug/dL (265-497)
[2022-12-11 16:40] LABS: Vitamin B12 > 1000 pg/mL (239-931)
== END ==
PROVIDERS: PCP Nurse Practitioner Family; Visit Provider Nurse Practitioner Family
DX: D50.9 Iron deficiency anemia, unspecified (principal); E55.9 Vitamin D deficiency, unspecified; R79.89 Other specified abnormal findings of blood chemistry; E66.9 Obesity, unspecified; Z68.36 Body mass index [BMI] 36.0-36.9, adult; Z79.899 Other long term (current) drug therapy
CPT/HCPCS: 36415; 80053; 80061; 82306; 82607; 83540; 83550; 84439; 84443; 85025

== ENCOUNTER → 2022-12-29 13:48 | Outpatient (CLI) | payer BC, SELFPAY ==
[2022-12-29 11:09] LABS: Coronavirus 19, PCR Not Detected (NotDetected); Influenza A, PCR Not Detected (NotDetected); Influenza B, PCR Not Detected (NotDetected)
== END ==
PROVIDERS: PCP Internal Medicine; Visit Provider Internal Medicine
DX: R06.02 Shortness of breath (principal)
CPT/HCPCS: 87636

== ENCOUNTER 2023-03-03 13:36 | Emergency (ER) | payer SELFPAY ==
--- NOTE | 2023-03-03 14:31 | EXP.UTC ---
Discharge Plan Disposition Patient Disposition: Home, Self-Care Condition: Good Prescriptions Prescriptions: New ondansetron 4 mg Tablet,Disintegrating 4 mg PO Q8H PRN (Reason: Nausea) Qty: 12 0RF No Action ondansetron 8 mg tablet,disintegrating 8 mg PO Q8H PRN (Reason: nausea and vomiting) Qty: 30 5RF alendronate [Fosamax] 70 mg tablet 70 mg PO WEEKLY Qty: 14 1RF hydroxyzine HCl 25 mg tablet See Rx Instructions .ROUTE .COMPLEX Dose Instruction: TAKE 1 TABLET BY MOUTH THREE TIMES DAILY NEEDED FOR ANXIETY Rx Instructions: TAKE 1 TABLET BY MOUTH THREE TIMES DAILY NEEDED FOR ANXIETY ropinirole 1 mg tablet 2 mg PO HS Qty: 60 3RF Rx Instructions: administer 1-3 hours before bedtime furosemide [Lasix] 20 mg tablet 20 mg PO DAILY PRN (Reason: edema) Qty: 30 2RF nitroglycerin 0.4 mg tablet, sublingual 0.4 mg sublingual Q5M PRN (Reason: chest pain) Qty: 25 0RF Rx Instructions: do not exceed 3 doses per episode phentermine [Adipex-P] 37.5 mg tablet 37.5 mg PO DAILY 30 Days Qty: 30 0RF Rx Instructions: must administer 30 minutes before or 1-2 hours after breakfast ferrous sulfate 325 mg (65 mg iron) tablet 325 mg PO BID Qty: 60 3RF cholecalciferol (vitamin D3) 50 mcg (2,000 unit) capsule 50 mcg PO DAILY Qty: 30 4RF cholecalciferol (vitamin D3) 1,250 mcg (50,000 unit) tablet 1,250 mcg PO WEEKLY Qty: 7 2RF tramadol 50 mg tablet 50 mg PO Q8H PRN (Reason: pain) Qty: 90 1RF Nurtec ODT 75 mg tablet,disintegrating See Rx Instructions .ROUTE .COMPLEX Qty: 16 0RF Dose Instruction: DISSOLVE 1 TABLET BY MOUTH EVERY OTHER DAY NEEDED FOR MIGRAINE HEADACHE Rx Instructions: DISSOLVE 1 TABLET BY MOUTH EVERY OTHER DAY NEEDED FOR MIGRAINE HEADACHE celecoxib [Celebrex] 200 mg capsule 200 mg PO DAILY Referrals Follow up/Referrals: Adelia Bedolla PA [Primary Care Provider] - See instructions Activity Restrictions/Add. Instructions Additional Instructions/Restrictions: Drink plenty of fluids. Take tylenol or ibuprofen for pain or fever. Take the zofran as directed. Follow up with your regular doctor. GO TO THE ER FOR ANY WORSENING SYMPTOMS Clinical Impressions Clinical Impression: Acute viral syndrome Stand Alone Forms Stand Alone Forms: Work/School Release Instructions Patient Instructions: DI for Viral Syndrome Discharge ED Provider: Luis Arndt [facility] [place] HPI General Stated complaint: weakness, chills,vomitting Time Seen by Provider: 03/03/23 14:31 History of Present Illness Provider Complaint: She states that since this morning she has had body aches, chills, fever, and n/v. Related Data Home Medications Medication Instructions Recorded Confirmed celecoxib 200 mg capsule (Celebrex) 200 mg PO DAILY Arthritis 01/15/22 12/30/22 hydroxyzine HCl 25 mg tablet See Rx Instructions .Route .COMPLEX 11/28/22 12/30/22 Previous Rx's Medication Instructions Recorded nitroglycerin 0.4 mg sublingual 0.4 mg sublingual Q5M PRN chest 01/22/22 tablet pain #25 tabs ondansetron 8 mg disintegrating 8 mg PO Q8H PRN nausea and 04/14/22 tablet vomiting #30 tabs alendronate 70 mg tablet (Fosamax) 70 mg PO WEEKLY #14 tabs 05/29/22 furosemide 20 mg tablet (Lasix) 20 mg PO DAILY PRN edema #30 tabs 11/28/22 ropinirole 1 mg tablet 2 mg PO HS #60 tabs 11/28/22 phentermine 37.5 mg tablet 37.5 mg PO DAILY 30 days #30 tabs 12/03/22 (Adipex-P) cholecalciferol (vitamin D3) 1,250 1,250 mcg PO WEEKLY #7 tabs 12/19/22 mcg (50,000 unit) tablet cholecalciferol (vitamin D3) 50 50 mcg PO DAILY #30 caps 12/19/22 mcg (2,000 unit) capsule ferrous sulfate 325 mg (65 mg 325 mg PO BID Supplement #60 tabs 12/19/22 iron) tablet tramadol 50 mg tablet 50 mg PO Q8H PRN pain #90 tabs 01/29/23 rimegepant 75 mg disintegrating See Rx Instructions .Route 02/11/23 tablet (Nurtec ODT) .COMPLEX #16 tabs ondansetr
[2023-03-03 14:40] VITALS: BP 148/87; PULSE 107; RESP 18; TEMP 37.1; O2SAT 98; BMI 37.3
[2023-03-03 14:49] LABS: UTC Influenza A Antigen Negative (Negative)
[2023-03-03 14:50] LABS: UTC Influenza B Antigen Negative (Negative)
[2023-03-03 15:01] VITALS: BP 148/87; PULSE 107; RESP 18; TEMP 37.1; O2SAT 98
== END 2023-03-03 15:00 | disposition home or self-care (01) ==
PROVIDERS: Emergency Provider Nurse Practitioner Family; PCP Physician Assistant
DX: U07.1 COVID-19 (principal); R11.2 Nausea with vomiting, unspecified; R50.9 Fever, unspecified; R53.1 Weakness; M79.18 Myalgia, other site; K21.9 Gastro-esophageal reflux disease without esophagitis; D50.9 Iron deficiency anemia, unspecified
CPT/HCPCS: 87635; 87804; 99212; 99214; G0463

== ENCOUNTER 2023-05-05 21:16 | Outpatient (CLI) | payer OTHER, SELFPAY ==
[2023-05-05 18:24] LABS: Basophils # 0.1 K/mm3 (0-0.2); Eosinophils # 0.2 K/mm3 (0.0-0.4); Eosinophils % 3.4 % (0.1-12.0); Hematocrit 47.1 % (37.0-47.0); Hemoglobin 15.7 g/dL (12.2-16.2); Lymphocytes # 2.3 K/mm3 (0.7-4.5); Lymphocytes % 32.8 % (10-50); Mean Corpuscular HGB Conc 33.3 g/dL (31.8-35.4); Mean Corpuscular Hemoglobin 29.8 pg (27.0-31.2); Mean Corpuscular Volume 89.3 fl (81-99); Mean Platelet Volume 10.6 fl (7.4-10.4); Monocytes # 0.6 K/mm3 (0.1-1.0); Monocytes % 8.2 % (1.7-9.3); Neutrophils # 3.9 K/mm3 (1.8-7.8); Neutrophils % 54.6 % (37.0-80.0); Platelet Count 290 K/mm3 (142-424); Red Blood Count 5.28 M/mm3 (4.20-5.40); Red Cell Distribution Width 13.9 % (11.5-17.5); White Blood Count 7.1 K/mm3 (4.8-10.8)
[2023-05-05 18:42] LABS: Alanine Aminotransferase 18 U/L (12-78); Albumin Level 3.8 g/dl (3.5-5.0); Albumin/Globulin Ratio 1.7 (1.1-1.8); Alkaline Phosphatase 93 U/L (38-126); Aspartate Amino Transferase 22 U/L (14-36); Bilirubin,Total 0.2 mg/dl (0.2-1.3); Blood Urea Nitrogen 13 mg/dl (7-17); Calcium 8.9 mg/dl (8.4-10.2); Carbon Dioxide 30 mmol/L (22.0-30.0); Chloride 106 mmol/L (98-107); Chol/HDL Ratio 3.5 (1-3.5); Cholesterol 161 mg/dl (140-200); Estimated Glomerular Filt Rate 89 ml/min (>60); GFR (African American) 108 ML/MIN (>60); Globulin 2.2 g/dL (1.3-3.2); Glucose 94 mg/dl (74-100); HDL Cholesterol 46 mg/dl (40-60); Sodium 141 mmol/L (136-145); Triglycerides 102 mg/dl (30-150); VLDL Cholesterol 20 mg/dL (0-40)
[2023-05-05 18:55] LABS: Direct LDL Cholesterol 94.58 mg/dL (100-129)
[2023-05-05 19:03] LABS: 25-OH Vitamin D, Total 14.8 ng/mL (30-100)
[2023-05-05 19:14] LABS: Thyroid Stimulating Hormone 1.54 uIU/mL (0.465-4.68)
[2023-05-05 19:36] LABS: Vitamin B12 > 1000 pg/mL (239-931)
== END 2023-05-05 23:59 ==
LOC: LAB.DROPOF 21:16
PROVIDERS: PCP Physician Assistant; Visit Provider Physician Assistant
DX: E55.9 Vitamin D deficiency, unspecified (principal); E66.9 Obesity, unspecified; Z68.37 Body mass index [BMI] 37.0-37.9, adult; Z79.899 Other long term (current) drug therapy
CPT/HCPCS: 80053; 80061; 82306; 82607; 84443; 85025

== ENCOUNTER 2023-06-18 08:54 | Outpatient (CLI) | payer OTHER, SELFPAY ==
--- NOTE | 2023-06-18 08:55 | XR_ITS ---
FINAL REPORT TECHNIQUE: Bone mineral density was calculated of the lumbar spine and hip. CLINICAL HISTORY: post menopausal female COMPARISON: None FINDINGS: Using L1-4, the bone mineral density of the spine is 0.843 g/cm2, corresponding to T-score of -1.9. Using the left hip, the bone mineral density of the femoral neck is 0.724 g/cm2, corresponding to a T-score of -1.8. Using the right hip, the bone mineral density of the femoral neck is 0.718 g/cm?, corresponding to a T-score of -1.2. NOTE: T-score: Standard deviation compared with peak bone mass of young adult mean. *Following the recommendations of the International Society of Bone densitometry, classification of hip BMD is based on the lower of two T-scores; total hip or femoral neck. IMPRESSION: Diminished bone mineral density of the lumbar spine, right hip and left hip consistent with low bone density. Reviewed, Interpreted and Dictated by Kwame Palma III, MD Transcribed by Genoveva Guzman Authenticated and . [facility]
--- NOTE | 2023-06-18 09:24 | MM_ITS ---
PROCEDURE INFORMATION: Exam: MG Bilateral Screening 3D Mammography Exam date and time: 06/18/2023 9:12 AM Age: 47 years old Clinical indication: Screening examination. Maternal aunts had breast cancer. TECHNIQUE: Imaging protocol: Bilateral Screening tomosynthesis and 2D mammography including computer-aided detection (CAD) when performed. COMPARISON: 1. MG MM DIG SCREENING MAMM BI W/CAD 03/18/2019 4:42 PM 2. MG SCBI MM Dig screening mamm BI w/CAD 02/11/2018 4:28 PM 3. MG DMDXUAVL DIG MAMM-DX UNI ADD VIEWS-LT 03/12/2016 1:47 PM 4. MG DMSB DIG MAMM-SCREEN AKCI 02/13/2016 4:36 PM FINDINGS: MAMMOGRAPHY: Breast composition: There are scattered areas of fibroglandular density. Mass: None. Architectural distortion: None. Calcifications: No suspicious calcifications. Asymmetric density: None. Skin thickening: None. Axillary adenopathy: None. Other findings: Loop recorder in the inner left breast limits evaluation and accentuates the importance of clinical breast exam. IMPRESSION: No mammographic evidence of malignancy. Annual screening is recommended unless otherwise clinically indicated. ASSESSMENT: BI-RADS Category 1: Negative
== END 2023-06-18 23:59 ==
PROVIDERS: PCP Physician Assistant; Visit Provider Physician Assistant
DX: Z12.31 Encounter for screening mammogram for malignant neoplasm of breast (principal); Z78.0 Asymptomatic menopausal state
CPT/HCPCS: 77063; 77067; 77080

== ENCOUNTER 2023-08-07 18:00 | Outpatient (CLI) | payer OTHER, SELFPAY ==
[2023-08-07 18:45] LABS: Basophils # 0.1 K/mm3 (0-0.2); Eosinophils # 0.2 K/mm3 (0.0-0.4); Eosinophils % 2.5 % (0.1-12.0); Hematocrit 47.3 % (37.0-47.0); Hemoglobin 15.5 g/dL (12.2-16.2); Lymphocytes # 1.4 K/mm3 (0.7-4.5); Lymphocytes % 21.2 % (10-50); Mean Corpuscular HGB Conc 32.7 g/dL (31.8-35.4); Mean Corpuscular Hemoglobin 29.9 pg (27.0-31.2); Mean Corpuscular Volume 91.6 fl (81-99); Mean Platelet Volume 11.1 fl (7.4-10.4); Monocytes # 0.4 K/mm3 (0.1-1.0); Monocytes % 5.8 % (1.7-9.3); Neutrophils # 4.5 K/mm3 (1.8-7.8); Neutrophils % 69.5 % (37.0-80.0); Platelet Count 275 K/mm3 (142-424); Red Blood Count 5.16 M/mm3 (4.20-5.40); Red Cell Distribution Width 13.8 % (11.5-17.5); White Blood Count 6.5 K/mm3 (4.8-10.8)
[2023-08-07 18:46] LABS: Alanine Aminotransferase 21 U/L (12-78); Albumin/Globulin Ratio 1.9 (1.1-1.8); Alkaline Phosphatase 93 U/L (38-126); Amylase 65 U/L (30-110); Anion Gap 8.2 mEq/L (5-15); Aspartate Amino Transferase 29 U/L (14-36); Bilirubin,Total 0.6 mg/dl (0.2-1.3); Blood Urea Nitrogen 18 mg/dl (7-17); Calcium 9.2 mg/dl (8.4-10.2); Carbon Dioxide 26 mmol/L (22.0-30.0); Chloride 110 mmol/L (98-107); Estimated Glomerular Filt Rate 89 ml/min (>60); GFR (African American) 108 ML/MIN (>60); Globulin 2.1 g/dL (1.3-3.2); Glucose 97 mg/dl (74-100); Lipase 63 U/L (23-300); Potassium 4.2 mmoL/L (3.5-5.1); Sodium 140 mmol/L (136-145); Total Protein,Serum 6.1 g/dl (6.3-8.2)
== END 2023-08-07 23:59 | disposition home or self-care (01) ==
LOC: LAB.DROPOF 08-08 09:01
PROVIDERS: PCP Family Medicine; Visit Provider Family Medicine
DX: R31.29 Other microscopic hematuria (principal); E66.9 Obesity, unspecified; B96.89 Other specified bacterial agents as the cause of diseases classified elsewhere; Z68.38 Body mass index [BMI] 38.0-38.9, adult
CPT/HCPCS: 80053; 82150; 83690; 85025; 87086

== ENCOUNTER 2023-08-27 07:16 | Outpatient (CLI) | payer OTHER, SELFPAY ==
--- NOTE | 2023-08-27 07:20 | CT_ITS ---
FINAL REPORT TECHNIQUE: Multiple axial CT sections were performed from the foramen magnum to the vertex. Coronal and sagittal reformatted images were also obtained. Precontrast and postcontrast injection images were obtained. This study was performed with technique to keep radiation doses as low as reasonably achievable, (ALARA). Individualized dose reduction techniques using automated exposure control or adjustment of mA and/or kV according to the patient size were employed. CLINICAL HISTORY: chronic headache COMPARISON: MRI of the head from 06/19/2017 FINDINGS: CT HEAD WITH AND WITHOUT CONTRAST: The ventricles are normal in size and configuration. There is a 1.9 x 1.6 cm anterior left occipital mass, with a central calcification. This has increased in size since the prior MRI of June 2017. There is no evidence of enhancement. No extra-axial fluid collections are identified. No mass effect or midline shift are seen. No other areas of abnormal parenchymal density are present. IMPRESSION: 1.9 x 1.6 cm anterior left occipital mass with a central calcification, increased in size since the prior MR of June 2017. No enhancement is noted. The differential diagnosis would include a low-grade cystic tumor, a parasitic infection such as cysticercosis. Reviewed, Interpreted and Dictated by Porfirio Hopper MD Transcribed by Genoveva Guzman Authenticated and [facility]
--- NOTE | 2023-08-27 07:20 | CT_ITS ---
FINAL REPORT CLINICAL HISTORY: blood in urine FINDINGS: A calcified granulomas seen at the right lung base.. The liver is normal in size and attenuation. There is mild intrahepatic and extrahepatic biliary ductal dilatation. Patient is status postcholecystectomy. There are postoperative changes of gastric bypass. No localized inflammatory reaction is seen. The spleen is unremarkable. The adrenals are normal. The pancreas is unremarkable. The kidneys enhance appropriately. Precontrast images demonstrate no nephrolithiasis. There is a small, stable hiatal hernia. The appendix is not identified. There are no secondary findings of appendicitis. Urinary bladder is incompletely distended. There is no adenopathy or free fluid. IMPRESSION: Postoperative changes of gastric bypass. Small hiatal hernia. Reviewed, Interpreted and Dictated by Porfirio Hopper MD Transcribed by Johanne Juan Authenticated and . [facility]
--- NOTE | 2023-08-27 07:20 | CT_ITS ---
FINAL REPORT TECHNIQUE: Multiple axial CT sections were performed of the sinuses without IV contrast. Coronal reconstruction images were performed. This study was performed with techniques to keep radiation doses as low as reasonably achievable (ALARA). Individualized dose reduction techniques using automated exposure control or adjustment of mA and/or kV according to the patient's size were employed. CLINICAL HISTORY: sinus mass COMPARISON: None FINDINGS: There is mild mucoperiosteal thickening in the right maxillary sinus. The previously noted abnormal signal throughout the right maxillary sinus is significantly improved. There are no air-fluid levels. The ostiomeatal units are patent. IMPRESSION: Significant interval improvement in chronic right maxillary sinusitis. Patent ostiomeatal units. Reviewed, Interpreted and Dictated by Porfirio Hopper MD Transcribed by Bel Valenzuela Authenticated and [facility]
[2023-08-27] MEDS: SODIUM CHLORIDE 0.9% 10ML SYR (RAD ONLY) 10 ML IV (08:03)
[2023-08-27] MEDS: IOPAMIDOL-370 (76%);100ML BOTTLE 75 ML IV (08:03)
== END 2023-08-27 23:59 | disposition home or self-care (01) ==
LOC: RAD 07:17
PROVIDERS: PCP Physician Assistant; Visit Provider Family Medicine
DX: J34.89 Other specified disorders of nose and nasal sinuses (principal); N20.0 Calculus of kidney; R31.9 Hematuria, unspecified
CPT/HCPCS: 70470; 70486; 74178; Q9967

== ENCOUNTER 2023-11-24 07:01 | Outpatient (CLI) | payer OTHER, SELFPAY ==
[2023-11-24 07:25] LABS: Basophils # 0.1 K/mm3 (0-0.2); Basophils % 1.1 % (0.1-2.0); Eosinophils # 0.2 K/mm3 (0.0-0.4); Eosinophils % 3.7 % (0.1-12.0); Hemoglobin 15.5 g/dL (12.2-16.2); Lymphocytes # 1.5 K/mm3 (0.7-4.5); Lymphocytes % 29.5 % (10-50); Mean Corpuscular Hemoglobin 29.7 pg (27.0-31.2); Mean Corpuscular Volume 89.9 fl (81-99); Mean Platelet Volume 9.4 fl (7.4-10.4); Monocytes # 0.3 K/mm3 (0.1-1.0); Monocytes % 6.4 % (1.7-9.3); Neutrophils # 2.9 K/mm3 (1.8-7.8); Neutrophils % 59.3 % (37.0-80.0); Platelet Count 238 K/mm3 (142-424); Red Blood Count 5.23 M/mm3 (4.20-5.40); Red Cell Distribution Width 13.6 % (11.5-17.5)
[2023-11-24 08:31] LABS: Albumin Level 3.7 g/dl (3.5-5.0); Chloride 109 mmol/L (98-107); Potassium 4.3 mmoL/L (3.5-5.1); Sodium 140 mmol/L (136-145)
[2023-11-24 08:33] LABS: Blood Urea Nitrogen 17 mg/dl (7-17); Estimated Glomerular Filt Rate 89 ml/min (>60); GFR (African American) 108 ML/MIN (>60)
[2023-11-24 08:34] LABS: Alanine Aminotransferase 18 U/L (12-78); Albumin/Globulin Ratio 1.7 (1.1-1.8); Alkaline Phosphatase 73 U/L (38-126); Anion Gap 8.3 mEq/L (5-15); Aspartate Amino Transferase 22 U/L (14-36); Bilirubin,Total 0.8 mg/dl (0.2-1.3); Calcium 8.9 mg/dl (8.4-10.2); Carbon Dioxide 27 mmol/L (22.0-30.0); Globulin 2.2 g/dL (1.3-3.2); Glucose 86 mg/dl (74-100); Iron 88 ug/dL (37-170); Total Protein,Serum 5.9 g/dl (6.3-8.2)
[2023-11-24 08:40] LABS: C-Reactive Protein 2.7 mg/L (0-4)
[2023-11-24 08:43] LABS: Total Iron Binding Capacity 323 ug/dL (265-497)
[2023-11-24 11:05] LABS: Erythrocyte Sedimentation Rate 3 mm/hr (0-20)
[2023-11-24 13:13] LABS: Vitamin B12 > 1000 pg/mL (239-931)
[2023-11-25 14:13] LABS: Anti-Cyclic Citrullinated Pept 4 units (0-19)
[2023-11-25 16:14] LABS: Anti-Centromere B Antibodies <0.2 AI (0.0-0.9); Anti-DNA (DS) Ab Qn <1 IU/mL (0-9); Anti-Jo-1 <0.2 AI (0.0-0.9); Anti-Smith Antibody <0.2 AI (0.0-0.9); Antichromatin Antibodies <0.2 AI (0.0-0.9); Antiscleroderma-70 Antibodies <0.2 AI (0.0-0.9); RA Latex Turbid. 14.7 IU/mL (<14.0); RNP Antibodies <0.2 AI (0.0-0.9); Sjogren's Anti-SS-A <0.2 AI (0.0-0.9); Sjogren's Anti-SS-B <0.2 AI (0.0-0.9)
== END 2023-11-24 23:59 | disposition home or self-care (01) ==
LOC: LAB 07:02
PROVIDERS: PCP Physician Assistant; Visit Provider Physician Assistant
DX: G25.81 Restless legs syndrome (principal); D50.9 Iron deficiency anemia, unspecified; R76.8 Other specified abnormal immunological findings in serum; Z98.84 Bariatric surgery status
CPT/HCPCS: 36415; 80053; 82607; 82728; 83540; 83550; 85025; 85651; 86140; 86200; 86225; 86235; 86431

== ENCOUNTER 2023-12-16 14:23 | Emergency (ER) | payer OTHER, SELFPAY ==
[2023-12-16] VITALS (7 sets, daily range): BP systolic 108–138; BP diastolic 65–89; PULSE 62–116; RESP 16–18; TEMP 36.7; O2SAT 96–100; BMI 35.6
--- NOTE | 2023-12-16 14:27 | HMH.EDGENADL ---
Discharge Plan Disposition Patient Disposition: Home, Self-Care Condition: Good Prescriptions Prescriptions: Discontinued prednisone 10 mg tablet PO albendazole 200 mg tablet PO No Action lorazepam [Ativan] 0.5 mg tablet 0.5 mg PO BID PRN (Reason: anxiety) Qty: 20 0RF ferrous sulfate 325 mg (65 mg iron) tablet 325 mg PO BID Qty: 60 3RF cholecalciferol (vitamin D3) 50 mcg (2,000 unit) tablet 50 mcg PO Patient Comments: TAKE 1 TABLET BY MOUTH ONCE DAILY nitroglycerin 0.4 mg tablet, sublingual 0.4 mg sublingual Q5M PRN (Reason: chest pain) Qty: 25 0RF Rx Instructions: do not exceed 3 doses per episode ergocalciferol (vitamin D2) 1,250 mcg (50,000 unit) capsule 1,250 mcg PO WEEKLY Qty: 14 3RF ondansetron 8 mg tablet,disintegrating 8 mg PO Q8H PRN (Reason: nausea and vomiting) Qty: 30 5RF Nurtec ODT 75 mg tablet,disintegrating See Rx Instructions .ROUTE .COMPLEX Qty: 16 4RF Dose Instruction: DISSOLVE 1 TABLET BY MOUTH EVERY OTHER DAY NEEDED FOR MIGRAINE HEADACHE Rx Instructions: DISSOLVE 1 TABLET BY MOUTH EVERY OTHER DAY NEEDED FOR MIGRAINE HEADACHE ropinirole 1 mg tablet See Rx Instructions .ROUTE .COMPLEX Qty: 60 0RF Dose Instruction: TAKE 2 TABLETS BY MOUTH AT NIGHT 1-3 HOURS BEFORE BEDTIME Rx Instructions: TAKE 2 TABLETS BY MOUTH AT NIGHT 1-3 HOURS BEFORE BEDTIME tramadol 50 mg tablet 50 mg PO Q8H PRN (Reason: pain) Qty: 90 0RF Referrals Follow up/Referrals: Provider,Referral, MD [Referring] - See instructions Activity Restrictions/Add. Instructions Additional Instructions/Restrictions: Follow-up with primary care call for an appointment. Return for any symptoms or worsening of symptoms. Follow-up with infection disease at . Clinical Impressions Clinical Impression: Cysticercosis of brain Instructions Patient Instructions: Cysticercosis Print Language Print Language: Malian Discharge ED Provider: Gil Sewell General Adult HPI <Winter Romero ([facility]), FULL STACK NET DEVELOPER - Last Filed: 12/16/23 17:13> General Chief complaint: Weakness Stated complaint: shaky, soa, sweats, fatigue Time Seen by Provider: 12/16/23 14:25 History of Present Illness HPI narrative: 48-year-old female presents to the the emergency room with complaints of feeling shaky,weak, short of air and fatigue after starting new medication prescribed from the infectious disease doctor at for parasites in the brain . Patient denies chest pain or pressure, or dizziness, fever. Patient states she followed up with her primary care doctor at the end of last week for similar symptoms, patient states her primary care doctor instructed her to take a aspirin daily. She states that her biggest concern is that she needs to get back to work but feels she is unable to do so because of her intermittent sweatiness, weakness, brain fog. She reports that today she could not find her keys and they somehow ended up in the garbage. She states that her PCP put her on Ativan 0.5mg, which she has taken two doses of. She reports that intermittently her heart rate will elevate at home while at rest and she will have palpitations. She currently is wearing a loop recorder and has not had any reported arrhythmias. Related Data Home Medications ?Medication ?Instructions ?Recorded ?Confirmed cholecalciferol (vitamin D3) 50 50 mcg PO 07/02/23 12/11/23 mcg (2,000 unit) tablet Previous Rx's ?Medication ?Instructions ?Recorded nitroglycerin 0.4 mg sublingual 0.4 mg sublingual Q5M PRN chest 01/22/22 tablet pain #25 tabs ferrous sulfate 325 mg (65 mg 325 mg PO BID Supplement #60 tabs 05/05/23 iron) tablet ergocalciferol (vitamin D2) 1,250 1,250 mcg PO WEEKLY #14 caps 05/07/23 mcg (50,000 unit) capsule ondansetron 8 mg disintegrating 8 mg PO Q8H PRN nausea and 06/02/23 tablet vomiting #30 tabs rimegepant 75 mg disintegrating See Rx Instructions .Route 10/19/23 tablet (Nurtec ODT) .COMPLEX #16 tabs ropinirole 1 mg tablet See Rx Instructions .Route 11/24/23 .COMPLEX #60 tabs tramadol 50 mg tablet 50 mg PO Q8H PRN pain #90 tabs 11/30/23 lorazepam 0.5 mg tablet (Ativan) 0.5 mg PO BID PRN anxiety #20 tabs 12/11/23 Allergies Allergy/AdvReac Type Severity Reaction Status Date / Time lamotrigine Allergy Intermediate I-RASH Verified 12/16/23 14:40 morphine Allergy Nausea Verified 12/16/23 14:40 <Gil Sewell MD - Last Filed: 12/16/23 15:27> History of Present Illness HPI narrative: 48-year-old female presents to the the emergency room with complaints of feeling shaky,weak, short of air and fatigue after starting new medication prescribed from the infectious disease doctor at for parasites in the brain . Patient denies chest pain or pressure, or dizziness, fever. Patient states she followed up with her primary care doctor at the end of last week for similar symptoms, patient states her primary care doctor instructed her to take a aspirin daily. She states that her biggest concern is that she needs to get back to work but feels she is unable to do so because of her intermittent sweatiness, weakness, brain fog. SHe reports that today she could not find her keys and they somehow ended up in the garbage. She states that her PCP puyt her on Ativan 0.5mg, which she has taken two doses of. She reports that intermittently her heart rate will elevate at home while at rest and she will have palpitations. She currently is wearing a loop recorder and has not had any reported arrhythmias. [facility] <Winter Romero ([facility]), FULL STACK NET DEVELOPER - Last Filed: 12/16/23 17:13> [facility] Disclaimer: The information contained in this section may have been updated after the patient was seen, as this information can be updated by other users. 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 Bilateral foot pain Subcutaneous nodules Obesity Heel spur Surgical History (Updated 11/23/23 @ 15:57 by MADELYN Ortiz) S/P panniculectomy Hx of gastric bypass History of ERCP Hx of total hysterectomy History of bilateral tubal ligation Hx laparoscopic cholecystectomy History of tonsillectomy and adenoidectomy Status post hysterectomy Family History Other Family history of GERD Family history of diabetes mellitus type II Family history of hyperlipidemia Family history of hypertension Family history of migraine headaches Viral upper respiratory illness Social History Smoking Status: Never smoker alcohol intake: never substance use type: denies use current occupational status: employed and other Travel in the last 8 weeks: None household members: spouse housing: house 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 current occupational exposures/hazards: No caffeine: Yes <Winter Romero ([facility]), FULL STACK NET DEVELOPER - Last Filed: 12/16/23 17:13> ROS Obtained: Yes Systems reviewed as appropriate & no additional complaints except as documented Physical Exam <Winter Romero ([facility]), FULL STACK NET DEVELOPER - Last Filed: 12/16/23 17:13> General General appearance: alert and in no apparent distress Eye Eye exam: Present normal appearance and PERRL ENT ENT exam: Present normal exam Respiratory Respiratory exam: Present normal lung sounds bilaterally Cardiovascular Cardiovascular exam: Present regular rate and normal rhythm Neurological Exam Neurological exam: Present alert, oriented X3 and normal gait Psychiatric Psychiatric exam: Present anxious Skin Skin exam: Present warm and intact <Gli Sewell MD - Last Filed: 12/16/23 15:27> Respiratory Respiratory exam: Absent wheezes or stridor Extremities Exam Extremities exam: Absent edema Neurological Exam Neurological exam: Absent CN II-XII intact or motor sensory deficit Expanded Neurological Exam Other motor function: Strength and sensation grossly intact to all extremities Medical Decision Making <Winter Romero ([facility]), FULL STACK NET DEVELOPER - Last Filed: 12/16/23 17:13> Medical Records Medical records reviewed: Yes I reviewed the patient's medical records. Aidan Inquiry Pt receiving controlled substance: No Aidan was queried for this patient: No Vital Signs: 12/16/23 14:35 12/16/23 14:39 12/16/23 15:03 Temperature 98.1 F Temperature Source Oral Pulse Rate 109 H 71 Pulse Rate [Right Brachial] 116 H Respiratory Rate 18 Blood Pressure 138/89 108/69 L Blood Pressure [Right Arm] 133/84 Blood Pressure Mean [Right Arm] 100 Blood Pressure Source [Right Arm] Automatic Cuff Blood Pressure Position [Right Arm] Sitting 02 Sat by Pulse Oximetry 98 99 97 Oxygen Delivery Method Room Air 12/16/23 15:30 12/16/23 16:00 12/16/23 16:36 Temperature Temperature Source Pulse Rate 72 62 67 Pulse Rate [Right Brachial] Respiratory Rate Blood Pressure 112/65 121/72 117/89 Blood Pressure [Right Arm] Blood Pressure Mean [Right Arm] Blood Pressure Source [Right Arm] Blood Pressure Position [Right Arm] 02 Sat by Pulse Oximetry 96 100 100 Oxygen Delivery Method Lab Data Lab Results 12/16/23 14:40: WBC 8.8, RBC 5.75 H, Hgb 16.8 H, Hct 52.9 H, MCV 92.1, MCH 29.2, MCHC 31.7 L, RDW 13.9, Plt Count 366, MPV 10.4, Neut % (Auto) 82.8 H, Lymph % (Auto) 13.0, Owen % (Auto) 3.5, Eos % (Auto) 0.2, Baso % (Auto) 0.4, Neut # (Auto) 7.3, Lymph # (Auto) 1.2, Owen # (Auto) 0.3, Eos # (Auto) 0.0, Baso # (Auto) 0.0, Total Counted 100, Neutrophils % (Manual) 81 H, Lymphocytes % (Manual) 15, Monocytes % (Manual) 4, Platelet Estimate Normal, Giant Platelets 1+, RBC Morphology Normal, Sodium 142, Potassium 3.7, Chloride 109 H, Carbon Dioxide 26, Anion Gap 10.7, BUN 16, Creatinine 1.00, Estimated Creat Clear 95, Estimated GFR 59, Est GFR ( Amer) 71, Glucose 114 H, Calcium 9.0, Total Bilirubin 0.6, AST 32, ALT 34, Alkaline Phosphatase 83, Total Creatine Kinase 69, CK-MB (CK-2) 1.4, CK-MB (CK-2) Rel Index 2.0, Troponin I < 0.01, Total Protein 7.0, Albumin 4.4, Globulin 2.6, Albumin/Globulin Ratio 1.7, TSH 0.51, Free T4 1.14 12/16/23 14:40 12/16/23 14:40 Orders (Tests/Meds): ED MEDICATIONS Discontinued Medications Generic Name Dose Route Start Last Admin Trade Name Freq PRN Reason Stop Dose Admin Sodium Chloride 1,000 mls @ 150 mls/hr 12/16/23 14:45 12/16/23 14:59 Sod Chlor 0.9% 1000ml Bag IV 01/15/24 14:44 Not Given .Q6H40M HANSA Sodium Chloride 1,000 mls @ 999 mls/hr 12/16/23 15:00 12/16/23 15:02 Sod Chlor 0.9% 1000ml Bag IV 12/16/23 16:00 999 mls/hr .Q1H1M HANSA Administration ORDERS Category Date Time Status CT head/brain wo con Stat Cat Scan 12/16/23 14:43 Completed CBC Man Diff [Complete Blood Count Man Dif] Stat Lab 12/16/23 14:40 Completed CMP [Comprehensive Metabolic Panel] Stat Lab 12/16/23 14:40 Completed Cardiac Enzymes Stat Lab 12/16/23 14:40 Completed Free T4 (Free Thyroxine) Stat Lab 12/16/23 14:40 Completed TSH [Thyroid Stimulating Hormone] Stat Lab 12/16/23 14:40 Completed EKG Request [ECG Request] Stat Y 12/16/23 14:43 Ordered Medical Decision Narrative: In summary patient is a 48-year-old female who presents to the emergency department for evaluation of shaky, fatigue, weakness after starting a new medicine (albendazole and prednisone) for parasites to the brain Patient is [hemodynamically stable] upon arrival, [afebrile]. Patient's physical exam is grossly unremarkable, no focal neurological deficits. Differential diagnosis includes worsening cysticercosis, ACS, cardiac arrhythmia, hypothyroidism, electrolyte derangement, hypoglycemia, panic attack. Initial workup will be conducted with CT head without contrast, CBC, CMP, thyroid studies, EKG. Initial inventions include 1 L normal saline. EKG interpreted by me personally. Normal sinus rhythm with sinus arrhythmia. No ST elevations or depressions. QTc 404. DE interval normal At this time, patient's care was transferred to the oncoming physician, Dr. Swann, pending completion of her workup. See transfer of care note for details and final disposition. She remained hemodynamically stable throughout her ED visit and was appropriate for transfer of care at this time. Spoke with Dr. Amy Jackson infectious disease at discussed labs and CT and patient's condition with complaints. Her recommendations were to stop down albendazole and prednisone. She states she thinks patient's symptoms was possible side effects to the medication and recommended adrenal labs and to follow-up with her primary care. States that patient has a follow-up on February 18 and she will talk with the team to see if they needed to see her sooner. Discussed with the patient and will discharge home with close follow-up with PCP for adrenal labs. <Gil Sewell MD - Last Filed: 12/16/23 15:27> Vital Signs: 12/16/23 14:35 12/16/23 14:39 12/16/23 15:03 Temperature 98.1 F Temperature Source Oral Pulse Rate 109 H 71 Pulse Rate [Right Brachial] 116 H Respiratory Rate 18 Blood Pressure 138/89 108/69 L Blood Pressure [Right Arm] 133/84 Blood Pressure Mean [Right Arm] 100 Blood Pressure Source [Right Arm] Automatic Cuff Blood Pressure Position [Right Arm] Sitting 02 Sat by Pulse Oximetry 98 99 97 Oxygen Delivery Method Room Air 12/16/23 15:30 12/16/23 16:00 12/16/23 16:36 Temperature Temperature Source Pulse Rate 72 62 67 Pulse Rate [Right Brachial] Respiratory Rate Blood Pressure 112/65 121/72 117/89 Blood Pressure [Right Arm] Blood Pressure Mean [Right Arm] Blood Pressure Source [Right Arm] Blood Pressure Position [Right Arm] 02 Sat by Pulse Oximetry 96 100 100 Oxygen Delivery Method Lab Data Lab Results 12/16/23 14:40: WBC 8.8, RBC 5.75 H, Hgb 16.8 H, Hct 52.9 H, MCV 92.1, MCH 29.2, MCHC 31.7 L, RDW 13.9, Plt Count 366, MPV 10.4, Neut % (Auto) 82.8 H, Lymph % (Auto) 13.0, Owen % (Auto) 3.5, Eos % (Auto) 0.2, Baso % (Auto) 0.4, Neut # (Auto) 7.3, Lymph # (Auto) 1.2, Owen # (Auto) 0.3, Eos # (Auto) 0.0, Baso # (Auto) 0.0, Total Counted 100, Neutrophils % (Manual) 81 H, Lymphocytes % (Manual) 15, Monocytes % (Manual) 4, Platelet Estimate Normal, Giant Platelets 1+, RBC Morphology Normal, Sodium 142, Potassium 3.7, Chloride 109 H, Carbon Dioxide 26, Anion Gap 10.7, BUN 16, Creatinine 1.00, Estimated Creat Clear 95, Estimated GFR 59, Est GFR ( Amer) 71, Glucose 114 H, Calcium 9.0, Total Bilirubin 0.6, AST 32, ALT 34, Alkaline Phosphatase 83, Total Creatine Kinase 69, CK-MB (CK-2) 1.4, CK-MB (CK-2) Rel Index 2.0, Troponin I < 0.01, Total Protein 7.0, Albumin 4.4, Globulin 2.6, Albumin/Globulin Ratio 1.7, TSH 0.51, Free T4 1.14 Orders (Tests/Meds): ED MEDICATIONS Discontinued Medications Generic Name Dose Route Start Last Admin Trade Name Freq PRN Reason Stop Dose Admin Sodium Chloride 1,000 mls @ 150 mls/hr 12/16/23 14:45 12/16/23 14:59 Sod Chlor 0.9% 1000ml Bag IV 01/15/24 14:44 Not Given .Q6H40M HANSA Sodium Chloride 1,000 mls @ 999 mls/hr 12/16/23 15:00 12/16/23 15:02 Sod Chlor 0.9% 1000ml Bag IV 12/16/23 16:00 999 mls/hr .Q1H1M HANSA Administration ORDERS Category Date Time Status CT head/brain wo con Stat Cat Scan 12/16/23 14:43 Completed CBC Man Diff [Complete Blood Count Man Dif] Stat Lab 12/16/23 14:40 Completed CMP [Comprehensive Metabolic Panel] Stat Lab 12/16/23 14:40 Completed Cardiac Enzymes Stat Lab 12/16/23 14:40 Completed Free T4 (Free Thyroxine) Stat Lab 12/16/23 14:40 Completed TSH [Thyroid Stimulating Hormone] Stat Lab 12/16/23 14:40 Completed EKG Request [ECG Request] Stat Y 12/16/23 14:43 Ordered Medical Decision Narrative: In summary patient is a 48-year-old female who presents to the emergency department for evaluation of shaky, fatigue, weakness after starting a new medicine (albendazole and prednisone) for parasites to the brain Patient is [hemodynamically stable] upon arrival, [afebrile]. Patient's physical exam is grossly unremarkable, no focal neurological deficits. Differential diagnosis includes worsening cysticercosis, ACS, cardiac arrhythmia, hypothyroidism, electrolyte derangement, hypoglycemia, panic attack. Initial workup will be conducted with CT head without contrast, CBC, CMP, thyroid studies, EKG. Initial inventions include 1 L normal saline. EKG interpreted by me personally. Normal sinus rhythm with sinus arrhythmia. No ST elevations or depressions. QTc 404. DE interval normal At this time, patient's care was transferred to the oncoming physician, Dr. Swann, pending completion of her workup. See transfer of care note for details and final disposition. She remained hemodynamically stable throughout her ED visit and was appropriate for transfer of care at this time. Critical Care <Gil Sewell MD - Last Filed: 12/16/23 15:27> Critical Care Time Critical Care Time: No
--- NOTE | 2023-12-16 14:31 | PC.NURSE ---
Winter GOVERNMENT RELATIONS ANALYST, at BS for pt gigi
--- NOTE | 2023-12-16 14:40 | ECG_ITS ---
APPROVED REPORT Exam: Resting ECG HR:84 bpm ECG Measurements Heart Rate 84 AXES AZ 132 P 65 QRSd 93 QRS 43 QT 362 T 46 QTc 404 Conclusion SINUS RHYTHM WITH SINUS ARRHYTHMIA NONSPECIFIC ST & T-WAVE ABNORMALITY BORDERLINE ECG Electronically signed by : MARY SOLIS, 12/19/2023 15:56:26
--- NOTE | 2023-12-16 14:43 | CT_ITS ---
FINAL REPORT CLINICAL HISTORY: confusion/weakness hx of cysticercosis COMPARISON: 08/27/2023 FINDINGS: Axial images of the head were obtained without contrast. Coronal and sagittal reformatted images were also obtained.This study was performed with techniques to keep radiation doses as low as reasonably achievable (ALARA). Individualized dose reduction techniques using automated exposure control or adjustment of mA and/or kV according to the patient's size were employed. There is no evidence of intracranial hemorrhage. The ventricular size is within normal limits. There is an 18 mm lobular cystic mass with central calcification present in the left parietal lobe. This was previously measured at 10 mm in 2018. No new masses are identified. There is no evidence of shift of the midline structures. No abnormal extra axial fluid collection is identified. No skull abnormality is seen on the bone window images. IMPRESSION: 18 mm lobular cystic mass with central calcification in the left parietal lobe, was 10 mm in 2018, favor a low-grade cystic neoplasm. No new intracranial abnormality is noted since the prior CT of August 2023. Reviewed, Interpreted and Dictated by Kwame Palma III, MD Transcribed by Genoveva Guzman Authenticated and . [facility]
[2023-12-16 14:59] LABS: MANUAL DIFFERENTIAL MANUAL DIFFERENTIAL (MANUAL DIFF)
[2023-12-16] MEDS: 0.9 % SODIUM CHLORIDE 1000ML 1,000 ML 999 ML IV (15:02)
[2023-12-16 15:03] LABS: Albumin Level 4.4 g/dl (3.5-5.0); Chloride 109 mmol/L (98-107); Potassium 3.7 mmoL/L (3.5-5.1); Sodium 142 mmol/L (136-145)
[2023-12-16 15:05] LABS: Alanine Aminotransferase 34 U/L (12-78); Albumin/Globulin Ratio 1.7 (1.1-1.8); Alkaline Phosphatase 83 U/L (38-126); Anion Gap 10.7 mEq/L (5-15); Aspartate Amino Transferase 32 U/L (14-36); Bilirubin,Total 0.6 mg/dl (0.2-1.3); Blood Urea Nitrogen 16 mg/dl (7-17); Carbon Dioxide 26 mmol/L (22.0-30.0); Creatinine Clearance Estimated 95 mL/min (50-200); Estimated Glomerular Filt Rate 59 ml/min (>60); GFR (African American) 71 ML/MIN (>60); Globulin 2.6 g/dL (1.3-3.2)
[2023-12-16 15:06] LABS: Creatine Kinase 69 U/L (30-135); Glucose 114 mg/dl (74-100)
[2023-12-16 15:07] LABS: Basophils % 0.4 % (0.1-2.0); Eosinophils % 0.2 % (0.1-12.0); Hematocrit 52.9 % (37.0-47.0); Hemoglobin 16.8 g/dL (12.2-16.2); Lymphocytes # 1.2 K/mm3 (0.7-4.5); Mean Corpuscular HGB Conc 31.7 g/dL (31.8-35.4); Mean Corpuscular Hemoglobin 29.2 pg (27.0-31.2); Mean Corpuscular Volume 92.1 fl (81-99); Mean Platelet Volume 10.4 fl (7.4-10.4); Monocytes # 0.3 K/mm3 (0.1-1.0); Monocytes % 3.5 % (1.7-9.3); Neutrophils # 7.3 K/mm3 (1.8-7.8); Neutrophils % 82.8 % (37.0-80.0); Platelet Count 366 K/mm3 (142-424); Red Blood Count 5.75 M/mm3 (4.20-5.40); Red Cell Distribution Width 13.9 % (11.5-17.5); White Blood Count 8.8 K/mm3 (4.8-10.8)
[2023-12-16 15:15] LABS: Creatine Kinase MB 1.4 ng/ml (0.0-2.03)
[2023-12-16 15:18] LABS: Troponin I < 0.01 ng/ml (0.00-0.034)
[2023-12-16 15:41] LABS: Free T4 (Free Thyroxine) 1.14 ng/dl (0.78-2.19)
[2023-12-16 15:48] LABS: Giant Platelets 1+; Lymphocytes % 15 % (10-50); Monocytes % 4 % (2-9); Neutrophils % 81 % (42-76); Platelet Estimate Normal; RBC Morphology Normal; Total Cells Counted 100
[2023-12-16 15:55] LABS: Thyroid Stimulating Hormone 0.51 uIU/mL (0.465-4.68)
--- NOTE | 2023-12-16 16:37 | PC.NURSE ---
Rounded on PT. PT wanted a warm blanket, Tech took a warm blanket to her. PT says she doesn't need anything else right now.
--- NOTE | 2023-12-16 16:51 | PC.NURSE ---
Winter speaking with [facility]
--- NOTE | 2023-12-16 17:32 | PC.NURSE ---
labs ordered, nurse at bedside drawing labs.
[2023-12-18 14:20] LABS: Adrenocorticotropic Hormone <1.5 pg/mL (7.2-63.3)
== END 2023-12-16 17:39 | disposition home or self-care (01) ==
PROVIDERS: Nurse Practitioner Family; Emergency Provider Student in an Organized Health Care Education/Training Program; PCP Physician Assistant
DX: B69.0 Cysticercosis of central nervous system (principal); R06.02 Shortness of breath; R53.83 Other fatigue; R42 Dizziness and giddiness
CPT/HCPCS: 70450; 80053; 82024; 82533; 82550; 82553; 84244; 84439; 84443; 84484; 85007; 85014; 85018; 85048; 85049; 93005; 96360; 99285; J7030

== ENCOUNTER 2023-12-21 10:10 | Emergency (ER) | payer OTHER, SELFPAY ==
[2023-12-21] VITALS (17 sets, daily range): BP systolic 102–142; BP diastolic 61–82; PULSE 52–102; RESP 16–17; TEMP 36.7–36.8; O2SAT 96–100; BMI 35.6
--- NOTE | 2023-12-21 10:20 | ECG_ITS ---
APPROVED REPORT Exam: Resting ECG HR:73 bpm ECG Measurements Heart Rate 73 AXES FL 133 P 44 QRSd 81 QRS 52 QT 368 T 36 QTc 394 Conclusion SINUS RHYTHM NORMAL ECG Electronically signed by : CHEN COTO, 12/21/2023 16:33:44
[2023-12-21] MEDS: KETOROLAC 30MG/ML VIAL 15 MG IV (11:25)
[2023-12-21] MEDS: ACETAMINOPHEN 500MG TAB 1000 MG PO (11:26)
[2023-12-21] MEDS: LACTATED RINGERS 1000ML 1,000 ML 999 ML IV (11:26)
[2023-12-21 11:28] LABS: Basophils % 0.6 % (0.1-2.0); Eosinophils # 0.2 K/mm3 (0.0-0.4); Eosinophils % 2.8 % (0.1-12.0); Hematocrit 46.7 % (37.0-47.0); Lymphocytes # 1.3 K/mm3 (0.7-4.5); Lymphocytes % 19.8 % (10-50); Mean Corpuscular HGB Conc 32.1 g/dL (31.8-35.4); Mean Corpuscular Hemoglobin 29.1 pg (27.0-31.2); Mean Corpuscular Volume 90.6 fl (81-99); Mean Platelet Volume 9.5 fl (7.4-10.4); Monocytes # 0.4 K/mm3 (0.1-1.0); Monocytes % 6.3 % (1.7-9.3); Neutrophils # 4.8 K/mm3 (1.8-7.8); Neutrophils % 70.4 % (37.0-80.0); Platelet Count 260 K/mm3 (142-424); Red Blood Count 5.15 M/mm3 (4.20-5.40); Red Cell Distribution Width 14.2 % (11.5-17.5); White Blood Count 6.7 K/mm3 (4.8-10.8)
[2023-12-21 11:31] LABS: Microscopic, Urine URINE MICROSCOPIC (MICROSCOPIC)
[2023-12-21 11:37] LABS: Chloride 111 mmol/L (98-107)
[2023-12-21 11:38] LABS: Albumin Level 3.7 g/dl (3.5-5.0); Potassium 4.2 mmoL/L (3.5-5.1); Sodium 139 mmol/L (136-145)
[2023-12-21 11:40] LABS: Blood Urea Nitrogen 17 mg/dl (7-17); Creatinine Clearance Estimated 136 mL/min (50-200); Estimated Glomerular Filt Rate 89 ml/min (>60); GFR (African American) 108 ML/MIN (>60)
[2023-12-21 11:41] LABS: Alanine Aminotransferase 24 U/L (12-78); Albumin/Globulin Ratio 1.6 (1.1-1.8); Alkaline Phosphatase 35 U/L (38-126); Anion Gap 5.2 mEq/L (5-15); Aspartate Amino Transferase 44 U/L (14-36); Bilirubin,Total 1.1 mg/dl (0.2-1.3); Calcium 8.3 mg/dl (8.4-10.2); Carbon Dioxide 27 mmol/L (22.0-30.0); Globulin 2.3 g/dL (1.3-3.2); Glucose 90 mg/dl (74-100); Magnesium 2.1 mg/dl (1.6-2.3)
[2023-12-21 11:42] LABS: Appearance,Urine CLEAR (Clear); Bilirubin,Urine Negative (Negative); Blood, Urine TRACE-I (Negative); Color,Urine YELLOW (Yellow); Glucose,Urine (UA) Negative (Negative); Ketones,Urine Negative (Negative); Leukocyte Esterase,Urine Negative (Negative); Nitrate,Urine POSITIVE (Negative); PH,Urine 6.5 (5.0-8.5); Protein,Urine Negative (Negative)
--- NOTE | 2023-12-21 11:54 | ED_ITS ---
Discharge Plan Disposition Patient Disposition: Home, Self-Care Prescriptions Prescriptions: New albendazole 200 mg tablet 600 mg PO BID 14 Days Qty: 84 0RF Rx Instructions: must administer with food, preferably a high-fat meal prednisone 20 mg tablet See Rx Instructions .ROUTE .COMPLEX 17 Days Qty: 32 0RF Rx Instructions: 40 mg daily for 15 days followed by 20 mg on day 16 followed by 10 mg on day 17. nitrofurantoin monohyd/m-cryst [Macrobid] 100 mg capsule 100 mg PO BID 5 Days Qty: 10 0RF Rx Instructions: must administer with a meal/food No Action lorazepam [Ativan] 0.5 mg tablet 0.5 mg PO BID PRN (Reason: anxiety) Qty: 20 0RF ferrous sulfate 325 mg (65 mg iron) tablet 325 mg PO BID Qty: 60 3RF nitroglycerin 0.4 mg tablet, sublingual 0.4 mg sublingual Q5M PRN (Reason: chest pain) Qty: 25 0RF Rx Instructions: do not exceed 3 doses per episode ondansetron 8 mg tablet,disintegrating 8 mg PO Q8H PRN (Reason: nausea and vomiting) Qty: 30 5RF Nurtec ODT 75 mg tablet,disintegrating See Rx Instructions .ROUTE .COMPLEX Qty: 16 4RF Dose Instruction: DISSOLVE 1 TABLET BY MOUTH EVERY OTHER DAY NEEDED FOR MIGRAINE HEADACHE Rx Instructions: DISSOLVE 1 TABLET BY MOUTH EVERY OTHER DAY NEEDED FOR MIGRAINE HEADACHE ropinirole 1 mg tablet See Rx Instructions .ROUTE .COMPLEX Qty: 60 0RF Dose Instruction: TAKE 2 TABLETS BY MOUTH AT NIGHT 1-3 HOURS BEFORE BEDTIME Rx Instructions: TAKE 2 TABLETS BY MOUTH AT NIGHT 1-3 HOURS BEFORE BEDTIME tramadol 50 mg tablet 50 mg PO Q8H PRN (Reason: pain) Qty: 90 0RF Referrals Follow up/Referrals: Jessica Oliver APRN [Primary Care Provider] - See instructions Activity Restrictions/Add. Instructions Additional Instructions/Restrictions: At this time it was felt you are safe to be discharged home. If new or worsening symptoms please do not hesitate to return the emergency department. Please take your antiparasitic's and steroids as prescribed. [facility] neurosurgery clinic should be contacting you for an appointment with Dr. Douglas in 2 weeks. Clinical Impressions Clinical Impression: Cysticercosis of brain, Headache, UTI (urinary tract infection) Print Language Print Language: Tajik Discharge ED Provider: Karthikeyan Soares General Adult HPI <Ann Marie Levi Constantino, DO - Last Filed: 12/21/23 15:37> General Chief complaint: Headache Stated complaint: severe lower back pain, high heart rate Time Seen by Provider: 12/21/23 10:32 Mode of Arrival: Ambulatory Source of Information: Patient Limitations: No Limitations Description of Symptoms (Recalled from ER Triage Doc. by RN): Patient reports head pressure and right lower back pain. Pt reports she was in our ED last thursday and is currently being treated for a tapeworm in her brain. History of Present Illness HPI narrative: This patient is a 48-year-old female with a history of neurocysticercosis, depression, GERD, SVT presenting to the emergency department for evaluation with concern for feeling unwell. Patient reports that she has recently been treated for worms in her brain by and is just generally not feeling well today. She states that she is having head pressure, low back pain, fatigue, and bodyaches. She notes that her PCP has also been recently concern for adrenal issues. On medical record review, she was seen here 12/16/2023 for similar issues. Her neurocysticercosis is currently managed by infectious disease at , and the provider in the ED discussed the case with her and it she was advised to stop the albendazole and prednisone as they could be side effects. Despite stopping these, the patient states that she still feeling no better. She has had no recent fevers, visual disturbance, numbness, tingling, weakness, or other concerns. Related Data Previous Rx's ?Medication ?Instructions ?Recorded nitroglycerin 0.4 mg sublingual 0.4 mg sublingual Q5M PRN chest 01/22/22 tablet pain #25 tabs ferrous sulfate 325 mg (65 mg 325 mg PO BID Supplement #60 tabs 05/05/23 iron) tablet ondansetron 8 mg disintegrating 8 mg PO Q8H PRN nausea and 06/02/23 tablet vomiting #30 tabs rimegepant 75 mg disintegrating See Rx Instructions .Route 10/19/23 tablet (Nurtec ODT) .COMPLEX #16 tabs ropinirole 1 mg tablet See Rx Instructions .Route 11/24/23 .COMPLEX #60 tabs tramadol 50 mg tablet 50 mg PO Q8H PRN pain #90 tabs 11/30/23 lorazepam 0.5 mg tablet (Ativan) 0.5 mg PO BID PRN anxiety #20 tabs 12/11/23 albendazole 200 mg tablet 600 mg (3 x 200 mg) PO BID 12/21/23 neurocysticercosis 14 days #84 tabs nitrofurantoin 100 mg PO BID 5 days #10 caps 12/21/23 monohydrate/macrocrystals 100 mg capsule (Macrobid) prednisone 20 mg tablet See Rx Instructions .Route 12/21/23 .COMPLEX 17 days #32 tabs Allergies Allergy/AdvReac Type Severity Reaction Status Date / Time lamotrigine Allergy Intermediate I-RASH Verified 12/18/23 13:14 morphine Allergy Nausea Verified 12/18/23 13:14 PFSH <Ann Marie Constantino DO - Last Filed: 12/21/23 15:37> [facility] Disclaimer: The information contained in this section may have been updated after the patient was seen, as this information can be updated by other users. Medical History Palpitations SVT (supraventricular tachycardia) Pre-operative cardiovascular examination Headache Low phosphate levels Snoring History of anemia Migraine GERD (gastroesophageal reflux disease) Depression Iron deficiency anemia Rheumatoid factor positive with cyclic citrullinated peptide (CCP) antibody negative Bilateral foot pain Subcutaneous nodules Obesity Heel spur Surgical History S/P panniculectomy Hx of gastric bypass History of ERCP Hx of total hysterectomy History of bilateral tubal ligation Hx laparoscopic cholecystectomy History of tonsillectomy and adenoidectomy Status post hysterectomy Family History Other Family history of GERD Family history of diabetes mellitus type II Family history of hyperlipidemia Family history of hypertension Family history of migraine headaches Viral upper respiratory illness Social History Smoking Status: Never smoker alcohol intake: never substance use type: denies use current occupational status: employed and other Travel in the last 8 weeks: None household members: spouse housing: house 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 current occupational exposures/hazards: No caffeine: Yes <Ann Marie Constantino DO - Last Filed: 12/21/23 15:37> ROS Obtained: Yes All systems reviewed & no additional complaints except as documented Physical Exam <Ann Marie Constantino, - Last Filed: 12/21/23 15:37> General General appearance: alert, in no apparent distress and obese Head Head exam: atraumatic and normocephalic Eye Eye exam: Present normal appearance, PERRL and EOMI ENT ENT exam: Present normal exam, normal oropharynx, mucous membranes moist and normal external ear exam Neck Neck exam: Present normal inspection, full ROM and trachea midline; Absent tenderness Chest Chest inspection: Present normal inspection and symmetric chest wall rise; Absent tenderness Respiratory Respiratory exam: Present normal lung sounds bilaterally; Absent respiratory distress, wheezes, stridor or accessory muscle use Cardiovascular Cardiovascular exam: Present regular rate and normal rhythm Abdominal Exam Abdominal exam: Present soft; Absent distention, tenderness or guarding Extremities Exam Extremities exam: Present normal inspection, full ROM and normal capillary refill; Absent tenderness or edema Back Exam Back exam: Present normal inspection and full ROM; Absent tenderness Neurological Exam Neurological exam: Present alert, oriented X3, CN II-XII intact and normal gait; Absent motor sensory deficit Psychiatric Psychiatric exam: Present normal affect and normal mood Skin Skin exam: Present warm and dry Medical Decision Making <Ann Marie Constantino, - Last Filed: 12/21/23 15:37> Medical Records Medical records reviewed: Yes I reviewed the patient's medical records. Aidan Inquiry Pt receiving controlled substance: No Vital Signs: 12/21/23 10:18 12/21/23 10:46 12/21/23 11:00 Temperature 98.3 F Temperature Source Oral Pulse Rate 75 Pulse Rate [Right Brachial] 102 H Respiratory Rate 17 Blood Pressure 128/71 132/75 Blood Pressure [Right Arm] 105/61 L Blood Pressure Mean 90 98 Blood Pressure Mean [Right Arm] 75 Blood Pressure Source Blood Pressure Source [Right Arm] Automatic Cuff Blood Pressure Position 02 Sat by Pulse Oximetry 98 99 99 Oxygen Delivery Method Room Air Room Air Room Air 12/21/23 11:30 12/21/23 12:00 12/21/23 12:39 Temperature Temperature Source Pulse Rate 71 58 L Pulse Rate [Right Brachial] Respiratory Rate Blood Pressure 134/82 128/79 117/76 Blood Pressure [Right Arm] Blood Pressure Mean 90 85 89 Blood Pressure Mean [Right Arm] Blood Pressure Source Blood Pressure Source [Right Arm] Blood Pressure Position 02 Sat by Pulse Oximetry 96 98 100 Oxygen Delivery Method Room Air Room Air Room Air 12/21/23 13:00 12/21/23 13:31 12/21/23 14:00 Temperature Temperature Source Pulse Rate 58 L 56 L 61 Pulse Rate [Right Brachial] Respiratory Rate Blood Pressure 122/69 102/62 L 109/70 L Blood Pressure [Right Arm] Blood Pressure Mean 86 75 81 Blood Pressure Mean [Right Arm] Blood Pressure Source Blood Pressure Source [Right Arm] Blood Pressure Position 02 Sat by Pulse Oximetry 100 98 97 Oxygen Delivery Method Room Air Room Air Room Air 12/21/23 14:30 12/21/23 16:08 12/21/23 16:30 Temperature Temperature Source Pulse Rate 54 L 62 59 L Pulse Rate [Right Brachial] Respiratory Rate Blood Pressure 106/64 L 117/75 118/71 Blood Pressure [Right Arm] Blood Pressure Mean 87 78 Blood Pressure Mean [Right Arm] Blood Pressure Source Blood Pressure Source [Right Arm] Blood Pressure Position 02 Sat by Pulse Oximetry 100 99 100 Oxygen Delivery Method Room Air Room Air Room Air 12/21/23 17:01 12/21/23 17:30 12/21/23 18:02 Temperature Temperature Source Pulse Rate 52 L 64 62 Pulse Rate [Right Brachial] Respiratory Rate Blood Pressure 102/69 L 119/74 138/74 Blood Pressure [Right Arm] Blood Pressure Mean 80 85 87 Blood Pressure Mean [Right Arm] Blood Pressure Source Blood Pressure Source [Right Arm] Blood Pressure Position 02 Sat by Pulse Oximetry 100 100 100 Oxygen Delivery Method Room Air Room Air Room Air 12/21/23 18:31 12/21/23 18:52 Temperature 98.0 F Temperature Source Oral Pulse Rate 64 64 Pulse Rate [Right Brachial] Respiratory Rate 16 Blood Pressure 142/78 H 142/78 H Blood Pressure [Right Arm] Blood Pressure Mean 96 Blood Pressure Mean [Right Arm] Blood Pressure Source Automatic Cuff Blood Pressure Source [Right Arm] Blood Pressure Position Sitting 02 Sat by Pulse Oximetry 99 Oxygen Delivery Method Room Air Room Air Lab Data Lab results reviewed: Yes I reviewed the patient's lab results. Lab Results 12/21/23 11:15: WBC 6.7, RBC 5.15, Hgb 15.0, Hct 46.7, MCV 90.6, MCH 29.1, MCHC 32.1, RDW 14.2, Plt Count 260, MPV 9.5, Neut % (Auto) 70.4, Lymph % (Auto) 19.8, [place] % (Auto) 6.3, Eos % (Auto) 2.8, Baso % (Auto) 0.6, Neut # (Auto) 4.8, Lymph # (Auto) 1.3, [place] # (Auto) 0.4, Eos # (Auto) 0.2, Baso # (Auto) 0.0, Sodium 139, Potassium 4.2, Chloride 111 H, Carbon Dioxide 27, Anion Gap 5.2, BUN 17, Creatinine 0.70, Estimated Creat Clear 136, Estimated GFR 89, Est GFR ( Amer) 108, Glucose 90, Calcium 8.3 L, Magnesium 2.1, Total Bilirubin 1.1, AST 44 H, ALT 24, Alkaline Phosphatase 35 L, Total Protein 6.0 L, Albumin 3.7, Globulin 2.3, Albumin/Globulin Ratio 1.6, TSH 0.77, Thyroxine (T4) 8.6 12/21/23 11:26: Urine Color Yellow, Urine Appearance Clear, Urine pH 6.5, Ur Specific [place] 1.020, Urine Protein Negative, Urine Glucose (UA) Negative, Urine Ketones Negative, Urine Blood Trace-i, Urine Nitrate Positive, Urine Bilirubin Negative, Urine Urobilinogen 1.0, Ur Leukocyte Esterase Negative, Urine RBC Occasional, Urine WBC Occasional, Ur Squamous Epith Cells None, Urine Bacteria 4+ 12/21/23 11:15 12/21/23 11:15 Orders (Tests/Meds): ED MEDICATIONS Discontinued Medications Generic Name Dose Route Start Last Admin Trade Name Dayday PRN Reason Stop Dose Admin Acetaminophen 1,000 mg 12/21/23 11:04 12/21/23 11:26 Acetaminophen 500mg Tab PO 12/21/23 11:05 1,000 mg ONCE ONE Administration Gadoteridol 18 ml 12/21/23 15:59 12/21/23 16:00 Gadoteridol Inj 20ml Syringe IV 12/21/23 16:00 18 ml ONCE ONE Administration Lactated Ringer's 1,000 mls @ 999 mls/hr 12/21/23 11:04 12/21/23 11:26 Lactated Ringer's 1000 Ml Bag IV 12/21/23 12:04 999 mls/hr .Q1H1M ONE Administration Ceftriaxone Sodium 2 gm/ 100 mls @ 200 mls/hr 12/21/23 14:34 12/21/23 14:43 Sodium Chloride IV 12/21/23 15:03 200 mls/hr ONCE ONE Administration Iopamidol 100 ml 12/21/23 12:37 12/21/23 12:38 Iopamidol-300 (61%) 100ml Vial IV 12/21/23 12:38 100 ml ONCE ONE Administration Protocol Ketorolac Tromethamine 15 mg 12/21/23 11:04 12/21/23 11:25 Ketorolac 30mg/Ml Vial IV 12/21/23 11:05 15 mg ONCE ONE Administration Ondansetron HCl 4 mg 12/21/23 16:05 12/21/23 16:08 Ondansetron 4mg/2ml Vial IV 12/21/23 16:06 4 mg ONCE ONE Administration Prednisone 40 mg 12/21/23 18:41 12/21/23 18:48 Prednisone 20mg Tab PO 12/21/23 18:42 40 mg ONCE ONE Administration Sodium Chloride 10 ml 12/21/23 12:37 12/21/23 12:38 Sodium Chloride 0.9% 10ml Syr (Rad Only) IV 12/21/23 12:38 10 ml ONCE ONE Administration Sodium Chloride 10 ml 12/21/23 15:59 12/21/23 16:00 Sodium Chloride 0.9% 10ml Syr (Rad Only) IV 12/21/23 16:00 10 ml ONCE ONE Administration ORDERS Category Date Time Status CT head/brain wo/w con Stat Cat Scan 12/21/23 12:16 Completed CBC w/Auto Diff [Complete Blood Count Auto Diff] Stat Lab 12/21/23 11:15 Completed CMP [Comprehensive Metabolic Panel] Stat Lab 12/21/23 11:15 Completed MAG [Magnesium] Stat Lab 12/21/23 11:15 Completed T4 (Thyroxine) Stat Lab 12/21/23 11:15 Completed TSH [Thyroid Stimulating Hormone] Stat Lab 12/21/23 11:15 Completed UA [Urinalysis and Microscopic] Stat Lab 12/21/23 11:26 Completed Urine Culture Stat Micro 12/21/23 11:26 Received ECG Data Tracing #1: I reviewed this ECG and interpreted as documented below: Normal sinus rhythm with a ventricular rate of [address] changes concerning for ischemia. Normal axis and intervals ECG initial impression date: 12/21/23 ECG initial impression time: 10:22 Medical Decision Narrative: In summary, this patient is a 48-year-old female presenting to the Emergency Department for evaluation of headache, generally feeling unwell, back pain. Differential diagnoses considered include but are not limited to worsening neurocysticercosis, dehydration, adrenal insufficiency, electrolyte derangements, DAVID, urinary tract infection, viral syndrome. Ruling out the most morbid conditions drove assessment. I reviewed patient's past medical records and noted previous evaluation here in our ED as well as previous evaluation by infectious disease at detailed in HPI. On exam, the patient is sitting upright in the bed in no acute distress with reassuring vital signs. She is neurologically intact. Exam is benign. Workup included CBC, CMP, magnesium, TSH, T4, urinalysis, EKG. I independently interpreted CT scans of the head prior to the radiologist read and noted stable cystic lesion. Please see their read for final interpretation. Labs were obtained that demonstrated possible UTI but no other acutely concerning abnormalities. On reassessment, patient had good improvement after administration of Toradol. She was given fluids as well as Rocephin given her UTI.. She is neurologically intact. I initiated discussions with given that she follows with infectious disease there for her neurocysticercosis and is currently not on treatment for it since they have stopped it to see how she does, and Dr. Hill with ID advised we obtain MRI to further assess and guide treatment. Dr. Mendez was present on the call and advised to call back after MRI. Patient agreeable to stay here for MRI, and MRI stated that they may be able to work her in this afternoon At 1430, patient was placed in ED observation status pending MRI to determine whether or not the patient would be appropriate for discharge versus admission. The patient was provided serial reevaluations and cardiac monitoring while awaiting ultimate disposition. Patient care signed out to the oncoming provider, Dr. Soares, pending MRI <Karthikeyan Soares MD - Last Filed: 12/21/23 23:54> Vital Signs: 12/21/23 10:18 12/21/23 10:46 12/21/23 11:00 Temperature 98.3 F Temperature Source Oral Pulse Rate 75 Pulse Rate [Right Brachial] 102 H Respiratory Rate 17 Blood Pressure 128/71 132/75 Blood Pressure [Right Arm] 105/61 L Blood Pressure Mean 90 98 Blood Pressure Mean [Right Arm] 75 Blood Pressure Source Blood Pressure Source [Right Arm] Automatic Cuff Blood Pressure Position 02 Sat by Pulse Oximetry 98 99 99 Oxygen Delivery Method Room Air Room Air Room Air 12/21/23 11:30 12/21/23 12:00 12/21/23 12:39 Temperature Temperature Source Pulse Rate 71 58 L Pulse Rate [Right Brachial] Respiratory Rate Blood Pressure 134/82 128/79 117/76 Blood Pressure [Right Arm] Blood Pressure Mean 90 85 89 Blood Pressure Mean [Right Arm] Blood Pressure Source Blood Pressure Source [Right Arm] Blood Pressure Position 02 Sat by Pulse Oximetry 96 98 100 Oxygen Delivery Method Room Air Room Air Room Air 12/21/23 13:00 12/21/23 13:31 12/21/23 14:00 Temperature Temperature Source Pulse Rate 58 L 56 L 61 Pulse Rate [Right Brachial] Respiratory Rate Blood Pressure 122/69 102/62 L 109/70 L Blood Pressure [Right Arm] Blood Pressure Mean 86 75 81 Blood Pressure Mean [Right Arm] Blood Pressure Source Blood Pressure Source [Right Arm] Blood Pressure Position 02 Sat by Pulse Oximetry 100 98 97 Oxygen Delivery Method Room Air Room Air Room Air 12/21/23 14:30 12/21/23 16:08 12/21/23 16:30 Temperature Temperature Source Pulse Rate 54 L 62 59 L Pulse Rate [Right Brachial] Respiratory Rate Blood Pressure 106/64 L 117/75 118/71 Blood Pressure [Right Arm] Blood Pressure Mean 87 78 Blood Pressure Mean [Right Arm] Blood Pressure Source Blood Pressure Source [Right Arm] Blood Pressure Position 02 Sat by Pulse Oximetry 100 99 100 Oxygen Delivery Method Room Air Room Air Room Air 12/21/23 17:01 12/21/23 17:30 12/21/23 18:02 Temperature Temperature Source Pulse Rate 52 L 64 62 Pulse Rate [Right Brachial] Respiratory Rate Blood Pressure 102/69 L 119/74 138/74 Blood Pressure [Right Arm] Blood Pressure Mean 80 85 87 Blood Pressure Mean [Right Arm] Blood Pressure Source Blood Pressure Source [Right Arm] Blood Pressure Position 02 Sat by Pulse Oximetry 100 100 100 Oxygen Delivery Method Room Air Room Air Room Air 12/21/23 18:31 12/21/23 18:52 Temperature 98.0 F Temperature Source Oral Pulse Rate 64 64 Pulse Rate [Right Brachial] Respiratory Rate 16 Blood Pressure 142/78 H 142/78 H Blood Pressure [Right Arm] Blood Pressure Mean 96 Blood Pressure Mean [Right Arm] Blood Pressure Source Automatic Cuff Blood Pressure Source [Right Arm] Blood Pressure Position Sitting 02 Sat by Pulse Oximetry 99 Oxygen Delivery Method Room Air Room Air Lab Data Lab Results 12/21/23 11:15: WBC 6.7, RBC 5.15, Hgb 15.0, Hct 46.7, MCV 90.6, MCH 29.1, MCHC 32.1, RDW 14.2, Plt Count 260, MPV 9.5, Neut % (Auto) 70.4, Lymph % (Auto) 19.8, [place] % (Auto) 6.3, Eos % (Auto) 2.8, Baso % (Auto) 0.6, Neut # (Auto) 4.8, Lymph # (Auto) 1.3, [place] # (Auto) 0.4, Eos # (Auto) 0.2, Baso # (Auto) 0.0, Sodium 139, Potassium 4.2, Chloride 111 H, Carbon Dioxide 27, Anion Gap 5.2, BUN 17, Creatinine 0.70, Estimated Creat Clear 136, Estimated GFR 89, Est GFR ( Amer) 108, Glucose 90, Calcium 8.3 L, Magnesium 2.1, Total Bilirubin 1.1, AST 44 H, ALT 24, Alkaline Phosphatase 35 L, Total Protein 6.0 L, Albumin 3.7, Globulin 2.3, Albumin/Globulin Ratio 1.6, TSH 0.77, Thyroxine (T4) 8.6 12/21/23 11:26: Urine Color Yellow, Urine Appearance Clear, Urine pH 6.5, Ur Specific [place] 1.020, Urine Protein Negative, Urine Glucose (UA) Negative, Urine Ketones Negative, Urine Blood Trace-i, Urine Nitrate Positive, Urine Bilirubin Negative, Urine Urobilinogen 1.0, Ur Leukocyte Esterase Negative, Urine RBC Occasional, Urine WBC Occasional, Ur Squamous Epith Cells None, Urine Bacteria 4+ Orders (Tests/Meds): ED MEDICATIONS Discontinued Medications Generic Name Dose Route Start Last Admin Trade Name Freq PRN Reason Stop Dose Admin Acetaminophen 1,000 mg 12/21/23 11:04 12/21/23 11:26 Acetaminophen 500mg Tab PO 12/21/23 11:05 1,000 mg ONCE ONE Administration Gadoteridol 18 ml 12/21/23 15:59 12/21/23 16:00 Gadoteridol Inj 20ml Syringe IV 12/21/23 16:00 18 ml ONCE ONE Administration Lactated Ringer's 1,000 mls @ 999 mls/hr 12/21/23 11:04 12/21/23 11:26 Lactated Ringer's 1000 Ml Bag IV 12/21/23 12:04 999 mls/hr .Q1H1M ONE Administration Ceftriaxone Sodium 2 gm/ 100 mls @ 200 mls/hr 12/21/23 14:34 12/21/23 14:43 Sodium Chloride IV 12/21/23 15:03 200 mls/hr ONCE ONE Administration Iopamidol 100 ml 12/21/23 12:37 12/21/23 12:38 Iopamidol-300 (61%) 100ml Vial IV 12/21/23 12:38 100 ml ONCE ONE Administration Protocol Ketorolac Tromethamine 15 mg 12/21/23 11:04 12/21/23 11:25 Ketorolac 30mg/Ml Vial IV 12/21/23 11:05 15 mg ONCE ONE Administration Ondansetron HCl 4 mg 12/21/23 16:05 12/21/23 16:08 Ondansetron 4mg/2ml Vial IV 12/21/23 16:06 4 mg ONCE ONE Administration Prednisone 40 mg 12/21/23 18:41 12/21/23 18:48 Prednisone 20mg Tab PO 12/21/23 18:42 40 mg ONCE ONE Administration Sodium Chloride 10 ml 12/21/23 12:37 12/21/23 12:38 Sodium Chloride 0.9% 10ml Syr (Rad Only) IV 12/21/23 12:38 10 ml ONCE ONE Administration Sodium Chloride 10 ml 12/21/23 15:59 12/21/23 16:00 Sodium Chloride 0.9% 10ml Syr (Rad Only) IV 12/21/23 16:00 10 ml ONCE ONE Administration ORDERS Category Date Time Status CT head/brain wo/w con Stat Cat Scan 12/21/23 12:16 Completed CBC w/Auto Diff [Complete Blood Count Auto Diff] Stat Lab 12/21/23 11:15 Completed CMP [Comprehensive Metabolic Panel] Stat Lab 12/21/23 11:15 Completed MAG [Magnesium] Stat Lab 12/21/23 11:15 Completed T4 (Thyroxine) Stat Lab 12/21/23 11:15 Completed TSH [Thyroid Stimulating Hormone] Stat Lab 12/21/23 11:15 Completed UA [Urinalysis and Microscopic] Stat Lab 12/21/23 11:26 Completed Urine Culture Stat Micro 12/21/23 11:26 Received Medical Decision Narrative: In summary, this patient is a 48-year-old female presenting to the Emergency Department for evaluation of headache, generally feeling unwell, back pain. Differential diagnoses considered include but are not limited to worsening neurocysticercosis, dehydration, adrenal insufficiency, electrolyte derangements, DAVID, urinary tract infection, viral syndrome. Ruling out the most morbid conditions drove assessment. I reviewed patient's past medical records and noted previous evaluation here in our ED as well as previous evaluation by infectious disease at detailed in HPI. On exam, the patient is sitting upright in the bed in no acute distress with reassuring vital signs. She is neurologically intact. Exam is benign. Workup included CBC, CMP, magnesium, TSH, T4, urinalysis, EKG. I independently interpreted CT scans of the head prior to the radiologist read and noted stable cystic lesion. Please see their read for final interpretation. Labs were obtained that demonstrated possible UTI but no other acutely concerning abnormalities. On reassessment, patient had good improvement after administration of Toradol. She was given fluids as well as Rocephin given her UTI.. She is neurologically intact. I initiated discussions with given that she follows with infectious disease there for her neurocysticercosis and is currently not on treatment for it since they have stopped it to see how she does, and Dr. Hill with ID advised we obtain MRI to further assess and guide treatment. Dr. Mendez was present on the call and advised to call back after MRI. Patient agreeable to stay here for MRI, and MRI stated that they may be able to work her in this afternoon At 1430, patient was placed in ED observation status pending MRI to determine whether or not the patient would be appropriate for discharge versus admission. The patient was provided serial reevaluations and cardiac monitoring while awaiting ultimate disposition. Patient care signed out to the oncoming provider, Dr. Soares, pending MRI. Karthikeyan Soares: Upon assumption of care patient was hemodynamically stable. Workup thus far reviewed by me, hematologic labs are nonactionable. Brain MRI interval increase in size of the cystic mass within the left parietal lobe without abnormal enhancement infectious versus low-grade neoplasm. The case discussed [facility] Dr. Mendez and Dr. Felix. 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 Douglas. I discussed case with infectious disease with [facility] who recommends repeating the course with 2 weeks of albendazole and prednisone which will be prescribed by me. Upon repeat evaluation patient was well-appearing hemodynamically stable and appropriate for outpatient management at this time patient was discharged in stable condition. Patient did have a urinary tract infection after discharge which I noticed that we will send her in a prescription for Macrobid and patient will be contacted by daytime nursing to ensure she picks up her prescription. Critical Care <Ann Marie Constantino, DO - Last Filed: 12/21/23 15:37> Critical Care Time Critical Care Time: No
[2023-12-21 11:58] LABS: T4 (Thyroxine) 8.6 ug/dl (5.53-11.0)
[2023-12-21 12:12] LABS: Thyroid Stimulating Hormone 0.77 uIU/mL (0.465-4.68)
[2023-12-21 12:13] LABS: Bacteria,Urine 4+ /lpf; RBC,Urine Occasional #/hpf (0-3); WBC,Urine Occasional #/hpf (0-3)
--- NOTE | 2023-12-21 12:16 | CT_ITS ---
FINAL REPORT TECHNIQUE: Multiple axial CT sections were performed from the foramen magnum to the vertex. Coronal reformatted images were also obtained. Precontrast and postcontrast injection images were obtained. This study was performed with technique to keep radiation doses as low as reasonably achievable, (ALARA). Individualized dose reduction techniques using automated exposure control or adjustment of mA and/or kV according to the patient size were employed. CLINICAL HISTORY: h/o cysticercosis, worsening symptoms COMPARISON: 12/16/2023 and outside MRI from 06/19/2017 FINDINGS: There is no mass effect or midline shift. There is no hydrocephalus. Again seen is a hypodense lesion in the left parietal lobe with central calcification measuring 18 mm. No additional lesion is seen. There is no intracranial hemorrhage. Posterior fossa is without acute abnormality. Soft tissues and bones are unremarkable. Postcontrast imaging demonstrates no abnormal contrast-enhancement. IMPRESSION: Left parietal mass with central calcification, unchanged from most recent exam but has slowly increased in size from 2018 which is atypical for cysticercosis. Favor low-grade cystic neoplasm. Reviewed, Interpreted and Dictated by Waleska Dubois MD Transcribed by Johanne Juan Authenticated and [facility]
--- NOTE | 2023-12-21 12:27 | PC.NURSE ---
pt out of room with Rad for CT
[2023-12-21] MEDS: SODIUM CHLORIDE 0.9% 10ML SYR (RAD ONLY) 10 ML IV ×2 (12:38→16:00)
[2023-12-21] MEDS: IOPAMIDOL-300 (61%) 100ML VIAL 100 ML IV (12:38)
--- NOTE | 2023-12-21 13:51 | PC.NURSE ---
Rad notified to power share all imaging to [facility] per Dr. Constantino
--- NOTE | 2023-12-21 14:30 | PC.NURSE ---
Trupti in CM okay with pt to get mri
[2023-12-21] MEDS: CEFTRIAXONE SODIUM 2 GM in 0.9 % SODIUM CHLORIDE 100 ML IV (14:43)
--- NOTE | 2023-12-21 14:45 | MR_ITS ---
FINAL REPORT TECHNIQUE: Multiplanar and multisequence imaging of the brain was obtained before and after contrast administration. CLINICAL HISTORY: RULE OUT BRAIN MASS VS TAPE WORM FINDINGS: There is no mass effect or midline shift. There is no hydrocephalus. Again seen is a cystic mass in the left parietal lobe which has increased in size from prior MRI now measuring 19 mm. Previously this measured 10 mm. No additional masses seen. There are no additional areas of abnormal signal intensity. Posterior fossa is without acute abnormality. Craniocervical junction is intact. There is no restricted diffusion. Postcontrast imaging demonstrates no abnormal enhancement. IMPRESSION: Interval increase in size and cystic mass within the left parietal lobe without abnormal enhancement. As stated on CT performed earlier today, favor low-grade neoplasm. Infectious process considered less likely. Reviewed, Interpreted and Dictated by Waleska Dubois MD Transcribed by Johanne Juan Authenticated and [facility]
--- NOTE | 2023-12-21 15:00 | PC.NURSE ---
TRANSPORTED TO MRI VIA [employer]
[2023-12-21] MEDS: GADOTERIDOL INJ 20ML SYRINGE 18 ML IV (16:00)
[2023-12-21] MEDS: ONDANSETRON 4MG/2ML VIAL 4 MG IV (16:08)
[2023-12-21] MEDS: predniSONE 20MG TAB 40 MG PO (18:48)
--- NOTE | 2023-12-22 18:41 | PC.NURSE ---
attempted to call pt to update about uti medicine sent to [facility], no answer at this time
--- NOTE | 2023-12-23 10:13 | PC.NURSE ---
URINE CULTURE DISCUSSED WITH DR LANTIGUA, NO NEW ORDERS
== END 2023-12-21 18:53 | disposition home or self-care (01) ==
PROVIDERS: Emergency Medicine; Emergency Provider Emergency Medicine; PCP Family Medicine
DX: N39.0 Urinary tract infection, site not specified (principal); B96.29 Other Escherichia coli [E. coli] as the cause of diseases classified elsewhere; R51.9 Headache, unspecified; B69.0 Cysticercosis of central nervous system; R94.02 Abnormal brain scan
CPT/HCPCS: 70470; 70553; 80050; 80053; 81001; 83735; 84436; 84443; 85025; 87086; 87088; 87186; 93005; 96361; 96365; 96375; 99285; A9576; J0696; J1885; J2405; J7120; Q9967

== ENCOUNTER 2023-12-24 08:02 | Outpatient (CLI) | payer OTHER, SELFPAY ==
[2023-12-24] MEDS: MAGNESIUM SULFATE 2 GM, THIAMINE HCL 100 MG, MVI, ADULT NO.1 WITH VIT K 10 ML in LACTAT... IV (08:33)
[2023-12-24 08:35] VITALS: BP 129/89; PULSE 89; RESP 18; TEMP 36.7; O2SAT 100
[2023-12-24 09:35] VITALS: BP 113/60; PULSE 60; RESP 18; TEMP 36.2; O2SAT 95
[2023-12-24 10:45] VITALS: BP 136/82; PULSE 60; RESP 18; O2SAT 100
== END 2023-12-24 10:45 | disposition home or self-care (01) ==
LOC: INF 08:03
PROVIDERS: PCP Family Medicine; Visit Provider Family Medicine
DX: R11.2 Nausea with vomiting, unspecified (principal)
CPT/HCPCS: 96365; 96366; J3411; J7120

== ENCOUNTER 2024-02-25 16:02 | Outpatient (CLI) | payer OTHER, SELFPAY ==
--- NOTE | 2024-02-25 16:03 | MR_ITS ---
PROCEDURE INFORMATION: Exam: MR Head Without and With Contrast Exam date and time: 02/25/2024 4:10 PM Age: 48 years old Clinical indication: Pain; Patient HX: PT also has headaches; Additional info: Cysticercosis of brain TECHNIQUE: Imaging protocol: Magnetic resonance imaging of the head without and with contrast. Contrast material: PROHANCE; Contrast volume: 19 ml; Contrast route: IV; COMPARISON: MR HEAD/BRAIN WO/W CON 12/21/2023 3:29 PM FINDINGS: Brain: There is a septated cystic lesion again identified in the left parietal lobe measuring 1.7 x 1.4 cm without change in size. There is no suspicious enhancement. There is no associated edema. There is no evidence of acute parenchymal hemorrhage, extra-axial collection, or acute infarction. There is no mass effect, midline shift, or downward herniation. Cerebral ventricles: Normal. No ventriculomegaly. Bones: Unremarkable. Paranasal sinuses: Normal as visualized. No acute sinusitis. Mastoid air cells: Normal as visualized. No mastoid effusion. Orbital cavities: Unremarkable. Soft tissues: Unremarkable. IMPRESSION: No interval change.
[2024-02-25] MEDS: GADOTERIDOL INJ 20ML SYRINGE 19 ML IV (17:14)
[2024-02-25] MEDS: SODIUM CHLORIDE 0.9% 10ML SYR (RAD ONLY) 10 ML IV (17:14)
== END 2024-02-25 23:59 | disposition home or self-care (01) ==
LOC: RAD 16:03
PROVIDERS: PCP Family Medicine; Visit Provider Family Medicine
DX: B69.0 Cysticercosis of central nervous system (principal)
CPT/HCPCS: 70553; A9576

== ENCOUNTER 2024-03-11 12:20 | Outpatient (CLI) | payer OTHER, SELFPAY ==
--- NOTE | 2024-03-11 12:57 | XR_ITS ---
FINAL REPORT CLINICAL HISTORY: .rheumatoid factor positive FINDINGS: Two views of the chest were obtained. A loop recorder is noted over the left chest. The heart size and pulmonary vascularity are within normal limits. The mediastinum is normal. No acute pulmonary abnormality is identified. There is no pneumothorax. The bony thorax is intact. IMPRESSION: No active cardiopulmonary disease. Reviewed, Interpreted and Dictated by Kwame Palma III, MD Transcribed by Angi Pimentel Authenticated and . [facility]
--- NOTE | 2024-03-11 12:57 | XR_ITS ---
FINAL REPORT CLINICAL HISTORY: .rheumatoid factor positive FINDINGS: LEFT FOOT 3 views of the left foot were obtained. There is no acute fracture or dislocation. The joint spaces are intact. There is a plantar calcaneal spur. There are no bony erosions. The bones are normally mineralized. Soft tissues are unremarkable. IMPRESSION: No acute bony abnormality. Reviewed, Interpreted and Dictated by Kwame Palma III, MD Transcribed by Angi Pimentel Authenticated and [facility]
--- NOTE | 2024-03-11 12:57 | XR_ITS ---
FINAL REPORT CLINICAL HISTORY: .rheumatoid factor positive FINDINGS: Three views of the left knee reveal no evidence of fracture or dislocation. The bony alignment is normal. There are mild degenerative changes. There is no evidence of joint effusion. No localized soft tissue abnormality is seen. IMPRESSION: No acute abnormality identified. Reviewed, Interpreted and Dictated by Kwame Palma III, MD Transcribed by Angi Pimentel Authenticated and [facility]
--- NOTE | 2024-03-11 12:57 | XR_ITS ---
FINAL REPORT CLINICAL HISTORY: RHEUMATOID FACTOR POSITIVE FINDINGS: SACROILIAC JOINTS 3 views were obtained. There is no acute fracture. The joint spaces are intact. There is no soft tissue abnormality. IMPRESSION: No acute bony abnormality. Reviewed, Interpreted and Dictated by Kwame Palma III, MD Transcribed by Angi Pimentel Authenticated and [facility]
--- NOTE | 2024-03-11 12:57 | XR_ITS ---
FINAL REPORT CLINICAL HISTORY: .rheumatoid factor positive FINDINGS: Three views of the right knee reveal no evidence of fracture or dislocation. The bony alignment is normal. Mild degenerative changes are present. There is no evidence of joint effusion. No localized soft tissue abnormality is identified. IMPRESSION: No acute abnormality identified. Reviewed, Interpreted and Dictated by Kwame Palma III, MD Transcribed by Angi Pimentel Authenticated and [facility]
--- NOTE | 2024-03-11 12:57 | XR_ITS ---
FINAL REPORT CLINICAL HISTORY: rheumatoid factor positive FINDINGS: RIGHT FOOT 3 views of the right foot were obtained. There is no acute fracture or dislocation. The joint spaces are intact. There is a plantar calcaneal spur. There are no bony erosions. The bones are normally mineralized. Soft tissues are unremarkable. IMPRESSION: No acute bony abnormality. Reviewed, Interpreted and Dictated by Kwame Palma III, MD Transcribed by Angi Pimentel Authenticated and [facility]
--- NOTE | 2024-03-11 12:57 | XR_ITS ---
FINAL REPORT CLINICAL HISTORY: .rheumatoid factor positive FINDINGS: LUMBAR SPINE 5 views were obtained. There is no acute fracture. Vertebrae are normal height. Mild rightward curvature is noted. There are moderate degenerative changes with vacuum phenomenon at L5-S1. Postoperative changes are seen in the bilateral abdomen. IMPRESSION: Degenerative changes with no acute bony abnormality. Reviewed, Interpreted and Dictated by Kwame Palma III, MD Transcribed by Angi Pimentel Authenticated and [facility]
[2024-03-11 13:12] LABS: Basophils # 0.1 K/mm3 (0-0.2); Basophils % 0.9 % (0.1-2.0); Eosinophils # 0.1 K/mm3 (0.0-0.4); Eosinophils % 1.3 % (0.1-12.0); Hematocrit 40.4 % (37.0-47.0); Hemoglobin 14.4 g/dL (12.2-16.2); Lymphocytes # 1.2 K/mm3 (0.7-4.5); Lymphocytes % 19.8 % (10-50); Mean Corpuscular HGB Conc 35.6 g/dL (31.8-35.4); Mean Corpuscular Volume 89.8 fl (81-99); Mean Platelet Volume 9.3 fl (7.4-10.4); Monocytes # 0.4 K/mm3 (0.1-1.0); Monocytes % 5.9 % (1.7-9.3); Neutrophils # 4.3 K/mm3 (1.8-7.8); Neutrophils % 72.2 % (37.0-80.0); Platelet Count 223 K/mm3 (142-424); Red Cell Distribution Width 14.1 % (11.5-17.5); White Blood Count 5.9 K/mm3 (4.8-10.8)
[2024-03-11 13:32] LABS: Alanine Aminotransferase 29 U/L (12-78); Albumin Level 3.8 g/dl (3.5-5.0); Albumin/Globulin Ratio 2.1 (1.1-1.8); Alkaline Phosphatase 79 U/L (38-126); Anion Gap 5.7 mEq/L (5-15); Aspartate Amino Transferase 34 U/L (14-36); Bilirubin,Total 0.5 mg/dl (0.2-1.3); Blood Urea Nitrogen 12 mg/dl (7-17); Calcium 9.3 mg/dl (8.4-10.2); Carbon Dioxide 28 mmol/L (22.0-30.0); Chloride 111 mmol/L (98-107); Estimated Glomerular Filt Rate 89 ml/min (>60); GFR (African American) 108 ML/MIN (>60); Globulin 1.8 g/dL (1.3-3.2); Glucose 88 mg/dl (74-100); Potassium 3.7 mmoL/L (3.5-5.1); Sodium 141 mmol/L (136-145); Total Protein,Serum 5.6 g/dl (6.3-8.2); Uric Acid 4.3 mg/dl (2.5-6.2)
[2024-03-11 13:38] LABS: C-Reactive Protein 6.2 mg/L (0-4)
[2024-03-11 14:40] LABS: Erythrocyte Sedimentation Rate 13 mm/hr (0-20)
[2024-03-12 09:20] LABS: Complement C3 132 mg/dL (82-167)
[2024-03-12 13:21] LABS: Sjogren's Anti-SS-A <0.2 AI (0.0-0.9); Sjogren's Anti-SS-B <0.2 AI (0.0-0.9)
[2024-03-12 15:09] LABS: Anti-Cardio Antibody IgM <9 MPL U/mL (0-12); Anti-Cardiolipin Antibody IgG <9 GPL U/mL (0-14); Anticardiolipin Ab,IgA,Qn <9 APL U/mL (0-11)
[2024-03-13 20:07] LABS: Lupus Reflex Interpretation Comment: (.); PTT-LA 39.5 sec (0.0-43.5); dRVVT 35.6 sec (0.0-47.0)
[2024-03-14 13:13] LABS: Beta-2 Glycoprotein I Ab, IgA <9 (0-25); Beta-2 Glycoprotein I Ab, IgG <9 (0-20); Beta-2 Glycoprotein I Ab, IgM <9 (0-32)
[2024-03-14 18:06] LABS: Angiotensin Converting Enzyme 81 U/L (14-82); Complement, Total (CH50) 50 U/mL (>41)
[2024-03-15 11:16] LABS: Cytoplasmic (C-ANCA) <1:20 titer (Neg:<1:20); Perinuclear (P-ANCA) <1:20 titer (Neg:<1:20)
[2024-03-15 13:05] LABS: Antinuclear Antibodies, IFA Negative (.)
[2024-03-15 17:11] LABS: G6PD, Quantitative 292 (127-427); RBC, G6PD 4.93 x10E6/uL (3.77-5.28)
[2024-03-18 17:16] LABS: HLA-B27 Negative (.)
[2024-03-30 16:57] LABS: Miscellaneous Test SCANNED IMAGE
== END 2024-03-11 23:59 | disposition home or self-care (01) ==
LOC: LAB 12:22
PROVIDERS: PCP Family Medicine; Visit Provider Internal Medicine Rheumatology
DX: Z01.89 Encounter for other specified special examinations (principal); G43.909 Migraine, unspecified, not intractable, without status migrainosus; Z11.59 Encounter for screening for other viral diseases; Z79.899 Other long term (current) drug therapy; R76.8 Other specified abnormal immunological findings in serum; Z11.3 Encounter for screening for infections with a predominantly sexual mode of transmission; Z86.19 Personal history of other infectious and parasitic diseases; M53.3 Sacrococcygeal disorders, not elsewhere classified
CPT/HCPCS: 36415; 71046; 72110; 72202; 73562; 73630; 80053; 82164; 82955; 83516; 84550; 85025; 85613; 85651; 86036; 86038; 86140; 86146; 86147; 86161; 86162; 86235; 86812

== ENCOUNTER 2025-02-07 13:09 | Outpatient (CLI) | payer BC, SELFPAY ==
--- OUTSIDE RECORDS SUMMARY | 2025-01-10 23:00 | XMS_ITS | Continuity of Care Document ---
Author Organization [facility] Phone Care Team Providers Care Typewriters Functional Tester Name Role Phone Domo DAVID Primary Care GEOVANI, CANDIDO E Unavailable Unavailable GEOVANI, CANDIDO E Admitting Unavailable GEOVANI, CANDIDO E Primary Attending Unavailable ALLERGIES AND ADVERSE REACTIONS ALLERGIES AND ADVERSE REACTIONS Code System Allergy Substance Adverse Reaction Date Reaction (Severity) [place] [address] RXNorm LAMICTAL Rash Shock active [id number] on January 09, 2025 2:45:09 AM [place] 7052 RXNorm Morphine Adverse reaction to substance Not Specified active [id number] on January 09, 2025 2:45:09 AM [facility] RESULTS Patient: ZURDO URIARTE Date of : 1975 LABORATORY RESULTS ORDER 100: CBC AUTO W DIFF ( LOINC: 86828-6) ORDER DATE: January 09, 2025 2:41:00 AM UT Specimen Source: Whole Blood Specimen Type: Whole blood s ample PERFORMING LAB: [address] [id number] Result Comment: Final Result Date: January 09, 2025 3:23:00 AM UTC (TECH: EB1) LOINC TEST FLAG RESULT REFERENCE RANGE UPDA CLAUDIA BY 6690-2 Leukocytes [#/volume] in Blood by Automated count N 7.4 10^3/uL 4.5 10^3/uL - 11.5 10^3/uL January 09, 2025 3:23:00 AM UTC (TECH: EB1) 789-8 Erythrocytes [#/volume] in Blood by Automated count N 4.92 10^6/uL 4.25 10^6/uL - 5.57 10^6/uL January 09, 2025 3:23:00 AM UTC (TECH: EB1) 718-7 Hemoglobin [Mass/volume] in Blood N 13.5 g/dL 12.0 g/dL - 15.7 g/dL January 09, 2025 3:23:00 AM UTC (TECH: EB1) 40107-2 Hematocrit [Volume Fraction] of Blood N 40.2 % 36.0 % - 47.0 % January 09, 2025 3:23:00 AM UTC (TECH: EB1) 787-2 Erythrocyte mean corpuscular volume [Entitic volume] by Automated count N 81.7 fl 80 fl - 95 fl January 09, 2025 3:23:00 AM UTC (TECH: EB1) 25064-6 Erythrocyte mean corpuscular hemoglobin [Entitic mass] in Blood from [place] by Automated count N 27.4 pg 27.0 pg - 34.0 pg January 09, 2025 3:23:00 AM UTC (TECH: EB1) 18216-6 Erythrocyte mean corpuscular hemoglobin concentration [Mass/volume] in Blood from [place]etus by Automated count N 33.6 g/dL 32.0 g/dL - 36.0 g/dL January 09, 2025 3:23:00 AM UTC (TECH: EB1) 70751-8 Platelets [#/volume] in Blood N 250 10^3/uL 150 10^3/uL - 450 10^3/uL January 09, 2025 3:23:00 AM UTC (TECH: EB1) 12163-3 Erythrocyte distribution width [Ratio] N 14.2 % 12.3 % - 15.1 % January 09, 2025 3:23:00 AM UTC (TECH: EB1) 67526-4 Platelet mean volume [Entitic volume] in Blood by Automated count H 11.0 fl 7.4 fl - 10.4 fl January 09, 2025 3:23:00 AM UTC (TECH: EB1) 72936-5 Granulocytes/100 leukocytes in Blood by Automated count N 69.9 % 40 % - 75 % January 09, 2025 3:23:00 AM UTC (TECH: EB1) 736-9 Lymphocytes/100 leukocytes in Blood by Automated count N 19.2 % 15 % - 57 % January 09, 2025 3:23:00 AM UTC (TECH: EB1) 5905-5 Monocytes/100 leukocytes in Blood by Automated count N 7.0 % 4.0 % - 12.0 % January 09, 2025 3:23:00 AM UTC (TECH: EB1) 713-8 Eosinophils/100 leukocytes in Blood by Automated count N 3.1 % 0.0 % - 4.0 % January 09, 2025 3:23:00 AM UTC (TECH: EB1) 706-2 Basophils/100 leukocytes in Blood by Automated count N 0.4 % 0.0 % - 1.0 % January 09, 2025 3:23:00 AM UTC (TECH: EB1) 25366-3 Immature granulocytes [#/volume] in Blood N 0.4 % 0.0 % - 0.8 % January 09, 2025 3:23:00 AM UTC (TECH: EB1) 52833-8 Granulocytes [#/volume] in Blood by Automated count N 5.19 10^3/uL January 09, 2025 3:23:00 AM UTC (TECH: EB1) 731-0 Lymphocytes [#/volume] in Blood by Automated count N 1.43 10^3/uL January 09, 2025 3:23:00 AM UTC (TECH: EB1) 742-7 Monocytes [#/volume] in Blood by Automated count N 0.52 10^3/uL January 09, 2025 3:23:00 AM UTC (TECH: EB1) 711-2 Eosinophils [#/volume] in Blood by Automated count N 0.23 10^3/uL January 09, 2025 3:23:00 AM UTC (TECH: EB1) 704-7 Basophils [#/volume] in Blood by Automated count N 0.03 10^3/uL January 09, 2025 3:23:00 AM UTC (TECH: EB1) 40828-9 Immature granulocytes [#/volume] in Blood N 0.03 10^3/uL January 09, 2025 3:23:00 AM UTC (TECH: EB1) 54594-2 Manual differential performed [Presence] in Blood N NO January 09, 2025 3:23:00 AM UTC (TECH: EB1) ORDER 200: COMP METABOLIC PA MIKA (LOINC: 72628-5) ORDER DATE: January 09, 2025 2:41:00 AM UT Specimen Source: Serum/Plasm a Specimen Type: Acellular blo od (serum or plasma) specimen PERFORMING LAB: [address] [id number] Result Comment: Final Result Date: January 09, 2025 3:22:00 AM UT (TECH: EB1) LOINC TEST FLAG RESULT REFERENCE RANGE UPDA CLAUDIA BY 2951-2 Sodium [Moles/volume ] in Serum or Plasma N 140 mmol/L 136 mmol/L - 145 mmol/L January 09, 2025 3:22:00 AM UT (TECH: EB1) 2823-3 Potassium [Moles/volume] in Serum or Plasma N 3.7 mmol/L 3.5 mmol/L - 5.1 mmol/L January 09, 2025 3:22:00 AM UT (TECH: EB1) 2075-0 Chloride [Moles/volume] in Serum or Plasma N 105 mmol/L 98 mmol/L - 107 mmol/L January 09, 2025 3:22:00 AM UT (TECH: EB1) 2027-9 Carbon dioxide, tota l [Moles/volume] in Serum or Plasma N 26 mmol/L 21 mmol/L - 32 mmol/L January 09, 2025 3:22:00 AM [facility] (TECH: EB1) 17348-5 Anion gap 3 in Serum or Plasma N 9.0 January 09, 2025 3:22:00 AM UT (TECH: EB1) 2345-7 Glucose [Mass/volume ] in Serum or Plasma N 103 mg/dL 70 mg/dL - 110 mg/dL January 09, 2025 3:22:00 AM UT (TECH: EB1) 3094-0 Urea nitrogen [Mass/volume] in Serum or Plasma H 20 mg/dL 7 mg/dL - 18 mg/dL January 09, 2025 3:22:00 AM UT (TECH: EB1) 2160-0 Creatinine [Mass/volume] in Serum or Plasma N 0.9 mg/dL 0.6 mg/dL - 1.0 mg/dL January 09, 2025 3:22:00 AM UT (TECH: EB1) 3097-3 Urea nitrogen/Creatinine [Mass Ratio] in Serum or Plasma H 22.2 9 - 21 January 09, 2025 3:22:00 AM [facility] (TECH: EBTour Engine) 63539-4 Glomerular filtratio n rate/1.73 sq M.predicted by Creatinine-based formula (MDRD) N 78 mL/min >60 January 09, 2025 3:22:00 AM [facility] (TECH: EB1) 81476-7 Osmolality of Serum or Plasma by calculated by sum of electrolytes N 294 mosm/kg 275 mosm/kg - 301 mosm/kg January 09, 2025 3:22:00 AM [facility] (TECH: EB1) 2885-2 Protein [Mass/volume ] in Serum or Plasma N 6.5 g/dL 6.4 g/dL - 8.2 g/dL January 09, 2025 3:22:00 AM [facility] (TECH: EB1) 1751-7 Albumin [Mass/volume ] in Serum or Plasma L 3.3 g/dL 3.4 g/dL - 5.0 g/dL January 09, 2025 3:22:00 AM [facility] (TECH: EB1) 20476-6 Calcium [Mass/volume ] in Serum or Plasma N 8.9 mg/dL 8.5 mg/dL - 10.1 mg/dL January 09, 2025 3:22:00 AM [facility] (TECH: EB1) 32246-6 Calcium [Mass/volume ] corrected for total protein in Serum or Plasma N 9.5 mg/dL 8.5 mg/dL - 10.1 mg/dL January 09, 2025 3:22:00 AM [facility] (TECH: EB1) 1975-2 Bilirubin.total [Mass/volume] in Serum or Plasma L 0.1 mg/dL 0.4 mg/dL - 1.5 mg/dL January 09, 2025 3:22:00 AM [facility] (TECH: EB1) 1920-8 Aspartate aminotransferase [Enzymatic activity/volume] in Serum or Plasma N 24 U/L 15 U/L - 37 U/L January 09, 2025 3:22:00 AM [facility] (TECH: EB1) 1742-6 Alanine aminotransferase [Enzymatic activity/volume] in Serum or Plasma N 25 U/L 12 U/L - 78 U/L January 09, 2025 3:22:00 AM UTC (TECH: EB1) 6768-6 Alkaline phosphatase [Enzymatic activity/volume] in Serum or Plasma H 129 U/L 50 U/L - 120 U/L January 09, 2025 3:22:00 AM UTC (TECH: EB1) ORDER 300: D-DIMER QUANTITAT TANISHA (LOINC: 7799-0) ORDER DATE: January 09, 2025 2:41:00 AM UTC Specimen Source: Plasma Specimen Type: Plasma specim en PERFORMING LAB: [address] [id number] Result Comment: Final Result Date: January 09, 2025 3:23:00 AM UTC (TECH: EB1) LOINC TEST FLAG RESULT REFERENCE RANGE UPDA CLAUDIA BY 7799-0 Fibrin D-dimer [Units/volume] in Platelet poor plasma N 378 ng/mL 0 ng/mL - 500 ng/mL January 09, 2025 3:23:00 AM UTC (TECH: EB1) ORDER 400: PT PROTHROMBIN TI ME W INR (LOINC: 50139-4) ORDER DATE: January 09, 2025 2:42:00 AM UTC Specimen Source: Plasma Specimen Type: Plasma specim en PERFORMING LAB: [address] [id number] Result Comment: Final Result Date: January 09, 2025 3:22:00 AM UT (TECH: EB1) LOINC TEST FLAG [place] [address]-5 INR in Platelet poor plasma or blood by Coagulation assay N 10.0 seconds 9.1 seconds - 12.0 seconds January 09, 2025 3:22:00 AM UTC (TECH: EB1) 6301-6 INR in Platelet poor plasma by Coagulation assay N 0.91 0.9 - 1.1 January 09, 2025 3:22:00 AM UTC (TECH: EB1) ORDER 500: PTT PARTIAL THROM B TIME (LOINC: 31390-1) ORDER DATE: January 09, 2025 2:42:00 AM UTC Specimen Source: Plasma Specimen Type: Plasma specim en PERFORMING LAB: [address] [id number] Result Comment: Final Result Date: January 09, 2025 3:22:00 AM UTC (TECH: EB1) LOINC TEST FLAG [place] [address]-6 Activated partial thromboplastin time (aPTT) in Platelet poor plasma by Coagulation assay N 26.2 seconds 24.5 seconds - 32.8 seconds January 09, 2025 3:22:00 AM UT (TECH: EB1) ORDER 600: B-TYPE NATRIURETI C PEPTIDE BNP (LOINC: 35741-1) ORDER DATE: January 09, 2025 2:42:00 AM UTC Specimen Source: Whole Blood Specimen Type: Whole blood s ample PERFORMING LAB: [address] [id number] Result Comment: Final Result Date: January 09, 2025 3:22:00 AM [facility] (TECH: EB1) LOINC TEST FLAG [place] [address]-8 Natriuretic peptide B [Mass/volume] in Serum or Plasma N 22.6 pg/mL 0.0 pg/mL - 100 pg/mL January 09, 2025 3:22:00 AM UT (TECH: EB1) LABORATORY NARRATIVE RESULTS Information is not available RADIOLOGY RESULTS ORDER 700: KNEE 3V RT (LOINC : 37477-3) ORDER DATE: January 09, 2025 2:45:00 AM UT PERFORMING LAB: [address] [id number] Final Result Date: January 3:00:[address] [place] [address] Name: ANGIE RENNER Exam Date: 01/08/2025 : 1975 Age 49 years Gender: F Physician: CANDIDO OLIVO Facility: [facility] Facility HSV: Outpatient Exam: KNEE 3V RT EXAM: XR KNEE 3 VIEWS RIGHT: 01/08/2025 10:00 PM CDT CLINICAL HISTORY: Pain without Trauma/Injury COMPARISON: None available. FINDINGS: No acute fracture. No dislocation. Soft tissues are unremarkable. Mild tricompartmental degenerative changes. IMPRESSION: No acute findings. Electronically signed by: Prashant Earl MD 01/09/2025 12:25 AM EDT Dictated By: Prashant Earl Transcribed By: Transcribed On: 01/08/2025 11:00 PM Electronically signed by: Prashant Earl 01/08/2025 Thank you for referring ANGIE RENNER to [facility]. Legally authenticated by GT AWAN MD 2025-01-08 23:00:13 PATHOLOGY NARRATIVE RESULTS Information is not available MICROBIOLOGY RESULTS No Micro Labs/Results Exist for Patient BLOOD ADMIN RESULTS Information is not available MEDICATIONS HOME MEDICATIONS Status RXNORM ND Medication Dose Route Frequency Dates Comments Reported By Updated By Active [id number] 650652 51972 tramadol 50 mg tablet 0.0 ORAL TID Last Dose: [id number] on January 09, 2025 2:45:14 AM UT Active FreeTe xtMed cymbalta 0.0 DAILY Last Dose: [id number] on January 09, 2025 2:45:15 AM [facility] Active FreeTe xtMed reguip 1mg 0.0 BID Last Dose: [id number] on January 09, 2025 2:45:15 AM [facility] Active FreeTe xtMed gambapentin 300 mg 0.0 DAILY Last Dose: [id number] on January 09, 2025 2:45:15 AM [facility] Active [id number] 490607 63391 Adipex-P 37.5 mg tablet 0.0 ORAL DAILY Last Dose: [id number] on January 09, 2025 2:45:15 AM [facility] DISCHARGE MEDICATIONS Status RXNORM NDC Medication Dose Route Frequency Dates Dis pense Data Comments Physician Updated By No Discharge Medication Info rmation Available INPATIENT MEDICATIONS Status RXNORM ND Medication Dose Route Frequency Rat e Quantity Dates Indication Dispense Data Comments Physician Updated By [facility] [id number] 7784 4089 511 NORCO 5-325 MG TABS 1.0 TAB ORAL ONE TIME ONLY Start: Octobe r 2024 3:38:0 0 AM UT End: Octobe r 2024 3:38:0 0 AM [facility] GEOVANI Magallanes MD INTERFAC ED on January 09, 2025 3:37:00 AM [facility] SOCIAL HISTORY SOCIAL HISTORY - Smoking Status SNOMED-CT Social History Element Description Effective Dates Offered Cessation Comment Updated By [id number] Current Tobacco smoking status Unknown If Ever Smoked [id number] on January 09, 2025 4:00:06 AM [facility] [id number] Historical Tobacco smoking status Never Smoked Not Applicable CONVERSION on April 27, 2013 6:28:00 PM UTC SOCIAL HISTORY - Gender Sex: Female SOCIAL HISTORY - Status : status i nformation is not available Intention in Next Year: intention information is not available SOCIAL HISTORY - Assessments Code System Description Status Date Value of Assessment Updated By Comment Assessment Information is no t available SOCIAL HISTORY - [place] Affiliation [place] information is not av ailable SOCIAL HISTORY - Legal Sex Legal Sex information is not available SOCIAL HISTORY - Sexual Behavior Sexual Orientation Gender Identity SNOMED-CT Description SNO MED -CT Description Activity Level No of Partners Partner Type UpdatedBy Information is not available SOCIAL HISTORY - Occupation Occupation information is no t available VITAL SIGNS PATIENT VITAL SIGNS This section displays the mo st recent value for each vital sign as of January 11, 2025 4:00:57 AM UTC Loinc Code Vital Sign Activity Date Result Updated By 8310-5 Body temperature January 09, 2025 2:36:51 AM UTC 97.3 [degF] 18402-2 Body weight Measured January 09, 2025 2:38:38 AM UTC 100.0 kg (220.0 lb) [id number] on January 09, 2025 2:38:38 AM UTC 8462-4 Diastolic blood pressure January 09, 2025 4:01:20 AM UTC 69.0 mm[Hg] 8867-4 Heart rate January 09, 2025 4:01:20 AM UTC 78 /min 38698-8 Oxygen saturation in Arterial blood by Pulse oximetry January 09, 2025 4:01:20 AM UTC 98.0 % 9279-1 Respiratory rate January 09, 2025 4:01:20 AM UTC 18 /min 8480-6 Systolic blood pressure January 09, 2025 4:01:20 AM UTC 128.0 mm[Hg] PEDIATRIC GROWTH CHART - VITAL SIGNS This section displays Head C ircumference Percentile, Weight for Length Percentile and BMI Percentile Loinc Code Pediatric Measure Age (Months) Result Updat ed By No Pediatric Growth Chart Pe rcentile Information Available. HEALTH CONCERNS Problems Concern Status Health Concern problem infor mation not available. Smoking Status Status Years Used Consumed packs p er day Health Concern smoking histo ry information not available. Family History Concern Status Health Concern family histor y information not available. ENCOUNTERS ENCOUNTER INFORMATION Reason for Visit LEG PAIN AND SWELLIN G Admission January 09, 2025 2:28:00 AM UTC [facility] [address] [facility] [address] Discharge January 09, 2025 4:01:00 AM UTC D ISCHARGED TO HOME OR SELF CARE ENCOUNTER DIAGNOSES Notes information is not darrell ilable. Code System Diagnosis Onset Date Diagnosis information is not available. ABSTRACT DIAGNOSES Code System Diagnosis Updated By Abatement Date M79.604 ICD10 PAIN IN RIGHT LEG [id number] on January 11, 2025 3:59:54 AM UTC M79.89 ICD10 OTHER SPECIFIED SOFT TISSUE DISORDERS [id number] on January 11, 2025 3:59:54 AM UTC M25.461 ICD10 EFFUSION, RIGHT KNEE [id number] on January 11, 2025 3:59:54 AM UTC M25.561 ICD10 PAIN IN RIGHT KNEE [id number] o n January 11, 2025 3:59:54 AM UTC M17.11 ICD10 UNILATERAL PRIMA RY OSTEOARTHRITIS, RIGHT KNEE [id number] on January 11, 2025 3:59:54 AM UTC G25.81 ICD10 RESTLESS LEGS SYNDROME [id number] 19 on January 11, 2025 3:59:54 AM UTC M79.7 ICD10 FIBROMYALGIA [id number] on Jano 2024 3:59:54 AM UTC F32.A ICD10 DEPRESSION, UNSPECIFIED [id number] [id number] on January 11, 2025 3:59:54 AM UTC Z79.899 ICD10 OTHER NURSING HOME (CURRENT) DRUG THERAPY [id number] on January 11, 2025 3:59:54 AM UT CARE TEAM Care Typewriters Functional Tester Role D [place] Primary Care CANDIDO OLIVO Referring CANDIDO OLIVO Admitting CANDIDO OLIVO Primary Attending CARE TEAM CARE retail director Role on Team Location Telecom Status Start Date End Raffi e Updated By GEOVANI Magallanes MD, MD Referring normal January 09, 2025 2:37:49 AM UT January 09, 2025 4:01:00 AM [facility] [id number] on January 09, 2025 2:37:49 AM [facility] GEOVANI Magallanes MD, MD Attending normal January 09, 2025 2:37:49 AM UT January 09, 2025 4:01:00 AM [facility] [id number] on January 09, 2025 2:37:49 AM [facility] GEOVANI Magallanes MD, MD Admitting normal January 09, 2025 2:37:49 AM [facility] January 09, 2025 4:01:00 AM [facility] [id number] on January 09, 2025 2:37:49 AM [facility] FRANKIE JOSHI [facility] normal January 09, 2025 2:28:29 AM [facility] January 09, 2025 4:01:00 AM [facility] [id number] on January 09, 2025 2:37:49 AM [facility]
--- OUTSIDE RECORDS SUMMARY | 2025-02-06 18:26 | XMS_ITS | Continuity of Care Document ---
Author Organization [facility] Phone Care Team Providers Care Steel Fixer Name Role Phone Domo DAVID Primary Care Domo DAVID Unavailable Domo DAVID Admitting Domo DAVID Primary Attending ALLERGIES AND ADVERSE REACTIONS ALLERGIES AND ADVERSE REACTIONS Code System Allergy Substance Adverse Reaction Date Reaction (Severity) Comment [place] [id number] RXNorm LAMICTAL Rash Shock active [id number] on January 09, 2025 2:45:09 AM [facility] 7052 RXNorm Morphine Adverse reaction to substance Not Specified active [id number] on January 09, 2025 2:45:09 AM [facility] TREATMENT PLAN DISCHARGE MEDICATIONS Status RXNORM Medication Dose Route Frequency Dates Comments U pdated By Patient discharge medication information is not available. PATIENT OPEN ORDERS Code System Descripti on Frequency Occurrenc es Priority Category [place] [address] [facility] Chest and Abdomen X-ray AP (supine and upright) ONE TIME 0 Routine February 06, 2025 10:37:00 PM [facility] FRANKIE JOSHI [id number] on February 06, 2025 10:44:00 PM [facility] SCHEDULED PROCEDURES Code System Description Status Scheduled Date Upd ated By Patient scheduled procedure information is not available. MEDICATIONS HOME MEDICATIONS Status RXNORM NDC Medication Dose Route Frequency Dates Comments Reported By Updated By Drug Treatment Unknown DISCHARGE MEDICATIONS Status RXNORM NDC Medication Dose Route Frequency Dates Dis pense Data Comments Physician Updated By No Discharge Medication Info rmation Available INPATIENT MEDICATIONS Status RXNORM NDC Medication Dose Route Frequency Rat e Quantity Dates Indication Dispense Data Comments Physician Updated By No Inpatient Medication Info rmation Available SOCIAL HISTORY SOCIAL HISTORY - Smoking Status SNOMED-CT Social History Element Description Effective Dates Offered Cessation Comment Updated By [id number] Historical Tobacco smoking status Unknown If Ever Smoked [id number] on January 09, 2025 4:00:06 AM [facility] [id number] Historical Tobacco smoking status Never Smoked Not Applicable CONVERSION on April 27, 2013 6:28:00 PM [facility] SOCIAL HISTORY - Gender Sex: Female SOCIAL HISTORY - Status : status i nformation is not available Intention in Next Year: intention information is not available SOCIAL HISTORY - Assessments Code System Description Status Date Value of Assessment Updated By Comment Assessment Information is no t available SOCIAL HISTORY - [place] Affiliation [place] information is not av ailable SOCIAL HISTORY - Legal Sex Legal Sex information is not available SOCIAL HISTORY - Sexual Behavior Sexual Orientation Gender Identity SNOMED-CT Description SNO MED -CT Description Activity Level No of Partners Partner Type UpdatedBy Information is not available SOCIAL HISTORY - Occupation Occupation information is no t available HEALTH CONCERNS Problems Concern Status Health Concern problem infor mation not available. Smoking Status Status Years Used Consumed packs p er day Health Concern smoking histo ry information not available. Family History Concern Status Health Concern family histor y information not available. ENCOUNTERS ENCOUNTER INFORMATION Reason for Visit R11.0 Admission February 06, 2025 10:26:[address] [address] Discharge February 06, 2025 10:26:00 PM [facility] DISCHARGED TO HOME OR SELF CARE ENCOUNTER DIAGNOSES Notes information is not darrell ilable. Code System Diagnosis Onset Date Diagnosis information is not available. ABSTRACT DIAGNOSES Code System Diagnosis Updated By Abatement Date Abstract Diagnosis informati on is not available. CARE TEAM Care Steel Fixer Role D STONE Primary Care D STONE Referring D STONE Admitting D STONE Primary Attending CARE TEAM CARE cyber incident handler Role on Team Location Telecom Status Start Date End Raffi e Updated By FRANKIE JOSHI PCP normal February 06, 2025 5:00:00 AM [facility] February 06, 2025 10:26:00 PM [facility] [id number] on February 06, 2025 10:27:43 PM [facility] FRANKIE JOSHI Referring normal February 06, 2025 5:00:00 AM UT February 06, 2025 10:26:00 PM [facility] [id number] on February 06, 2025 10:27:43 PM [facility] FRANKIE JOSHI Attending normal February 06, 2025 5:00:00 AM [facility] February 06, 2025 10:26:00 PM [facility] [id number] on February 06, 2025 10:27:43 PM [facility] FRANKIE JOSHI Admitting normal February 06, 2025 5:00:00 AM [facility] February 06, 2025 10:26:00 PM [facility] [id number] on February 06, 2025 10:27:43 PM [facility]
--- NOTE | 2025-02-07 | CA_ITS ---
FINAL REPORT CLINICAL HISTORY: RLE swelling x 1 month, Prev DVT in arm years ago after IV stick FINDINGS: DUPLEX VENOUS SONOGRAPHY OF THE RIGHT LOWER EXTREMITY Multiple transverse and longitudinal scans were performed of the femoropopliteal deep venous system, with augmentation and compression maneuvers. FINDINGS: Normal phasic flow was noted in the visualized deep venous system. No intraluminal increased echogenicity is noted to suggest thrombus. There is normal compression and augmentation of the venous structures. No abnormal venous collaterals are seen. IMPRESSION: No evidence of deep venous thrombosis of the right lower extremity. Reviewed, Interpreted and Dictated by Waleska Dubois MD Transcribed by Bel Valenzuela Authenticated and [facility]
--- OUTSIDE RECORDS SUMMARY | 2025-02-07 13:33 | XMS_ITS | Continuity of Care Document ---
Author Organization [place] - [facility] Address [address] [place] [address] Assessment No assessment recorded. Plan of Treatment Reminders Order Date Submit Date Provider Last Modified By Organization Details Last Modified Time Details Appointments None recorded. Lab TSH + free T4, serum 2024 025 BENJY [facility] ([place]), [address] [place], [address], 5 10:08:07 HbA1c (hemoglobin A1c), blood 2024 025 BENJY [facility] ([place]), [address] [place], [address], 5 10:08:09 insulin, serum 2024 025 BENJY [facility] ([place]), [address] [place], [address], 5 10:08:10 CBC w/ auto diff 2024 025 BENJY [facility] ([place]), [address] [place], [address], 5 10:08:07 lipid panel, serum 2024 025 BENJY [facility] ([place]), [address] [place], [address], 5 10:08:09 CMP, serum or plasma 2024 025 BENJY [facility] ([facility], [address] [facility], [place], [address], 10:08:08 Referral None recorded. Procedures None recorded. Surgeries None recorded. Imaging US, duplex, venous, lower extremity [address] (Counts Include [facility]), [address], [place], [address], 11:41:47 Medication Orders Lasix 20 mg tablet 2024 [facility], [address] [place], [address], 11:13:39 phentermine 37.5 mg tablet 2024 [facility], [address] [place], [address], 11:16:11 tramadol 50 mg tablet 2024 [facility], [address] [place], [address], 11:16:13 Patient TargetsNo targets recorded. Patient InstructionsNo instructions recorded. Reason for Referral None Reported. Results Created Date Observation Date Name Description Value Unit Range Abnormal Flag Note LastModifiedBy Organization Detail LastModifiedTime 02/04/2002/04/2025 TSH+F REE T4 TSH 0.682 uIU/m L 0.450- 4.500 normal Not Available [facility] ([facility]) [address] [facility], [place], [address], 02/04/2025 10:08:07 02/04/2002/04/2025 TSH+F REE T4 T4,free(dire ct) 1.08 NG/dL 0.82-1 .77 normal Not Available [facility] ([facility]) [address] [facility], [place], [address], 02/04/2025 10:08:07 02/04/20 25 02/04/2025 CBC WITH DIFFE RENTI AL/PL ATELE T WBC 6.8 x10e3 /uL 3.4-10 .8 normal Not Available [facility] ([facility]) [address] [facility], [place], [address], 02/04/2025 10:08:07 02/04/20 25 02/04/2025 CBC WITH DIFFE RENTI AL/PL ATELE T RBC 5.00 x10e6 /uL 3.77-5 .28 normal Not Available [facility] ([facility]) [address] [place], [address], 02/04/2025 10:08:07 02/04/20 25 02/04/2025 CBC WITH DIFFE RENTI AL/PL ATELE T hemoglobin 13.4 g/dL 11.1-1 5.9 normal Not Available [facility] ([facility]) [address] [facility], [place], [address], 02/04/2025 10:08:07 02/04/20 25 02/04/2025 CBC WITH DIFFE RENTI AL/PL ATELE T hematocrit 41.6 % 34.0-4 6.6 normal Not Available [facility] ([facility]) [address] [place], [address], 02/04/2025 10:08:07 02/04/20 25 02/04/2025 CBC WITH DIFFE RENTI AL/PL ATELE T MCV 83 fL 79-97 normal Not Available [facility] ([facility]) [address] [place], [address], 02/04/2025 10:08:07 02/04/20 25 02/04/2025 CBC WITH DIFFE RENTI AL/PL ATELE T MCH 26.8 pg 26.6-3 3.0 normal Not Available [facility] ([facility]) [address] [place], [address], 02/04/2025 10:08:07 02/04/20 25 02/04/2025 CBC WITH DIFFE RENTI AL/PL ATELE T MCHC 32.2 g/dL 31.5-3 5.7 normal Not Available [facility] ([facility]) [address] [facility], [place], [address], 02/04/2025 10:08:07 02/04/20 25 02/04/2025 CBC WITH DIFFE RENTI AL/PL ATELE T RDW 14.4 % 11.7-1 5.4 Not Available [facility] ([facility]) [address] [facility], [place], [address], 02/04/2025 10:08:07 02/04/20 25 02/04/2025 CBC WITH DIFFE RENTI AL/PL ATELE T platelets 283 x10e3 /uL 150-45 0 normal Not Available [facility] ([facility]) [address] [facility], [place], [address], 02/04/2025 10:08:07 02/04/20 25 02/04/2025 CBC WITH DIFFE RENTI AL/PL ATELE T neutrophils 69 % not estab. normal Not Available [facility] ([facility]) [address] [facility], [place], [address], 02/04/2025 10:08:07 02/04/20 25 02/04/2025 CBC WITH DIFFE RENTI AL/PL ATELE T lymphs 19 % not estab. normal Not Available [facility] ([facility]) [address] [facility], [place], [address], 02/04/2025 10:08:07 02/04/20 25 02/04/2025 CBC WITH DIFFE RENTI AL/PL ATELE T monocytes 10 % not estab. normal Not Available [facility] ([facility]) [address] [facility], [place], [address], 02/04/2025 10:08:07 02/04/20 25 02/04/2025 CBC WITH DIFFE RENTI AL/PL ATELE T eos 1 % not estab. normal Not Available [facility] ([facility]) [address] [facility], [place], [address], 02/04/2025 10:08:07 02/04/20 25 02/04/2025 CBC WITH DIFFE RENTI AL/PL ATELE T basos 1 % not estab. 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 0 normal Not Available [facility] ([facility]) [address] [place], [address], 02/04/2025 10:08:07 02/04/20 25 02/04/2025 CBC WITH DIFFE RENTI AL/PL ATELE T lymphs (absolute) 1.3 x10e3 /uL 0.7-3. 1 normal Not Available [facility] ([facility]) [address] [place], [address], 02/04/2025 10:08:07 02/04/2002/04/2025 CBC WITH DIFFE RENTI AL/PL ATELE T monocytes(ab solute) 0.7 x10e3 /uL 0.1-0. 9 normal Not Available [facility] ([facility]) [address] [place], [address], 02/04/2025 10:08:07 02/04/20 25 02/04/2025 CBC WITH DIFFE RENTI AL/PL ATELE T eos (absolute) 0.1 x10e3 /uL 0.0-0. 4 normal Not Available [facility] ([facility]) [address] [facility], [place], [address], 02/04/2025 10:08:07 02/04/20 25 02/04/2025 CBC WITH DIFFE RENTI AL/PL ATELE T baso (absolute) 0.1 x10e3 /uL 0.0-0. 2 normal Not Available [facility] ([facility]) [address] [facility], [place], [address], 02/04/2025 10:08:07 02/04/20 25 02/04/2025 CBC WITH DIFFE RENTI AL/PL ATELE T immature granulocytes 0 % not estab. Not Available [facility] ([facility]) [address] [facility], [place], [address], 02/04/2025 10:08:07 02/04/20 25 02/04/2025 CBC WITH DIFFE RENTI AL/PL ATELE T immature grans (abs) 0.0 x10e3 /uL 0.0-0. 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 METAB OLIC PANEL (14) interpretati on: Commen t GFR estim ate at the follo wing level for >or=3 month s is class ified as follo ws: GFR WITH KIDNE Y DAMAG E WITHO UT KIDNE Y DAMAG E >or=9 0 Stage 1 Angie l 60-89 Stage 2 Decr eased GFR 30-59 Stage 3 Stage 3 15-29 Stage 4 Stage 4 <15 (or dialy sis) Stage 5 Stage 5 Estim ated GFR will over estim ate true GFR if serum creat inine is risin g as in acute renal failu re and will under estim ate true GFR if serum creat inine is decli duarte as in resol ving acute renal failu re. Addit ional infor amita bennett may be found at www.k doqi. org. Not Available [facility] ([facility]) [address] [place], [address], 02/04/2025 10:08:08 02/04/20 25 02/04/2025 COMP. METAB OLIC PANEL (14) glucose 111 mg/dL 70-99 above high normal Not Available [facility] ([facility]) [address] [place], [address], 02/04/2025 10:08:08 02/04/20 25 02/04/2025 COMP. METAB OLIC PANEL (14) BUN 18 mg/dL 6-24 normal Not Available [facility] ([facility]) [address] [place], [address], 02/04/2025 10:08:08 02/04/20 25 02/04/2025 COMP. METAB OLIC PANEL (14) creatinine 0.80 mg/dL 0.57-1 .00 normal Not Available [facility] ([facility]) [address] [place], [address], 02/04/2025 10:08:08 02/04/20 25 02/04/2025 COMP. METAB OLIC PANEL (14) eGFR 90 mL/mi n/1.7 3 >59 normal Not Available [facility] ([facility]) [address] [place], [address], 02/04/2025 10:08:08 02/04/20 25 02/04/2025 COMP. METAB OLIC PANEL (14) BUN/creatini ne ratio 23 9-23 normal Not Available [facility] ([facility]) [address] [facility], [address], 02/04/2025 10:08:08 02/04/20 25 02/04/2025 COMP. METAB OLIC PANEL (14) sodium 143 mmol/ L 134-14 4 normal Not Available [facility] ([facility]) [address] [place], [address], 02/04/2025 10:08:08 02/04/20 25 02/04/2025 COMP. METAB OLIC PANEL (14) potassium 3.9 mmol/ L 3.5-5. 2 normal Not Available [facility] ([facility]) [address] [place], [address], 02/04/2025 10:08:08 02/04/20 25 02/04/2025 COMP. METAB OLIC PANEL (14) chloride 107 mmol/ L 96-106 above high normal Not Available [facility] ([facility]) [address] [facility] [place], [address], 02/04/2025 10:08:08 02/04/20 25 02/04/2025 COMP. METAB OLIC PANEL (14) carbon dioxide, total 20 mmol/ L 20-29 normal Not Available [facility] ([facility]) [address] [facility] [place], [address], 02/04/2025 10:08:08 02/04/20 25 02/04/2025 COMP. METAB OLIC PANEL (14) calcium 9.2 mg/dL 8.7-10 .2 normal Not Available [facility] ([facility]) [address] [facility] [place], [address], 02/04/2025 10:08:08 02/04/20 25 02/04/2025 COMP. METAB OLIC PANEL (14) protein, total 6.0 g/dL 6.0-8. 5 normal Not Available [facility] ([facility]) [address] [place], [address], 02/04/2025 10:08:08 02/04/2002/04/2025 COMP. METAB OLIC PANEL (14) albumin 4.1 g/dL 3.9-4. 9 normal Not Available [facility] ([facility]) [address] [facility], [address], 02/04/2025 10:08:08 02/04/20 25 02/04/2025 COMP. METAB OLIC PANEL (14) globulin, total 1.9 g/dL 1.5-4. 5 Not Available [facility] ([facility]) [address] [facility], [address], 02/04/2025 10:08:08 02/04/2002/04/2025 COMP. METAB OLIC PANEL (14) bilirubin, total 0.4 mg/dL 0.0-1. 2 normal Not Available [facility] ([facility]) [address] [facility] [place], [address], 02/04/2025 10:08:08 02/04/2002/04/2025 COMP. METAB OLIC PANEL (14) alkaline phosphatase 106 IU/L 41-116 normal Not Available [facility] ([facility]) [address] [facility] [place], [address], 02/04/2025 10:08:08 02/04/20 25 02/04/2025 COMP. METAB OLIC PANEL (14) AST (SGOT) 24 IU/L 0-40 normal Not Available [facility] ([facility]) [address] [facility] [place], [address], 02/04/2025 10:08:08 02/04/20 25 02/04/2025 COMP. METAB OLIC PANEL (14) ALT (SGPT) 18 IU/L 0-32 normal Not Available [facility] ([facility]) [address] [facility] [place], [address], 02/04/2025 10:08:08 02/04/20 25 02/04/2025 LIPID PANEL cholesterol, total 139 mg/dL 100-19 9 normal Not Available [facility] ([facility]) [address] [facility] [place], [address], 02/04/2025 10:08:08 02/04/20 25 02/04/2025 LIPID PANEL triglyceride s 72 mg/dL 0-149 normal Not Available [facility] ([facility]) [address] [place], [address], 02/04/2025 10:08:08 02/04/20 25 02/04/2025 LIPID PANEL HDL cholesterol 50 mg/dL >39 normal Not Available [facility] ([facility]) [address] [place], [address], 02/04/2025 10:08:08 02/04/20 25 02/04/2025 LIPID PANEL VLDL cholesterol antelmo 14 mg/dL 5-40 Not Available [facility] ([facility]) [address] [place], [address], 02/04/2025 10:08:08 02/04/20 25 02/04/2025 LIPID PANEL LDL chol calc ([facility]) 75 mg/dL 0-99 Not Available [facility] ([facility]) [address] [place], [address], 02/04/2025 10:08:08 02/04/20 25 02/04/2025 LIPID PANEL LDL calc 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 6 normal Predi abete s: 5.7 - 6.4 Diabe tai: >6.4 Glyce spike contr ol for adult s with diabe tai: <7.0 Not Available [facility] ([facility]) [address] [facility], [place], [address], 02/04/2025 10:08:09 02/04/2002/04/2025 INSUL IN insulin 15.8 uIU/m L 2.6-24 .9 normal Not Available [facility] ([facility]) [address] [facility], [place], [address], 02/04/2025 10:08:09 Result Notes None recorded. 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 4 12:06:04 Rheumatoid arthritis 62200368 Active 2023 MADELYN Barber [address] [place] [address], [address] 8, [place] [employer] 4 12:06:15 Migraine 29759632 Active 2023 MADELYN Barber [address] [place] [address], 565[address] 8, [place] [employer] 4 12:06:29 Restless legs syndrome 01531810 Active 2023 MADELYN Barber [address] [place] [address], 239[address] 8, [employer] 4 12:06:47 Vitamin D deficiency 83072753 Active 2023 MADELYN Barber [address] [place] [address], 648[address]409 8, [employer] 4 12:07:19 Acute tonsillitis 65084335 Completed 202304/28/2024 MADELYN Barber [address] [place] [address], 12[address] 8, [employer] 13:14:53 Nausea and vomiting 10959769 Completed 202309/19/2024 MADELYN Barber [address] [place] [address], 04283[address] 8, [employer] 09:38:32 Generalized anxiety disorder 30861466 Active 2023 MADELYN Barber [address] [place] [address], [address] 8, [employer] 13:15:00 Anxiety 72469354 Active 2023 MADELYN Barber [address] [place] [address], 743[address]785 8, [employer] 13:14:57 Body fluid retention 60682323 Active 2024 MADELYN Barber [address] [place] [address], 13766[address]917 8, [employer] 5 10:55:52 Nasal congestion 51232989 Completed 202409/19/2024 MADELYN Babrer [address] [place] [address], 77[address] 8, [employer] 5 10:05:09 Fibromyalgi a 245426155 Active 2024 MADELYN Barber [address] [place] [address], 37[address]090 8, [employer] 5 10:05:10 Acute maxillary sinusitis 93354010 Completed 202401/31/2025 MADELYN Barber [address] [place] [address], [address] 8, [employer] 09:41:48 Candidiasis of mouth 94637788 Active 2024 MADELYN Barber [address] [place] [address], 95547-883 8, [employer] 10:04:20 Acute headache 601620201 Active [address], [address] 8, [place] [employer] 16:40:13 Congestion of nasal sinus 16160709 Completed 202401/31/2025 MADELYN Barber [address] [place] [address], 23437[address] 8, [employer] 09:42:01 Seasonal allergic rhinitis 177745520 Active [address], [address] 8, [place] [employer] 16:41:04 Sore throat 619054242 Completed 202401/31/2025 MADELYN Barber [address] [place] [address], 87364-066 8, [employer] 09:41:59 Edema of lower extremity 102907339 Active 2024 MADELYN Barber [address] [place] [address], 84391[address]521 8, [employer] 11:56:32 Acute bacterial sinusitis 36681292 Completed 202401/31/2025 MADELYN Barber [address] [place] [address], 80590-035 8, [employer] 09:41:55 Recurrent sinusitis 385642181 Completed 202401/31/2025 MADELYN Barber [address] [place] [address], 775[address]721 8, [place] [employer] 09:41:45 Edema of foot 900995252 Active 2024 MADELYN Barber [address] [place] [address], 38[address]868 8, [employer] 14:59:28 Nausea and vomiting 70305723 Active 2024 MADELYN Barber [address] [place] [address], 40399[address]750 8, [employer] 09:38:32 Edema of right lower limb 762603301 Active 2024 MADELYN Barber [address] [place] [address], 76043-523 8, [employer] 11:07:47 Weight increased 920903247 Active 2024 MADELYN Barber [address] [place] [address], 22492-772 8, [employer] 11:13:38 Problem Notes None recorded. Procedures Surgical History Date Name Laterality Status Provider Name and Address Organization Details Recorded Time 06/19/19 24 Most Recent Mammogram completed [employer] 04/28/2024 13:56:24 Caesarean Section completed [employer] 03/15/2024 11:38:45 Gastric Bypass completed [employer] 03/15/2024 11:38:45 Hernia Repair completed [employer] 03/15/2024 11:38:45 Tonsillectomy completed [employer] 03/15/2024 11:38:45 Tubal Ligation completed [employer] 03/15/2024 11:38:45 Dilation and Curettage completed [employer] 03/15/2024 11:38:45 Gallbladder Surgery completed [employer] 03/15/2024 11:38:45 Cosmetic Surgery completed [employer] 03/15/2024 11:38:45 Total Hysterectomy completed [employer] 03/15/2024 11:38:45 Imaging Results None recorded. Procedure Notes None recorded. Medical Equipment None Reported. Allergies Allergen ID Allergen Name Allergen Category Reaction Reaction Severity Criticality Documentation Date Start Date Code Code System Note Provider Name and Address Organization Details Recorded Time 74277 Lamictal medicatio n Not available Not available Not available 03/15/2024 12971 2 RxNorm Ruchi Vice null, [employer] 11:48:26 45647 morphine medicatio n Not available Not available Not available 03/15/2024 7052 RxNorm Ruchi Vice null, [employer] 11:48:35 Medications Name Sig Start Date Stop Date Status Note LastModified by Organization Details LastModified Time Prescript ion - Prior Authoriza tion Request active Not Available Not Available Not Available clotrimaz ole 10 mg ry Take 1 tablet 5 times a day by oral route for 7 days. 11/29 completed Not Available Not Available Not Available nystatin 100,000 unit/mL oral suspensio n Take 5 mL 4 times a day by oral route for 10 days. 11/15 completed Not Available Not Available Not Available prednison e 10 mg tablet 03/15 completed Not Available Not Available Not Available ropinirol e 1 mg tablet TAKE 2 TABLETS BY MOUTH AT BEDTIME active Not Available Not Available No t Available azithromy ja 250 mg tablet TAKE 2 TABLETS BY MOUTH ON DAY 1, AND THEN TAKE 1 TABLET BY MOUTH ONCE A DAY ON DAY 2 THROUGH DAY 5 01/31 completed Not Available Not Available Not Available sumatript an 100 mg tablet Take 1 tablet every day by oral route as needed for 30 days, for migraine . 01/31 completed Not Available Not Available Not Available promethaz ine 12.5 mg tablet Take 1 tablet 3 times a day by oral route for 5 days. 2024 active Not Available Not Available Not Avai lable prednison e 20 mg tablet Take 1 tablet twice a day by oral route as directed for 5 days. 11/27 completed Not Available Not Available Not Available phentermi ne 37.5 mg tablet TAKE 1 TABLET BY MOUTH TWICE DAILY NEEDED FOR WEIGHT LOSS 2024 active Not Available Not Available Not Avai lable tramadol 50 mg tablet Take 1 tablet 4 times a day by oral route as directed for 30 days, for joint pain. 2024 active Not Available Not Available Not Avai lable butalbita l-acetami nophen-ca ffeine 50 mg-325 mg-40 mg tablet TAKE 1 TABLET BY MOUTH TWICE DAILY NEEDED FOR SEVERE MIGRAINE active Not Available Not Available No t Available ondansetr on 8 mg disintegr ating tablet DISSOLVE 1 TABLET IN MOUTH THREE TIMES DAILY DIRECTED FOR NAUSEA AND VOMITING active Not Available Not Available No t Available Depo-Medr ol 80 mg/mL suspensio n for injection Take 1 mL by injectio n route. 09/19 completed Not Available Not Available Not Available amitripty line 25 mg tablet TAKE 1 TABLET BY MOUTH ONCE DAILY 1 HOUR BEFORE BEDTIME active Not Available Not Available No t Available lorazepam 0.5 mg tablet TAKE 1 TABLET BY MOUTH TWICE DAILY DIRECTED FOR PANIC ATTACKS/ ACUTE ANXIETY FOR 30 DAYS 08/30 completed Not Available Not Available Not Available Lasix 20 mg tablet Take 1 tablet every day by oral route for 30 days. 2024 active Not Available Not Available Not Avai lable oseltamiv ir 75 mg capsule 03/15 completed Not Available Not Available Not Available albendazo le 200 mg tablet 03/15 completed Not Available Not Available Not Available gabapenti n 300 mg capsule TAKE 1 CAPSULE BY MOUTH AT BEDTIME FOR RLS 02/03 completed Pt stopped due to weight gain Not Available Not Available Not Available ergocalci ferol (vitamin D2) 1,250 mcg (50,000 unit) capsule TAKE 1 CAPSULE BY MOUTH ONCE EVERY MONTH 01/31 completed Not Available Not Available Not Available methylpre dnisolone 4 mg tablets in a dose pack 03/15 completed Not Available Not Available Not Available ketorolac 60 mg/2 mL intramusc ular solution Inject 2 mL by intramus cular route. 08/30 completed Not Available Not Available Not Available cefdinir 300 mg capsule TAKE 1 CAPSULE BY MOUTH EVERY 12 HOURS DIRECTED FOR INFECTIO N FOR 10 DAYS 06/20 completed Not Available Not Available Not Available doxycycli ne hyclate 100 mg tablet 03/15 completed Not Available Not Available Not Available amoxicill in 875 mg-potass ium clavulana te 125 mg tablet TAKE 1 TABLET BY MOUTH EVERY 12 HOURS FOR 10 DAYS 11/15 completed Not Available Not Available Not Available nitrofura ntoin monohydra te/macroc rystals 100 mg capsule 03/15 completed Not Available Not Available Not Available duloxetin e 30 mg capsule,d elayed release Take 1 capsule by mouth once daily for 90 days 01/31 completed Not Available Not Available Not Available hydrochlo rothiazid e 12.5 mg tablet Take 1 tablet every day by oral route as needed for 90 days, for fluid. 2024 active Not Available Not Available Not Avai lable Vitamin D3 50 mcg (2,000 unit) capsule TAKE 1 CAPSULE BY MOUTH ONCE DAILY 01/31 completed Not Available Not Available Not Available Horizant ER 600 mg tablet,ex tended release Take 1 tablet every day by oral route at dinner for 30 days, for restless legs. 06/20 completed Not Available Not Available Not Available Nurtec ODT 75 mg disintegr ating tablet DISSOLVE 1 TABLET BY MOUTH EVERY OTHER DAY NEEDED FOR MIGRAINE HEADACHE active Not Available Not Available No t Available Vitals Date Recorded Body height Body mass index (BMI) Body weight Oxygen saturation Oxygen saturation in Arterial blood by Pulse oximetry Heart rate Body temperature Systolic And Diastolic Provider Name and Address Organization Details Last Updated DateTime 5 157.48 cm 44.6 kg/m2 992433. 82 g 98 % 98 % 86 /min 97.6 [degF] 116/76 mm[Hg] Ruchitsering [employer] 10:56:44 Social History Question Answer Notes LastModified by Organizat ion Details LastModified Time Tobacco Smoking Status Never Smoker [employer]. 03/15/2024 11:38:45 Do You Have An Advance Directive? No Information not available 03/15/2024 Is Your Home Air Conditioned? Yes Information not available 03/15/2024 If You Are , What Was Your Level Of Alcohol Consumption Prior To ? None Information not available 03/15/2024 Do You Wear A Helmet When Biking? No Information not available 03/15/2024 Are You Blind Or Do You Have Difficulty Seeing? No Information not available 03/15/2024 What Is Your Level Of Caffeine Consumption? Moderate Information not available 01/31/2025 Are You A Caregiver? No Information not available 01/31/2025 What Type Of Mutuel Teller Do You Use? None Information not available 03/15/2024 Have You Been To An Area Known To Be High Risk For COVID-19? No Information not available 03/15/2024 Are You Deaf Or Do You Have Serious Difficulty Hearing? No Information not available 03/15/2024 What Type Of Diet Are You Following? REGULAR Information not available 03/15/2024 What Is The Highest Grade Or Level Of School You Have Completed Or The Highest Degree You Have Received? [id number] Information not available 01/31/2025 Who Is Your Employer? [employer] Information no t available 03/15/2024 How Many Days Of Moderate To Strenuous Exercise, Like A Brisk Walk, Did You Do In The Last 7 Days? 2 Information not available 03/15/2024 Have There Been Any Changes To Your Family Or Social Situation? No Information not available 03/15/2024 Are There Any Guns Present In Your Home? No Information not available 03/15/2024 Which Of Your Hands Is Dominant? Right Information not available 03/15/2024 Do You Engage In Moderate/heavy Exercise (e.g. Brisk Walk, Jogging, Strength Training, Etc)? No Information not available 01/31/2025 What Is Your Home Situation? Other Information not available 03/15/2024 How Many Times In The Past Year Have You Used An Illegal Drug Or Used A Prescription Medication For Nonmedical Reasons? 0 Information not available 01/31/2025 Where Do You Live? [place] Information not available 01/31/2025 Do You Have A Medical Power Of Component Prep Operator? No Information not available 03/15/2024 What Was The Date Of Your Most Recent Tobacco Screening? 02/03/2025 Information not available 02/03/2025 Are There Any Occupational Health Risks Where You Work? Yes Information not available 03/15/2024 Do You Have Any Pets? Yes Information not available 03/15/2024 Do You Use Protection During Sex? No Information not available 03/15/2024 What Is Your Relationship Status? Information not available 03/15/2024 Have You Repeated Any Grades? No Information not available 03/15/2024 Do You Wear A Seatbelt When Driving Or As A Passenger? Yes Information not available 01/31/2025 Do You Use Your Seat Belt Or Car Seat Routinely? Yes Information not available 03/15/2024 Are You Sexually Active? Yes Information not available 03/15/2024 Do You Have Any Siblings? Yes Information not available 03/15/2024 Do You Have Smoke And Carbon Monoxide Detectors In Your Home? Yes Information not available 03/15/2024 Are You Passively Exposed To Smoke? No Information not available 01/31/2025 Are There Any Smokers In Your House? Yes Information not available 03/15/2024 Do You Participate In Social Media? Yes Information not available 03/15/2024 What Types Of Sporting Activities Do You Participate In? NA Information not available 01/31/2025 Do You Use Sunscreen Routinely? No Information not available 03/15/2024 Has Tobacco Cessation Counseling Been Provided? No Information not available 03/15/2024 Have You Recently Traveled Abroad? No Information not available 03/15/2024 Do You Have Difficulty Walking Or Climbing Stairs? No Information not available 03/15/2024 Are You Currently In School? No Information not available 03/15/2024 What Contraceptive Method Was Reported At Start Of This Visit? Female Sterilization Information not available 08/22/2024 Do You Feel Safe In Your Home? Yes Information not available 01/31/2025 Do You Have Any Dietary Restrictions? No Information not available 03/15/2024 Sex: Unknown Functional Status Question Answer Note LastModified by Organizat [employer] Details LastModified Time Do you use any illicit or recreational drugs? No Information not available 03/15/2024 Do you feel safe in your relationship? Yes Information n ot available 01/31/2025 Do you or have you ever used any other forms of tobacco or nicotine? No Information not available 03/15/2024 What is your level of alcohol consumption? None Information not available 03/15/2024 Are you currently employed? Yes Information not available 03/15/2024 Do you have transportation difficulties? No Information not available 03/15/2024 Are you able to walk independently without assistance or assistive devices? YESWOREST Information not available 03/15/2024 Do you have difficulty doing errands alone? No Information not available 03/15/2024 Are you able to care for yourself independently? Yes Information not available 03/15/2024 Do you have difficulty dressing, bathing, grooming, or toileting? No Information not available 03/15/2024 What is your exercise level? Occasional Information not available 03/15/2024 Mental Status Question Answer Note LastModified by [employer] Details LastModified Time Do you feel stressed (tense, restless, nervous, or anxious, or unable to sleep at night)? [id number] Information not available 01/31/2025 Do you have difficulty concentrating, remembering or making decisions? Yes Information no t available 03/15/2024 Are you or have you been involved with bullying? No Information not available 03/15/2024 Family History Relationship Description Onset Age of this Age Resolved Age Notes LastModified by Organization Details LastModified Time Mother Harmful pattern of use of alcohol Not available 2023 11:38:43 Mother Anxiety disorder Not available 2023 11:38:43 Maternal Grandmother Diabetes mellitus Not available 2023 11:38:43 Brother Anxiety disorder Not available 2023 11:38:43 Father Heart disease Not available 2023 11:38:43 Medical History Condition Response Emergency room visit since last appointm ent. N Depression Y Anxiety Disorder Y Obesity Y Arthritis Y Acid Reflux (GERD) Y Headaches Y Hospitalizations N Osteoporosis Y Gynecological History Statement/Question Response Menses Monthly N HPV Vaccine Y Date of Last Pap Smear Current Control Method Hysterectom y Most Recent Mammogram 06/19/2023 Age at First Child 16 Obstetrics History GPAL:G 0 P 0 0 0 0 Immunizations Vaccine Type Date Status Note Provider Nam e and Address Organization Details Recorded Time Influenza, recombinant, quadrivalent, PF 0 completed Ruchi Vice null, [employer] 04/28/2024 13:04:34 MMR 2 completed Ruchi Vice null, [employer] 04/28/2024 13:04:34 MMR 1 completed Ruchi Vice null, [employer] 04/28/2024 13:04:34 COVID-19, mRNA, LNP-S, PF, 30 mcg/0.3 mL dose 1 completed Ruchi Vice null, [employer] 04/28/2024 13:04:34 COVID-19, mRNA, LNP-S, PF, 30 mcg/0.3 mL dose 0 completed Ruchi Vice null, [employer] 04/28/2024 13:04:34 pneumococcal polysaccharide PPV23 9 completed Ruchi Vice null, [employer] 04/28/2024 13:04:34 Tdap 1 completed Ruchi Vice null, [employer] 04/28/2024 13:04:34 Hep B, adult 2 completed Ruchi Vice null, [employer] 04/28/2024 13:04:34 Hep B, adult 1 completed Ruchi Vice null, [employer] 04/28/2024 13:04:34 Hep A, adult 2 completed Ruchi Vice null, [employer] 04/28/2024 13:04:34 Hep A, adult 1 completed Ruchi Vice null, [place] [employer] 04/28/2024 13:04:34 Influenza, split virus, quadrivalent, PF 3 completed Ruchi Vice null, [employer] 04/28/2024 13:04:34 Influenza, split virus, quadrivalent, PF 2 completed Rcuhi Vice null, [employer] 04/28/2024 13:04:34 Past Encounters Encounter ID Performer Location Encounter Start Date Encounter Closed Date Diagnosis/Indication Diagnosis SNOMED-CT Code Diagnosis ICD10 Code Diagnosis IMO Codes Diagnosis Note [id number] Adelia Bedolla [address] [address] 01/31/2025 08:50:56 01/31/2025 09:42:48 Nausea and vomiting 58399101 R11.2 981200 rest, clear liquids, bland diet [id number] Adelia Bedolla [address] [address] 02/03/2025 10:44:23 02/03/2025 11:29:59 Edema of right lower limb 141662317 R60.0 59758821 Weight increased 0746080 00 R63.5 29936 Rheumatoid arthritis 698 84315 M06.9 Body mass index 30+ - obesity 155233750 Z68.37 Health Concerns Section Related Observation LastModified by Organization Detai ls LastModified Time None Recorded Concern Status LastModified by Organization Details LastModified Time None Recorded Payers Encounter Date Sequence Insurance Name Policy Number Policy Palacios Covered Member ID Palacios Member ID Guarantor Name 02/03/2025 1 [place] [id number] Raissa Herring [id number] Raissa Herring Notes Date Note Type Note Provider Name and Address Organization Details Recorded Time 02/03/2025 text/html ROS as noted in the HPI Patient states that she is still having swelling in her right lower leg. Started approximately one month ago after riding in a vehicle to [place]. Was seen in ER. Did an Xray of her knee that was normal. Swelling goes down a little overnight, but not much. Worse by the end of the day. She also states that she is gaining weight despite eating less and taking in less calories and is concerned about that. MADELYN Barber [address] [place] [address], [place], [address], [facility] [employer] 02/06/2025 11:01:41 OBGyn Episode No OBEpisode recorded.
--- OUTSIDE RECORDS SUMMARY | 2025-02-07 13:34 | XMS_ITS | Continuity of Care Document ---
Author Organization [employer] [facility] Address [address] [place] [address] Assessment No assessment recorded. Plan of Treatment Reminders Order Date Submit Date Provider Last Modified By Organization Details Last Modified Time Details Appointments None recorded. Lab None recorded. Referral None recorded. Procedures None recorded. Surgeries None recorded. Imaging None recorded. Medication Orders promethazin e 12.5 mg tablet 2024 025 [facility] [address], [address] [place] [address], [address], 09:39:00 Patient TargetsNo targets recorded. Patient Instructions Encounter Date Encounter Id Patient Instructions Last Modified By Organization Details Last Modified Time 01/31/2025 [id number] nausea and vomiting: care instructions [id number] Not available 01/31/2025 09:38:54 Reason for Referral None Reported. 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 4 12:06:04 Rheumatoid arthritis 16802192 Active 2023 MADELYN Barber [address] [place] [address], [address] 8, [employer] 4 12:06:15 Migraine 67687102 Active 2023 MADLEYN Barber [address] [place] [address], [address] 8, [place] [employer] 4 12:06:29 Restless legs syndrome 82117283 Active 2023 MADELYN Barber [address] [place] [address], [address] 8, [employer] 4 12:06:47 Vitamin D deficiency 05083021 Active 2023 MADELYN Barber [address] [place] [address], [address] 8, [employer] 4 12:07:19 Acute tonsillitis 94765300 Completed 202304/28/2024 MADELYN Barber [address] [place] [address], [address] 8, [employer] 13:14:53 Nausea and vomiting 96957893 Completed 202309/19/2024 MADELYN Barber [address] [place] [address], [address] 8, [employer] 09:38:32 Generalized anxiety disorder 42580308 Active 2023 MADELYN Barber [address] [place] [address], [address] 8, [employer] 13:15:00 Anxiety 03862041 Active 2023 MADELYN Barber [address] [place] [address], [address] 8, [employer] 13:14:57 Body fluid retention 39063697 Active 2024 MADELYN Barber [address] [place] [address], [address] 8, [employer] 5 10:55:52 Nasal congestion 65781173 Completed 202409/19/2024 MADELYN Barber [address] [place] [address], [address] 8, [employer] 5 10:05:09 Fibromyalgi a 266448443 Active 2024 MADELYN Barber [address] [place] [address], [address] 8, [place] [employer] 10:05:10 Acute maxillary sinusitis 41280098 Completed 202401/31/2025 MADELYN Barber [address] [place] [address], [address] 8, [place] [employer] 09:41:48 Candidiasis of mouth 70469990 Active 2024 MADELYN Barber [address] [place] [address], [address] 8, [place] [email or web address] 10:04:20 Acute headache 331127154 Active [address], [address], [employer] 16:40:13 Congestion of nasal sinus 15690815 Completed 202401/31/2025 MADELYN Barber [address] [place] [address], [address] 8, [place] [email or web address] 09:42:01 Seasonal allergic rhinitis 908554113 Active [address], [address] 8, [employer] 16:41:04 Sore throat 934496667 Completed 202401/31/2025 MADELYN Barber [address] [place] [address], [address] 8, [employer] 09:41:59 Edema of lower extremity 660639842 Active 2024 MADELYN Barber [address] [place] [address], [address] 8, [employer] 11:56:32 Acute bacterial sinusitis 36816953 Completed 202401/31/2025 MADELYN Barber [address] [place] [address], [address] 8, [employer] 09:41:55 Recurrent sinusitis 378940315 Completed 202401/31/2025 MADELYN Barber [address] [place] [address], [address] 8, [employer] 09:41:45 Edema of foot 013448044 Active 2024 MADELYN Barber [address] [place] [address], [address] 8, [employer] 14:59:28 Nausea and vomiting 27715894 Active 2024 MADELYN Barber [address] [place] [address], [address] 8, [employer] 09:38:32 Edema of right lower limb 803672967 Active 2024 MADELYN Barber [address] [place] [address], [address] 8, [employer] 11:07:47 Weight increased 988218857 Active 2024 MADELYN Barber [address] [place] [address], [address] 8, [employer] 11:13:38 Problem Notes None recorded. Procedures Surgical History Date Name Laterality Status Provider Name and Address Organization Details Recorded Time 06/19/19 Most Recent Mammogram completed [employer] 04/28/2024 13:56:24 Caesarean Section completed [employer] 03/15/2024 11:38:45 Gastric Bypass completed [employer] 03/15/2024 11:38:45 Hernia Repair completed [employer] 03/15/2024 11:38:45 Tonsillectomy completed [employer] 03/15/2024 11:38:45 Tubal Ligation completed [employer] 03/15/2024 11:38:45 Dilation and Curettage completed [employer] 03/15/2024 11:38:45 Gallbladder Surgery completed [employer]. 03/15/2024 11:38:45 Cosmetic Surgery completed [facility]. 03/15/2024 11:38:45 Total Hysterectomy completed [employer]. 03/15/2024 11:38:45 Imaging Results None recorded. Procedure Notes None recorded. Medical Equipment None Reported. Allergies Allergen ID Allergen Name Allergen Category Reaction Reaction Severity Criticality Documentation Date Start Date Code Code System Note Provider Name and Address Organization Details Recorded Time 32817 Lamictal medicatio n Not available Not available Not available 03/15/2024 55604 2 RxNorm [employer] 11:48:26 38378 morphine medicatio n Not available Not available Not available 03/15/2024 7052 RxNorm [employer]. 11:48:35 Medications Name Sig Start Date Stop [...] completed Not Available Not Available Not Available [facility] mg disintegr ating tablet DISSOLVE [...] Details Last Updated DateTime 5 157.48 cm 44.5 kg/m2 509838. 66 g 98 % 98 % 98 /min 98 [degF] 126/84 mm[Hg] [facility] [employer] [facility]. 5 09:18:38 Social History Question Answer Notes LastModified by Organizat ion Details LastModified Time Tobacco Smoking Status Never Smoker Ruchi lin [facility] [employer] 03/15/2024 11:38:45 Do You Have An Advance [...] Information not available 01/31/2025 What Type Of Pretzel Cooker Do You Use? None Information not available [...] Or The Highest Degree You Have Received? [id number] Information not available 01/31/2025 Who Is Your Employer? [employer] Information no t available 03/15/2024 How Many [...] not available 01/31/2025 Where Do You Live? 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 [id number] Information not available 01/31/2025 Do you have [...] available 2023 11:38:43 Medical History Condition Response Anxiety Disorder Y Obesity Y Arthritis Y Hospitalizations N Acid Reflux (GERD) Y Emergency room visit since last appointm ent. N Headaches Y Depression Y Osteoporosis Y Gynecological History Statement/Question Response Menses [...] quadrivalent, PF 0 completed Ruchi Vice null, [employer] 04/28/2024 13:04:34 MMR 2 completed Ruchi Vice null, [employer] 04/28/2024 13:04:34 MMR 1 completed Ruchi Vice null, [employer] 04/28/2024 13:04:34 COVID-19, mRNA, LNP-S, PF, 30 mcg/0.3 mL dose 1 completed Ruchi Vice null, [employer] 04/28/2024 13:04:34 COVID-19, mRNA, LNP-S, PF, 30 mcg/0.3 mL dose 0 completed Ruchi Vice null, [employer] 04/28/2024 13:04:34 pneumococcal polysaccharide PPV23 9 completed Ruchi Vice null, [employer] 04/28/2024 13:04:34 Tdap 1 completed Ruchi Vice null, [employer] 04/28/2024 13:04:34 Hep B, adult 2 completed Ruchi Vice null, [employer] 04/28/2024 13:04:34 Hep B, adult 1 completed Ruchi Vice null, [employer] 04/28/2024 13:04:34 Hep A, adult 2 completed Ruchi Vice null, [employer] 04/28/2024 13:04:34 Hep A, adult 1 completed Ruchi Vice null, [employer] 04/28/2024 13:04:34 Influenza, split virus, quadrivalent, PF 3 completed Ruchi Vice null, [employer] 04/28/2024 13:04:34 Influenza, split virus, quadrivalent, PF 2 completed Ruchi Vice null, [employer] 04/28/2024 13:04:34 Past Encounters Encounter ID Performer Location Encounter Start Date Encounter Closed Date Diagnosis/Indication Diagnosis SNOMED-CT Code Diagnosis ICD10 Code Diagnosis IMO Codes Diagnosis Note [id number] MADELYN Barber [facility] [address] [place] [address] 01/31/2025 08:50:56 01/31/2025 09:42:48 Nausea and vomiting 70202082 R11.2 147360 rest, clear liquids, bland diet Health Concerns Section Related Observation LastModified by Organization Detai ls LastModified Time None Recorded Concern Status LastModified by Organization Details LastModified Time None Recorded Payers Encounter Date Sequence Insurance Name Policy Number Policy Palacios Covered Member ID Palacios Member ID Guarantor Name 01/31/2025 1 [place] [id number] Raissa Herring [id number] Raissa Herring Notes Date Note Type Note Provider Name and Address Organization Details Recorded Time 01/31/2025 text/html ROS as noted in the HPI Patient started with nausea, cold sweats yesterday at work. No fever. Finished work, but did not feel bad. Tried to go to work this am but did not feel well. Vomits every day due to gastric bypass. Has not had an appetite. Stomach has been rumbling, but no diarrea. had stomach virus around 2 weeks ago.Blanche richmond had ear infection last week.Took Zofran yesterday which did seem to help. Still has urine output. MADELYN Barber [address] [place] [address], [address], [facility] [employer] 02/02/2025 17:22:47 OBGyn Episode No OBEpisode recorded.
--- OUTSIDE RECORDS SUMMARY | 2025-02-07 13:34 | XMS_ITS | Data Portability ---
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 Her CT from 08/27/2023 at [facility] was reviewed by myself and Dr. Collado. She does have an anterior left occipital mass with a central calcification, suspicious for a parasitic infection. She admits to going on a recent cruise to the [facility] in June/July of this year. We have ordered an MRI of the brain with and without contrast to evaluate further. We will have the patient follow up in the clinic once the MRI has been completed to determine next steps. Not available 09/22/2023 10:13:45 11/03/2023 11/03/2023 Raissa Renner is a 48-year-old woman with suspected neurocysticercosis who returns for a follow-up visit. I studied her MRI brain with and without contrast from 10/06/2023. It again reveals her left cystic mass without enhancement very suspicious for vesicular stage neurocysticercosis. This is reportedly enlarged compared to an MRI from 2018, though this is unavailable for review. She has no other symptoms besides headaches. Discussed her image findings and suspected diagnosis with her. Answered all her questions. Provided a referral to the infectious disease team as well as to ophthalmology for screening for ocular involvement. I am also ordering serology for Taenia solium. Will plan for her to return for follow-up in 3 months with a repeat surveillance MRI. [email or web address] Not available 11/03/2023 13:01:51 03/09/2024 03/09/2024 Raissa Renner is a 48-year-old female with suspected neurocysticercosis presenting to the clinic for a follow up appointment. MRI of the brain from 02/25/2024 reviewed by myself and Dr. Collado. There is no interval change in the cystic lesion. The patient's symptoms are unchanged. Will have her follow-up in 1 year with a repeat MRI of the brain with and without contrast. [email or web address] Not available 03/09/2024 09:36:12 Plan of Treatment Reminders Order Date Submit Date Provider Last Modified By Organization Details Last Modified Time Details Appointments MRI 2024 01:00P M MRI Not available Not available Not available RECHEC K r 2024 02:15P M RICARDO COLLADO MD Not available Not available Not available Lab None record ed. Referral None record ed. Procedures None record ed. Surgeries None record ed. Imaging None record ed. Medication Orders None record ed. Patient TargetsNo targets recorded. Patient InstructionsNo instructions recorded. Reason for Referral None Reported. Results Created Date Observation Date Name Description Value Unit Range Abnormal Flag Note LastModifiedBy Organization Detail LastModifiedTime 09/22/1908/27/2023 CT, head + brain , w/wo contr ast No observ ation record ed. [email or web address] [facility] (Med Record) [address], [place], [address], 09/29/2023 09:21:26 09/22/19 24 08/27/2023 CT, head, w/wo contr ast No observ ation record ed. [email or web address] Not Available 09/27 07:38:10 09/23/19 24 08/27/2023 CT, head + brain , w/wo contr ast No observ ation record ed. BARCODE Not Available 2023 10:33:24 10/06/19 10/06/2023 MRI, brain , w/wo contr ast [facility] [address] [place] [address] Fernando ryan Name: RAISSA ryan : 975 Fernando ryan Orderi ng Provid er: MAGY DARBYTRUNG YINGS EXAM DATE: 2023 EXAM: MR BRAIN W/WO CONTRA ST HISTOR Y: 48-yea r-old female with migrai ne headac hes and a possib le mass seen on the prior CT scan. COMPAR GERARD: Outsid e CT dated 024 The patimalcolm ryan did not requir e sedati on for this exam. No POC testin g for eGFR was perfor med due to absenc e of risk factor s. FINDIN GS: The ventri cles are symmet rachel, and normal in size. There is no solid mass, mass effect , or midlin e shift. There is no abnorm al extra- axial fluid, intrac ranial hemorr sara, or acute infarc tion. The diffus ion weight ed sequen cholo are normal . There are minima l perive ntricu lar white matter change s. There is a small cyst adjace nt to the fronta l horn of the left latera l ventri jun consis tent with a puncta te old insult . There is a bifid cystic appear ing lesion in the left pariet al lobe. This measur es approx imatel y 1.8 x 1.3 x 1.2 cm. There is a thin rim of increa sed T1 signal . After intrav enous admini strati on of [address] ([facility] [id number] 2), there is no abnorm al enhanc ement in the brain. The medical intern al caroti d and basila r flow-v oids are normal . There are mucous retent ion cysts in the maxill leydi sinuse s. The mastoi d air cells are clear. IMPRES LISSETH: 1. There is a bifid cystic -appea ring lesion in the left pariet al lobe. The compar gerard CT scan demons trates a calcif icatio n along the septum . There is essent ially no enhanc ement of this lesion . The findin gs repres ent the vesicu lar (viabl e larval ) stage of neuroc ystice rcosis . 2. There is a small cystic lesion adjace nt to the fronta l horn of the left latera l ventri jun which could repres ent an additi onal lesion or a puncta te old infarc tion. 3. The brain is otherw ise normal in appear ance. Interp reted By: Suraj miller MD Electr onical ly Signed By: Suraj miller MD on 10/06/19 1:15 PM [facility] [address], [address], 11/06/2023 15:33:58 11/30/19 24 11/27/2023 visua l field test No observ ation record ed. BARCODE Not Available 2023 16:31:49 02/26/20 24 02/25/2024 MRI, brain , w/wo contr ast No observ ation record ed. [email or web address] Not Available 10:37:47 Result Notes Documentation Provider Name and Address Organization Details Recorded Time Mri, Brain, W/wo Contrast : [address] [address] Patient Name: RAISSA RENNER Patient : 1975 Patient Ordering Provider: MAGY COLLADO EXAM DATE: 10/06/2023 EXAM: MR BRAIN W/WO CONTRAST HISTORY: 48-year-old female with migraine headaches and a possible mass seen on the prior CT scan. COMPARISON: Outside CT dated 08/27/2023 The patient did not require sedation for this exam. No POC testing for eGFR was performed due to absence of risk factors. FINDINGS: The ventricles are symmetric, and normal in size. There is no solid mass, mass effect, or midline shift. There is no abnormal extra-axial fluid, intracranial hemorrhage, or acute infarction. The diffusion weighted sequences are normal. There are minimal periventricular white matter changes. There is a small cyst adjacent to the frontal horn of the left lateral ventricle consistent with a punctate old insult. There is a bifid cystic appearing lesion in the left parietal lobe. This measures approximately 1.8 x 1.3 x 1.2 cm. There is a thin rim of increased T1 signal. After intravenous administration of 10 mL Gadavist ([facility] [address]-89), there is no abnormal enhancement in the brain. The internal carotid and basilar flow-voids are normal. There are mucous retention cysts in the maxillary sinuses. The mastoid air cells are clear. IMPRESSION: 1. There is a bifid cystic-appearing lesion in the left parietal lobe. The comparison CT scan demonstrates a calcification along the septum. There is essentially no enhancement of this lesion. 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 2. There is a small cystic lesion adjacent to the frontal horn of the left lateral ventricle which could represent an additional lesion or a punctate old infarction. 3. The brain is otherwise normal in appearance. Interpreted By: Colton Wolff MD COLLADO MD [address] [place] [address], [phone] 11/06/2023 15:33:58 Problems Name Problem SNOMED Code Status Onset Date Resolution Date Notes Provider Name and Address Organization Details Recorded Time Noninfect ious enteritis of intestine Active 2014 From Automated Load;Provi bakari: Caty Sauceda;Sta tus: Active Not Available [facility] 6 08:07:47 Anemia 076077376 Active 2014 From Automated Load;Provi bakari: Caty Sauceda;Sta tus: Active Not Available [facility] 6 08:07:47 Disorder of soft tissue 81240606 Active 2015 From Automated Load;Provi bakari: Carlos Enrique Flood;Stat us: Active Not Available [facility] 6 08:07:47 Problem Notes Documentation Provider Name and Address Organization Details Recorded Time Automotive Consultant Consult Note : [facility] [address] [facility] [address]ZYL, Tami MARIE (id #[id number], : 1975) Date: 4RE: Raissa Renner, : 1975, PT ID #[id number] Ricardo Collado MD, I saw Raissa Renner in my clinic on 11/27/2023. Enclosed is a copy of the report for this visit. Please contact me if you have any questions or concerns. 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 Pt denies any problems w/ va and can see road signs and tv scroll clearly. Blurry va that comes and goes. Has been diagnosed w/ neurocysticercosis for the last mo. Regular CL wearer. blink prn ou No eye surgery, laser, lasik, or trauma. ME some dry eye no sllt ou anemia/gastric bypass, migraines, 11/27/2023 - 02:45PM - [facility] Problems:Reviewed Problems Anemia - Onset: 04/02/2015 - From Automated Load;Provider: Caty Sauceda;Status: Active Disorder of soft tissue - Onset: 04/27/2015 - From Automated Load;Provider: Carlos Enrique Flood;Status: Active Noninfectious enteritis of intestine - Onset: 04/02/2015 - From Automated Load;Provider: Caty Sauceda;Status: Active Allergies: Reviewed Allergies LAMICTAL: - Comment: Created By: Charisma Murrieta;Created Date: 11/02/2014 8:54:31 AM; MORPHINE Medications: Reviewed Medications NameDate Source busPIRone 10 mg tabletTwo times a day Internal Note:Frequency: bid;Medication Description: buspirone; Dosage:1; Route:oral; refills:11; Quantity:60 tablet, start started [email or web address] ferrous sulfate ER 250 mg capsule,extended releaseInternal Note:Medication Description: ferrous sulfate; Route:oral; refills: entered [email or web address].227 hydroCHLOROthiazide 12.5 mg capsuleDaily Internal Note:Duration: 30 days;Instructions: as needed for edema;Frequency: daily;Alt Frequency: prn;Medication Description: hydrochlorothiazide; Dosage:1; Route:oral; refills:2; Quantity:30 capsule, start started [email or web address].227 Multiple Vitamin capsuleDaily Internal Note:Duration: 30 days;Frequency: daily;Medication Description: multivitamin; Dosage:1; Route:oral; refills:0; Quantity:30 egyrink16/04/16 entered [employer]243 Nurtec ODT 75 mg disintegrating tabletDISSOLVE 1 TABLET BY MOUTH EVERY OTHER DAY NEEDED FOR MIGRAINE TXOGZKRO40/22/24 filled surescripts ondansetron 8 mg disintegrating tabletDISSOLVE 1 TABLET IN MOUTH EVERY 8 HOURS NEEDED FOR NAUSEA AND PZVCMYFO62/22/24 filled surescripts PROzac 20 mg capsuleDaily Internal Note:Duration: 30 days;Frequency: daily;Medication Description: fluoxetine; Dosage:1; Route:oral; refills:11; Quantity:30 capsule, start started [employer]245 rOPINIRole 1 mg tabletTAKE 2 TABLETS BY MOUTH AT NIGHT 1-3 HOURS BEFORE ESXVFDF83/25/24 filled surescripts traMADoL 50 mg tabletTAKE 1 TABLET BY MOUTH EVERY 8 HOURS NEEDED FOR PAIN10/29/23 filled surescripts Family History:Reviewed Family History Unspecified Relation - Malignant neoplastic disease - Diabetes mellitus - Hypertensive disorder - Myocardial infarction - Cerebrovascular accident Social History:Reviewed Social History Substance UseDo you or have you ever smoked tobacco?: Never smokerGender Identity and LGBTQ IdentityGender identity: Identifies as FemaleAssigned sex at : FemalePronouns: she/herSexual orientation: Straight or heterosexualSurgical HistoryReviewed Surgical History Hysterectomy Gastric bypass for obesity section ERP,power port, loop monitor device Additional HistoryNone recordedHistory of Present Illness:None recordedReview of Systems:ROS as noted in the HPIPhysical ExamExternal Exam:General Appearance normal. Face: normal. Lids: normal. Pupils normal. Muscle Balance Testing: normal. EOM: normal. Visual Shah Exam normal to count fingers OU. Slit Lamp Exam:Lids normal. Conjunctiva: normal. Cornea: normal. Anterior Chamber: normal. Iris: normal. Lens: normal. Fundus Exam:Vitreous: normal. Disc C/D Ratio normal, OD: 0.2, and OS: 0.2. Retinal Vessels normal. Macula: normal. Peripheral Retina normal. Psychiatric:Orientation: oriented to time, place, and person. Mental Status: affect normal.Procedure DocumentationVisual Field Extended:Extended visual field examination performed. See scanned report for findings.Visual Acuity Right Left Distance w/ xnvhmxfa11/5020/30 -2 Vision CorrectionWearing PrescriptionSoft Contact Lenses Sph Cyl [place] BC Daniella Distance Va Near Va Right20/50 Left20/30 -2 Does not know CL rxVision Correction ExamAutorefraction Sph Cyl [place] Distance Va Near Va Right+1.00 +1.00 12516/20 -1 Left+1.25 +1.25 22390/25 +1 Manifest Refraction Sph Cyl [place] Distance Va Near Va Right+1.00 +1.00 35836/20 -1 Left+0.75 +1.25 09873/20 -2 Intraoccular Pressure Assessment/Plan1. Cysticercosis of central nervous system-no ocular involvementno visual field defects1 year recheck - sooner with problems B69.0: Cysticercosis of central nervous system glasses (Expiration Date: 11/26/2025)Right -Sph: +1.00Cyl: +1.00Axis: 146Left -Sph: +0.75Cyl: +1.25Axis: 017 Return to Office MRI for MRI at RADIOLOGY on 02/01/2024 at 09:30 AM MAGY COLLADO MD for RECHECK r at [facility]UROS[facility]ERY [facility] on 02/03/2024 at 10:15 AM LINDSEY HIGGINBOTHAM MD for LEVEL 2 at [facility] on 12/02/2024 at 02:30 PM Keagan Buitrago [facility] 11/30/2023 12:29:24 Procedures Surgical History Date Name Laterality Status Provider Name and Address Organization Details Recorded Time 11/27/19 24 Visual Field Extended completed LINDSEY HIGGINBOTHAM MD [address] [place] [address], [phone], [facility] 11/27/2023 16:41:43 Cholecystectomy completed Shardamatteo Newby [facility] 09/22/2023 09:31:42 section completed Shardamatteo Newby [facility] 09/22/2023 09:31:50 Gastric bypass for obesity [facility] 09/22/2023 09:32:01 hysterectomy completed Sharda Newby [facility] 09/22/2023 09:32:09 Imaging Results None recorded. Procedure Notes None recorded. Medical Equipment None Reported. Allergies Allergen ID Allergen Name Allergen Category Reaction Reaction Severity Criticality Documentation Date Start Date Code Code System Note Provider Name and Address Organization Details Recorded Time 060033 Lamictal medicatio n Not available Not available Not available 02/29/20162014 07401 2 RxNorm Comme nt: Creat ed By: Angela bennett;Cre ated Date: 2014 8:54: 31 AM; Not Available [facility] 6 05:40:23 006957 morphine medicatio n Not available Not available Not available 09/22/2023 7052 RxNorm Shardamatteo Newby [facility] 4 09:34:05 Medications Name Sig Start Date Stop Date Status Note LastModified by Organization Details LastModified Time ropinirole 1 mg tablet TAKE 2 TABLETS BY MOUTH AT BEDTIME active Not Available Not Available No t Available Multiple Vitamin capsule Daily active Duration: 30 days;Freq uency: daily;Med ication Descripti on: multivita min; Dosage:1; Route:ora l; refills:0 ; Quantity: 30 capsule Not Available Not Available Not Available azithromyc in 250 mg tablet TAKE 2 TABLETS BY MOUTH ON DAY 1, AND THEN TAKE 1 TABLET BY MOUTH ONCE A DAY ON DAY 2 THROUGH DAY 5 active Not Available Not Available No t Available sumatripta n 100 mg tablet TAKE 1 TABLET BY MOUTH AT ONSET OF MIGRAINE. MAY REPEAT IN 2 HOURS IF NEEDED active Not Available Not Available No t Available prednisone 20 mg tablet TAKE 1 TABLET BY MOUTH TWICE DAILY DIRECTED FOR 5 DAYS active Not Available Not Available No t Available phentermin e 37.5 mg tablet TAKE 1 TABLET BY MOUTH TWICE DAILY NEEDED FOR WEIGHT LOSS active Not Available Not Available No t Available tramadol 50 mg tablet TAKE 1 TABLET BY MOUTH THREE TIMES DAILY active Not Available Not Available No t Available butalbital -acetamino phen-caffe ine 50 mg-325 mg-40 mg tablet TAKE 1 TABLET BY MOUTH TWICE DAILY NEEDED FOR SEVERE MIGRAINE FOR 30 DAYS active Not Available Not Available No t Available ondansetro n 8 mg disintegra ting tablet DISSOLVE 1 TABLET IN MOUTH THREE TIMES DAILY DIRECTED FOR NAUSEA AND VOMITING active Not Available Not Available No t Available ferrous sulfate ER 250 mg capsule,ex tended release active Medicatio n Descripti on: ferrous sulfate; Route:ora l; refills:0 Not Available Not Available Not Available amitriptyl ine 25 mg tablet TAKE 1 TABLET BY MOUTH ONCE DAILY AT BEDTIME FOR 90 DAYS active Not Available Not Available No t Available lorazepam 0.5 mg tablet TAKE 1 TABLET BY MOUTH TWICE DAILY DIRECTED FOR PANIC ATTACKS/A CUTE ANXIETY FOR 30 DAYS active Not Available Not Available No t Available Prozac 20 mg capsule Daily 2014 active Duration: 30 days;Freq uency: daily;Med ication Descripti on: fluoxetin e; Dosage:1; Route:ora l; refills:1 1; Quantity: 30 capsule Not Available Not Available Not Available buspirone 10 mg tablet Two times a day 2014 active Frequency : bid;Medic ation Descripti on: buspirone ; Dosage:1; Route:ora l; refills:1 1; Quantity: 60 tablet Not Available Not Available Not Available hydrochlor othiazide 12.5 mg capsule Daily 2014 active Duration: 30 days;Inst ructions: as needed for edema;Eliecer quency: daily;Alt Frequency : prn;Medic ation Descripti on: hydrochlo rothiazid e; Dosage:1; Route:ora l; refills:2 ; Quantity: 30 capsule Not Available Not Available Not Available gabapentin 300 mg capsule TAKE 1 CAPSULE BY MOUTH AT BEDTIME FOR RLS active Not Available Not Available No t Available furosemide 20 mg tablet TAKE 1 TABLET BY MOUTH ONCE DAILY FOR 7 DAYS active Not Available Not Available No t Available ergocalcif lloyd (vitamin D2) 1,250 mcg (50,000 unit) capsule TAKE 1 CAPSULE BY MOUTH ONCE EVERY MONTH active Not Available Not Available No t Available cefdinir 300 mg capsule TAKE 1 CAPSULE BY MOUTH EVERY 12 HOURS DIRECTED FOR INFECTION FOR 10 DAYS active Not Available Not Available No t Available amoxicilli n 875 mg-potassi um clavulanat e 125 mg tablet TAKE 1 TABLET BY MOUTH EVERY 12 HOURS FOR 10 DAYS active Not Available Not Available No t Available duloxetine 30 mg capsule,de layed release TAKE 1 CAPSULE BY MOUTH ONCE DAILY FOR 30 DAYS active Not Available Not Available No t Available hydrochlor othiazide 12.5 mg tablet TAKE 1 TABLET BY MOUTH ONCE DAILY NEEDED FOR FLUID FOR 90 DAYS active Not Available Not Available No t Available Vitamin D3 50 mcg (2,000 unit) capsule TAKE 1 CAPSULE BY MOUTH ONCE DAILY active Not Available Not Available No t Available Nurtec ODT 75 mg disintegra ting tablet DISSOLVE 1 TABLET BY MOUTH EVERY OTHER DAY NEEDED FOR MIGRAINE HEADACHE active Not Available Not Available No t Available Vitals Date Recorded Body height Body mass index (BMI) Body weight Systolic And Diastolic Provider Name and Address Organization Details Last Updated DateTime 09/22/2023 157.48 cm 38.2 kg/m2 88718.81 g 132/82 mm[Hg] [facility] 09/22/2023 09:34:38 Date Recorded Body height Body mass index (BMI) Body weight Systolic And Diastolic Provider Name and Address Organization Details Last Updated DateTime 11/03/2023 157.48 cm 38.2 kg/m2 89051.81 g 130/82 mm[Hg] [facility] 11/03/2023 10:08:37 Date Recorded Body height Provider Name an d Address Organization Details Last Updated DateTime 11/27/2023 157.48 cm Lisbeth Gordon [facility] 14:56:27 Date Recorded Body height Body mass index (BMI) Body weight Systolic And Diastolic Provider Name and Address Organization Details Last Updated DateTime 03/09/2024 157.48 cm 38.2 kg/m2 76724.81 g 122/82 mm[Hg] [facility] 03/09/2024 09:26:26 Social History None recorded. Functional Status None recorded. Mental Status None recorded. Family History Relationship Description Onset Age of this Age Resolved Age Notes LastModified by Organization Details LastModified Time Unspecified Relation Malignant neoplastic disease [email or web address] Not available 09/21 09:30:58 Unspecified Relation Diabetes mellitus [email or web address] Not available 09/21 09:31:04 Unspecified Relation Hypertensive disorder [email or web address] Not available 09/21 09:31:09 Unspecified Relation Myocardial infarction [email or web address] Not available 09/04 09:31:14 Unspecified Relation Cerebrovascu lar accident [email or web address] Not available 09:31:20 Medical History Condition Response Osteoporosis/Osteopenia Y Arthritis Y Deep Vein Thrombosis Y Gynecological HistoryNo gynecological history recorded. Obstetrics History GPAL:G 0 P 0 0 0 0 Past Encounters Encounter ID Performer Location Encounter Start Date Encounter Closed Date Diagnosis/Indication Diagnosis SNOMED-CT Code Diagnosis ICD10 Code Diagnosis IMO Codes Diagnosis Note [id number] [facility] [address] 07/08/2016 00:09:32 07/08/2016 00:09:32 [id number] LUX ALEXANDER PA-C [facility] [address] [place] [id number] 09/22/2023 08:55:53 09/24/2023 15:22:40 Lesion of brain 800725188 G93.9 [id number] MAGY COLLADO MD [facility] [address] [place] [address] 11/03/2023 10:02:09 11/04/2023 04:54:44 Cysticercosis of central nervous system 144276456 B69.0 [id number] LINDSEY HIGGINBOTHAM MD OPHTHALMO [address] [address] 11/27/2023 14:36:30 11/27/2023 16:42:09 Cysticercosis of central nervous system 536105454 B69.0 no ocular involvemen tno visual field defects1 year recheck - sooner with problems [id number] LUX ALEXANDER PA-C [facility] [address] [place] [address] 03/09/2024 08:59:05 03/15/2024 11:12:43 Cysticercosis of central nervous system 477964830 B69.0 Health Concerns Section Related Observation LastModified by Organization Detai ls LastModified Time None Recorded Concern Status LastModified by Organization Details LastModified Time None Recorded Advance Directives Directive None Recorded Payers Insurance Date Sequence Insurance Name Policy Number Policy Palacios Covered Member ID Palacios Member ID Guarantor Name 12/02/2024 1 [employer] (PPO) Raissa Torres [id number] Raissa Renner 06/15/2018 1 *SELF PAY* Ta claudia Renner 03/09/2024 1 [place] [id number] Raissa Torres [id number] Raissa Renner 03/16/2017 2 [place] [id number] Gigi Torres [id number] Raissa Renner Notes Date Note Type Note Provider Name and Address Organization Details Recorded Time 4 text/html Raissa Torres is a 47 year-old female presenting to the clinic for the first time. She has a history of migraines and advises that she has been experiencing worsening headaches over the past month that feel different than her typical migraines. Her migraines are typically in the front of her head and quickly relieved with Nurtec. She has been having headaches in the posterior aspect of her head and no relief when using Nurtec. She has also had worsening nausea and vomiting over the past month. She has noticed blurry vision and double vision as well. She denies any seizures, loss of consciousness, or weakness. She was seen by her PCP and a CT scan was ordered and she was referred to our office based on the CT findings. LUX ALEXANDER PA-C [address] [place] [address], [id number], [facility] 09/22/2023 10:14:07 4 text/html ROS as noted in the HPI Raissa Renner is a 48-year-old woman with suspected neurocysticercosis who returns for a follow-up visit. To recap, she presented with chronic headaches but different from her regular migraines. Today, she has no new symptoms or concerns. No seizures or other neurologic symptoms. MAGY COLLADO MD [address] [place] [address], [id number], [facility] 11/03/2023 13:02:32 4 text/html ROS as noted in the HPI LINDSEY HIGGINBOTHAM MD [address] [place] [address], [phone], [facility] 11/27/2023 16:42:48 4 text/html ROS as noted in the HPI Raissa Renner is a 48-year-old female with suspected neurocysticercosis presenting to the clinic for a follow up appointment. She continues to have chronic headaches that are different from her usual migraines. She denies any other symptoms or concerns. She has not had any seizures or other neurological symptoms. She saw infectious disease and took steroids and antiparasitic medications for 21 days. She has not had any change in her symptoms. She also saw ophthalmology and was informed that her vision is not affected. LUX ALEXANDER PA-C [address] [place], [phone], [facility] 03/09/2024 09:36:40 OBGyn Episode No OBEpisode recorded.
--- OUTSIDE RECORDS SUMMARY | 2025-02-07 13:34 | XMS_ITS | Data Portability ---
Author Organization [employer] [place] [facility] Address [address] [place] [address] Assessment No assessment recorded. Plan of Treatment Reminders Order Date Submit Date Provider Last Modified By Organization Details Last Modified Time Details Appointments None recorded. Lab TSH + free T4, serum 2024 025 [facility]), [address] [place], [address], 5 10:08:07 HbA1c (hemoglobin A1c), blood 2024 025 [facility] [address] [place], [address], 5 10:08:09 insulin, serum 2024 025 [facility] [address] [place], [address], 5 10:08:10 CBC w/ auto diff 2024 025 [facility] [address] [place], [address], 5 10:08:07 lipid panel, serum 2024 025 [facility] [address] [place], [address], 5 10:08:09 CMP, serum or plasma 2024 025 [facility] [address], [place], [address], 5 10:08:08 unlisted lab - toxassure flex 19, [id number] 2024 025 [place] [facility] ([place]), [address], [place], [address], 5 21:06:54 rapid SARS CoV 2 Ag, QL, IA, upper respiratory specimen [address], [address] [place] [address], [address], 5 16:43:20 rapid flu (A+B) [address], [address] [place] [address], [address], 5 16:43:36 rapid flu (A+B) [address], [address] [place] [address], [address], 5 10:11:13 rapid SARS CoV 2 Ag, QL, IA, upper respiratory specimen [address], [address] [place] [address], [address], 5 10:11:05 Referral None recorded. Procedures None recorded. Surgeries None recorded. Imaging US, duplex, venous, lower extremity [address] ([facility]), [address], [place], [address], 5 11:41:47 Medication Orders Lasix 20 mg tablet 2024 025 [facility], [address] [place] [address], [address], 11:13:39 phentermine 37.5 mg tablet 2024 025 [facility] [address], [address] [place] [address], [address], 11:16:11 tramadol 50 mg tablet 2024 025 [facility] [address], [address] [place] [address], [address], 11:16:13 promethazin e 12.5 mg tablet 2024 [facility] [address], [address] [place] [address], [address], 09:39:00 prednisone 20 mg tablet 2024 025 [facility], [address] [place] [address], [address], 05:01:54 Zithromax Z-Johnathon 250 mg tablet 2024 [facility] [address], [address] [place] [address], [address], 09:57:58 gabapentin 300 mg capsule 2024 025 [facility] [address], [address] [place] [address], [address], 11:19:12 clotrimazol e 10 mg ry 2024 025 [facility], [address] [place] [address], [address], 5 05:01:07 Lasix 20 mg tablet 2024 025 [facility] [address], [address] [place] [address], [address], 5 05:02:19 tramadol 50 mg tablet 2024 025 [place] [address], [address] [place] [address], [address], 5 11:58:35 Adipex-P 37.5 mg tablet 2024 025 [place] [address], [address] [place] [address], [address], 5 09:20:59 gabapentin 300 mg capsule 2024 025 [place] [address], [address] [place] [address], [address], 5 11:14:55 ropinirole 1 mg tablet 2024 025 [facility], [address] [place] [address], [address], 5 10:06:33 amitriptyli ne 25 mg tablet 2024 025 [place] [address], [address] [place] [address], [address], 5 10:06:33 hydrochloro thiazide 12.5 mg tablet [address] [facility], [address] [place] [address], [address], 5 10:11:40 nystatin 100,000 unit/mL oral suspension 2024 025 [place] [address], [address] [place] [address], [address], 5 11:36:45 amoxicillin 875 mg-potassiu m clavulanate 125 mg tablet 2024 025 [facility], [address] [place] [address], [address], 11:53:00 prednisone 20 mg tablet 2024 025 [facility], [address] [place], [address], 05:01:54 Adipex-P 37.5 mg tablet 2024 025 [facility], [address] [place], [address], 10:14:00 Patient TargetsNo targets recorded. Patient Instructions Encounter Date Encounter Id Patient Instructions Last Modified By Organization Details Last Modified Time 09/19/2024 [id number] candidiasis: car e instructions [email or web address] Not available 09/19/2024 10:05:02 Acute Sinusitis: Care Instructions [email or web address] Not available 09/19/2024 10:05:02 11/15/2024 [id number] candidiasis: car e instructions [id number] Not available 11/15/2024 11:57:27 leg and ankle edema: care instructions [email or web address] Not available 11/15/2024 11:57:27 01/31/2025 [id number] nausea and vomiting: care instructions [email or web address] Not available 01/31/2025 09:38:54 Reason for Referral None Reported. Results Created Date Observation Date Name Description Value Unit Range Abnormal Flag Note LastModifiedBy Organization Detail LastModifiedTime 08/31/1908/30/2024 rapid strep group A, throa t Strep negati ve Not Available [address], [address], 08/30/2024 17:24:51 09/20/19 25 09/19/2024 rapid flu (A+B) Flu A negati ve Not Available [address], [address], 09/19/2024 09:48:07 09/20/19 25 09/19/2024 rapid flu (A+B) Flu B negati ve Not Available [address], [place], [address], 09/19/2024 09:48:07 09/20/19 25 09/19/2024 rapid SARS CoV 2 Ag, QL, IA, upper respi rator y speci men SARS CoV Ag negati ve Not Available [address], [address], 09/19/2024 09:48:12 11/10/19 25 11/09/2024 rapid flu (A+B) Flu A negati ve Not Available [address], [address], 11/09/2024 16:42:24 11/10/19 25 11/09/2024 rapid flu (A+B) Flu B negati ve Not Available [address], [place], [address], 11/09/2024 16:42:24 11/10/19 25 11/09/2024 rapid SARS CoV 2 Ag, QL, IA, upper respi rator y speci men SARS CoV Ag negati ve Not Available [address], [address], 11/09/2024 16:41:56 11/16/19 25 11/18/2024 TOXAS SURE FLEX 19, UR summary report FINAL ===== ===== ===== ===== ===== ===== ===== ===== ===== ===== ===== ===== ===== === Kobe montoya es, MS, Ur RFX Trama dol, MS, Ur RFX Gabap entin , MS, Ur RFX ToxAs sure Flex 19, Ur ===== ===== ===== ===== ===== ===== ===== ===== ===== ===== ===== ===== ===== === Test Resul t Flag Units Drug Prese nt Trama dol >1000 0 ng/mg creat O-Daryl methy ltram adol 9882 ng/mg creat N-Daryl methy ltram adol 6420 ng/mg creat Sourc e of trama dol is a presc ripti on medic ation . O-daryl methy ltram adol and N-daryl methy ltram adol are expec erendira metab olite s of trama dol. Gabap entin PRESE NT ===== ===== ===== ===== ===== ===== ===== ===== ===== ===== ===== ===== ===== === Test Resul t Flag Units Ref Range Creat inine 50 mg/dL >=20 ===== ===== ===== ===== ===== ===== ===== ===== ===== ===== ===== ===== ===== === Decla red Medic ation s: Medic ation list was not provi ded. ===== ===== ===== ===== ===== ===== ===== ===== ===== ===== ===== ===== ===== === For clini antelmo consu ltati on, pleas e call . ===== ===== ===== ===== ===== ===== ===== ===== ===== ===== ===== ===== ===== === Not Available [facility] ([facility]) [address] [place], [address], 11/18/2024 21:06:54 11/16/19 25 11/18/2024 TOXAS SURE FLEX 19, UR pdf . Not Available [facility] ([facility]) [address] [place], [address], 11/18/2024 21:06:54 11/16/19 25 11/18/2024 TOXAS SURE FLEX 19, UR creatinine 50 mg/dL >=20 REFER ENCE RANGE : Ref Range >=20 Not Available [facility] ([facility]) [address] [place], [address], 11/18/2024 21:06:54 11/16/19 25 11/18/2024 TOXAS SURE FLEX 19, UR amphetamines ia COMMEN T NG/mL cutoff :300 Furth er testi ng indic ated Not Available [facility] ([facility]) [address] [place], [address], 11/18/2024 21:06:54 11/16/19 25 11/18/2024 TOXAS SURE FLEX 19, UR benzodiazepi jennifer Negati ve Not Available [facility] ([facility]) [address] [place], [address], 11/18/2024 21:06:54 11/16/19 25 11/18/2024 TOXAS SURE FLEX 19, UR diazepam Not Detect ed NG/mg _crea t Not Available [facility] ([facility]) [address] [place], [address], 11/18/2024 21:06:54 11/16/19 25 11/18/2024 TOXAS SURE FLEX 19, UR desmethyldia zepam Not Detect ed NG/mg _crea t Not Available [facility] ([facility]) [address] [place], [address], 11/18/2024 21:06:54 11/16/19 25 11/18/2024 TOXAS SURE FLEX 19, UR oxazepam Not Detect ed NG/mg _crea t Not Available [facility] ([facility]) [address] [place], [address], 11/18/2024 21:06:54 11/16/19 25 11/18/2024 TOXAS SURE FLEX 19, UR temazepam Not Detect ed NG/mg _crea t Expec erendira metab olism of benzo diaze pine class drugs : Paren t Drug Detec erendira Metab olite s ----- ----- - ----- ----- ----- ----- Diaze kaylah: Desme thyld iazep am, Temaz epam, Oxaze kaylah Chlor diaze poxid e: Desme thyld iazep am, Oxaze kaylah Clora zepat e: Desme thyld iazep am, Oxaze kaylah Halaz epam: Desme thyld iazep am, Oxaze kaylah Temaz epam: Oxaze kaylah Oxaze kaylah: None Not Available [facility] ([facility]) [address] [place], [address], 11/18/2024 21:06:54 11/16/19 25 11/18/2024 TOXAS SURE FLEX 19, UR alprazolam Not Detect ed NG/mg _crea t Not Available [facility] ([facility]) [address] [place], [address], 11/18/2024 21:06:54 11/16/19 25 11/18/2024 TOXAS SURE FLEX 19, UR alpha-hydrox yalprazolam Not Detect ed NG/mg _crea t Not Available [facility] ([facility]) [address] [place], [address], 11/18/2024 21:06:54 11/16/19 25 11/18/2024 TOXAS SURE FLEX 19, UR desalkylflur azepam Not Detect ed NG/mg _crea t Not Available [facility] ([facility]) [address] [place], [address], 11/18/2024 21:06:54 11/16/19 25 11/18/2024 TOXAS SURE FLEX 19, UR lorazepam Not Detect ed NG/mg _crea t Not Available [facility] ([facility]) [address] [place], [address], 11/18/2024 21:06:54 11/16/19 25 11/18/2024 TOXAS SURE FLEX 19, UR alpha-hydrox ytriazolam Not Detect ed NG/mg _crea t Not Available [facility] ([facility]) [address] [place], [address], 11/18/2024 21:06:54 11/16/19 25 11/18/2024 TOXAS SURE FLEX 19, UR clonazepam Not Detect ed NG/mg _crea t Not Available [facility] ([facility]) [address] [place], [address], 11/18/2024 21:06:54 11/16/19 25 11/18/2024 TOXAS SURE FLEX 19, UR 7-aminoclona zepam Not Detect ed NG/mg _crea t Not Available [facility] ([facility]) [address] [place], [address], 11/18/2024 21:06:54 11/16/19 25 11/18/2024 TOXAS SURE FLEX 19, UR midazolam Not Detect ed NG/mg _crea t Not Available [facility] ([facility]) [address] [place], [address], 11/18/2024 21:06:54 11/16/19 25 11/18/2024 TOXAS SURE FLEX 19, UR alpha-hydrox ymidazolam Not Detect ed NG/mg _crea t Not Available [facility] ([facility]) [address] [place], [address], 11/18/2024 21:06:54 11/16/19 25 11/18/2024 TOXAS SURE FLEX 19, UR flunitrazepa m Not Detect ed NG/mg _crea t Not Available [facility] ([facility]) [address] [place], [address], 11/18/2024 21:06:54 11/16/19 25 11/18/2024 TOXAS SURE FLEX 19, UR desmethylflu nitrazepam Not Detect ed NG/mg _crea t Not Available [facility] ([facility]) [address] [place], [address], 11/18/2024 21:06:54 11/16/19 25 11/18/2024 TOXAS SURE FLEX 19, UR cocaine metabolite ia Negati ve NG/mL cutoff :150 Not Available [facility] ([facility]) [address] [place], [address], 11/18/2024 21:06:54 11/16/19 25 11/18/2024 TOXAS SURE FLEX 19, UR ethanol biomarkers ia Negati ve NG/mL cutoff :500 Not Available [facility] ([facility]) [address] [place], [address], 11/18/2024 21:06:54 11/16/19 25 11/18/2024 TOXAS SURE FLEX 19, UR cannabinoids ia Negati ve NG/mL cutoff :20 Not Available [facility] ([facility]) [address] [place], [address], 11/18/2024 21:06:54 11/16/19 25 11/18/2024 TOXAS SURE FLEX 19, UR 6-acetylmorp vasile ia Negati ve NG/mL cutoff :10 Not Available [facility] ([facility]) [address] [place], [address], 11/18/2024 21:06:54 08/12/20 25 11/18/2024 TOXAS SURE FLEX 19, UR opiate class ia Negati ve NG/mL cutoff :100 Not Available [facility] ([facility]) [address] [place] [address], [address], 11/18/2024 21:06:54 11/16/19 25 11/18/2024 TOXAS SURE FLEX 19, UR oxycodone class ia Negati ve NG/mL cutoff :100 Not Available [facility] ([facility]) [address] [place] [address], [address], 11/18/2024 21:06:54 11/16/19 25 11/18/2024 TOXAS SURE FLEX 19, UR methadone ia Negati ve NG/mL cutoff :100 Not Available [facility] ([facility]) [address] [place], [address], 11/18/2024 21:06:54 11/16/19 25 11/18/2024 TOXAS SURE FLEX 19, UR methadone mtb ia Negati ve NG/mL cutoff :100 Not Available [facility] ([facility]) [address] [place] [address], [address], 11/18/2024 21:06:54 11/16/19 25 11/18/2024 TOXAS SURE FLEX 19, UR buprenorphin e ia Negati ve NG/mL cutoff :5.0 Not Available [facility] ([facility]) [address] [place] [address], [address], 11/18/2024 21:06:54 11/16/19 25 11/18/2024 TOXAS SURE FLEX 19, UR fentanyl ia Negati ve NG/mL cutoff :2.0 Not Available [facility] ([facility]) [address] [place] [address], [address], 11/18/2024 21:06:54 11/16/19 25 11/18/2024 TOXAS SURE FLEX 19, UR tapentadol ia Negati ve NG/mL cutoff :200 Not Available [facility] ([facility]) [address] [place], [address], 11/18/2024 21:06:54 11/16/19 25 11/18/2024 TOXAS SURE FLEX 19, UR propoxyphene ia Negati ve NG/mL cutoff :300 Not Available [facility] ([facility]) [address] [place], [address], 11/18/2024 21:06:54 11/16/19 25 11/18/2024 TOXAS SURE FLEX 19, UR tramadol ia COMMEN T NG/mL cutoff :200 Furth er testi ng indic ated Not Available [facility] ([facility]) [address] [place], [address], 11/18/2024 21:06:54 11/16/19 25 11/18/2024 TOXAS SURE FLEX 19, UR methylphenid ate ia Negati ve NG/mL cutoff :100 Not Available [facility] ([facility]) [address] [place], [address], 11/18/2024 21:06:54 11/16/19 25 11/18/2024 TOXAS SURE FLEX 19, UR barbiturates ia Negati ve NG/mL cutoff :200 Not Available [facility] ([facility]) [address] [place], [address], 11/18/2024 21:06:54 11/16/19 25 11/18/2024 TOXAS SURE FLEX 19, UR phencyclidin e ia Negati ve NG/mL cutoff :25 Not Available [facility] ([facility]) [address] [place], [address], 11/18/2024 21:06:54 11/16/19 25 11/18/2024 TOXAS SURE FLEX 19, UR gabapentin ia COMMEN T ug/mL cutoff :1.0 Furth er testi ng indic ated Not Available [facility] ([facility]) [address] [place], [address], 11/18/2024 21:06:54 11/16/19 25 11/18/2024 TOXAS SURE FLEX 19, UR anticonvulsa nts +POSIT TANISHA+ Not Available [facility] ([facility]) [address] [place], [address], 11/18/2024 21:06:54 11/16/19 25 11/18/2024 TOXAS SURE FLEX 19, UR pregabalin Not Detect ed Not Available [facility] ([facility]) [address] [place], [address], 11/18/2024 21:06:54 11/16/19 25 11/18/2024 TOXAS SURE FLEX 19, UR carisoprodol ia Negati ve NG/mL cutoff :100 Not Available [facility] ([facility]) [address] [place], [address], 11/18/2024 21:06:54 11/16/19 25 11/18/2024 AMPHE TAMIN ES, MS, UR RFX amphetamines Negati ve Not Available [facility] ([facility]) [address] [place], [address], 11/18/2024 21:06:55 11/16/19 25 11/18/2024 AMPHE TAMIN ES, MS, UR RFX methamphetam ine Not Detect ed NG/mg _crea t Not Available [facility] ([facility]) [address] [place], [address], 11/18/2024 21:06:55 11/16/19 25 11/18/2024 AMPHE TAMIN ES, MS, UR RFX amphetamine Not Detect ed NG/mg _crea t Not Available [facility] ([facility]) [address] [place], [address], 11/18/2024 21:06:55 11/16/19 25 11/18/2024 AMPHE TAMIN ES, MS, UR RFX MDMA (ecstasy) Not Detect ed NG/mg _crea t Not Available [facility] ([facility]) [address] [facility], [place], [address], 11/18/2024 21:06:55 11/16/19 25 11/18/2024 AMPHE TAMIN ES, MS, UR RFX mda (ecstasy metabolite) Not Detect ed NG/mg _crea t Not Available [facility] ([facility]) [address] [place], [address], 11/18/2024 21:06:55 11/16/19 25 11/18/2024 TRAMA DOL, MS, UR RFX tramadol / mtbs +POSIT TANISHA+ Not Available [facility] ([facility]) [address] [place], [address], 11/18/2024 21:06:55 11/16/19 25 11/18/2024 TRAMA DOL, MS, UR RFX tramadol >76341 NG/mg _crea t Not Available [facility] ([facility]) [address] [place], [address], 11/18/2024 21:06:55 11/16/19 25 11/18/2024 TRAMA DOL, MS, UR RFX O-desmethylt ramadol 9882 NG/mg _crea t Not Available [facility] ([facility]) [address] [place], [address], 11/18/2024 21:06:55 11/16/19 25 11/18/2024 TRAMA DOL, MS, UR RFX N-desmethylt ramadol 6420 NG/mg _crea t Not Available [facility] ([facility]) [address] [place], [address], 11/18/2024 21:06:55 11/16/19 25 11/18/2024 GABAP ENTIN , MS, UR RFX anticonvulsa nts +POSIT TANISHA+ Not Available [facility] ([facility]) [address] [facility], [place], [address], 11/18/2024 21:06:56 11/16/19 25 11/18/2024 GABAP ENTIN , MS, UR RFX gabapentin PRESEN T Not Available [facility] ([facility]) [address] [facility], [place], [address], 11/18/2024 21:06:56 02/04/20 25 02/04/2025 TSH+F REE T4 TSH 0.682 uIU/m L 0.450- 4.500 normal Not Available [facility] ([facility]) [address] [facility], [place], [address], 02/04/2025 10:08:07 02/04/20 25 02/04/2025 TSH+F REE T4 T4,free(dire ct) 1.08 NG/dL 0.82-1 .77 normal Not Available [facility] ([facility]) [address] [place], [address], 02/04/2025 10:08:07 02/04/20 25 02/04/2025 CBC WITH DIFFE RENTI AL/PL ATELE T WBC 6.8 x10e3 /uL 3.4-10 .8 normal Not Available [facility] ([facility]) [address] [place], [address], 02/04/2025 10:08:07 02/04/20 25 02/04/2025 CBC WITH DIFFE RENTI AL/PL ATELE T RBC 5.00 x10e6 /uL 3.77-5 .28 normal Not Available [facility] ([facility]) [address] [place], [address], 02/04/2025 10:08:07 02/04/20 25 02/04/2025 CBC WITH DIFFE RENTI AL/PL ATELE T hemoglobin 13.4 g/dL 11.1-1 5.9 normal Not Available [facility] ([facility]) [address] [place], [address], 02/04/2025 10:08:07 02/04/20 25 02/04/2025 CBC WITH DIFFE RENTI AL/PL ATELE T hematocrit 41.6 % 34.0-4 6.6 normal Not Available [facility] ([facility]) [address] [facility], [place], [address], 02/04/2025 10:08:07 02/04/2002/04/2025 CBC WITH DIFFE RENTI AL/PL ATELE T MCV 83 fL 79-97 normal Not Available [facility] ([facility]) [address] [facility], [place], [address], 02/04/2025 10:08:07 02/04/20 25 02/04/2025 CBC WITH DIFFE RENTI AL/PL ATELE T MCH 26.8 pg 26.6-3 3.0 normal Not Available [facility] ([facility]) [address] [place], [address], 02/04/2025 10:08:07 02/04/20 25 02/04/2025 CBC WITH DIFFE RENTI AL/PL ATELE T MCHC 32.2 g/dL 31.5-3 5.7 normal Not Available [facility] ([facility]) [address] [place], [address], 02/04/2025 10:08:07 02/04/20 25 02/04/2025 CBC WITH DIFFE RENTI AL/PL ATELE T RDW 14.4 % 11.7-1 5.4 Not Available [facility] ([facility]) [address] [place], [address], 02/04/2025 10:08:07 02/04/20 25 02/04/2025 CBC WITH DIFFE RENTI AL/PL ATELE T platelets 283 x10e3 /uL 150-45 0 normal Not Available [facility] ([facility]) [address] [facility], [place], [address], 02/04/2025 10:08:07 02/04/20 25 02/04/2025 CBC WITH DIFFE RENTI AL/PL ATELE T neutrophils 69 % not estab. normal Not Available [facility] ([facility]) [address] [facility], [place], [address], 02/04/2025 10:08:07 02/04/20 25 02/04/2025 CBC WITH DIFFE RENTI AL/PL ATELE T lymphs 19 % not estab. normal Not Available [facility] ([facility]) [address] [facility], [place], [address], 02/04/2025 10:08:07 02/04/20 25 02/04/2025 CBC WITH DIFFE RENTI AL/PL ATELE T monocytes 10 % not estab. normal Not Available [facility] ([facility]) [address] [facility], [place], [address], 02/04/2025 10:08:07 02/04/20 25 02/04/2025 CBC WITH DIFFE RENTI AL/PL ATELE T eos 1 % not estab. normal Not Available [facility] ([facility]) [address] [facility], [place], [address], 02/04/2025 10:08:07 02/04/20 25 02/04/2025 CBC WITH DIFFE RENTI AL/PL ATELE T basos 1 % not estab. 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 0 normal Not Available [facility] ([facility]) [address] [facility], [place], [address], 02/04/2025 10:08:07 02/04/20 25 02/04/2025 CBC WITH DIFFE RENTI AL/PL ATELE T lymphs (absolute) 1.3 x10e3 /uL 0.7-3. 1 normal Not Available [facility] ([facility]) [address] [facility], [place], [address], 02/04/2025 10:08:07 02/04/20 25 02/04/2025 CBC WITH DIFFE RENTI AL/PL ATELE T monocytes(ab solute) 0.7 x10e3 /uL 0.1-0. 9 normal Not Available [facility] ([facility]) [address] [place], [address], 02/04/2025 10:08:07 02/04/20 25 02/04/2025 CBC WITH DIFFE RENTI AL/PL ATELE T eos (absolute) 0.1 x10e3 /uL 0.0-0. 4 normal Not Available [facility] ([facility]) [address] [place], [address], 02/04/2025 10:08:07 02/04/20 25 02/04/2025 CBC WITH DIFFE RENTI AL/PL ATELE T baso (absolute) 0.1 x10e3 /uL 0.0-0. 2 normal Not Available [facility] ([facility]) [address] [facility], [place], [address], 02/04/2025 10:08:07 02/04/20 25 02/04/2025 CBC WITH DIFFE RENTI AL/PL ATELE T immature granulocytes 0 % not estab. Not Available [facility] ([facility]) [address] [facility], [place], [address], 02/04/2025 10:08:07 02/04/20 25 02/04/2025 CBC WITH DIFFE RENTI AL/PL ATELE T immature grans (abs) 0.0 x10e3 /uL 0.0-0. 1 Not Available [facility] ([facility]) [address] [facility], [place], [address], 02/04/2025 10:08:07 02/04/20 25 02/04/2025 CBC WITH DIFFE RENTI AL/PL ATELE T NRBC NURSERY TECHNICIAN Not Available [facility] ([facility]) [address] [facility], [place], [address], 02/04/2025 10:08:07 02/04/20 25 02/04/2025 CBC WITH DIFFE RENTI AL/PL ATELE T hematology comments: NURSERY TECHNICIAN Not Available [facility] ([facility]) [address] [facility], [place], [address], 02/04/2025 10:08:07 02/04/2002/03/2025 COMP. METAB OLIC PANEL (14) interpretati on: [...] acute renal failu re. Addit ional infor matbang n may be found at [email or web address] org. Not Available [facility] [facility]) [address] [facility], [place], [address], 02/04/2025 10:08:08 02/04/20 25 02/04/2025 COMP. METAB OLIC PANEL (14) glucose 111 mg/dL 70-99 above high normal Not Available [facility] ([facility]) [address] [facility] [place] [place], [address], 02/04/2025 10:08:08 02/04/20 25 02/04/2025 COMP. METAB OLIC PANEL (14) BUN 18 mg/dL 6-24 normal Not Available [facility] ([facility]) [address] [facility] [place] [place], [address], 02/04/2025 10:08:08 02/04/20 25 02/04/2025 COMP. METAB OLIC PANEL (14) creatinine 0.80 mg/dL 0.57-1 .00 normal Not Available [facility] ([facility]) [address] [facility] [place] [place], [address], 02/04/2025 10:08:08 02/04/20 25 02/04/2025 COMP. METAB OLIC PANEL (14) eGFR 90 mL/mi n/1.7 3 >59 normal Not Available [facility] ([facility]) [address] [facility] [place] [place], [address], 02/04/2025 10:08:08 02/04/2002/04/2025 COMP. METAB OLIC PANEL (14) BUN/creatini ne ratio 23 9-23 normal Not Available [facility] ([facility]) [address] [facility] [place] [place], [address], 02/04/2025 10:08:08 02/04/20 25 02/04/2025 COMP. METAB OLIC PANEL (14) sodium 143 mmol/ L 134-14 4 normal Not Available [facility] ([facility]) [address] [facility] [place] [place], [address], 02/04/2025 10:08:08 02/04/20 25 02/04/2025 COMP. METAB OLIC PANEL (14) potassium 3.9 mmol/ L 3.5-5. 2 normal Not Available [facility] ([facility]) [address] [place], [address], 02/04/2025 10:08:08 02/04/20 25 02/04/2025 COMP. METAB OLIC PANEL (14) chloride 107 mmol/ L 96-106 above high normal Not Available [facility] ([facility]) [address] [place], [address], 02/04/2025 10:08:08 02/04/2002/04/2025 COMP. METAB OLIC PANEL (14) carbon dioxide, total 20 mmol/ L 20-29 normal Not Available [facility] ([facility]) [address] [facility] [place], [address], 02/04/2025 10:08:08 02/04/20 25 02/04/2025 COMP. METAB OLIC PANEL (14) calcium 9.2 mg/dL 8.7-10 .2 normal Not Available [facility] ([facility]) [address] [facility] [place] [place], [address], 02/04/2025 10:08:08 02/04/20 25 02/04/2025 COMP. METAB OLIC PANEL (14) protein, total 6.0 g/dL 6.0-8. 5 normal Not Available [facility] ([facility]) [address] [facility] [place] [place], [address], 02/04/2025 10:08:08 02/04/20 25 02/04/2025 COMP. METAB OLIC PANEL (14) albumin 4.1 g/dL 3.9-4. 9 normal Not Available [facility] ([facility]) [address] [facility] [place] [place], [address], 02/04/2025 10:08:08 02/04/20 25 02/04/2025 COMP. METAB OLIC PANEL (14) globulin, total 1.9 g/dL 1.5-4. 5 Not Available [facility] ([facility]) [address] [place], [address], 02/04/2025 10:08:08 02/04/20 25 02/04/2025 COMP. METAB OLIC PANEL (14) bilirubin, total 0.4 mg/dL 0.0-1. 2 normal Not Available [facility] ([facility]) [address] [facility] [place] [place], [address], 02/04/2025 10:08:08 02/04/20 25 02/04/2025 COMP. METAB OLIC PANEL (14) alkaline phosphatase 106 IU/L 41-116 normal Not Available [facility] ([facility]) [address] [place], [address], 02/04/2025 10:08:08 02/04/20 25 02/04/2025 COMP. METAB OLIC PANEL (14) AST (SGOT) 24 IU/L 0-40 normal Not Available [facility] ([facility]) [address] [place], [address], 02/04/2025 10:08:08 02/04/20 25 02/04/2025 COMP. METAB OLIC PANEL (14) ALT (SGPT) 18 IU/L 0-32 normal Not Available [facility] ([facility]) [address] [place], [address], 02/04/2025 10:08:08 02/04/20 25 02/04/2025 LIPID PANEL cholesterol, total 139 mg/dL 100-19 9 normal Not Available [facility] ([facility]) [address] [place], [address], 02/04/2025 10:08:08 02/04/20 25 02/04/2025 LIPID PANEL triglyceride s 72 mg/dL 0-149 normal Not Available [facility] ([facility]) [address] [facility] [place] [place], [address], 02/04/2025 10:08:08 02/04/20 25 02/04/2025 LIPID PANEL HDL cholesterol 50 mg/dL >39 normal Not Available [facility] ([facility]) [address] [facility] [place] [place], [address], 02/04/2025 10:08:08 02/04/20 25 02/04/2025 LIPID PANEL VLDL cholesterol antelmo 14 mg/dL 5-40 Not Available [facility] ([facility]) [address] [facility] [place] [place], [address], 02/04/2025 10:08:08 02/04/20 25 02/04/2025 LIPID PANEL LDL chol calc ([facility]) 75 mg/dL 0-99 Not Available [facility] ([facility]) [address] [facility], [place], [address], 02/04/2025 10:08:08 02/04/2002/04/2025 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 6 normal Predi abete s: 5.7 - 6.4 Diabe tai: >6.4 Glyce spike contr ol for adult s with diabe tai: <7.0 Not Available [facility] ([facility]) [address] [place], [address], 02/04/2025 10:08:09 02/04/20 25 02/04/2025 INSUL IN insulin 15.8 uIU/m L 2.6-24 .9 normal Not Available [facility] ([facility]) [address] [place], [address], 02/04/2025 10:08:09 Result Notes None recorded. 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 4 12:06:04 Rheumatoid arthritis 23188223 Active 2023 MADELYN Barber [address] [place] [address], 33470[address]239 8, [employer] 4 12:06:15 Migraine 68696738 Active 2023 MADELYN Barber [address] [place] [address], 83165[address]843 8, [employer] 4 12:06:29 Restless legs syndrome 18459675 Active 2023 MADELYN Barber [address] [place] [address], 08969-444 8, [employer] 4 12:06:47 Vitamin D deficiency 67561456 Active 2023 MADELYN Barber [address] [place] [address], 37893-560 8, [employer] 4 12:07:19 Acute tonsillitis 37344362 Completed 202304/28/2024 MADELYN Barber [address] [place] [address], 06104[address]817 8, [employer] 5 13:14:53 Nausea and vomiting 65403246 Completed 202309/19/2024 MADELYN Barber [address] [place] [address], 28043[address]548 8, [employer] 5 09:38:32 Generalized anxiety disorder 10689607 Active 2023 MADELYN Barber [address] [place] [address], 98853-466 8, [employer] 5 13:15:00 Anxiety 80322870 Active 2023 MADELYN Barber [address] [place] [address], 80621-558 8, [place] [employer] 13:14:57 Body fluid retention 86860482 Active 2024 MADELYN Barber [address] [place] [address], 12988-552 8, [place] [employer] 10:55:52 Nasal congestion 13297375 Completed 202409/19/2024 Adelia Bedolla [address], [address], [place] [employer] 10:05:09 Fibromyalgi a 832787764 Active 2024 Adelia Bedolla [address], [address] 8, [place] [employer] 10:05:10 Acute maxillary sinusitis 39114616 Completed 202401/31/2025 Adelia Bedolla [address], [address] 8, [place] [email or web address] 09:41:48 Candidiasis of mouth 28954907 Active 2024 Adelia Bedolla [address], [address] 8, [place] [employer] 10:04:20 Acute headache 654424185 Active [address], [address] 8, [place] [employer] 16:40:13 Congestion of nasal sinus 58696903 Completed 202401/31/2025 Adelia Bedolla [address], [address]75[address] 8, [place] [employer] 09:42:01 Seasonal allergic rhinitis 206740998 Active 2024 [facility] [address], [address] 8, [employer] 16:41:04 Sore throat 965527964 Completed 202401/31/2025 MADELYN Barber [address] [place] [address], 00[address]017 8, [employer] 09:41:59 Edema of lower extremity 648201967 Active 2024 MADELYN Barber [address] [place] [address], 29068-074 8, [employer] 11:56:32 Acute bacterial sinusitis 99879535 Completed 202401/31/2025 MADELYN Barber [address] [place] [address], 96970-421 8, [employer] 09:41:55 Recurrent sinusitis 123429690 Completed 202401/31/2025 MADELYN Barber [address] [place] [address], 31662-643 8, [employer] 09:41:45 Edema of foot 518221193 Active 2024 MADELYN Barber [address] [place] [address], 70417-913 8, [employer] 14:59:28 Nausea and vomiting 73933959 Active 2024 MADELYN Barber [address] [place] [address], 22657-216 8, [employer] 09:38:32 Edema of right lower limb 198457719 Active 2024 MADELYN Barber [address] [place] [address], 66597-707 8, [employer] 11:07:47 Weight increased 080167300 Active 2024 MADELYN Barber [address] [place] [address], 05269-652 8, [employer] 11:13:38 Problem Notes None recorded. Procedures Surgical History Date Name Laterality Status Provider Name and Address Organization Details Recorded Time 06/19/19 Most Recent Mammogram completed [employer]. 04/28/2024 13:56:24 Caesarean Section completed [employer]. 03/15/2024 11:38:45 Gastric Bypass completed [employer]. 03/15/2024 11:38:45 Hernia Repair completed [employer]. 03/15/2024 11:38:45 Tonsillectomy completed [employer]. 03/15/2024 11:38:45 Tubal Ligation completed [employer]. 03/15/2024 11:38:45 Dilation and Curettage completed [employer]. 03/15/2024 11:38:45 Gallbladder Surgery completed [facility]. 03/15/2024 11:38:45 Cosmetic Surgery completed [employer]. 03/15/2024 11:38:45 Total Hysterectomy completed [employer]. 03/15/2024 11:38:45 Imaging Results None recorded. Procedure Notes None recorded. Medical Equipment None Reported. Allergies Allergen ID Allergen Name Allergen Category Reaction Reaction Severity Criticality Documentation Date Start Date Code Code System Note Provider Name and Address Organization Details Recorded Time 60006 Lamictal medicatio n Not available Not available Not available 03/15/2024 37977 2 [facility] [employer]. 11:48:26 37752 morphine medicatio n Not available Not available Not available 03/15/2024 7052 [facility] [employer]. 11:48:35 Medications Name Sig Start Date Stop [...] height Body mass index (BMI) Body weight Body temperature Heart rate Oxygen saturation Oxygen saturation in Arterial blood by Pulse oximetry Systolic And Diastolic Provider Name and Address Organization Details Last Updated DateTime 5 157.48 cm 39.7 kg/m2 41615.8 3 g 98.3 [degF] 92 /min 98 % 98 % 124/80 mm[Hg] [employer] 5 09:48:01 Date Recorded Body height Body mass index (BMI) Body weight Heart rate Oxygen saturation Oxygen saturation in Arterial blood by Pulse oximetry Body temperature Systolic And Diastolic Provider Name and Address Organization Details Last Updated DateTime 5 157.48 cm 42.3 kg/m2 999575. 54 g 77 /min 98 % 98 % 98 [degF] 122/80 mm[Hg] Sera Preston [employer] 5 15:34:57 Date Recorded Body height Body mass index (BMI) Body weight Oxygen saturation Oxygen saturation in Arterial blood by Pulse oximetry Heart rate Body temperature Systolic And Diastolic Provider Name and Address Organization Details Last Updated DateTime 5 157.48 cm 42.2 kg/m2 112786. 4 g 99 % 99 % 86 /min 98.3 [degF] 120/80 mm[Hg] [employer] 5 11:39:52 Date Recorded Body height Body mass index (BMI) Body weight Oxygen saturation Oxygen saturation in Arterial blood by Pulse oximetry Heart rate Body temperature Systolic And Diastolic Provider Name and Address Organization Details Last Updated DateTime 5 157.48 cm 44.5 kg/m2 543888. 66 g 98 % 98 % 98 /min 98 [degF] 126/84 mm[Hg] [employer] 5 09:18:38 Date Recorded Body height Body mass index (BMI) Body weight Oxygen saturation Oxygen saturation in Arterial blood by Pulse oximetry Heart rate Body temperature Systolic And Diastolic Provider Name and Address Organization Details Last Updated DateTime 5 157.48 cm 44.6 kg/m2 770816. 82 g 98 % 98 % 86 /min 97.6 [degF] 116/76 mm[Hg] Ruchi Medrano [employer] 5 10:56:44 Social History Question Answer Notes LastModified by Organizat ion Details LastModified Time Tobacco Smoking Status Never Smoker Ruchi Medrano riley [employer]. 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 [id number] Information not available 01/31/2025 Who Is Your Employer? [employer] Information no t available 03/15/2024 How Many [...] not available 01/31/2025 [facility] available 01/31/2025 Do You Have A Medical Power Of Correction Warden? No Information not available 03/15/2024 What Was [...] Functional Status Question Answer Note LastModified by [employer] ion Details LastModified Time Do you use [...] anxious, or unable to sleep at night)? [id number] Information not available 01/31/2025 Do you have [...] quadrivalent, PF 0 completed Ruchi Vice null, [employer] 04/28/2024 13:04:34 MMR 2 completed Ruchi Vice null, [employer] 04/28/2024 13:04:34 MMR 1 completed Ruchi Vice null, [employer] 04/28/2024 13:04:34 COVID-19, mRNA, LNP-S, PF, 30 mcg/0.3 mL dose 1 completed Ruchi Vice null, [employer] 04/28/2024 13:04:34 COVID-19, mRNA, LNP-S, PF, 30 mcg/0.3 mL dose 0 completed Ruchi Vice null, [employer] 04/28/2024 13:04:34 pneumococcal polysaccharide PPV23 9 completed Ruchi Vice null, [employer] 04/28/2024 13:04:34 Tdap 1 completed Ruchi Vice null, [employer] 04/28/2024 13:04:34 Hep B, adult 2 completed Ruchi Vice null, [employer] 04/28/2024 13:04:34 Hep B, adult 1 completed Ruchi Vice null, [employer] 04/28/2024 13:04:34 Hep A, adult 2 completed Ruchi Vice null, [employer] 04/28/2024 13:04:34 Hep A, adult 1 completed Ruchi Vice null, [employer] 04/28/2024 13:04:34 Influenza, split virus, quadrivalent, PF 3 completed Ruchi Vice null, [employer] 04/28/2024 13:04:34 Influenza, split virus, quadrivalent, PF 2 completed Ruchi Vice null, [employer] 04/28/2024 13:04:34 Past Encounters Encounter ID Performer Location Encounter Start Date Encounter Closed Date Diagnosis/Indication Diagnosis SNOMED-CT Code Diagnosis ICD10 Code Diagnosis IMO Codes Diagnosis Note [id number] MADELYN Barber [facility] [address] [place] [address] 03/15/2024 11:27:48 03/15/2024 12:28:11 Sore throat 828051362 J02.9 Acute tonsillitis 756623 08 J03.90 Body mass index 30+ - obesity 184462326 Z68.37 Long-term drug therapy 939289136 Z79.899 Anxiety 56752217 F41.9 Rheumatoid arthritis 698 16552 M06.9 Migraine 85338078 G43.90 9 Restless l egs syndrome 35029677 G25.81 [id number] Adelia Bedolla [address] [address] 04/28/2024 12:49:37 04/28/2024 13:21:55 Rheumatoid arthritis 31758833 M06.9 Restless l egs syndrome 36685086 G25.81 Body mass index 30+ - obesity 308934691 Z68.37 Migraine 18309455 G43.90 9 Screening for malignant neoplasm of colon 366286644 Z12.11 [id number] Adelia Bedolla[address] [address] 06/20/2024 08:28:01 06/20/2024 08:53:30 Rheumatoid arthritis 67089824 M06.9 Body mass index 30+ - obesity 967399549 Z68.37 Restless l egs syndrome 73862258 G25.81 Continue RequipHori zant [facility] [id number] Adelia Bedolla [address] [address] 08/22/2024 10:26:58 08/22/2024 10:54:20 Screening mammography 22119807 Z12.31 32838858 Migraine 81857126 G43.90 9 Nasal congestion 1011592 0 R09.81 63498 [id number] Adelia Bedolla[address] [address] 08/30/2024 17:18:56 08/30/2024 17:46:35 Sore throat 905084226 J02.9 [id number] [facility] 518278289 79.7 71744 [id number] Adelia Bedolla[address] [address] 09/19/2024 09:30:21 09/19/2024 10:03:58 Acute maxillary sinusitis 52007557 J01.00 29851508 Candidiasis of mouth 797 48611 B37.0 668769 Body fluid retention 434 27301 R60.9 Restless l egs syndrome 52970682 G25.81 Body mass index 30+ - obesity 771626366 Z68.37 [id number] Vivian GrahamDO [address] [address] 11/09/2024 15:22:58 11/09/2024 15:52:01 Acute headache 741310737 R51.9 932134117 Congestion of nasal sinus 22055742 R09.81 159960 Seasonal a llergic rhinitis 169346888 J30.89 44055756 keep using her rx nasal spray as it is helping Sore throat 108511062 J0 2.9 67855 due to allergy drainage [id number] Adelia Bedolla [address] [address] 11/15/2024 11:31:59 11/15/2024 12:34:05 Long-term current use of drug therapy 747370126 Z79.899 52236617 Candidiasis of mouth 797 03305 B37.0 201298 Edema of l ower extremity 395908375 R60.0 25261 Acute bact erial sinusitis 09911790 J01.90 B96.89 67768 Restless l egs syndrome 85409037 G25.81 Body mass index 30+ - obesity 996797782 Z68.37 Rheumatoid arthritis 698 80237 M06.9 [id number] Adelia Bedolla [address] [address] 01/31/2025 08:50:56 01/31/2025 09:42:48 Nausea and vomiting 73482255 R11.2 728099 rest, clear liquids, bland diet [id number] Adelia Bedolla [address] [address] 02/03/2025 10:44:23 02/03/2025 11:29:59 Edema of right lower limb 900909181 R60.0 56866306 Weight increased 3233066 00 R63.5 36912 Rheumatoid arthritis 698 20956 M06.9 Body mass index 30+ - obesity 098136863 Z68.37 Health Concerns Section Related Observation LastModified by Organization Detai ls LastModified Time None Recorded Concern Status LastModified by Organization Details LastModified Time None Recorded Advance Directives Directive N: Payers Insurance Date Sequence Insurance Name Policy Number Policy Palacios Covered Member ID Palacios Member ID Guarantor Name 11/23/2024 PAYMENT PLAN Raissa Felton 03/15/2024 1 [employer] Carrie Felton [id number] Raissa Felton 04/28/2024 1 [employer] Raissa Felton [id number] Raissa Felton 02/06/2025 1 [place] [id number] Raissa Felton [id number] Raissa Felton Notes Date Note Type Note Provider Name and Address Organization Details Recorded Time 09/19/2024 text/html ROS as noted in the HPI Ear pain, sinus pain,congestion, headache, fatigue X 3-4 days. Has been exposed to COVID. H/O RA. MADELYN Barber [address] [place] [address], [address], [employer]. 09/19/2024 10:45:03 11/09/2024 text/html COVID-19 Symptom s August 2019Reported by Patient Patient here today with several concerns. She has had some sinus congestion with head pressure and discomfort for the last several days and some sore throat and today her was diagnosed Covid positive and he has had the same symptoms as she has had as well and they have 4 young grandchildren that live with them in the house. No fever and no gi symptoms and her rx nasal spray is helping with her congestion. She wants to be tested also. Vivian Graham DO [address] [place], [address], [employer]. 11/09/2024 16:48:23 11/15/2024 text/html ROS as noted in the HPI Patient has headache, cough, sinus pain, congestion. Her tested positive for COVID19 last week but she tested negative. She has felt awful. Her face and hands are swollen (history of RA). She has gained weight. Also due for refills. MADELYN Barber [address] [place], [address], [employer]. 11/17/2024 16:57:28 01/31/2025 text/html ROS as noted in the HPI Patient started with nausea, cold sweats yesterday at work. No fever. Finished work, but did not feel bad. Tried to go to work this am but did not feel well. Vomits every day due to gastric bypass. Has not had an appetite. Stomach has been rumbling, but no diarrea. had stomach virus around 2 weeks ago.Granddaughter had ear infection last week.Took Zofran yesterday which did seem to help. Still has urine output. MADELYN Barber [address] [place], [address], [employer], [employer]. 02/02/2025 17:22:47 02/03/2025 text/html ROS as noted in the HPI Patient states that she is still having swelling in her right lower leg. Started approximately one month ago after riding in a vehicle to [place]. Was seen in ER. Did an Xray of her knee that was normal. Swelling goes down a little overnight, but not much. Worse by the end of the day. She also states that she is gaining weight despite eating less and taking in less calories and is concerned about that. MADELYN Barber [address] [place], [address], [employer] 02/06/2025 11:01:41 OBGyn Episode No OBEpisode recorded.
== END 2025-02-07 23:59 | disposition home or self-care (01) ==
LOC: RT 13:12
PROVIDERS: PCP Physician Assistant; Visit Provider Physician Assistant
DX: R60.0 Localized edema (principal); Z86.718 Personal history of other venous thrombosis and embolism
CPT/HCPCS: 93971